=== PATIENT | female | born 1975 | race Caucasian/White ===

== ENCOUNTER → 2017-06-26 09:08 | Outpatient (CLI) | payer BC, SELFPAY ==
[2017-06-26 11:10] LABS: Follicle Stimulating Hormone 5.6 mIU/mL; Free T3 2.7 pg/mL (2.18-3.98); T4 Free Direct 0.79 ng/dL (0.76-1.46); Thyroid Stim Hormone (TSH) 3.29 uIU/mL (0.358-3.74)
== END ==
PROVIDERS: Visit Provider Obstetrics & Gynecology
DX: R53.83 Other fatigue (principal)
CPT/HCPCS: 36415; 83001; 84439; 84443; 84481

== ENCOUNTER → 2017-09-16 08:00 | Outpatient (CLI) | payer BC, SELFPAY ==
--- NOTE | 2017-09-16 08:03 | BI_ITS ---
MAMMOGRAPHY - BILATERAL SCREENING REASON FOR EXAM: Female, 42 years old. Routine annual screening examination. PERTINENT HISTORY: Non-contributory. TECHNIQUE: Digital bilateral breast fareed (3D mammographic acquisition) in the CC and MLO projections. 2-D mediolateral oblique (MLO) and craniocaudad (CC) views of both breasts were obtained. CAD: Full Field Digital Mammography with Computer Added Detection was performed. COMPARISON: Comparison is made with prior study dated September 14, 2016 and September 14, 2015. FINDINGS: Breast Composition: The breasts are heterogeneously dense, which may obscure small masses. There are no dominant masses or suspicious calcifications. There are stable small benign-appearing bilateral axillary lymph nodes. No other significant abnormalities are identified. There has been no significant change since the prior study. BI/SCREENING MAMM (CAD), BILAT IMPRESSION: Stable bilateral screening mammogram. Yearly follow-up mammogram recommended. (A) ASSESSMENT CATEGORY: BIRADS Category 2: Benign. A letter regarding these results will be sent to the patient by the facility within 30 days. Approximately 10% of breast cancers are not detected by mammography. A normal mammogram should not delay biopsy of a clinically suspicious abnormality. [id number] Electronically Signed: Stephen Watters MD at 10:07 EDT Tel [phone], Service support ,
== END ==
PROVIDERS: Family Provider Physician Assistant; PCP Physician Assistant; Visit Provider Obstetrics & Gynecology
DX: Z12.31 Encounter for screening mammogram for malignant neoplasm of breast (principal)
CPT/HCPCS: 77063; 77067

== ENCOUNTER → 2018-09-17 | Outpatient (CLI) | payer BC, SELFPAY ==
--- NOTE | 2018-09-17 08:07 | BI_ITS ---
MAMMOGRAPHY - BILATERAL SCREENING 3-D TOMOSYNTHESIS REASON FOR EXAM: Female, 43 years old. Bilateral Screening 3-D tomosynthesis PERTINENT HISTORY: No significant family history. TECHNIQUE: 2-D mammograms and 3-D Tomosynthesis of the breast (s) were performed. CAD was performed. COMPARISON: September 16, 2017, September 14, 2016, September 14, 2015 FINDINGS: The breast composition is composed of scattered fibroglandular density. Scattered benign calcifications are seen. No dense spiculated masses or suspicious microcalcifications are identified. No architectural distortion is identified. There is no skin thickening or retraction. There has been no significant change since the prior study. BI/SCREEN MAMM (CAD) W/GARRETT BILAT IMPRESSION: No mammographic signs of malignancy. Routine yearly mammograms recommended. ASSESSMENT CATEGORY: BIRADS Category 1: Negative. A letter regarding these results will be sent to the patient by the facility within 30 days. FOLLOW UP RECOMMENDATION: Yearly follow up mammogram recommended. (A) Approximately 10% of breast cancers are not detected by mammography. A normal mammogram should not delay biopsy of a clinically suspicious abnormality. Electronically Signed: Nadir Wyman MD at 11:02 EDT , Service support ,
== END | disposition home or self-care (01) ==
LOC: OPBI 08:05
PROVIDERS: Family Provider Family Medicine; PCP Family Medicine; Referring Provider Family Medicine; Visit Provider Family Medicine
DX: Z12.31 Encounter for screening mammogram for malignant neoplasm of breast (principal)
CPT/HCPCS: 77063; 77067

== ENCOUNTER → 2018-11-18 | Outpatient (CLI) | payer BC, SELFPAY ==
[2018-11-18 11:21] LABS: ALB/GLOB Ratio 0.9 RATIO (0.9-2.4); AST(SGOT) 18 U/L (15-37); Alanine Aminotransfer ALT/SGPT 33 U/L (13-56); Albumin, Serum 3.3 g/dL (3.2-5.0); Alkaline Phosphatase 91 U/L (45-117); Anion Gap 7 (5-15); BUN 11 mg/dL (7-18); BUN/Creat Ratio 18.6 RATIO (10-20); Calcium,Total 8.8 mg/dL (8.5-10.1); Chloride 109 mmol/L (98-107); Cholesterol 161 mg/dL (200); Creatinine, Serum 0.59 mg/dL (0.55-1.02); EST Glomerular Filtration Rate 118 mL/min (>60); Est Glom Filt Rate - Afr Amer 143 mL/min (>60); Globulin 3.8 g/dL (2.2-4.2); Glucose 101 mg/dL (74-106); High Density Lipoprotein 48 mg/dL; Potassium 3.5 mmol/L (3.5-5.1); Protein, Total 7.1 g/dL (6.4-8.2); Sodium Level 143 mmol/L (136-145); Triglycerides 169 mg/dL; Very Low Density Lipoprotein 34 mg/dL (5-40)
== END | disposition home or self-care (01) ==
LOC: MTLAB 09:10
PROVIDERS: Family Provider Family Medicine; PCP Family Medicine; Referring Provider Family Medicine; Visit Provider Family Medicine
DX: Z00.00 Encounter for general adult medical examination without abnormal findings (principal); E78.5 Hyperlipidemia, unspecified
CPT/HCPCS: 36415; 80053; 80061

== ENCOUNTER → 2019-09-22 | Outpatient (CLI) | payer BC, SELFPAY ==
--- NOTE | 2019-09-22 07:17 | BI_ITS ---
MAMMOGRAPHY - BILATERAL SCREENING REASON FOR EXAM: Female, 44 years old. Routine annual screening examination. PERTINENT HISTORY: Non-contributory. TECHNIQUE: Digital bilateral breast garrett (3D mammographic acquisition) in the CC and MLO projections. 2-D mediolateral oblique (MLO) and craniocaudad (CC) views of both breasts were obtained. CAD: Full Field Digital Mammography with Computer Added Detection was performed. COMPARISON: Comparison is made with prior study dated September 17, 2018 and September 16, 2017. FINDINGS: Breast Composition: The breasts are heterogeneously dense, which may obscure small masses. There are no dominant masses or suspicious calcifications. Stable small benign-appearing bilateral axillary lymph nodes. No other significant abnormalities are identified. There has been no significant change since the prior study. BI/SCREEN MAMM (CAD) W/GARRETT BILAT IMPRESSION: Stable bilateral screening mammogram. Yearly follow-up mammogram recommended. (A) ASSESSMENT CATEGORY: BIRADS Category 2: Benign. A letter regarding these results will be sent to the patient by the facility within 30 days. Approximately 10% of breast cancers are not detected by mammography. A normal mammogram should not delay biopsy of a clinically suspicious abnormality. [id number] Electronically Signed: Stephen Watters, at 9:17 EDT , Service support ,
== END | disposition home or self-care (01) ==
LOC: OPBI 07:15
PROVIDERS: PCP Family Medicine; Referring Provider Family Medicine; Visit Provider Family Medicine
DX: Z12.31 Encounter for screening mammogram for malignant neoplasm of breast (principal)
CPT/HCPCS: 77063; 77067

== ENCOUNTER → 2019-10-29 16:11 | Outpatient (CLI) | payer BC, SELFPAY ==
[2019-10-29 18:41] LABS: CRP 8.18 mg/L (0.0-3.0)
[2019-10-29 19:44] LABS: Erythrocyte Sedimentation Rate 38 mm/hr (0-20)
== END ==
PROVIDERS: PCP Family Medicine
DX: T81.49XA Infection following a procedure, other surgical site, initial encounter (principal)
CPT/HCPCS: 36415; 85652; 86140

== ENCOUNTER 2019-11-02 15:01 | Emergency (ER) | payer BC, SELFPAY ==
[2019-11-02 15:01] VITALS: BP 137/80; PULSE 85; RESP 16; TEMP 36.8; O2SAT 96; BMI 32.8
--- NOTE | 2019-11-02 15:37 | ED.RN ---
PT'S SPOUSE STATED THEY JUST WERE GOING TO GO HOME, STATES PT IS GETTING AGITATED, HE FEELS SHE IS STABLE SINCE SHES ALREADY BEING TREATED FOR SYMPTOMS. VOICES UNDERSTANDING TO RETURN OR CALL 911 FOR SYMPTOMS.
== END 2019-11-02 15:37 | disposition left against medical advice (07) ==
LOC: ED 15:47
PROVIDERS: Emergency Provider Emergency Medicine; PCP Family Medicine
DX: Z53.21 Procedure and treatment not carried out due to patient leaving prior to being seen by health care provider (principal)

== ENCOUNTER 2020-01-12 09:00 | Outpatient (RCR) | payer BC, SELFPAY ==
--- NOTE | 2019-10-13 12:24 | HP.PTEVAL ---
Patient's Visit Information TRACY MALCOLM is a 44 year old F referred to Physical Therapy by OJ SIDHU with a diagnosis of L THR s/p 09-28-2019. Date of Evaluation: 10/13/19 Physical Therapist: BRAD Delgado - Visit Plan Frequency: 3x /Week Duration: 2 Months Plan: 3X/ week for 8 weeks ( requesting 3X/ week due to amount of weakness present and complexity of surgery due to hip displegia and shortened and weak musculature on the L) for L hip, knee and ankle ROM, stretching, MT, strengthening, gait training, functional training, with HEP and modalities as needed. +++Need to get clarification on current WB status... pt is not aware of WB status just that she is to use the walker. - Subjective Pt had surgery September 28, 2019. Pt was born with L hup dysplasia but did not notice it until she started walking. Until recently they told her to wait to have surgery. SHe was having problems with her R hip and she needs a replacement on the R but they started with theL THR. SHe has a new ball and new socket and cut 1.5 inches off her femur bone and placed a parish. They did a anterior and posterior approach. She could not get her surgery in [place] and so she went to [facility] in [place] and Dr Oj Sidhu MD .... fax . She describes the pain in her legs... tightness and achiness. They have her up and walking right after surgery. She has been walking at home. If she sits she gets a lot of swelling. She is doing HEP: foot pumps, squeeze butt cheeks, and one other one for blood clots. Stairs: split level (6 up and then another 6 up with 1 hand rail)... She does them with a step 2 pattenr and uses one railing. She has a walker at the top of the steps and one at the bottom of the steps. She fell the other day when she put full weight through her L leg and it buckled. She is able to get in and out of the shower... today was the first day to take a shower on her own. She is not driving. SHe has always been a toe walker.... - Pain L hip pain Pain Intensity (Out of 10): 3 Pain Intensity Range: 10 Comment: on pain meds - Objective Gait: walks with decreased heel to toe especially on the L LE.... with a front wheeled walker with small steps and heavy use of the walker. Pt walks with decrease pressure throught the L LE. L DF -10 degrees from neutral. L knee flexion 120 degrees (Extremely tight L gastroc). L knee extension -20 degrees from full extension after MT to the L HS and some manual therapist OP. (was -30 degrees extension prior to MT). Pt needs min A to get L leg up on the mat table... Pt is not able to complete LAQ on the L due to decreased ability to extend her L knee. MMT was not tested due to surgical procedure but pt is NOT able to do a SLR and therapist needed to help with MOD A to elevate L SLR on the L. Pt is unable to activate L hip abductors in supine and resisted AA due to increase pain. - Goals Goal 1:: I HEP Goal Time Frame: 8-12 Weeks Goal 2:: Pt to achieve full knee extension AROM and Ankle DF to neutral or greater ROM to achieve normal gait pattern. Pt has a lot of soft tissue restriction from never walking with a normal gait pattern entire life due to hip dysplasia Goal Time Frame: 8-12 Weeks Goal 3:: Increase L hip strength to be able to do 3 X 10 SLR, s/l Hip abd without pain or difficulty Goal Time Frame: 8-12 Weeks Goal 4:: Pt to be able to walk without an AD with non antalgic gait with smooth heel to toe pattern on the L Goal Time Frame: 8-12 Weeks - Rehabilitation Potential Rehabilitation Potential: Good - Anticipated Interventions Patient/Client Instruction: Educate patient on: Condition, Plan of Care For the Purpose of:: To decrease pain, To decrease swelling/inflammation, To increase ROM, To improve nutrient delivery to tissue, To improve muscle performance and motor function, To improve ability to perform ADL's, To increase tolerance to activity/condition/position, To improve performance and independence with ADL's, To decrease level of supervision to perform tasks, To improve ability of physical actions for home/community/work/leisure, To improve gait and locomotor functions, To improve health of tissue, To decrease soft tissue restriction, To increase flexibility/ROM, To improve endurance, To improve balance, To improve safety with gait Therapeutic Exercise to Include: Strength training, Endurance training, Postural training, Flexibilty training, Gait and locomotor training, Passive ROM, Active ROM For the Purpose of:: To decrease pain, To decrease swelling/inflammation, To increase ROM, To improve nutrient delivery to tissue, To improve muscle performance and motor function, To improve ability to perform ADL's, To increase tolerance to activity/condition/position, To improve performance and independence with ADL's, To decrease level of supervision to perform tasks, To improve ability of physical actions for home/community/work/leisure, To improve gait and locomotor functions, To improve health of tissue, To decrease soft tissue restriction, To increase flexibility/ROM, To improve endurance, To improve balance, To improve safety with gait Functional Training to Include: Gait training For the Purpose of:: To improve gait and locomotor functions Manual Therapy Techniques to Include: Soft tissue mobilization For the Purpose of:: To decrease swelling/inflammation, To increase ROM, To improve nutrient delivery to tissue, To improve health of tissue, To decrease soft tissue restriction, To increase flexibility/ROM Cryotherapy (ice pack, ice massage): Yes For the Purpose of:: To decrease pain, To decrease swelling/inflammation, To increase ROM, To improve nutrient delivery to tissue Thank you for the opportunity to evaluate your patient. For Medicare and Medicare HMO plans, please review the plan of care and approve it. It will need to be FAXED BACK to us at [phone] for Medicare purposes. For Medicare only, by signing this I certify the plan of care. Please let me know if there are questions or concerns regarding this plan of care. Physician Signature: Date:
--- NOTE | 2019-11-24 09:03 | HP.PTREVAL_ITS ---
OJ SIDHU, It has been my pleasure to treat TRACY MALCOLM over the last 8 visits for L THR s/p 09-28-2019. Please see the progress note below for an update on the physical therapy plan of care! Subjective: Pt had surgery a week ago to cut out the infection. They did not have to change the prosthesis. She is still walking at home and doing her steps and exercises. Pt RTD to get stitches out on Saturday. She was out of it after the surgery. She complains of stiffness this morning. She gets some nerve pain around the incision but none now. Objective/Function: Pt was more fatigued muscular zapata today probably due to second surgery... L SLR.... still difficulty to do.... can only do X 10 at a time as she does fatigue out with trunk substitution. Stairs: up and down recip with 2 hand rails with decrease stance time on the L and decreased DF so pt likes to go into knee valgus and L foot eversion to compensate. Pt really felt her L Quad with correction of knee valgus. Gait: Pt walks with substitution of L knee valgus and eversion of L ankle for true DF ROM.. corrects with verbal cues. Decrease stance time on the L LE, obvious decreased girth L leg. Extremely tight L gastroc. L ankle DF: -10 degrees from neutral Plan Plan: Contact [facility] for additional visits due to second surgery a week ago and increased stiffness, decreased gait mechanics, decreased functional strength, decreased ankle ROM, and compensation patterns. Request 9 additional visits. Pt will continue to work on L hip strength, ROM, gait mechanics, functional activities with HEP. Goals Goal 1:: I HEP Goal Time Frame: 8-12 Weeks Goal Progress: Progressing Goal 2:: Pt to achieve full knee extension AROM and Ankle DF to neutral or greater ROM to achieve normal gait pattern. Pt has a lot of soft tissue restriction from never walking with a normal gait pattern entire life due to hip dysplasia Goal Time Frame: 8-12 Weeks Goal Progress: Progressing Goal 3:: Increase L hip strength to be able to do 3 X 10 SLR, s/l Hip abd without pain or difficulty Goal Time Frame: 8-12 Weeks Goal Progress: Progressing Goal 4:: Pt to be able to walk without an AD with non antalgic gait with smooth heel to toe pattern on the L Goal Time Frame: 8-12 Weeks Goal Progress: Progressing Anticipated Interventions Patient/Client Instruction: Educate patient on: Condition, Plan of Care For the Purpose of:: To decrease pain, To decrease swelling/inflammation, To increase ROM, To improve nutrient delivery to tissue, To improve muscle performance and motor function, To improve ability to perform ADL's, To increase tolerance to activity/condition/position, To improve performance and independence with ADL's, To decrease level of supervision to perform tasks, To improve ability of physical actions for home/community/work/leisure, To improve gait and locomotor functions, To improve health of tissue, To decrease soft tiss ue restriction, To increase flexibility/ROM, To improve endurance, To improve balance, To improve safety with gait Therapeutic Exercise to Include: Strength training, Endurance training, Postural training, Flexibilty training, Gait and locomotor training, Passive ROM, Active ROM For the Purpose of:: To decrease pain, To decrease swelling/inflammation, To increase ROM, To improve nutrient delivery to tissue, To improve muscle performance and motor function, To improve ability to perform ADL's, To increase tolerance to activity/condition/position, To improve performance and independence with ADL's, To decrease level of supervision to perform tasks, To improve ability of physical actions for home/community/work/leisure, To improve gait and locomotor functions, To improve health of tissue, To decrease soft tissue restriction, To increase flexibility/ROM, To improve endurance, To improve balance, To improve safety with gait Functional Training to Include: Gait training For the Purpose of:: To improve gait and locomotor functions Manual Therapy Techniques to Include: Soft tissue mobilization For the Purpose of:: To decrease swelling/inflammation, To increase ROM, To improve nutrient delivery to tissue, To improve health of tissue, To decrease soft tissue restriction, To increase flexibility/ROM Cryotherapy (ice pack, ice massage): Yes For the Purpose of:: To decrease pain, To decrease swelling/inflammation, To increase ROM, To improve nutrient delivery to tissue Please do not hesitate to contact me at [phone] by phone or if you have questions or concerns regarding this new plan of care! Sincerely, Kamila Young, BRAD
--- NOTE | 2019-12-08 09:56 | HP.PTREVAL ---
OJ SIDHU, It has been my pleasure to treat TRACY MALCOLM over the last 10 visits for L THR s/p 09-28-2019. Please see the progress note below for an update on the physical therapy plan of care! Subjective: Pt reports that she is sore since she walked the fair. She got the stitches out and took steri-strips off yesterday and it looks good. 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 Objective/Function: Pt really felt the 8 inch step up with using her UE less and less. L hip AAROM to 90 degrees. L knee ext AROM -1 degree from full extension. L ankle DF AROM: -2 degrees from neutral Plan Plan: Pt will continue to work on L hip strength, ROM, gait mechanics, functional activities with HEP. Goals Goal 1:: I HEP Goal Time Frame: 8-12 Weeks Goal Progress: Progressing Goal 2:: Pt to achieve full knee extension AROM and Ankle DF to neutral or greater ROM to achieve normal gait pattern. Pt has a lot of soft tissue restriction from never walking with a normal gait pattern entire life due to hip dysplasia Goal Time Frame: 8-12 Weeks Goal Progress: Progressing Goal 3:: Increase L hip strength to be able to do 3 X 10 SLR, s/l Hip abd without pain or difficulty Goal Time Frame: 8-12 Weeks Goal Progress: Progressing Goal 4:: Pt to be able to walk without an AD with non antalgic gait with smooth heel to toe pattern on the L Goal Time Frame: 8-12 Weeks Goal Progress: Progressing Anticipated Interventions Patient/Client Instruction: Educate patient on: Condition, Plan of Care For the Purpose of:: To decrease pain, To decrease swelling/inflammation, To increase ROM, To improve nutrient delivery to tissue, To improve muscle performance and motor function, To improve ability to perform ADL's, To increase tolerance to activity/condition/position, To improve performance and independence with ADL's, To decrease level of supervision to perform tasks, To improve ability of physical actions for home/community/work/leisure, To improve gait and locomotor functions, To improve health of tissue, To decrease soft tissue restriction, To increase flexibility/ROM, To improve endurance, To improve balance, To improve safety with gait Therapeutic Exercise to Include: Strength training, Endurance training, Postural training, Flexibilty training, Gait and locomotor training, Passive ROM, Active ROM For the Purpose of:: To decrease pain, To decrease swelling/inflammation, To increase ROM, To improve nutrient delivery to tissue, To improve muscle performance and motor function, To improve ability to perform ADL's, To increase tolerance to activity/condition/position, To improve performance and independence with ADL's, To decrease level of supervision to perform tasks, To improve ability of physical actions for home/community/work/leisure, To improve gait and locomotor functions, To improve health of tissue, To decrease soft tissue restriction, To increase flexibility/ROM, To improve endurance, To improve balance, To improve safety with gait Functional Training to Include: Gait training For the Purpose of:: To improve gait and locomotor functions Manual Therapy Techniques to Include: Soft tissue mobilization For the Purpose of:: To decrease swelling/inflammation, To increase ROM, To improve nutrient delivery to tissue, To improve health of tissue, To decrease soft tissue restriction, To increase flexibility/ROM Cryotherapy (ice pack, ice massage): Yes For the Purpose of:: To decrease pain, To decrease swelling/inflammation, To increase ROM, To improve nutrient delivery to tissue Please do not hesitate to contact me at [phone] by phone or if you have questions or concerns regarding this new plan of care! Sincerely, BRAD Delgado
--- NOTE | 2020-01-12 10:03 | HP.PTDCSUM ---
It has been my pleasure to treat TRACY MALCOLM referred by OJ SIDHU, with the diagnosis of L THR s/p 09-28-2019 for a total of 14 visit(s). Discharge Date: 01/12/20 Please see the following information for a summary of their discharge status. Subjective: Pt reports that she has been walking better and working out at home everyday. She is up to 2 miles a day on the treadmill and she has to stop twice because the muscle get burning really bad... she was not watching her speed and she was not power walking L hip pain Pain Intensity (Out of 10): 0 LLE MUSCLES Pain Intensity (Out of 10): 0 Incision Pain Intensity (Out of 10): 0 % Improvement: 85 Objective/Function: Stairs: up and down recip with no hand rails with wider NICCI and increase valgus on the L knee.... encouraging continued hip abd strength. Gait: walks with more equal stance time with increase valgus on the L knee (due to weak hip abd or hindfoot eversion???). LE MMT: L hip abd 4-/5, R hip abd 4/5, R hip ext 4-/5, L hip ext 4/5, R hip flex 4/5 and L hip flex 4/5. L ankle DF to neutral AROM... L ankle AROM: Goal 1:: I HEP Goal Progress: Goal Met Goal 2:: Pt to achieve full knee extension AROM and Ankle DF to neutral or greater ROM to achieve normal gait pattern. Pt has a lot of soft tissue restriction from never walking with a normal gait pattern entire life due to hip dysplasia Goal Progress: Progressing Goal 3:: Increase L hip strength to be able to do 3 X 10 SLR, s/l Hip abd without pain or difficulty Goal Progress: Goal Met Goal 4:: Pt to be able to walk without an AD with non antalgic gait with smooth heel to toe pattern on the L Goal Progress: Goal Met Plan: DC PT to HEP Discharge Comments: DC PT to HEP If there are questions or concerns regarding this patient's physical therapy, please feel free to call me at [phone]. Thank you for the referral of this patient. Sincerely, Kamila Young, MPT
== END 2020-01-12 19:00 | disposition home or self-care (01) ==
LOC: PT 09:00
PROVIDERS: PCP Family Medicine
DX: M16.32 Unilateral osteoarthritis resulting from hip dysplasia, left hip (principal)
CPT/HCPCS: 97110; 97116; 97162; 97530

== ENCOUNTER 2020-05-11 21:39 | Emergency (ER) | payer BC, SELFPAY ==
[2020-05-11 21:42] VITALS: BP 139/76; PULSE 89; RESP 14; TEMP 36.9; O2SAT 98; BMI 28.3
--- NOTE | 2020-05-11 22:05 | ED.DCSUM_ITS ---
- ER Visit Summary Date of Service: 05/11/20 Chief Complaint: Depression History of Present Illness: The patient is a 44 F who reports that she sees Dr. Khan. She does not see a psychiatrist. She began counseling 2 days ago. She reports that she is been having problems with her since before [place] and that tonight she got to her wits end. She states that she feels alone and hopeless. Her will talk with her. She asked her 20-year-old daughter today how her was doing and she got nasty with her. She states that she slammed the door and told her daughter to get the fuck out and not come back. She is very upset because she is never talked with her daughter like this previously. However, the patient denies any suicidal or homicidal ideation. No auditory visual hallucinations. Physical Examination: Vitals: Stable. Afebrile. General: Well-nourished and well-developed. Head: Normocephalic atraumatic. Neck: Supple, no lymphadenopathy. No JVD. Nontender. Cardiovascular: Regular rate and rhythm. No murmurs. Respiratory: No respiratory distress. Clear to auscultation bilaterally. Abdominal: Soft, nontender, nondistended, normal bowel sounds. No guarding, rebound, or peritoneal signs. Back: Nontender. Extremities: Nontender, no edema. Skin: Normal color, no rash. Neurologic: Alert and oriented ?3. Cranial nerves II through XII are intact. Normal strength and sensation. Mental status exam: Patient appears their stated age. Good posture and grooming. Good eye contact. Normal rate, volume, and latency of speech. No suicidal or homicidal ideation. No auditory or visual hallucinations. Flow of thought is logical. Insight and judgment is fair. Emergency Department Course and Treatment: I had a prolonged discussion with patient about what we could do to help her. She states that she is just upset and would like to go home. I spoke with her about the possibility of talking with a counselor from the counseling center. She states that she does not like the counseling center and goes [facility]. She believes that she can get a hold of her counselor tomorrow. We talked about the possibility of changing her medications. However, it sounds as though she has had bad luck with medication changes in the past. Treatment Plan: Patient be discharged instructions to follow-up with her counselor and her primary care physician who prescribes her antidepressants as soon as possible. Return to emerge department for any thoughts of harming herself. Disposition: To home in improved and stable condition. Impression: 1 1. Depression. This note was generated with [employer] software. It may contain incorrect words, spelling, and punctuation that were not noted in review of the chart prior to signing ED Disposition - Plan for ED Patient: Disposition: Home or Assisted Living Instructions: ED Depression Referrals: Aida Khan, [Primary Care Provider] - As soon as possible Additional Instructions: Follow up with your Counselor as soon as possible.
== END 2020-05-11 22:06 | disposition home or self-care (01) ==
LOC: ED 22:20
PROVIDERS: Emergency Provider Emergency Medicine; PCP Family Medicine
DX: F32.9 Major depressive disorder, single episode, unspecified (principal); Z72.0 Tobacco use
CPT/HCPCS: 99282

== ENCOUNTER 2020-07-28 14:51 | Emergency (ER) | payer BC, SELFPAY ==
[2020-07-28] VITALS (9 sets, daily range): BP systolic 116–127; BP diastolic 62–77; PULSE 79–102; RESP 14–17; TEMP 36.4; O2SAT 96–97; BMI 26.2
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
--- NOTE | 2020-07-28 17:30 | EDS_ITS ---
HPI HPI - Psych History of Present Illness Chief Complaint: Mental Health Narrative Narrative: Patient reports that she is going through a divorce and is not doing well. She is having anger that is so bad that she is scaring herself. She also felt reports that she feels depressed and hopeless. She is having suicidal thoughts. She denies any homicidal ideation. Patient reports that she has a history of bipolar disorder and has taken her Zoloft and Seroquel religiously. She saw her primary care physician was placed on a new medication approximate month ago. She does not remember the name of this. It is not helping. [facility] Medical History (Updated 07/28/20 @ 17:43 by Lucia Espitia) Anxiety Depression High cholesterol Home Medications sertraline 100 mg PO BID 09/08/14 [History Last Taken Unknown] Omeprazole [Prilosec] 40 mg PO DAILY 11/23/15 [History Last Taken 11/29/15 07:30] multivitamin [Daily Multiple] 1 ea PO DAILY 11/23/15 [History Last Taken Unknown] quetiapine [Seroquel] 400 mg PO QHS 11/23/15 [History Last Taken Unknown] rosuvastatin [Crestor] 20 mg PO QHS 11/23/15 [History Last Taken Unknown] ibuprofen 800 mg PO Q6H #30 tablet 11/29/15 [Rx Last Taken Unknown] hydrocodone-acetaminophen 1 - 2 tab PO Q4H PRN PRN #30 tablet 05/16/16 [Rx Last Taken Unknown] Ca-D3-mag wc-iivp-mqz-[place]-bor 1 ea PO DAILY 05/28/16 [History Last Taken Unknown] amoxicillin 500 mg PO TID 06/04/16 [History Last Taken 06/04/16 06:00] hydrocodone-acetaminophen 2 tab PO Q6H PRN PRN #40 tablet 06/04/16 [Rx Last Taken Unknown] ibuprofen 800 mg PO Q8H PRN PRN #30 tablet 06/04/16 [Rx Last Taken Unknown] docusate sodium [Colace] 100 mg PO BID #30 capsule 06/08/16 [Rx Last Taken Unknown] promethazine 25 mg PO Q6H PRN PRN #30 tablet 06/08/16 [Rx Last Taken Unknown] Allergy/AdvReac Type Severity Reaction Status Date / Time oxycodone [From Percocet] AdvReac ITCHING, Verified 07/28/20 14:55 HALLUCINATIONS Social History Smoking Status: Current every day smoker ROS ROS ED Constitutional Constitutional ED: Denies chills, fever(s) or sweats Eyes Eyes: Denies change in vision ENT ENT ED: Denies sore throat Cardiovascular Cardiovascular: Denies chest pain Respiratory/Chest Respiratory/Chest: Denies cough, dyspnea or dyspnea on exertion Gastrointestinal Gastrointestinal: Denies abdominal pain, diarrhea, melena, nausea or vomiting Genitourinary Genitourinary ED: Denies dysuria or urinary frequency Musculoskeletal Musculoskeletal: Denies myalgias Integumentary Denies rash Neurologic Neurologic: Denies headache(s), paresthesias or weakness Psychiatric Psychiatric: Reports anxiety, depression, suicidal ideation and other EXAM Physical Exam Const Vital Signs: 07/28/20 14:53 07/28/20 16:15 07/28/20 17:42 Temperature 97.6 F L Temperature Source Temporal Pulse Rate 102 H Respiratory Rate 17 16 16 Blood Pressure 116/62 Blood Pressure Mean 80 Pulse Ox 96 Oxygen Delivery Method Room Air 07/28/20 18:32 07/28/20 19:39 Temperature Temperature Source Pulse Rate 79 Respiratory Rate 16 16 Blood Pressure 127/77 H Blood Pressure Mean 93 Pulse Ox 97 Oxygen Delivery Method Room Air Positive well nourished and well developed General Appearance ED: well developed HEENT normocephalic and atraumatic Eyes PERRL Neck no lymphadenopathy, supple and no JVD General: Negative for tenderness Chest Wall Chest: Negative for tenderness Resp clear to auscultation bilaterally Effort and Inspection: Negative for respiratory distress Cardio regular rate, regular rhythm and no murmurs GI normal to inspection, nondistended, normoactive bowel sounds, soft to palpation and non-tender GI Narrative: No guarding, rebound, or peritoneal signs. Back/Spine no thoracic nor lumbar tenderness Extremity General Extremety ED: Negative for edema or tenderness General Extremity: Negative for edema Neuro oriented x3, CN's II-XII intact bilaterally and no sensory deficits noted Sensorium / Orientation: awake and alert Motor Exam: strength 5/5 throughout Psych denies hallucinations and denies homicidal ideation; Negative for denies suicidal ideation Psych Narrative: Mental status exam: Patient appears their stated age. Good posture and grooming. Good eye contact. Normal rate, volume, and latency of speech. No homicidal ideation. No auditory or visual hallucinations. Flow of thought is logical. Insight and judgment is fair. Skin no rashes or lesions noted MDM MDM MDM Narrative Medical decision making narrative: Patient was discussed with case management. They have seen her in the emergency department and anticipate transferring her to a psychiatric facility. She is resting comfortably. Treatment plan: The patient is medically cleared. She will be transferred to a psychiatric hospital once she has been accepted. She is resting comfortably. Lab Data Labs: Laboratory Results - last 24 hr 07/28/20 07/28/20 07/28/20 17:38 17:38 17:38 WBC 12.5 H RBC 4.22 Hgb 13.0 Hct 39.1 MCV 92.7 MCH 30.8 MCHC 33.2 RDW Std Deviation 51.1 H RDW Coeff of Patrick 15.0 H Plt Count 446 MPV 9.7 Immature Gran % (Auto) 0.300 Neut % (Auto) 68.0 Lymph % (Auto) 23.5 [place] % (Auto) 5.8 Eos % (Auto) 1.6 Baso % (Auto) 0.8 Absolute Neuts (auto) 8.5 H Absolute Lymphs (auto) 2.94 Nucleated RBC % 0 Sodium 140 Potassium 3.5 Chloride 106 Carbon Dioxide 28.0 Anion Gap 6 BUN 5 L Creatinine 0.54 L Estim Creat Clear Calc 108.83 Est GFR (MDRD) Af Amer 157 Est GFR (MDRD) Non-Af 130 BUN/Creatinine Ratio 9.3 L Glucose 99 Calcium 9.2 Total Bilirubin 0.40 AST 13 L ALT 21 Alkaline Phosphatase 114 Total Protein 7.7 Albumin 3.6 Globulin 4.1 Albumin/Globulin Ratio 0.9 Serum , Qual Urine Opiates Screen Urine Methadone Screen Ur Barbiturates Screen Ur Phencyclidine Scrn Ur Amphetamines Screen U Methamphetamin-MDMA U Benzodiazepines Scrn Urine Cocaine Screen U Cannabinoids Screen Ur Drug Screen Comment Ethyl Alcohol 4.0 07/28/20 07/28/20 17:38 17:44 WBC RBC Hgb Hct MCV MCH MCHC RDW Std Deviation RDW Coeff of Patrick Plt Count MPV Immature Gran % (Auto) Neut % (Auto) Lymph % (Auto) [place] % (Auto) Eos % (Auto) Baso % (Auto) Absolute Neuts (auto) Absolute Lymphs (auto) Nucleated RBC % Sodium Potassium Chloride Carbon Dioxide Anion Gap BUN Creatinine Estim Creat Clear Calc Est GFR (MDRD) Af Amer Est GFR (MDRD) Non-Af BUN/Creatinine Ratio Glucose Calcium Total Bilirubin AST ALT Alkaline Phosphatase Total Protein Albumin Globulin Albumin/Globulin Ratio Serum , Qual NEGATIVE Urine Opiates Screen NEGATIVE Urine Methadone Screen NEGATIVE Ur Barbiturates Screen NEGATIVE Ur Phencyclidine Scrn NEGATIVE Ur Amphetamines Screen NEGATIVE U Methamphetamin-MDMA NEGATIVE U Benzodiazepines Scrn NEGATIVE Urine Cocaine Screen NEGATIVE U Cannabinoids Screen POSITIVE H Ur Drug Screen Comment Ethyl Alcohol Microbiology Final Results - last 24 hrs 07/28/20 19:10 SARS-CoV-2 Antigen (Rapid) - Final Nasal Secretion Discharge Plan Triage Chief Complaint: Mental Health ED Provider: Juan Blevins Dx/Rx/DC Orders Prescriptions: No Action sertraline 100 MG tablet 100 mg PO BID RF: 0 multivitamin [Daily Multiple] 1 EACH tablet 1 ea PO DAILY RF: 0 rosuvastatin [Crestor] 20 MG tablet 20 mg PO QHS RF: 0 quetiapine [Seroquel] 400 MG tablet 400 mg PO QHS RF: 0 Omeprazole [Prilosec] 40 MG capsule 40 mg PO DAILY RF: 0 ibuprofen 400 MG tablet 800 mg PO Q6H Qty: 30 RF: 1 Ca-D3-mag ax-smng-lts-[place] 1 EACH Tab.Chew 1 ea PO DAILY RF: 0 amoxicillin 500 MG capsule 500 mg PO TID RF: 0 hydrocodone-acetaminophen 1 TABLET tablet 2 tab PO Q6H PRN PRN (Reason: Severe Pain (6-01/01)) Qty: 40 RF: 0 ibuprofen 400 MG tablet 800 mg PO Q8H PRN PRN (Reason: pain or cramping) Qty: 30 RF: 1 docusate sodium [DOK] 100 MG capsule 100 mg PO BID Qty: 30 RF: 1 promethazine 25 MG tablet 25 mg PO Q6H PRN PRN (Reason: Nausea) Qty: 30 RF: 0 hydrocodone-acetaminophen 1 TABLET tablet 1 - 2 tab PO Q4H PRN PRN (Reason: Pain) Qty: 30 RF: 0 Primary Care Provider: Aida Khan
[2020-07-28 18:06] LABS: Absolute Lymphocyte Count 2.94 X10^3/uL (0.83-4.51); Absolute Neutrophil Count 8.5 X10^3/uL (2.0-7.7); Basophil% 0.8 % (0-1); Eosinophils% 1.6 % (0-5); Hematocrit 39.1 % (37-47); Lymphocyte # 2.94 X10^3/ul (0.83-4.51); Lymphocyte % 23.5 % (19-41); Mean Corp Hgb Conc 33.2 g/dL (32-36); Mean Corpuscular Hgb 30.8 pg (27.0-32.0); Mean Corpuscular Volume 92.7 fL (81-99); Mean Platelet Vol. 9.7 fl (6.2-12.0); Monocyte# 0.73 X10^3/uL; Monocyte% 5.8 % (0-10); NRBC Flagged by Analyzer 0 % (0-5); Platelet Count 446 K/mm3 (150-450); RBC Distribution Width SD 51.1 fl (35.1-43.9); Red Blood Count 4.22 M/mm3 (4.2-5.4); White Blood Count 12.5 K/mm3 (4.4-11.0)
[2020-07-28 18:15] LABS: ALB/GLOB Ratio 0.9 RATIO (0.9-2.4); AST(SGOT) 13 U/L (15-37); Alanine Aminotransfer ALT/SGPT 21 U/L (13-56); Albumin, Serum 3.6 g/dL (3.2-5.0); Alkaline Phosphatase 114 U/L (45-117); Anion Gap 6 (5-15); BUN 5 mg/dL (7-18); BUN/Creat Ratio 9.3 RATIO (10-20); Calcium,Total 9.2 mg/dL (8.5-10.1); Chloride 106 mmol/L (98-107); Creatinine, Serum 0.54 mg/dL (0.55-1.02); EST Glomerular Filtration Rate 130 mL/min (>60); Est Glom Filt Rate - Afr Amer 157 mL/min (>60); Estimated Creatinine Clearance 108.83 ml/min; Globulin 4.1 g/dL (2.2-4.2); Glucose 99 mg/dL (74-106); Potassium 3.5 mmol/L (3.5-5.1); Protein, Total 7.7 g/dL (6.4-8.2); Sodium Level 140 mmol/L (136-145)
[2020-07-28 18:36] LABS: Amphetamine Urine VISTA NEGATIVE (<1000 ng/mL); Barbiturate Urine VISTA NEGATIVE (< 200 ng/mL); Benzodiazepine Urine VISTA NEGATIVE (< 200 ng/mL); Cocaine Urine VISTA NEGATIVE (< 300 ng/mL); Ecstacy Urine VISTA NEGATIVE (< 500 ng/mL); Methadone Urine VISTA NEGATIVE (< 300 ng/mL); PCP Urine VISTA NEGATIVE (< 25 ng/mL); THC Urine VISTA POSITIVE (< 50 ng/mL); Vista UDS pH Range 6
[2020-07-28] MEDS: Ibuprofen 600 MG Tablet PO (19:02)
[2020-07-28 19:25] LABS: Internal QC Validated? YES +Cl - CLEAR BKGD; Pregnancy, Serum, hCG Quali. NEGATIVE Negative
--- NOTE | 2020-07-28 19:40 | CM.ED ---
SOCIAL WORK Referral has been faxed and called to [facility], pending review at this time. Do Shell, PARTY COORDINATOR, MACHINE GROUP LEADER
--- NOTE | 2020-07-28 20:30 | CM.ED ---
SOCIAL WORK Handoff given to ED escrow secretary, Micheline and Dr. Blevins. Patient pending at [facility] at end of SW shift. [facility] to call ER with accepting information. 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
--- NOTE | 2020-07-28 20:32 | CM.ED ---
SOCIAL WORK Patient declined at [facility]. Call to [facility]. No beds available. Call to [facility]. Referral faxed at this time, pending review. [employer], TRANSMITTER TESTER, SPEECH AND LANGUAGE TUTOR
[2020-07-28] MEDS: QUEtiapine 100 MG Tablet 400 MG PO (23:10)
[2020-07-28] MEDS: Sertraline 100 MG Tablet PO (23:11)
[2020-07-28] MEDS: Ziprasidone IM 20 MG/ML VIAL IM (23:12)
[2020-07-29 01:59] VITALS: RESP 16
[2020-07-29 03:07] VITALS: BP 109/68; PULSE 73; RESP 16; TEMP 36.4; O2SAT 93
== END 2020-07-29 03:23 ==
LOC: ED 17:12
PROVIDERS: Emergency Provider Emergency Medicine; PCP Family Medicine
DX: R45.851 Suicidal ideations (principal); F31.9 Bipolar disorder, unspecified; E78.00 Pure hypercholesterolemia, unspecified; F17.200 Nicotine dependence, unspecified, uncomplicated; Z79.899 Other long term (current) drug therapy
CPT/HCPCS: 80053; 80307; 82077; 84703; 85025; 87426; 96372; 99285; J3486

== ENCOUNTER → 2020-09-29 08:17 | Outpatient (CLI) | payer BC, SELFPAY ==
[2020-07-28 14:53] VITALS: BMI 26.2
--- NOTE | 2020-09-29 08:20 | BI_ITS ---
MAMMOGRAPHY - BILATERAL SCREENING REASON FOR EXAM: Female, 45 years old. Routine annual screening examination. PERTINENT HISTORY: Non-contributory. TECHNIQUE: Digital bilateral breast garrett (3D mammographic acquisition) in the CC and MLO projections. 2-D mediolateral oblique (MLO) and craniocaudad (CC) views of both breasts were obtained. CAD: Full Field Digital Mammography with Computer Added Detection was performed. COMPARISON: Comparison is made with prior examination dated 09/22/2019 and 09/17/2018. FINDINGS: Breast Composition: The breasts are heterogeneously dense, which may obscure small masses. There are no dominant masses or suspicious calcifications. Stable small benign appearing bilateral axillary lymph nodes. No other significant abnormalities are identified. There has been no significant change since the prior study. BI/SCRN MAMM (CAD)W/GARRETT BILAT IMPRESSION: Stable bilateral screening mammogram. Yearly follow-up mammogram recommended. (A) ASSESSMENT CATEGORY: BIRADS Category 2: Benign. A letter regarding these results will be sent to the patient by the facility within 30 days. Approximately 10% of breast cancers are not detected by mammography. A normal mammogram should not delay biopsy of a clinically suspicious abnormality. [id number] Electronically Signed: Stephen Watters MD at 9:02 EDT , Service support ,
== END ==
PROVIDERS: PCP Family Medicine; Referring Provider Family Medicine; Visit Provider Family Medicine
DX: Z12.31 Encounter for screening mammogram for malignant neoplasm of breast (principal)
CPT/HCPCS: 77063; 77067

== ENCOUNTER → 2021-03-20 | Outpatient (CLI) | payer BC, SELFPAY | END | disposition home or self-care (01) | LOC: LABSPEC 13:50 | PROVIDERS: PCP Family Medicine; Referring Provider Physician Assistant; Visit Provider Physician Assistant | DX: Z20.822 Contact with and (suspected) exposure to COVID-19 (principal) | CPT/HCPCS: 87635; U0005; U0003 ==

== ENCOUNTER 2021-04-24 09:59 | Outpatient (CLI) | payer BC, SELFPAY ==
[2021-04-24 13:17] LABS: ALB/GLOB Ratio 0.8 RATIO (0.9-2.4); AST(SGOT) 16 U/L (15-37); Alanine Aminotransfer ALT/SGPT 23 U/L (13-56); Albumin, Serum 3.5 g/dL (3.2-5.0); Alkaline Phosphatase 112 U/L (45-117); Anion Gap 7 (5-15); BUN 7 mg/dL (7-18); BUN/Creat Ratio 11.2 RATIO (10-20); Calcium,Total 8.9 mg/dL (8.5-10.1); Chloride 107 mmol/L (98-107); Cholesterol 181 mg/dL (200); Creatinine, Serum 0.62 mg/dL (0.55-1.02); EST Glomerular Filtration Rate 110 mL/min (>60); Est Glom Filt Rate - Afr Amer 133 mL/min (>60); Globulin 4.4 g/dL (2.2-4.2); Glucose 106 mg/dL (74-106); High Density Lipoprotein 54 mg/dL; Potassium 3.4 mmol/L (3.5-5.1); Protein, Total 7.9 g/dL (6.4-8.2); Sodium Level 141 mmol/L (136-145); Thyroid Stim Hormone (TSH) 2.16 uIU/mL (0.358-3.74); Triglycerides 182 mg/dL; Very Low Density Lipoprotein 36 mg/dL (5-40)
== END 2021-04-24 23:59 | disposition short-term general hospital (02) ==
PROVIDERS: PCP Family Medicine; Referring Provider Family Medicine; Visit Provider Family Medicine
DX: E78.5 Hyperlipidemia, unspecified (principal); F31.9 Bipolar disorder, unspecified
CPT/HCPCS: 36415; 80053; 80061; 84443

== ENCOUNTER → 2021-10-06 | Outpatient (CLI) | payer OTHER, SELFPAY ==
--- NOTE | 2021-10-06 08:07 | BI_ITS ---
MAMMOGRAPHY - BILATERAL SCREENING REASON FOR EXAM: Female, 46 years old. Routine annual screening examination. PERTINENT HISTORY: Non-contributory. TECHNIQUE: Digital bilateral breast fareed (3D mammographic acquisition) in the CC and MLO projections. 2-D mediolateral oblique (MLO) and craniocaudad (CC) views of both breasts were obtained. CAD: Full Field Digital Mammography with Computer Added Detection was performed. COMPARISON: Comparison is made with prior study dated 09/29/2020 and 09/22/2019. FINDINGS: Breast Composition: The breasts are heterogeneously dense, which may obscure small masses. There are no dominant masses or suspicious calcifications. Stable small benign-appearing bilateral axillary lymph nodes. No other significant abnormalities are identified. There has been no significant change since the prior study. BI/SCREENING MAMM (CAD), BILAT IMPRESSION: Stable bilateral screening mammogram. Yearly follow-up mammogram recommended. (A) ASSESSMENT CATEGORY: BIRADS Category 2: Benign. A letter regarding these results will be sent to the patient by the facility within 30 days. Approximately 10% of breast cancers are not detected by mammography. A normal mammogram should not delay biopsy of a clinically suspicious abnormality. [id number] Electronically Signed: Stephen Watters MD at 9:10 EDT ,
== END | disposition home or self-care (01) ==
PROVIDERS: PCP Family Medicine; Referring Provider Family Medicine; Visit Provider Family Medicine
DX: Z12.31 Encounter for screening mammogram for malignant neoplasm of breast (principal)
CPT/HCPCS: 77067

== ENCOUNTER → 2021-11-03 | Outpatient (CLI) | payer OTHER, SELFPAY ==
[2021-11-06 08:35] LABS: Hepatitis C Antibody Non-Reactive (Nonreactive)
== END | disposition home or self-care (01) ==
LOC: MTLAB 12:51
PROVIDERS: PCP Family Medicine; Referring Provider Family Medicine; Visit Provider Family Medicine
DX: Z00.00 Encounter for general adult medical examination without abnormal findings (principal); Z11.59 Encounter for screening for other viral diseases
CPT/HCPCS: 36415; 86803

== ENCOUNTER → 2022-10-19 | Outpatient (CLI) | payer MEDICAID, SELFPAY ==
--- NOTE | 2022-10-19 14:34 | BI_ITS ---
MAMMOGRAPHY - BILATERAL SCREENING REASON FOR EXAM: Female, 47 years old. Routine annual screening examination. PERTINENT HISTORY: Non-contributory. TECHNIQUE: Digital bilateral breast garrett (3D mammographic acquisition) in the CC and MLO projections. 2-D mediolateral oblique (MLO) and craniocaudad (CC) views of both breasts were obtained. CAD: Full Field Digital Mammography with Computer Added Detection was performed. COMPARISON: Comparison is made with prior study dated October 06, 2021 and September 29, 2020. FINDINGS: Breast Composition: The breasts are heterogeneously dense, which may obscure small masses. There are no dominant masses or suspicious calcifications. Stable small benign-appearing bilateral axillary lymph nodes. No other significant abnormalities are identified. There has been no significant change since the prior study. BI/SCRN MAMM (CAD)W/GARRETT BILAT IMPRESSION: Stable bilateral screening mammogram. Yearly follow-up mammogram recommended. (A) ASSESSMENT CATEGORY: BIRADS Category 2: Benign. A letter regarding these results will be sent to the patient by the facility within 30 days. Approximately 10% of breast cancers are not detected by mammography. A normal mammogram should not delay biopsy of a clinically suspicious abnormality. [id number] Electronically Signed: Stephen Watters MD at 15:38 EDT ,
== END | disposition home or self-care (01) ==
PROVIDERS: PCP Family Medicine; Referring Provider Family Medicine; Visit Provider Family Medicine
DX: Z12.31 Encounter for screening mammogram for malignant neoplasm of breast (principal)
CPT/HCPCS: 77063; 77067

== ENCOUNTER 2022-12-22 05:59 | Emergency (ER) | payer MEDICAID, SELFPAY ==
[2022-12-22 06:01] VITALS: BP 144/82; PULSE 72; RESP 20; TEMP 36.8; O2SAT 98; BMI 30.2
--- NOTE | 2022-12-22 06:14 | RAD_ITS ---
EXAM: XR CHEST, 1 VIEW CLINICAL INDICATION: cough TECHNIQUE: Frontal view of the chest. COMPARISON: No relevant prior studies available. FINDINGS: LUNGS AND PLEURAL SPACES: Unremarkable. No consolidation or edema. No pneumothorax. No effusion. HEART: Unremarkable. Cardiac silhouette not enlarged. MEDIASTINUM: Central airways and mediastinal contour are unremarkable. BONES/JOINTS: Unremarkable. SOFT TISSUES: Unremarkable. RAD/Chest 1 View (Portable) IMPRESSION: No radiographic evidence of acute cardiopulmonary disease. Electronically Signed: Caleb Pradhan MD at 6:55 EDT ,
--- NOTE | 2022-12-22 06:15 | EX.ED.DYSGE1 ---
HPI History of Present Illness Chief Complaint: Weakness Informant: patient and family Narrative Narrative: Presenting here with daughter increasing weakness confusion since yesterday. Positive COVID testing 8 days ago, symptomatic 10 days ago. She was at urgent care 6 days ago she was started on Paxlovid and steroids. She has history of COPD. She reported wheezing. States since then continued fatigue and diarrhea. She went back to urgent care yesterday. She states she has been vaccinated had COVID 1 other time. She did not require hospitalization. Denies vomiting. [facility] Medical History Anxiety Arthritis COVID-19 Depression Diabetes High cholesterol Home Medications sertraline 100 mg tablet 100 mg PO BID 09/08/14 [History Last Taken Unknown] Omeprazole [Prilosec] 40 mg PO DAILY 11/23/15 [History Last Taken 11/29/15 07:30] multivitamin (Daily Multiple tablet) 1 ea PO DAILY 11/23/15 [History Last Taken Unknown] quetiapine 400 mg tablet (Seroquel) 400 mg PO QHS 11/23/15 [History Last Taken Unknown] rosuvastatin 20 mg tablet (Crestor) 20 mg PO QHS 11/23/15 [History Last Taken Unknown] ibuprofen 400 mg tablet 800 mg (2 x 400 mg) PO Q6H pain or cramping #30 TABLETS 11/29/15 [Rx Last Taken Unknown] hydrocodone-acetaminophen 5-325mg 5mg-325mg 1 - 2 tab (1 - 2 x 5-325 mg) PO Q4H PRN PRN Pain #30 TABLETS 05/16/16 [Rx Last Taken Unknown] Ca 600 mg-D3 400 unit-mag ox 40 pd-Wg-kljpvv-Mn-boron chewable tablet 1 ea PO DAILY 05/28/16 [History Last Taken Unknown] amoxicillin 500 mg capsule 500 mg PO TID 06/04/16 [History Last Taken 06/04/16 06:00] hydrocodone-acetaminophen 5-325mg 5mg-325mg 2 tab (2 x 5-325 mg) PO Q6H PRN PRN Severe Pain (6-10/10) #40 TABLETS 06/04/16 [Rx Last Taken Unknown] ibuprofen 400 mg tablet 800 mg (2 x 400 mg) PO Q8H PRN PRN pain or cramping #30 TABLETS 06/04/16 [Rx Last Taken Unknown] docusate sodium 100 mg capsule (DOK) 100 mg PO BID CONSTIPATION #30 caps 06/08/16 [Rx Last Taken Unknown] promethazine 25 mg tablet 25 mg PO Q6H PRN PRN Nausea #30 TABLETS 06/08/16 [Rx Last Taken Unknown] prednisone 10 mg tablet 10 mg PO .COMPLEX 15 days #35 tabs 12/16/22 [Rx Last Taken Unknown] potassium chloride 20 mEq tablet,extended release 20 meq PO DAILY #7 tabs 12/22/22 [Rx Last Taken Unknown] Allergy/AdvReac Type Severity Reaction Status Date / Time oxycodone [From Percocet] AdvReac ITCHING, Verified 12/22/22 05:59 HALLUCINATIONS Surgical History Hx of carpal tunnel repair Hx of cholecystectomy Hx of hysterectomy Social History Smoking Status: Current every day smoker tobacco type: cigarettes ROS ROS ED Constitutional Constitutional ED: Denies chills, fever(s) or sweats Eyes Eyes: Denies change in vision ENT ENT ED: Denies dysphagia or sore throat Cardiovascular Cardiovascular: Denies chest pain, leg edema, palpitations or racing heartbeat Respiratory/Chest Respiratory/Chest: Denies cough, dyspnea or dyspnea on exertion Gastrointestinal Gastrointestinal: Denies abdominal pain, diarrhea, nausea or vomiting Genitourinary Genitourinary ED: Denies dysuria, hematuria or urinary frequency Musculoskeletal Musculoskeletal: Denies back pain, extremity pain or neck pain Integumentary Denies rash or wounds Neurologic Neurologic: Reports weakness; Denies headache(s) or paresthesias EXAM Physical Exam Const Vital Signs: 12/22/22 06:01 12/22/22 06:05 12/22/22 08:01 Temperature 98.3 F Temperature Source Oral Pulse Rate 72 71 Respiratory Rate 20 H 18 Respiratory Effort Normal Respiratory Pattern Normal Blood Pressure 144/82 H 132/74 H Blood Pressure Mean 102 93 Pulse Ox 98 98 Oxygen Delivery Method Room Air Room Air Positive well nourished and well developed Constitutional Narrative: Nontoxic, answering questions. No respiratory stress. General Appearance ED: well developed HEENT Reports dry mucous membranes normocephalic and atraumatic Mouth ED: Yes dry mucous membranes Mouth: dry mucous membranes Eyes PERRL, EOMs intact bilaterally and conjunctivae normal General Eye ED: Yes normal appearance of both eyes Neck no lymphadenopathy and supple General: Negative for tenderness Chest Wall Chest: Negative for tenderness Resp normal respiratory effort and normal air movement Effort and Inspection: symmetric chest movement; Negative for respiratory distress Cardio regular rate, regular rhythm and no murmurs Peripheral Pulses: pulses 2+ throughout GI normal to inspection, nondistended, normoactive bowel sounds and non-tender Palpation: Negative for guarding or rebound tenderness present Back/Spine no CVA tenderness and no thoracic nor lumbar tenderness Extremity normal to inspection General Extremety ED: Negative for edema or tenderness General Extremity: Negative for edema Neuro oriented x3 and no sensory deficits noted Sensorium / Orientation: awake and alert Skin no rashes or lesions noted and no wounds MDM MDM MDM Narrative Medical decision making narrative: Interventions / MDM: Differential diagnosis: COVID infection, weakness, electrolyte abnormalities Diagnosis considered but do not suspect: N/A My EKG interpretation: Sinus rate of 67, no ST changes isolated T wave version lead III. QTc 414. Imaging independently reviewed and interpreted by myself: 1 view chest x-ray: No acute process. External documents reviewed: N/A Test considered but not ordered:N/A ED course: Patient vital signs stable pulse ox 98% on room air. Reporting increasing weakness and fatigue. She is dry mucosal membranes. Will check EKG labs chest x-ray for further evaluation. IV fluids ordered. Reported confusion however alert and oriented x3. Laboratory studies normal sodium potassium 2.8 with recent diarrhea. None over last 24 hours. Oral replacement ordered. Magnesium added which is chest ray also negative. Patient ambulate by nurse in the room, asked is able to ambulate, pulse ox remained at 95%. Discussed with patient and daughter continue oral fluids for hydration. 7-day prescription for potassium replacement. Outpatient follow with her doctor with return precautions. Re-evaluation: stable Disposition discussed with patient/family/significant other: Patient and daughter Case discussed with consulting clinician: N/A This note was generated with [employer] dictation software. It may contain incorrect words, spelling, and punctuation that were not noted in checking the note before signing. Lab Data Attestation: I reviewed the patient's lab results. Labs: Laboratory Results - last 24 hr 12/22/22 06:35 WBC 11.9 H RBC 4.31 Hgb 13.6 Hct 41.3 MCV 95.8 MCH 31.6 MCHC 32.9 RDW Std Deviation 50.3 H RDW Coeff of Patrick 14.3 Plt Count 392 MPV 9.5 Immature Gran % (Auto) 0.300 Neut % (Auto) 41.0 L Lymph % (Auto) 51.8 H [place] % (Auto) 5.2 Eos % (Auto) 1.3 Baso % (Auto) 0.4 Absolute Neuts (auto) 4.9 Absolute Lymphs (auto) 6.16 H Nucleated RBC % 0 Differential Comment SCANNED Sodium 142 Potassium 2.8 L Chloride 110 H Carbon Dioxide 28.0 Anion Gap 4 L BUN 17 Creatinine 0.85 Estim Creat Clear Calc 67.68 Est GFR (MDRD) Af Amer 92 Est GFR (MDRD) Non-Af 76 BUN/Creatinine Ratio 20.0 Glucose 165 H Calcium 8.8 Magnesium 2.1 Radiography Diagnostic Testing: Clinical Impression(s) from Imaging Studies Chest X-Ray 12/22/22 06:14 IMPRESSION: No radiographic evidence of acute cardiopulmonary disease. Electronically Signed: Caleb Pradhan MD at 6:55 EDT , Discharge Plan Triage Chief Complaint: Weakness ED Provider: Ja Beck Dx/Rx/DC Orders Clinical Impression: COVID-19, Weakness, Acute hypokalemia Instructions: Coronavirus Disease 2019 (COVID-19): Caring for Yourself or Others, ED Hypokalemia Prescriptions: New potassium chloride 20 mEq tablet extended release 20 meq PO DAILY Qty: 7 0RF No Action prednisone 10 mg tablet 10 mg PO .COMPLEX 15 Days Qty: 35 0RF Rx Instructions: 10 mg orally; 40mg x5 days, 20mg x5 days, 10mg x5 days sertraline 100 MG tablet 100 mg PO BID multivitamin [Daily Multiple] 1 EACH tablet 1 ea PO DAILY rosuvastatin [Crestor] 20 MG tablet 20 mg PO QHS Patient Comments: CHOLESTEROL quetiapine [Seroquel] 400 MG tablet 400 mg PO QHS Omeprazole [Prilosec] 40 MG capsule 40 mg PO DAILY Patient Comments: REFLUX ibuprofen 400 MG tablet 800 mg PO Q6H Qty: 30 1RF Ca-D3-mag ea-tdak-qpl-[place] 1 EACH tablet,chewable 1 ea PO DAILY Patient Comments: SUPPLEMENT amoxicillin 500 MG capsule 500 mg PO TID Patient Comments: TAKE 1 CAPSULE BY MOUTH THREE TIMES DAILY hydrocodone-acetaminophen 1 TABLET tablet 2 tab PO Q6H PRN PRN (Reason: Severe Pain (-01/01)) Qty: 40 0RF ibuprofen 400 MG tablet 800 mg PO Q8H PRN PRN (Reason: pain or cramping) Qty: 30 1RF docusate sodium [DOK] 100 MG capsule 100 mg PO BID Qty: 30 1RF Rx Instructions: promethazine 25 MG tablet 25 mg PO Q6H PRN PRN (Reason: Nausea) Qty: 30 0RF hydrocodone-acetaminophen 1 TABLET tablet 1 - 2 tab PO Q4H PRN PRN (Reason: Pain) Qty: 30 0RF Stand Alone Forms: ED Work / School Excuse Primary Care Provider: Aida Khan Referrals: Aida Khan DO [Primary Care Provider] - Activity Restrictions/Additional Instructions: Chest x-ray negative. Sodium 142 potassium 2.8. Magnesium 2.1. Continue potassium replacement as prescribed. Continue oral fluids for hydration. Follow-up with your doctor. Return if any worsening symptoms. Disposition Disposition: Home, Self Care
[2022-12-22] MEDS: 0.9% Normal Saline (1000mL) 1,000 ML 1000 ML IV (06:36)
[2022-12-22 06:41] LABS: Absolute Lymphocyte Count 6.16 X10^3/uL (0.83-4.51); Absolute Neutrophil Count 4.9 X10^3/uL (2.0-7.7); Basophil# 0.05 X10^3/uL; Basophil% 0.4 % (0-1); Eosinophil# 0.15 X10^3/uL; Eosinophils% 1.3 % (0-5); Hematocrit 41.3 % (37-47); Hemoglobin 13.6 g/dL (12.0-15.0); Lymphocyte # 6.16 X10^3/ul (0.83-4.51); Lymphocyte % 51.8 % (19-41); Mean Corp Hgb Conc 32.9 g/dL (32-36); Mean Corpuscular Hgb 31.6 pg (27.0-32.0); Mean Corpuscular Volume 95.8 fL (81-99); Mean Platelet Vol. 9.5 fl (6.2-12.0); Monocyte# 0.62 X10^3/uL; Monocyte% 5.2 % (0-10); NRBC Flagged by Analyzer 0 % (0-5); Neutrophil # 4.88 X10^3/uL (2.7-7.7); POSITIVE DIFFERENTIAL YES; Platelet Count 392 K/mm3 (150-450); RBC Distribution Width CV 14.3 % (11.6-14.6); RBC Distribution Width SD 50.3 fl (35.1-43.9); Red Blood Count 4.31 M/mm3 (4.2-5.4); White Blood Count 11.9 K/mm3 (4.4-11.0)
[2022-12-22 06:44] LABS: Differential Indicated SCAN CRITERIA MET
[2022-12-22 06:53] LABS: Anion Gap 4 (5-15); BUN 17 mg/dL (7-18); Calcium,Total 8.8 mg/dL (8.5-10.1); Chloride 110 mmol/L (98-107); Creatinine, Serum 0.85 mg/dL (0.55-1.02); EST Glomerular Filtration Rate 76 mL/min (>60); Est Glom Filt Rate - Afr Amer 92 mL/min (>60); Estimated Creatinine Clearance 67.68 ml/min; Glucose 165 mg/dL (74-106); Potassium 2.8 mmol/L (3.5-5.1); Sodium Level 142 mmol/L (136-145)
[2022-12-22 06:58] LABS: Differential Comment SCANNED
[2022-12-22] MEDS: Potassium Chloride Oral Tablet 20 MEQ 40 MEQ PO (07:28)
[2022-12-22 07:34] LABS: Magnesium 2.1 mg/dL (1.6-2.6)
[2022-12-22 08:00] VITALS: O2SAT 98
[2022-12-22 08:01] VITALS: BP 132/74; PULSE 71; RESP 18; O2SAT 98
--- NOTE | 2022-12-22 08:04 | ED.RN ---
ambulated in [place]. tolerated well, nausea when sitting up. after ambulating pt reports nausea improved after ambulating. felt good to walk. denies dizziness or sob.
[2022-12-22 08:24] VITALS: BP 132/73; PULSE 81; RESP 16; O2SAT 98
== END 2022-12-22 08:26 | disposition home or self-care (01) ==
PROVIDERS: Emergency Provider Emergency Medicine; PCP Family Medicine; Visit Provider Emergency Medicine
DX: U07.1 COVID-19 (principal); J44.9 Chronic obstructive pulmonary disease, unspecified; E11.9 Type 2 diabetes mellitus without complications; R19.7 Diarrhea, unspecified; E87.6 Hypokalemia; R41.0 Disorientation, unspecified; F17.210 Nicotine dependence, cigarettes, uncomplicated; E78.00 Pure hypercholesterolemia, unspecified; Z86.16 Personal history of COVID-19; R53.1 Weakness
CPT/HCPCS: 71045; 80048; 83735; 85025; 93005; 96360; 99285; J7030; A4216

== ENCOUNTER 2022-12-22 15:07 | Emergency (ER) | payer MEDICAID, SELFPAY ==
[2022-12-22] VITALS (13 sets, daily range): BP systolic 115–159; BP diastolic 74–105; PULSE 68–95; RESP 16–27; TEMP 36.4; O2SAT 90–98; BMI 29.5
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
--- NOTE | 2022-12-22 15:48 | ED.RN ---
PT ARGUING WITH AND RUDE TO OFFICER TANNER
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
--- NOTE | 2022-12-22 16:20 | CT_ITS ---
STUDY: CT BRAIN WITHOUT CONTRAST REASON FOR EXAM: Female, 47 years old. confusion, weakness, recent COVID, diabetes. RADIATION DOSAGE (If Supplied By Facility): CTDIvol = ( 44.99 ) mGy, DLP = ( 779.24 ) mGycm TECHNIQUE: Transaxial CT imaging of the brain was performed without administration of intravenous contrast material. Individualized dose optimization techniques were used for this CT. COMPARISON: No relevant priors. FINDINGS: Normal soft tissue structures. Normal calvarium. Normal size ventricles and extra-axial spaces for the patient''s age. Normal white matter tracts of the cerebral hemispheres. Normal basal ganglia and thalami. Normal brainstem. Normal cerebellum. There is no intracranial hemorrhage. There are no findings of an acute ischemic infarction. Mucosal thickening involving the bilateral maxillary sinuses, right more than left and bilateral ethmoids, likely sequela of sinusitis. CT/Brain/Head without Contrast IMPRESSION: Normal unenhanced CT scan of the brain. Sinus disease as described. No skull fracture. Electronically Signed: Avelina Bess MD at 18:21 EDT ,
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
[2022-12-22] MEDS: LORazepam 2 MG/ML Syringe 1 MG IV (16:57)
[2022-12-22] MEDS: 0.9% Normal Saline (1000mL) 1,000 ML 150 ML IV (17:00)
[2022-12-22 17:12] LABS: Absolute Lymphocyte Count 2.49 X10^3/uL (0.83-4.51); Absolute Neutrophil Count 7.7 X10^3/uL (2.0-7.7); Basophil# 0.05 X10^3/uL; Basophil% 0.5 % (0-1); Eosinophil# 0.01 X10^3/uL; Eosinophils% 0.1 % (0-5); Hematocrit 39.4 % (37-47); Hemoglobin 13.5 g/dL (12.0-15.0); Lymphocyte # 2.49 X10^3/ul (0.83-4.51); Lymphocyte % 23.4 % (19-41); Mean Corp Hgb Conc 34.3 g/dL (32-36); Mean Corpuscular Hgb 32.4 pg (27.0-32.0); Mean Corpuscular Volume 94.5 fL (81-99); Mean Platelet Vol. 9.4 fl (6.2-12.0); Monocyte# 0.34 X10^3/uL; Monocyte% 3.2 % (0-10); NRBC Flagged by Analyzer 0 % (0-5); Neutrophil # 7.71 X10^3/uL (2.7-7.7); Neutrophil % 72.2 % (47-70); Platelet Count 399 K/mm3 (150-450); RBC Distribution Width CV 14.3 % (11.6-14.6); RBC Distribution Width SD 49.6 fl (35.1-43.9); Red Blood Count 4.17 M/mm3 (4.2-5.4); White Blood Count 10.7 K/mm3 (4.4-11.0)
[2022-12-22 17:30] LABS: AST(SGOT) 13 U/L (15-37); Alanine Aminotransfer ALT/SGPT 28 U/L (13-56); Albumin, Serum 3.1 g/dL (3.2-5.0); Alkaline Phosphatase 79 U/L (45-117); Anion Gap 4 (5-15); BUN 13 mg/dL (7-18); BUN/Creat Ratio 17.6 RATIO (10-20); Bilirubin, Direct 0.07 mg/dL (0.00-0.30); Calcium,Total 8.6 mg/dL (8.5-10.1); Chloride 109 mmol/L (98-107); Creatinine, Serum 0.74 mg/dL (0.55-1.02); EST Glomerular Filtration Rate 90 mL/min (>60); Est Glom Filt Rate - Afr Amer 108 mL/min (>60); Estimated Creatinine Clearance 77.74 ml/min; Globulin 3.7 g/dL (2.2-4.2); Glucose 160 mg/dL (74-106); Potassium 3.9 mmol/L (3.5-5.1); Protein, Total 6.8 g/dL (6.4-8.2); Sodium Level 139 mmol/L (136-145)
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
[2022-12-22] MEDS: Ketorolac 30 MG/ML Syringe IV (18:54)
[2022-12-22] MEDS: LORazepam 1 MG Tablet PO (18:57)
== END 2022-12-22 19:22 | disposition home or self-care (01) ==
PROVIDERS: Emergency Provider Emergency Medicine; PCP Family Medicine; Visit Provider Emergency Medicine
DX: R41.0 Disorientation, unspecified (principal); E11.9 Type 2 diabetes mellitus without complications; R45.1 Restlessness and agitation; T38.0X5A Adverse effect of glucocorticoids and synthetic analogues, initial encounter; E78.00 Pure hypercholesterolemia, unspecified; F17.210 Nicotine dependence, cigarettes, uncomplicated
CPT/HCPCS: 70450; 80048; 80076; 85025; 96361; 96374; 96375; 99285; A4216

== ENCOUNTER → 2023-03-28 | Outpatient (CLI) | payer MEDICAID, SELFPAY ==
--- OUTSIDE RECORDS SUMMARY | 2023-03-28 17:29 | XMS RPT_ITS | CCD ---
Author Name Unknown Address [address] [place] [address] Organization [facility] Care Team Providers Care Ballistics Professor Name Role Phone REFERRINGNATHEN DAMARIS ANDERSEN Unavailable Unavailable WAYT, WAI Unavailable Unavailable WAYT, WAI Unavailable Unavailable RENA ESCOTO (PA) Referring Unavailable RUSSELL HOFFMAN (PA) Referring Unavailable Dusty Wells Primary Care Provider Dusty Wells Primary Care Provider [phone] OJ FERRO Admitting Unavailable OJ FERRO Attending Unavailable [facility] Consulting U navailable OJ FERRO Attending Unavailable OJ FERRO Referring Unavailable DUSTY WELLS Primary Care Unavailable OJ FERRO Admitting Unavailable OJ FERRO Referring Unavailable DUSTY WELLS Primary Care Unavailable DANA KESSLER Attending Unavailabl e OJ FERRO Admitting Unavailable OJ FERRO Referring Unavailable DUSTY WELLS Primary Care Unavailable OJ FERRO Attending Unavailable DUSTY WELLS Primary Care Unavailable TAMRA MURCIA Admitting TAMRA Orellana Attending DUSTY Martin Primary Care Unavailable TAMRA MURCIA Referring Unarenui DUSTY Slade Primary Care Unavailable RAUDEL RIHC Admitting Unavailable PARK BEVERLY Attending Unavailable OJ FERRO Consulting Unavailable None, No PCP Unavailable Unavailable Unavailable Unavailable Dusty Wells DO Primary Care Provider TALITA SWANN Admitting Unavailab TALITA Singh Attending Unavailab le DIALLO, DUSTY Primary Care Unavailable MANE APARICIO Attending Unavailable DIALLO, DUSTY Primary Care Unavailable ROMLAYO, DUSTY Primary Care Unavailable FAITH MUNSON Attending Unavailable NO, PHYSICIAN Primary Care Unavailable TALITA SWANN Attending Unavailab isa WELLS, DUSTY Primary Care Unavailable FAITH MUNSON Attending Unavailable ANAYA STAPLES Attending Unavailable DIALLO, DUSTY Primary Care Unavailable FAITH MUNSON Referring Unavailable FAITH MUNSON Admitting Unavailable NICOLETTE WIGGINS DO Primary Care Physician DEBORAH FRANCISCO Attending Unavailab isa WELLS, DUSTY Primary Care Unavailable KHADAR GARDNER, JONI Ramirez Attending Unavail able NICOLETTE WIGGINS DO Primary Care Unavailable NICOLETTE WIGGINS DO Attending Unavailable NICOLETTE WIGGINS DO Primary Care Unavailable Allergies Allergy Classification Reported Allergen(s) Allergy Type Date of Onset Reaction(s) Facility (9 sources) Acetaminophen / oxyCODONE; Translations: [OXYCODONE-ACETAM INOPHEN] Drug Allergy 8 Hives [facility] Repository (2 sources) Acetaminophen / oxyCODONE; Translations: [Percocet TABS] Drug Allergy [facility], [facility] [place] Medications Current Medications Medication Drug Class(es) Dates Sig (Normalized) Sig (Original) busPIRone hydrochloride 10 mg oral tablet (7 sources) Start: 04-23-2022 take 1 tablet by mouth twice daily, then take 2 tablets by mouth once daily at bedtime busPIRone 10 mg oral tablet See Instructions, 1 tab(s) Oral BID and 2 tablets oral qHS, # 120 EA, 11 Refill(s), Pharmacy: [id number], Sleeping difficulties Bipolar affective disorder, 163, cm, 05/11/22 8:17:00 EST, Height, kg, 05/11/22 8:17:00 EST, Dosing Weight Start Date: 05/11/22 Status: Ordered Completed/Discontinued Medications Medication Drug Class(es) Dates Sig (Normalized) Sig (Original) acetaminophen 325 mg oral tablet (10 sources) Start: 09-28-2019 End: 09-30-2019 acetaminophen (TYLENOL) tablet 650 mg Problems Active Problems Problem Classification Problem Date Documented Date Episodic/Chronic Anxiety disorders (2 sources) Anxiety; Translations: [Anxiety state, unspecified] 06-08-2020 Chronic Diseases of white blood cells (9 sources) Leukemoid reaction; Translations: [Leukemoid reaction] Onset: 09-29-2019 09-29-2019 Chronic Disorders of lipid metabolism (1 source) Hyperlipidemia 11-04-2018 Chronic Esophageal disorders (2 sources) Gastroesophageal reflux disease; Translations: [Esophageal reflux] 11-04-2018 Chronic Mood disorders (10 sources) Major depression in remission; Translations: [Major depressive disorder, single episode, in full remission] 09-29-2019 Chronic Osteoarthritis (9 sources) Osteoarthritis of hip; Translations: [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] Onset: 09-29-2019 09-29-2019 Chronic Osteoarthritis (1 source) Osteoarthritis of left hip joint; Translations: [Primary osteoarthritis of left hip] Other connective tissue disease (1 source) Bursitis of olecranon of left elbow; Translations: [Olecranon bursitis] Episodic Other lower respiratory disease (1 source) Apnea 01-06-2020 Episodic Other nervous system disorders (3 sources) Carpal tunnel syndrome of left wrist; Translations: [Carpal tunnel syndrome, left upper limb] Chronic Other nervous system disorders (1 source) Ulnar neuropathy; Translations: [Lesion of ulnar nerve, left upper limb] 06-19-2022 Chronic Other nervous system disorders (6 sources) Carpal tunnel syndrome, left upper limb; Translations: [Carpal tunnel syndrome, left upper limb] Onset: 04-12-2022 Chronic Other nervous system disorders (2 sources) Lesion of ulnar nerve, left upper limb; Translations: [Lesion of ulnar nerve, left upper limb] Onset: 06-19-2022 Chronic Other nutritional; endocrine; and metabolic disorders (1 source) Overweight in adulthood with body mass index of 25 or more but less than 30 05-11-2022 Episodic Other screening for suspected conditions (not mental disorders or infectious disease) (1 source) Viral screening status 11-08-2022 Episodic Other upper respiratory disease (1 source) Seasonal allergy 05-03-2021 Chronic Residual codes; unclassified (1 source) Obstructive sleep apnea syndrome 03-17-2021 Chronic Residual codes; unclassified (1 source) Difficulty sleeping 09-13-2020 Episodic Residual codes; unclassified (1 source) Requires vaccination 05-06-2019 Episodic Residual codes; unclassified (1 source) Screening due 11-08-2022 Episodic Substance-related disorders (1 source) Smoker 11-08-2020 Chronic Unclassified (1 source) Unknown / UNK(Unknown) Onset: 09-28-2016 Unclassified (1 source) Cancer cervix screening status 11-08-2022 Unclassified (1 source) Influenza vaccination declined 05-11-2022 Unclassified (5 sources) Patient encounter status 11-06-2018 Past or Other Problems Problem Classification Problem Date Documented Date Episodic/Chronic Complications of surgical procedures or medical care (16 sources) Postoperative wound infection; Translations: [Postoperative infection] Onset: 11-17-2019 11-17-2019 Episodic Other connective tissue disease (2 sources) Other enthesopathies, not elsewhere classified; Translations: [Other enthesopathies, not elsewhere classified] Onset: 04-12-2022 Episodic Residual codes; unclassified (2 sources) Pain Onset: 04-27-2022 Episodic Spondylosis; intervertebral disc disorders; other back problems (1 source) Low back pain; Translations: [Low back pain] Onset: 01-13-2018 Episodic Unclassified (1 source) Z00.00 Onset: 09-28-2016 Results Test Name Value Interpretation Reference Range Facil it Vital Signs Date Time Vital Sign Value Performing Clinician Facility 06-26-2022 11:00-0400 Body height 160 cm Faith [employer] Work Phone: [facility] 06-26-2022 11:00-0400 Body mass index (BMI) [Ratio] 29.41 kg/m2 Faith Munson CNP Work Phone: [facility] 06-26-2022 11:00-0400 Body weight 75.3 kg Faith [employer] Work Phone: [facility] 04-27-2022 09:08-0500 Body height 160 cm Faith [employer] Work Phone: [facility] 04-27-2022 09:08-0500 Body mass index (BMI) [Ratio] 29.41 kg/m2 Faith Munson [employer] Work Phone: [facility] 04-27-2022 09:08-0500 Body weight 75.3 kg Faith Munson [employer] Work Phone: [facility] 11-02-2021 11:50-0400 Body height 162.56 cm No PCP None -[facility] Work Phone: 11-02-2021 11:50-0400 Body mass index (BMI) [Ratio] 28.86 kg/m2 No PCP None [facility] Work Phone: 11-02-2021 11:50-0400 Body surface area Derived from formula 1.82 m2 No PCP None -[facility] Work Phone: 11-02-2021 11:50-0400 Body temperature 97.5 [degF] No PCP None -[facility] Work Phone: 11-02-2021 11:50-0400 Body weight 76.26 kg No PCP None -[facility] Work Phone: 11-18-2019 15:15-0400 Pulse (Heart Rate) 75 /min [facility] 11-18-2019 15:15-0400 Pulse Oximetry 96 % [facility] 11-18-2019 15:15-0400 Respiratory Rate 20 /min [facility] 11-18-2019 15:00-0400 BP Diastolic 79 mm[Hg] [facility] 11-18-2019 15:00-0400 BP Systolic 124 mm[Hg] [facility] 11-18-2019 13:58-0400 Body Temperature 97.11 [degF] [facility] 11-17-2019 18:19-0400 BMI (Body Mass Index) 31.29 kg/m2 [facility] 11-17-2019 18:19-0400 Body weight 81.65 kg [facility] 11-17-2019 18:19-0400 Height 161.5 cm [facility] 09-30-2019 12:59-0400 Respiratory Rate 16 /min [facility] 09-30-2019 12:01-0400 BP Diastolic 65 mm[Hg] [facility] 09-30-2019 12:01-0400 BP Systolic 120 mm[Hg] [facility] 09-30-2019 12:01-0400 Pulse (Heart Rate) 99 /min [facility] 09-30-2019 12:01-0400 Pulse Oximetry 93 % [facility] 09-30-2019 07:53-0400 Body Temperature 98.8 [degF] [facility] 09-29-2019 23:00-0400 BMI (Body Mass Index) 31.36 kg/m2 [facility] 09-29-2019 23:00-0400 Body weight 80.[address] [facility] 09-29-2019 23:00-[address] [facility] Encounters Encounter Date Encounter Type Care Provider Facility Start: 12-27-2022 End: 12-27-2022 Emergency department patient visit JONI RUBALCAVA MD Facility:[facility] Start: 11-08-2022 End: 11-09-2022 ambulatory NICOLETTE WIGGINS DO Facility:[facility] Start: 11-08-2022 End: 11-08-2022 Patient encounter procedure NICOLETTE WIGGINS DO [facility] Start: 10-12-2022 End: 10-12-2022 ambulatory PHYSICIAN SMILEY [facility] Start: 09-28-2022 End: 09-28-2022 ambulatory [facility] Start: 07-30-2022 Documentation procedure Mane Aparicio LPN [facility] Start: 07-27-2022 Documentation procedure Mane Aparicio LPN [facility] Start: 06-26-2022 End: 06-26-2022 ambulatory DUSTY WELLS [facility] Start: 06-26-2022 End: 06-26-2022 Office outpatient visit 15 minutes Faith Munson CNP Work Phone: [facility] Procedures Date Procedure Procedure Detail Performing Clinician Start: 09-22-2022 Carpal tunnel syndro me (disorder) NICOLETTE ROSALIE DO Start: 06-26-2022 Injection therapeuti c carpal tunnel Faith Radha Munson [employer] Work Phone: Start: 10-06-2021 Mammography Faith kim [employer] Work Phone: Start: 11-18-2019 Tissue culture Tamra Murcia Work Phone: Start: 11-18-2019 Microbial culture, b paul fluid Oj Raymundo Ferro Work Phone: Start: 11-18-2019 Cell count misc body fluids w/differential count Melody Haas Work Phone: Start: 11-18-2019 Arthrocentesis aspir &/inj major jt/bursa w/o us Melody Haas Work Phone: Start: 11-17-2019 Ct pelvis w/contrast material Alecia Weinberg Work Phone: Start: 11-17-2019 INR in Platelet poor plasma by Coagulation assay Alecia Weinberg Work Phone: Start: 11-17-2019 Basic metabolic 2000 panel - Serum or Plasma Alecia Weinberg Work Phone: Start: 11-17-2019 C reactive protein [Mass/volume] in Serum or Plasma Alecia Weinberg Work Phone: Start: 11-17-2019 Complete blood count with white cell differential, automated Alecia Weniberg Work Phone: Start: 11-17-2019 Complete blood count with white cell differential, manual Alecia Weinberg Work Phone: Start: 11-17-2019 Erythrocyte sediment ation rate by Westergren method Alecia Weinberg Work Phone: Start: 11-17-2019 COVID-19, MOLECULAR Cri thaisnydia Wilsonlyndakarolyn BorjaLenard Work Phone: Start: 09-30-2019 Complete blood count with white cell differential, automated Robby Jerod Conley Work Phone: Start: 09-30-2019 Complete blood count with white cell differential, manual Robby Conley Work Phone: Start: 09-30-2019 Complete blood count (hemogram) panel - Blood by Automated count Oj Ferro Work Phone: Start: 09-29-2019 Basic metabolic 2000 panel - Serum or Plasma Ojkendell Ferro Work Phone: Start: 09-29-2019 Complete blood count (hemogram) panel - Blood by Automated count Oj Fonseca Jeramytiffanie Work Phone: Start: 09-28-2019 Radiologic examinati on pelvis 1/2 views Oj Ferro Work Phone: Start: 09-28-2019 Blood group typing Aden stella Fonseca Jeramytiffanie Work Phone: Start: 09-28-2019 End: 09-28-2019 ARTHROPLASTY HIP Ojstella Ferro Work Phone: Start: 09-28-2019 Prosthetic arthropla sty of the hip NICOLETTE WIGGINS DO Plan of Treatment Date Care Activity Detail Author Start: 10-17-2027 Tetanus vaccination Tetanus: Every 1 0yrs [facility] Start: 11-23-2022 Influenza vaccination Sequenti al Influenza Vaccine (Season Ended) [facility] Start: 10-06-2022 Screening for malign ant neoplasm of breast Mammogram [facility] Start: 01-24-2022 COVID-19 Vaccine (2 - Booster for Karon series) COVID-19 Vaccine (2 - Booster for Karon series) [facility] Start: 11-29-2021 FUV, Provider: Park Perez, Status: Pen, Time: 3:45 PM FUV, Provider: Park Perez, Status: Pen, Time: 3:45 PM [facility] Work Phone: Start: 11-23-2021 Influenza vaccination Sequenti al Influenza Vaccine (#1) [facility] Start: 11-24-2019 Influenza vaccinatio n given [facility] Start: 11-18-2019 End: 11-18-2019 Hospital Encounter [facility] Periop Immunizations Immunization Date Immunization Notes Care Provider Fa cility 11-29-2021 SARS-CoV-2 (COVID-19 ) Ad26 vaccine, recombinant NICOLETTE WIGGINS DO [facility] Payers Date Payer Category Payer Medicaid MEDICAID [facility] [id number] 2022-Present [phone] [address] [place] [address] [id number] 2022 Unknown [id number] 2018 Unknown YEISON LATHAM SHAYNA/PREF/HMO/PPO xxxxxxxxxxxx 2018-Present [id number] 2018 Unknown YEISON CORRAL/PREF/HMO/PPO [id number] 2018-Present [id number] 2018 Unknown [id number] 2014 Unknown [id number] 1975 Unknown [id number] [id number] 1975 Unknown [id number] [id number] 1975 Unknown [id number] 2.16.840.1.315891.3.579.2.900 1975 Unknown [id number] 2.16.840.1.953154.3.579.2.900 1975 Unknown [id number] 2.16.840.1.706505.3.579.2.900 1975 Unknown [id number] 2.16.840.1.524078.3.579.2.900 1975 Unknown [id number] 2.16.840.1.391429.3.579.2.900 1975 Unknown [id number] 2.16.840.1.946529.3.579.2.903 1975 Unknown [id number] 2.16.840.1.943140.3.579.2.903 1975 Unknown [id number] 2.16.840.1.461366.3.579.2.903 1975 Unknown [id number] 2.16.840.1.665146.3.579.2.903 1975 Unknown [id number] 2.16.840.1.911877.3.579.2.903 1975 Unknown [id number] 2.16.840.1.530644.3.579.2.903 1975 Unknown [id number] 2.16.840.1.682255.3.579.2.903 1975 Unknown [id number] 2.16.840.1.727708.3.579.2.902 1975 Unknown [id number] [id number] 1975 Unknown [id number] [id number] Unknown [facility] Social History Date Type Detail Facility Start: 09-29-2019 End: 04-27-2022 Tobacco smoking status NHIS Current every day smoker [facility] Start: 09-29-2019 End: 06-26-2022 Cigarettes smoked current (pack per day) - Reported [facility] Start: 09-29-2019 End: 06-26-2022 Alcohol intake Ex-drinker (finding) [facility] Start: 1975 Sex Assigned At Not on file [facility] Start: 04-17-2022 End: 06-26-2022 Exposure to SARS-CoV-2 (event) Not sure [facility] Start: 11-17-2019 End: 04-27-2022 Tobacco use and exposure Never used [facility] History of tobacco use Cigarette Smoker [facility] Start: 06-19-2022 End: 06-26-2022 Tobacco use panel [facility] Start: 09-14-2019 Gender identity Identifies as female gender (finding) [facility] Start: 09-14-2019 Sexual orientation Heterosexual (fin ding) [facility] Start: 05-06-2019 Tobacco smoking status Heavy t obacco smoker (finding) [facility] Sex Assigned At Female [facility] Medical Equipment Procedure Code Equipment Code Equipment Origin al Text Equipment Identifier Dates Shell 48mm Szd 3 hl Cluster Trident Ii - [id number], [id number] FDA Start: 09-28-2019 Screw 6.5 X 30mm Low Profile Hex Trident Ii - [id number] ()[id number], [id number] FDA Start: 09-28-2019 Screw 6.5 X 30mm Low Profile Hex Trident Ii - [id number] ()[id number], [id number] FDA Start: 09-28-2019 Insert 32mm Szd 0deg Trident X3 - [id number], [id number] FDA Start: 09-28-2019 Screw 6.5 X 15mm Low Profile Hex Trident Ii - [id number], [id number] FDA Start: 09-28-2019 S-Rom Proximal Sleeve Porous Coated Fits: 18x13, Stem Cone: B, Hooper: Sml [id number] Start: 09-28-[address] S-Rom Femoral St em Standard 30 Std Neck +4 [id number] Start: 09-28-2019 Biolox Delta Cer amic Femoral Head [id number] Start: 09-28-2019 Clinical Notes 07-23-2021 to 07-30-2022 Mane Aparicio LPN - 07/30/2022 1:43 PM EDTMane Aparicio LPN - 07/27/2022 9:12 AM EDTCjoey Munson CNP - 06/26/2022 4:09 PM EDTGro Staples MD - 06/19/2022 7:32 AM EDT Note Date & Type Note Facility 07-30-2022 History of Present illness Narrative Touched base with patient to advise she can not have surgery until September. The combination window installer will get with her in a few weeks to get things going. Patient understands. documented in this encounter [facility] 07-27-2022 History of Present illness Narrative Patient phoned in she would like to start the process for surgery for carpal tunnel. She will need to wait 3 months from injection. Provider will get a paper to the combination window installer. Patient notified via voicemail documented in this encounter [facility] 06-26-2022 History of Present illness Narrative Associated Order(s): Carpal Tunnel Injection: Carpal Tunnel Post-Procedure Diagnose(s): Carpal tunnel syndrome of left wrist [facility] [address] [facility] [id number] Chief Complaint Patient presents with Results EMG results Nara Malcolm returns to the office today for follow up after her left upper extremity EMG. She has continued to have the numbness and tingling into the left hand. She has since quit her last job, not knowing if she would need surgery or not. She is not currently employed at this time. She does continue with intermittent bracing. The patient's past medical history, surgical history, social history, family history, medications and allergies were reviewed with the patient today and are available in the chart for further review. Allergies Allergen Reactions Oxycodone-Acetaminophen Hives Current Outpatient Medications: acetaminophen (TYLENOL) 325 MG tablet, Take 2 (two) tablets (650 mg total) by mouth every 6 (six) hours as needed ., Disp: 240 tablet, Rfl: 0 busPIRone (BUSPAR) 10 MG tablet, TAKE 1 TABLET BY MOUTH TWICE DAILY AND 2 TABLETS AT BEDTIME, Disp: , Rfl: cholecalciferol, vitamin D3, (VITAMIN D3 ORAL), Take 600 Units by mouth daily ., Disp: , Rfl: fluticasone propionate (FLONASE) 50 mcg/actuation nasal spray, Instill 2 (two) sprays into each nostril daily as needed for rhinitis ., Disp: , Rfl: ibuprofen (ADVIL,MOTRIN) 800 MG tablet, Take 1 (one) tablet (800 mg total) by mouth 2 to 3 times daily as needed with food or milk., Disp: 40 tablet, Rfl: 0 melatonin 5 mg Tab, Take 3 (three) tablets (15 mg total) by mouth at bedtime ., Disp: , Rfl: multivit-min/folic acid/lfh630 (ALIVE WOMEN'S GUMMY VITAMIN ORAL), Take 2 tablets by mouth daily ., Disp: , Rfl: omeprazole (PRILOSEC) 40 MG capsule, Take 1 (one) capsule (40 mg total) by mouth every morning ., Disp: , Rfl: QUEtiapine (SEROQUEL) 100 MG tablet, Take 1 (one) tablet (100 mg total) by mouth nightly ., Disp: , Rfl: QUEtiapine (SEROQUEL) 400 MG tablet, Take 1 (one) tablet (400 mg total) by mouth nightly ., Disp: , Rfl: rosuvastatin (CRESTOR) 20 MG tablet, Take 1 (one) tablet (20 mg total) by mouth nightly ., Disp: , Rfl: sertraline (ZOLOFT) 100 MG tablet, Take 1 (one) tablet (100 mg total) by mouth 2 (two) times a day ., Disp: , Rfl: methylPREDNISolone (MEDROL DOSEPACK) 4 mg tablet, follow package directions ., Disp: 21 tablet, Rfl: 0 Past Medical History: Diagnosis Date Arthritis GERD (gastroesophageal reflux disease) Hyperlipidemia IBS (irritable bowel syndrome) Major depression in remission ([facility]) Past Surgical History: Procedure Laterality Date ABDOMINAL SURGERY gallbladder removed ARTHROPLASTY HIP TOTAL Left 09/28/2019 Procedure: LEFT ROBOTIC TOTAL HIP REPLACEMENT; Surgeon: Oj Ferro MD; Location: [facility] Main OR; Service: Orthopedic CHOLECYSTECTOMY HYSTERECTOMY INCISION AND DRAINAGE LOWER EXTREMITY Left 11/18/2019 Procedure: INCISION AND DRAINAGE LEFT TOTAL HIP SUPERFICIAL; Surgeon: Tamra Murcia MD; Location: [facility] Main OR; Service: Orthopedic SKIN BIOPSY moles removed Social History Socioeconomic History Marital status: Tobacco Use Smoking status: Every Day Packs/day: 2.00 Types: Cigarettes Smokeless tobacco: Never Vaping Use Vaping status: Never Used Substance and Sexual Activity Alcohol use: Not Currently Drug use: Yes Types: Marijuana Comment: states has medical card Left Upper Extremity EMG: This is an abnormal EMG. There is electrodiagnostic evidence of a left median nerve entrapment at the wrist without axonal damage at this time. Incidentally, there is also electrodiagnostic evidence of a left ulnar nerve entrapment across the elbow without axonal damage. There is NO electrodiagnostic evidence of left cervical radiculopathy or brachial plexopathy. Assessment/Plan: After reviewing the EMG results we discussed continued treatment options. I did offer her cortisone injection for the carpal tunnel of the left wrist which she gladly excepted at today's visit. I did this without complications and she tolerated this well. I did explain that if she does not have any alleviation of her symptoms at that point in time the next step would be a carpal tunnel release surgery. If she does have alleviation of symptoms, she is able to receive these every 3 months as needed. She verbalizes understanding and is in agreement with the treatment plan. Carpal Tunnel Injection: Carpal Tunnel Performed by: Faith Munson CNP Authorized by: Faith Munson CNP Consent given by: Patient Time out: Immediately prior to the procedure a time out was called Physician or proceduralist has discussed critical or nonroutine steps, procedure duration and anticipated blood loss: Yes Indications: Diagnostic evaluation and pain Location: Wrist Laterality: Left Site: Carpal Tunnel Prep: patient was prepped and draped in usual sterile fashion Needle size: 25 G Medications: 20 mg triamcinolone acetonide 40 mg/mL Anesthetic used: Lidocaine 1% Anesthetic amount (mL): 1 Patient tolerance: Patient tolerated the procedure well with no immediate complications documented in this encounter [facility] 06-19-2022 History of Present illness Narrative Images from the original note were not included. [facility] - Neurology [address] [place] [address] Nerve Conduction & EMG Report Patient: Nara Malcolm Sex: Female Date of : 1975 Visit Date: 06/19/2022 7:50 AM Age: 47 Years Examining MD: Anaya Staples MD Referred by: Faith Munson CNP Temperature: 32.3 Current Height: 5 feet 3 inch Referred for: LUE numbness, paresthesias, and pain for 2 months. Occ neck pain. No DM. Plan: The study is design to evaluate for radiculopathy, plexopathy, entrapment neuropathy, median or ulnar neuropathy. Indication, risk, side effects, and alternatives were explained. Patient agreed to proceed. Patient was instructed to clean the puncture site with soap and water and put some ice pack for bruising. Impression: This is an abnormal EMG. There is electrodiagnostic evidence of a left median nerve entrapment at the wrist without axonal damage at this time. Incidentally, there is also electrodiagnostic evidence of a left ulnar nerve entrapment across the elbow without axonal damage. There is NO electrodiagnostic evidence of left cervical radiculopathy or brachial plexopathy. EMG Summary: The left median motor nerve conduction study showed prolonged distal latency, normal amplitude and conduction velocity. The left median sensory nerve conduction study showed prolonged distal latency and normal amplitude. The left ulnar motor nerve conduction study showed normal latency and amplitude with reduced conduction velocity across the elbow to 42.1 m/s. The left ulnar sensory nerve conduction study was normal. The left radial, medial and lateral antebrachial cutaneous sensory nerve conduction study were normal. Needle EMG of the muscles tested showed no abnormal spontaneous activity. Normal motor unit action potentials and recruitment patterns were seen. Anaya Staples MD Diplomate, ABPN, NBPAS Clinical Neurophysiology, Neurology, Vascular Neurology and Sleep Medicine [facility], [place], [place] [phone] Motor NCS Nerve / Sites Muscle Latency Amplitude Distance Velocity ms mV cm m/s L Median - APB Wrist APB 5.42 9.7 7 Elbow APB 9.38 9.7 22 55.6 L Ulnar - ADM Wrist ADM 2.94 16.2 6.5 B.Elbow ADM 6.48 13.6 21 59.3 A.Elbow ADM 8.85 12.5 10 42.1 Sensory NCS Nerve / Sites Peak Amp Amp.2-3 Distance Velocity ms V V cm m/s L Median - Digit II Wrist 5.40 22.3 30.6 13 29 L Ulnar - Digit V Wrist 3.04 23.4 41.2 11 53 L Radial - Snuff Forearm 2.00 28.2 30.6 10 76 L Lateral antebrachial cutaneous - Forearm Elbow 1.92 12.9 2.2 12 94 L Medial antebrachial cutaneous - Forearm Elbow 1.65 13.7 4.4 12 101 EMG Summary Table Spontaneous Activity Amplitude Duration Recruitment Polyphasia Comment Muscle Ins Act Fib PSW Fasc - - - - - L. Cervical paraspinals Normal 0 0 0 Normal Normal Normal Normal Normal L. Deltoid Normal 0 0 0 Normal Normal Normal Normal Normal L. Triceps brachii Normal 0 0 0 Normal Normal Normal Normal Normal L. Biceps brachii Normal 0 0 0 Normal Normal Normal Normal Normal L. Pronator teres Normal 0 0 0 Normal Normal Normal Normal Normal L. Extensor digitorum communis Normal 0 0 0 Normal Normal Normal Normal Normal L. Flexor carpi ulnaris Normal 0 0 0 Normal Normal Normal Normal Normal L. Flexor digitorum profundus, dig 4 & 5 Normal 0 0 0 Normal Normal Normal Normal Normal L. Abductor digiti minimi (manus) Normal 0 0 0 Normal Normal Normal Normal Normal L. First dorsal interosseous Normal 0 0 0 Normal Normal Normal Normal Normal L. Abductor pollicis brevis Normal 0 0 0 Normal Normal Normal Normal Normal documented in this encounter [facility] 04-27-2022 History of Present illness Narrative [facility] [address] [facility] [address] [facility] [id number] Chief Complaint Patient presents with Left Wrist - Pain Right Wrist - Pain Nara Malcolm, 46-year-old female, presents to the office today for left wrist pain. She unfortunately recently got a divorce and is now having to live on her as well as now obtain an appointment. 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 She has also started to complain of numbness and tingling into the thumb index and middle fingers. She states that this recently has started waking her up in the middle of the night. 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 She did try OTC pain medications as well as some ice and heat to that left hand and wrist but unfortunately it continued to worsen to the point where she had to go to the emergency room for further evaluation. She had x-rays performed and was told that there was nothing fractured. She then went on to see someone in occupational health through [facility] to determine whether or not this would be a [employer] claim. She did sign a release stating that this would not be filed through [employer]. She was then referred on to orthopedics for further evaluation. She was provided with a wrist splint and states that she has been wearing that since she received it. She does think that it provides her with some alleviation of her symptoms. Unfortunately due to the pain in the hand and the wrist she felt as though she had to quit that specific job. The patient's past medical history, surgical history, social history, family history, medications and allergies were reviewed with the patient today and are available in the chart for further review. Allergies Allergen Reactions Oxycodone-Acetaminophen Hives Current Outpatient Medications: acetaminophen (TYLENOL) 325 MG tablet, Take 2 (two) tablets (650 mg total) by mouth every 6 (six) hours as needed ., Disp: 240 tablet, Rfl: 0 busPIRone (BUSPAR) 10 MG tablet, TAKE 1 TABLET BY MOUTH TWICE DAILY AND 2 TABLETS AT BEDTIME, Disp: , Rfl: cholecalciferol, vitamin D3, (VITAMIN D3 ORAL), Take 600 Units by mouth daily ., Disp: , Rfl: fluticasone propionate (FLONASE) 50 mcg/actuation nasal spray, Instill 2 (two) sprays into each nostril daily as needed for rhinitis ., Disp: , Rfl: ibuprofen (ADVIL,MOTRIN) 800 MG tablet, Take 1 (one) tablet (800 mg total) by mouth 2 to 3 times daily as needed with food or milk., Disp: 40 tablet, Rfl: 0 melatonin 5 mg Tab, Take 3 (three) tablets (15 mg total) by mouth at bedtime ., Disp: , Rfl: methylPREDNISolone (MEDROL DOSEPACK) 4 mg tablet, follow package directions ., Disp: 21 tablet, Rfl: 0 multivit-min/folic acid/[id number] (ALIVE WOMEN'S GUMMY VITAMIN ORAL), Take 2 tablets by mouth daily ., Disp: , Rfl: omeprazole (PRILOSEC) 40 MG capsule, Take 1 (one) capsule (40 mg total) by mouth every morning ., Disp: , Rfl: QUEtiapine (SEROQUEL) 100 MG tablet, Take 1 (one) tablet (100 mg total) by mouth nightly ., Disp: , Rfl: QUEtiapine (SEROQUEL) 400 MG tablet, Take 1 (one) tablet (400 mg total) by mouth nightly ., Disp: , Rfl: rosuvastatin (CRESTOR) 20 MG tablet, Take 1 (one) tablet (20 mg total) by mouth nightly ., Disp: , Rfl: sertraline (ZOLOFT) 100 MG tablet, Take 1 (one) tablet (100 mg total) by mouth 2 (two) times a day ., Disp: , Rfl: Past Medical History: Diagnosis Date Arthritis GERD (gastroesophageal reflux disease) Hyperlipidemia IBS (irritable bowel syndrome) Major depression in remission ([facility]) Past Surgical History: Procedure Laterality Date ABDOMINAL SURGERY gallbladder removed ARTHROPLASTY HIP TOTAL Left 09/28/2019 Procedure: LEFT ROBOTIC TOTAL HIP REPLACEMENT; Surgeon: Oj Ferro MD; Location: [facility] Main OR; Service: Orthopedic CHOLECYSTECTOMY HYSTERECTOMY INCISION AND DRAINAGE LOWER EXTREMITY Left 11/18/2019 Procedure: INCISION AND DRAINAGE LEFT TOTAL HIP SUPERFICIAL; Surgeon: Tamra Murcia MD; Location: [facility] Main OR; Service: Orthopedic SKIN BIOPSY moles removed Social History Socioeconomic History Marital status: Tobacco Use Smoking status: Every Day Packs/day: 2.00 Types: Cigarettes Smokeless tobacco: Never Vaping Use Vaping Use: Never used Substance and Sexual Activity Alcohol use: Not Currently Drug use: Yes Types: Marijuana Comment: states has medical card ROS: Review of Systems Constitutional: Negative for activity change and fatigue. HENT: Negative for congestion, hearing loss and trouble swallowing. Eyes: Negative for visual disturbance. Respiratory: Negative for chest tightness and shortness of breath. Cardiovascular: Negative for chest pain and palpitations. Gastrointestinal: Negative for abdominal pain, diarrhea, nausea and vomiting. Endocrine: Negative for polydipsia, polyphagia and polyuria. Genitourinary: Negative for decreased urine volume, difficulty urinating and hematuria. Musculoskeletal: Positive for arthralgias and myalgias. Negative for joint swelling. Skin: Negative for color change, rash and wound. Allergic/Immunologic: Negative for immunocompromised state. Neurological: Positive for weakness and numbness. Negative for dizziness. Hematological: Does not bruise/bleed easily. Psychiatric/Behavioral: Negative for confusion and sleep disturbance. The patient is not nervous/anxious. PE: Physical Exam Constitutional: Appearance: She is well-developed. HENT: Head: Normocephalic. Eyes: Pupils: Pupils are equal, round, and reactive to light. Cardiovascular: Rate and Rhythm: Normal rate and regular rhythm. Pulmonary: Effort: Pulmonary effort is normal. Breath sounds: Normal breath sounds. Abdominal: General: Bowel sounds are normal. Palpations: Abdomen is soft. Musculoskeletal: General: Tenderness present. No swelling. Left wrist: Tenderness present. No swelling, bony tenderness or crepitus. Decreased range of motion. Normal pulse. Left hand: Decreased strength of finger abduction, thumb/finger opposition and wrist extension. Decreased sensation of the radial distribution. Cervical back: Normal range of motion and neck supple. Skin: General: Skin is warm and dry. Neurological: Mental Status: She is alert and oriented to person, place, and time. ORTHO: Left Hand Exam Tests Phalen s sign: positive Tinel's sign (median nerve): positive Other Erythema: absent Scars: absent Sensation: normal Pulse: present Imaging: L Wrist: No evidence of acute osseous abnormality of the left hand or left wrist. Scattered mild degenerative change Assessment/Plan: After examination and reviewed of the patient x-ray images we discussed treatment options for the left wrist. We did discuss cortisone injections for possible carpal tunnel. I did offer her 1 today which she politely declined. Therefore, I am ordering a left upper extremity EMG for further diagnostic evaluation of the numbness and tingling in that left wrist and hand. I will see her back in the office to review those results and discuss further treatment options. She does verbalize understanding and is in agreement with the treatment plan. documented in this encounter [facility] 07-23-2021 History of Present illness Narrative Patient is here today for left olecranon bursitis. She states around July 2021 she was moving doing a lot of lifting with boxes. Shortly after that just rearranging things, she mentions hitting her elbow multiple times and then noticed the swelling on the back of the elbow. She denies any fever or redness. She does state that it may have decreased some over time. She is started wearing her compression wrap for the last 2 weeks she has been utilizing ibuprofen as needed. She has had this in the past where an aspiration did get rid of the issue fotr multiple years. She is here today for possible aspiration. [facility] [address] Work Phone: Evaluation + Plan note Future Appointments Appointment Date:02/07/2023 08:30:00 AM Scheduled Provider:NICOLETTE WIGGINS DO Location:[facility] Diagnosis Ulnar neuropathy at elbow, left- Primary Carpal tunnel syndrome of left wrist [facility] Diagnosis Carpal tunnel syndrome of left wrist- Primary [facility] Narrative No data available for this section [facility] Discharge instructions No data available for this section [facility] Progress note No data available for this section [facility] Summary Purpose Family History No Family History Records FoundUnknown Family Member Name Dates Details No pertinent family history: Mother(V49.89, [id number]) Status:Active Advance Directives No Advanced Directives Records FoundDocuments on File Type Date Recorded 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 Advance Directives and Livin g Will 09/28/2019 8:50 AM Latest Code Status on File Code Status Date Activated Date Inactivated Comments Full Code 09/28/2019 9:33 AM 09/30/2019 4:01 PM Documents on File Type Date Recorded 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 Advance Directives and Livin g Will 11/17/2019 8:50 AM Latest Code Status on File Code Status Date Activated Date Inactivated Comments Full Code 11/17/2019 3:51 PM Full Code 09/28/2019 9:33 AM 09/30/2019 4:01 PM Documents on File Type Date Recorded 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 anation Advance Directives and Livin g Will 11/17/2019 8:50 AM Latest Code Status on File Code Status Date Activated Date Inactivated Comments Full Code 11/17/2019 3:51 PM 11/18/2019 7:22 PM Full Code 09/28/2019 9:33 AM 09/30/2019 4:01 PM Documents on File Type Date Recorded 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 anation Advance Directives and Livin g Will 09/15/2019 10:04 AM Latest Code Status on File Code Status Date Activated Date Inactivated Comments Full Code 11/17/2019 3:51 PM 11/18/2019 7:22 PM Code Status History Code Status Date Activated Date Inactivated Comments Full Code 09/28/2019 9:33 AM 09/30/2019 4:01 PM Latest Code Status on File Code Status Date Activated Date Inactivated Comments Full Code 11/17/2019 3:51 PM 11/18/2019 7:22 PM Code Status History Code Status Date Activated Date Inactivated Comments Full Code 09/28/2019 9:33 AM 09/30/2019 4:01 PM Discharge Instructions * Instructions* Karlie Zamora PA-C - 09/28/2019 HIP REPLACEMENT INSTRUCTIONS Refer to your Hip Replacement Guide for more information. Activity -Use walker/cane at all times -Wear elastic stockings for 30 days. May remove for bathing. -Your bed, chairs and toilet must be 21 inches or higher. Use toilet seat haul truck driver and seat cushionas instructed. -Walk 3-4 times a day, gradually increasing distance -No driving until approved by your doctor -For swelling of the legs, elevate on pillows, toes above the heart level -Sit in a chair no more than 1 hour at a time. Then get up and walk around. Incision Care -Keep incision clean and dry. -Do not use powder, lotions, creams, or ointments on your incision. -No tub baths, hot tubs, or swimming until approved by your doctor. -You may shower -A small amount of drainage is expected -Apply ice as needed for swelling and /or comfort especially after exercises. -For comfort, you can put a dressing over the incision. Additional Instructions: -Dietary Evaluation upon arrival to SNF/ECF if applicable. Resume hospital diet order until dietaryevaluation is complete -Continue Incentive Spirometry and/or cough and deep breathe 4 times a day for one week after discharge -To prevent constipation take Senna-S 8.6 mg 1 tabs BID, adjust dose to maintain 1-2 BMs a day while on narcotics. If no BM after 3 days notify physician. -No bisphosphate: for example, Fosamax, Actonel, Zometa, Boniva, for 1 month; may use calcitionin. -Home assessment and evaluation by Physical Therapy PRIOR to d/c from SNF/ECF if applicable. Call your doctor if you notice: -Signs of infection: redness, swelling, odor, or drainage from incision, fever above 101 F, chills -Edges of incision -Sudden, severe pain not relieved by medication -Loss or appetite, nausea or vomiting -Inability to urinate for more than 8 hours -You have any other questions or concerns Call the doctor right away if you: -Hear a pop or severe sudden pain at your hip -Inability to bear weight -Have excessive calf pain especially when walking -Have chest pain or shortness of breath, call 911 Pose Avoidance After Surgery -Restrictive posterior hip precautions have become less strict as a result of recent technological advances and improvements in hip implant (prosthetic) design. -Below are the new pose avoidance guidelines to adhere to during your healing phase. Please adhere to these guidelines for the first 4 weeks post operatively or follow the instructions from your individual surgeon. Safe Poses After Surgery OK sit in chair of comfortable height OK to cross your ankle over your knee to put on sock/shoe. OK to lean forward to cotton picker operator object keeping knees shoulder width apart and body between your legs. Avoid These Poses After Surgery 1 DO NOT rise from chair or commode with knees touching. DO NOT reach back behind your leg to the outside of your ankle to shave leg or fix a sock/shoe. Note to physical therapist: Avoid combined internal rotation, hip flexion > 90 degrees and adduction. PT Orders -A&PROM -SLR -WBAT gait training WOUND CARE -Remove the dressing in 5-7 days after surgery. -You may shower with the dressing in place. After the dressing is removed, no need to cover incision to shower. Pat dry. Otherwise keep clean and dry. -After the dressing is removed, keep a dry gauze dressing in place to cover incision if drainage ispresent. CONSTIPATION -Repetitive use of narcotic pain medicine after surgery is a very common cause of constipation. Thefollowing instructions are recommended: -Drink plenty of fluids. Eight glasses of water or juice per day are encouraged. -Start with Senokot-S 8.6-50 mg (svxv-ofl-jaufioq). This is a laxative/stool softener combination. Take 1-2 tablets twice a day until bowel movements are achieved. -If no success, add Milk of Magnesia (kqlo-dvt-qhrttdf). This is a laxative. Take 30-60 mL 1-2 times per day. Take no more than 60 mL in a 24-hr period. -If still no success, add Magnesium Citrate (qcgw-rvc-hjcanua). This is a strong laxative. Take 1/2-1 bottle 1-2 times per day. Take no more than one bottle in a 24-hr period. -If still no success, add Fleets enema (avjo-dxk-mcpionb). Follow instructions on package. -If still no success, call your primary care physician. PAIN MEDICINES (GENERAL) -You are being discharged home on opioid pain medicine. This may include Oxycodone, Hydrocodone, orDilaudid. -There is a new FDA Black Box warning for all opioid pain medication: Opioids are powerful narcoticpain medicines that can help manage pain when other treatments and medicines are not able to provide enough pain relief. However, even when used properly, opioids also carry serious risks, and they can be misused and abused, causing addiction, overdose, and . -These opioid medications should be used at the lowest dose possible, and for the shortest amount of time possible -If you have been diagnosed with sleep apnea or have been told you may have sleep apnea: Each of these medications can suppress your breathing and make your upper airway more collapsible. This may worsen sleep-disordered breathing, such as sleep apnea. As these medications also suppress your level of consciousness, you may not be able to protect your airway adequately. This may lead to disrupted breathing, suffocation or asphyxiation, and even . Use caution when taking pain medication, andtake the lowest dose possible. Talk to your primary care doctor soon after discharge, and be sure to wear your CPAP if you have been prescribed one. -Tell your doctor and pharmacist about ALL drugs you are taking. Do not take any previous medicinesunless your doctor is aware. This includes medicines or drugs that are prescribed, hhzm-wem-tfboraw, or herbal supplements. -Do not mix these pain medicines with alcohol or sedating drugs, such as pills to help anxiety or sleeping, or illegal drugs. This greatly increases the risk for dangerous overdose. -Do not drive or do other tasks that require you to be alert until you see how this drug effects you. -Call your doctor if you are concerned and are having any of the following common side effects which can include: upset stomach, constipation, dizziness and sleepiness -You and your family should be aware of the signs of overdose. Call 911 right away if you notice slurred or drawling speech, poor balance, nodding off during conversation or activity or slowed, difficulty breathing. -If you misuse or abuse pain medicines you can become addicted to them. It is important to openly discuss your concerns with your doctor. -If you have been regularly taking a pain medicine for 7 days or more, you may experience a withdrawal reaction if you suddenly stop taking the medicine. Withdrawal symptoms such as flu like symptoms do not mean you are addicted- just that you stopped the medicine too quickly. Contact your doctorfor direction on how to slowly stop this medicine. -Keep your medicine securely stored at home. Store medicines where children can t see or reach them, for example, in a locked box or cabinet. -If you have left over medicine, a take-back program for disposal is a good way to remove the unwanted or unused medicines from the home and reduce the chance that others may accidentally take the medicine. Contact your [facility] [employer]'s household trash and recycling service to see if there is a medicine take-back program in your community and learn about any special rules regarding which medicines can be taken back. You can also talk to your pharmacist to see if he or she knows of other medicine disposal programs in your area. documented in this encounter* Discharge Instr - Care Coordination* Thi Walters CNP - 11/18/2019 4:29 PM EDT Dear Nara, We want to assure that you are comfortable with your discharge plan and that we have communicated clearly and effectively to help in your recovery. Below are a few highlights of your hospitalization: You were hospitalized for concern for a post operative wound infection but noted to likely be incomplete wound healing. You received antibiotics, CT scan and aspiration. We recommend to go to the OR for a superficial irrigation and debridement. Additional recommendations: Bactrim orally for 7 more days and follow up with Dr. Ferro in 10-14 days. Your health and well being are very important to us. Our goal is to always provide excellent care, delivered with compassion and respect. Thank you for entrusting your care to our team. Sincerely, [facility] Primary [facility] Hospitalist Team Your [facility] Hospitalist Physician was Dr. Beverly Your [facility] Hospitalist Nurse Practitioner was Thi Walters documented in this encounter* Discharge Instr - Care Coordination* Thi Walters CNP - 11/18/2019 4:29 PM EDT Dear Nara, We want to assure that you are comfortable with your discharge plan and that we have communicated clearly and effectively to help in your recovery. Below are a few highlights of your hospitalization: You were hospitalized for concern for a post operative wound infection but noted to likely be incomplete wound healing. You received antibiotics, CT scan and aspiration. We recommend to go to the OR for a superficial irrigation and debridement. Additional recommendations: Bactrim orally for 7 more days and follow up with Dr. Ferro in 10-14 days. Your health and well being are very important to us. Our goal is to always provide excellent care, delivered with compassion and respect. Thank you for entrusting your care to our team. Sincerely, [facility] Primary Care Hospitalist Team Your [facility] Hospitalist Physician was Dr. Beverly Your [facility] Hospitalist Nurse Practitioner was Thi Walters documented in this encounter History of Present Illness * Khushboo Louis, REPORTING LEAD - 09/30/2019 12:06 PM EDT Physical Therapy PHYSICAL THERAPY TREATMENT NOTE Skilled Therapy Needs After Discharge Are Skilled Therapy Services Needed After Discharge: Yes Intensity of Skilled Therapy: 2-3 days per week Anticipated Duration of Skilled Therapy: Duration 10 - 30 days DME Recommendation: None(Spouse reports owning FWW) DME Rationale: Patient's condition creates an increased risk of safety hazard without recommended equipment Rehab Potential: Good, For goals Outcomes Measures Prior Function - Basic Mobility Raw Score: 24 Points Prior Function - Basic Mobility % Impaired: 0% functionally impaired AM-PAC - Basic Mobility Raw Score: 18 Points AM-PAC - Basic Mobility % Impaired: 40.47% functionally impaired Therapy Precautions Orthotic Devices: No Weight Bearing Status: X LLE: Wt bearing as tolerated General Rehab Precautions: Fall risk, Total hip(Pose avoidance) Bed Mobility Supine to Sit: (NA, patient sitting in chair upon arrival) Transfers Sit to Stand: Stand by assistance Stand Pivot Transfers: Stand by assistence Aircraft Inspector: Wheeled walker, 1 person, Gait belt Skilled Intervention: Continued to reinforce pose avoidance precautions. Verbal cues provided for reinforcement of hand placement and surgical limb positioning to ensure safe transfers. Increased effort noted for completion d/t reported Left leg stiffness. Verbal review of car transfer technique while maintaining precautions. Patient verbalizes understanding. Gait/Locomotion Gait Assistance: Contact guard, Stand by assistance Assistive Device: Wheeled walker Distance: 140 Feet Pattern: Forward flexed, Step to, Step through, L impaired heel strike, L Flexed knee(decreased gait speed) Stair Management Technique: (pt. declines need for review) Skilled Intervention: Provided verbal cues for decreased reliance of UEs on wheeled walker and pacing to improve gait quality. Gait pattern improves with progressed gait distances. Unable to perform L heel strike d/t baseline gait impairments. Exercise Total Hip: x10 reps B LE(AP, GS, QS) Seated Exercises: B LE LAQ x10 reps Skilled Intervention: Reviewed total hip protocol exercises to increase strength for improved functional moblity. Handout and schedule of completion reviewed. Patient verbalizes understanding. Home Living Type of Home: House Home Layout: Multi-level, Laundry in basement, Bed/bath upstairs, Performs ADLs on one level(6 CIRA to bedroom, 0 CIRA to enter) Bathroom Shower/Tub: Tub/shower unit Bathroom Toilet: Standard Bathroom Equipment: Shower chair(Does not fit in shower) Bathroom Accessibility: Not accessible Home Equipment: Walker, Wheeled Walker(Rollator ) Additional Comments: Medication Managment (+) Prior Level of Function Level of [place]: Independent with ADLs and functional transfers, Independent with homemaking with ambulation Lives With: Spouse, Daughter(19 yold ) Receives Help From: Family ADL Assistance: Independent Homemaking Assistance: Independent 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 This note stands as the current Discharge Summary upon patient discharge from the hospital or completion of Physical Therapy Plan of Care. * Carmencita Potter OT - 09/30/2019 11:04 AM EDT Occupational Therapy OCCUPATIONAL THERAPY TREATMENT NOTE Skilled Therapy Needs After Discharge Anticipate Resolution of Current Assessment Limitations Including: Pain, Mechanical Barriers Are Skilled Therapy Services Needed After Discharge: Yes Intensity of Skilled Therapy: 2-3 days per week Anticipated Duration of Skilled Therapy: Duration 7 - 10 days DME Recommendation: Elevated toilet seat DME Rationale: Patient's condition prevents him/her from accomplishing ADL without recommended equipment, Patient's condition creates an increased risk of safety hazard without recommended equipment Rehab Potential: Good, For goals OT Caregiver Readiness Working toward discharge home: Yes Outcomes Measures Prior Function Daily Activity: Raw Score: 24 Prior Function Daily Activity % Impaired: 0% functionally impaired AM-PAC Daily Activity: Raw Score: 20 AM-PAC Daily Activity % Impaired: 38.32% functionally impaired Therapy Precautions Orthotic Devices: No Weight Bearing Status: X LLE: Wt bearing as tolerated General Rehab Precautions: Fall risk, Total hip(Pose avoidance) Cognition Overall Cognitive Status: Within Functional Limits Arousal/Alertness: Appropriate responses to stimuli Orientation Level: Oriented X4 Executive functioning: Insight, Min impairment Safety Judgment: Decreased awareness of need for safety, Decreased awareness of need for assistance Problem Solving: Assistance required to generate solutions, Assistance required to implement solutions Attention: Easily distracted Hearing Status: WFL Social Interaction: Cooperative, Apprehensive, Anxious Comments: Following simple commands. Anxious, apprehensive Skilled Intervention: Facilitated active discussion of patient goals and implemented appropriately.Reviewed pose avoidance via verbal instruction and visual demonstration for increased safety; requires min cueing for problem solving and adherence during session; anxious; impulsive; requires redirection to task at times. Multiple verbalizations of just wanting to go home with education on safety and progression of activities. ADL/IADL Grooming : Stand by assistance UE Dressing: Modified independence LE Dressing: Min Toileting : Stand by assistance Skilled Intervention: Facilitated safe engagement in aforementioned ADL tasks with cues for precaution adherence, safety and task completoin. Close SBA for safety with dynamic standing activities with karie-care and grooming tasks. Requires min A for physical assist with donning shoes due to decreased functional ROM and stiffness . Addt time spent educating pt on importance of progressing activities while maximizing safety Bed Mobility Supine to Sit: (seated EOB at beginning) Sit to Supine: (seated in chair at end of session) Skilled Intervention: Unable to assess -- seated EOB, chair at end of session. Functional Transfers Sit to Stand: Contact guard, Stand by assistance Bed to Chair Transfers: Contact Guard Toilet Transfers: Contact Guard, Additional time, Grab bars Skilled Intervention: Min cueing for safe hand placement with FWW prior to engagement in functionaltransfers from various surfaces. Min cueing for LE management during transitions for adherence to precautions. Tolerates mobility ~ household distances with several standing rest breaks due to fatigue. CGA for steadying assist with balance during funcitonal mobility with cues for improved form as pt noted to walk on toes of surgical LE. Home Living Type of Home: House Home Layout: Multi-level, Laundry in basement, Bed/bath upstairs, Performs ADLs on one level(6 CIAR to bedroom, 0 CIRA to enter) Bathroom Shower/Tub: Tub/shower unit Bathroom Toilet: Standard Bathroom Equipment: Shower chair(Does not fit in shower) Bathroom Accessibility: Not accessible Home Equipment: Walker, Wheeled Walker(Rollator ) Additional Comments: Medication Managment (+) Prior Level of Function Level of [place]: Independent with ADLs and functional transfers, Independent with homemaking with ambulation Lives With: Spouse, Daughter(19 yold ) Receives Help From: Family ADL Assistance: Independent Homemaking Assistance: Independent 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 This note stands as the current Discharge Summary upon patient discharge from the hospital or completion of Occupational Therapy Plan of Care. * Khushboo Louis PTA - 09/30/2019 9:19 AM EDT Physical Therapy PHYSICAL THERAPY TREATMENT NOTE Skilled Therapy Needs After Discharge Are Skilled Therapy Services Needed After Discharge: Yes Intensity of Skilled Therapy: 2-3 days per week Anticipated Duration of Skilled Therapy: Duration 10 - 30 days DME Recommendation: Wheeled walker(wheels delivered do not fit currently owned walker) DME Rationale: Patient's condition creates an increased risk of safety hazard without recommended equipment Rehab Potential: Good, For goals Outcomes Measures Prior Function - Basic Mobility Raw Score: 24 Points Prior Function - Basic Mobility % Impaired: 0% functionally impaired AM-PAC - Basic Mobility Raw Score: 18 Points AM-PAC - Basic Mobility % Impaired: 40.47% functionally impaired Therapy Precautions Orthotic Devices: No Weight Bearing Status: X LLE: Wt bearing as tolerated General Rehab Precautions: Fall risk(pose avoidance) Bed Mobility Supine to Sit: (NA, patient sitting in chair upon arrival) Sit to Supine: Contact guard Skilled Intervention: Conitnued to reinforce pose avoidance precautions, with handout as review. Verbal cues provided for sequencing to maintain precautions and safety. Demo/ cues provided for use ofgait belt used as a strap assist for L LE management into bed. Increased time allowed for bed mobility and repositioning in supine. Transfers Sit to Stand: Stand by assistance Aircraft Inspector: Wheeled walker, 1 person, Gait belt Skilled Intervention: Verbal cues provided for hand placement, Surgical limb placement, and increased eccentric control of lowering to ensure safe transfers. x4 trials performed from various surfacesfor improved carryover. Gait/Locomotion Gait Assistance: Contact guard Assistive Device: Wheeled walker Distance: 85 Feet(x2 with brief standing rest break) Pattern: Forward flexed, L impaired heel strike, L knee hyperextension, Step to, Step through Skilled Intervention: Provided verbal cues for attempting towards L LE heel strike as tolerated, sequencing with wheeled walker and step through pattern to improve gait quality. Patient demo slow, guarded pace in apprehension to pain. Patient reports ambulating/WB through left ball of foot at baseline. Exercise Total Hip: x10 reps B LE(AP, GS, QS) Seated Exercises: B LE LAQ x10 reps Skilled Intervention: Reviewed total hip protocol exercises to increase strength for improved functional moblity. Handout and schedule of completion reviewed. Patient verbalizes understanding. Home Living Type of Home: House Home Layout: Multi-level, Laundry in basement, Bed/bath upstairs, Performs ADLs on one level(6 CIRA to bedroom, 0 CIRA to enter) Bathroom Shower/Tub: Tub/shower unit Bathroom Toilet: Standard Bathroom Equipment: Shower chair(Does not fit in shower) Bathroom Accessibility: Not accessible Home Equipment: Walker, Wheeled Walker(Rollator ) Additional Comments: Medication Managment (+) Prior Level of Function Level of [place]: Independent with ADLs and functional transfers, Independent with homemaking with ambulation Lives With: Spouse, Daughter(19 yold ) Receives Help From: Family ADL Assistance: Independent Homemaking Assistance: Independent 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 This note stands as the current Discharge Summary upon patient discharge from the hospital or completion of Physical Therapy Plan of Care. * Raul Acosta, - 09/30/2019 9:17 AM EDT Nara Malcolm who is POD#2 status post left total hip arthroplasty with subtrochanteric osteotomy S: Nara Malcolm reports feeling well this morning. States pain is much better controlled thanthe day prior. She is eager to get home. ROS: Denies fevers, chills, nausea, vomiting, SOB and CP PE: General: alert, oriented x3, pleasant Lower Extremity: -Laterality: Left -Splint/Cast/Dressing: Mepilex soft dressings, with abduction pillow -Tenderness appropriate over incision site -No evidence of footdrop on exam -Pt wiggles toes. PF/DF/EHL motor intact. -Symmetrical +2/4 DP/PT pulses. Cap refill brisk in all toes. SILT L3-S1 -Compartments soft/compressible -Skin does not demonstrate any erythematous, lesions, maceration, or signs of early break down. Labs Lab Results Component Value Date/Time HGB 10.5 (L) 09/30/2019 06:52 AM HGB 10.7 (L) 09/30/2019 03:01 AM HGB 10.8 (L) 09/29/2019 03:01 AM Lab Results Component Value Date/Time WBC 15.37 (H) 09/30/2019 06:52 AM WBC 14.29 (H) 09/30/2019 03:01 AM WBC 20.14 (H) 09/29/2019 03:01 AM Radiographs: No new imaging Assessment & Plan: Diagnosis: Adult developmental dysplasia left hip POD#2 s/p left total hip arthroplasty with subtrochanteric osteotomy - Labs reviewed, hemoglobin 10.5 - WBC up to 15.37 likely stress reactive in light of recent procedure - Weight bearing WBAT, LLE - Antibiotics: Postoperative protocol - PT/OT: Appreciate recommendations - Dressing in place and c/d/i - VTE prophylaxis - D/C plan: home when stable Will discuss with attending Raul Acosta DO Orthopedic Surgery Resident * Robby Conley DO - 09/30/2019 9:12 AM EDT Robby Conley DO [facility] DAILY PROGRESS NOTE Patient Name: Nara Malcolm PCP: Dusty Wells DO Perpetual Assessment: Nara Malcolm is a 44 y.o. 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 Leukemoid reaction - WBC>20K w/ baseline unclear but no associate fever identified & low suspicion for acute post-operative infection - Post-op stress response suspected and no clinical source of infection identified - Continue to monitor Temp and monitor clinically Major depression in remission (HCC) - Chronic presentation w/o acute symptoms - Continue SSRI and titrate as needed - Outpt follow up per PCP Code Status: full DVT Prophylaxis Deferred to Primary Service Disposition and Comments CC / Reason for follow up: Medical tx SUBJECTIVE: Pt evaluated this AM and pt reported significant improvement in pain control. VS and temp stable w/follow up labwork ordered. Pt remains medically stable for dishcarge home once cleared by Ortho ROS: < >> The following system(s) were reviewed. Pertinent positive and negative findings are noted in the HPI. [x] Const [] Eyes [] ENT [x] Resp [x] CV [x] GI [x] [x] Neuro [x] Musc [] Skin [x] Psych [x] Endo [] Allergy [] Heme/Lymph PHYSICAL EXAMINATION: << >>>>> Temp: [98.8 F (37.1 C)-100.1 F (37.8 C)] 98.8 F (37.1 C) Heart Rate: [91-111] 96 Resp: [16-18] 16 BP: (95-142)/(47-75) 95/47 GENERAL: NAD EYES: EOMI, PERRL CV: RRR w/o CHRISTO RESP: CTA w/o distress GI: Soft NT ND BS+ obese MUSC: Dressing inplace NEURO: AOx3. Grossly normal motor and sensory exam. No focal deficits. PSYCH: Mood and affect are appropriate. Cooperative. I/O s last 3 shifts: I/O last 3 completed shifts: In: 1668.2 [P.O.:810; I.V.:750.6; IV Piggyback:107.6] Out: 350 [Urine:350] Reviewed 09/30/19 9:12 AM: [x] Laboratory [x] Transcriptions [x] Radiology [] Microbiology [] Cardiology [] Outside Records [x] Medications [] Family Time Spent/CCM Time: * Ava Puente RN - 09/29/2019 4:05 PM EDT Patient is complaining of something Pulling on her surgical leg. Will discuss with ortho. * Andie Awan RN - 09/29/2019 3:33 PM EDT SIMPLE DISCHARGE Date: 09/29/2019 Time: 3:33 PM Patient Name: Nara Malcolm Date of : 1975 Sex: Female Discharge Planning Living Arrangements: Spouse/significant other, Children Support Systems: Spouse/significant other, Children Assistance Needed: no Type of Residence: Private residence Prior to Admission Home Care Services: No Patient expects to be discharged to:: home Does the patient need discharge transport arranged?: No Current Home Equipment: Walker, Tub/Shower chair, Other (Comment)(rollator) Anticipated HME: Other (Comment)(wheel kit for walker) Anticipated Home Care Needs: None Patient will need wheels for her walker & an elevated toilet seat.. CM placed equipment order through [place] HME liaison. * Magdalena Dodson PT - 09/29/2019 3:10 PM EDT Physical Therapy PHYSICAL THERAPY TREATMENT NOTE Skilled Therapy Needs After Discharge Are Skilled Therapy Services Needed After Discharge: Yes Intensity of Skilled Therapy: 2-3 days per week Anticipated Duration of Skilled Therapy: Duration 10 - 30 days DME Recommendation: Wheeled walker DME Rationale: Patient's condition creates an increased risk of safety hazard without recommended equipment Rehab Potential: Good, For goals Outcomes Measures Prior Function - Basic Mobility Raw Score: 24 Points Prior Function - Basic Mobility % Impaired: 0% functionally impaired AM-PAC - Basic Mobility Raw Score: 18 Points AM-PAC - Basic Mobility % Impaired: 40.47% functionally impaired Activity Tolerance Activity Tolerance: Tolerates 30 min acitivty with multiple rests Therapy Precautions Orthotic Devices: No Weight Bearing Status: X LLE: Wt bearing as tolerated General Rehab Precautions: Fall risk(pose avoidance) Balance Sitting Balance - Static: (Independent) Standing Balance - Static: (SBA with BUE support) Standing Balance - Dynamic: (CGA/SBA with BUE support) Bed Mobility Supine to Sit: (Not observed; pt seated EOB upon PT arrival) Sit to Supine: Min(assist for LE management) Skilled Intervention: Cues provided for transfer sequencing/technique Transfers Sit to Stand: Contact guard Aircraft Inspector: Wheeled walker Skilled Intervention: Reviewed pose avoidance precautions and functional application of precautions. Cues provided for positioning in prep for transfers, including LLE positioning and safe/effective hand placement. Gait/Locomotion Gait Assistance: Contact guard, Stand by assistance Assistive Device: Wheeled walker Distance: 75 Feet Pattern: Step to, Forward flexed, L impaired heel strike, L Decreased stance time Stair Management Technique: Step to pattern, One rail R, With cane Stair Management Assistance: Min Number of Stairs: 3 Skilled Intervention: Cues provided for proper gait mechanics and optimal positioning with AD for increased safety. Pt requires cues for decreased pace with directional changes to prevent LOB. Performed stair negotiation with cues for safe technique with proper non-reciprocal sequencing and safe cane placement. Exercise Quad Sets: LLE x 5 reps Seated Exercises: LLE LAQ x 10 reps Skilled Intervention: Education provided on BILLIE HEP, including QS, GS, LAQ, and supine hip abduction. Cues provided for proper exercise technique and focus on breathing through exercise completion. Pt unable to tolerate GS or hip abduction this session, citing increased pain. Home Living Type of Home: House Home Layout: Multi-level, Laundry in basement, Bed/bath upstairs, Performs ADLs on one level(6 CIRA to bedroom, 0 CIRA to enter) Bathroom Shower/Tub: Tub/shower unit Bathroom Toilet: Standard Bathroom Equipment: Shower chair(Does not fit in shower) Bathroom Accessibility: Not accessible Home Equipment: Walker, Wheeled Walker(Rollator ) Additional Comments: Medication Managment (+) Prior Level of Function Level of [place]: Independent with ADLs and functional transfers, Independent with homemaking with ambulation Lives With: Spouse, Daughter(19 yold ) Receives Help From: Family ADL Assistance: Independent Homemaking Assistance: Independent 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 This note stands as the current Discharge Summary upon patient discharge from the hospital or completion of Physical Therapy Plan of Care. * Liana Villalta RN - 09/29/2019 2:54 PM EDT Anesthesia Progress Note 1 Day Post-Op Procedure(s): LEFT ROBOTIC TOTAL HIP REPLACEMENT Assessment / Plan Subjective Denies: nausea/vomiting Patient participation: patient participated Mental status: awake Nausea / vomiting: no Comment: In no acute distress. Awake and alert, LOC x 3. JOVANNY x 4, up with assist as tolerated. Denies post-op nausea, vomiting or sore throat. Questions addressed. Temp: [36.4 C-37.2 C] 37.1 C Heart Rate: [88-111] 93 Resp: [12-22] 16 BP: (113-175)/(68-88) 139/73 * Ava Puente RN - 09/29/2019 2:27 PM EDT Pt reported being hot . O2 satting between 92-93 % currently on room air. Pt has been requesting IV pain meds . Discussed with ortho and [facility]. Reinforcing education on opiods and tolerance. Discussed with patient that it would benefit her if she would try to do PO meds. Patient verbalized understanding. * Robby Conley DO - 09/29/2019 12:17 PM EDT Robby Conley DO [facility] DAILY PROGRESS NOTE Patient Name: Nara Malcolm PCP: Dusty Wells DO Perpetual Assessment: Nara Malcolm is a 44 y.o. 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 Leukemoid reaction - WBC>20K w/ baseline unclear and no associate fever identified - Low suspicion for acute post-operative infection w/ post-op stress response suspected - Monitor Temp w/ follow up Diff ordered Major depression in remission (HCC) - Chronic presentation w/o acute symptoms - Continue SSRI and titrate as needed - Outpt follow up per PCP Code Status: full DVT Prophylaxis Deferred to Primary Service Disposition and Comments CC / Reason for follow up: Medical tx SUBJECTIVE: Pt evaluated this AM and pt remained hemodynamically stable but was in Significant pain. PT denied any cp or sob and no fever present. Incision dressing in place but no wound drainage reported ROS: < >> The following system(s) were reviewed. Pertinent positive and negative findings are noted in the HPI. [x] Const [] Eyes [] ENT [x] Resp [x] CV [x] GI [x] [x] Neuro [x] Musc [] Skin [x] Psych [x] Endo [] Allergy [] Heme/Lymph PHYSICAL EXAMINATION: << >>>>> Temp: [97.5 F (36.4 C)-99 F (37.2 C)] 98.4 F (36.9 C) Heart Rate: [88-111] 97 Resp: [12-22] 16 BP: (113-175)/(68-88) 136/75 GENERAL: Chronically ill EYES: Conjunctiva and sclera clear, EOMI, PERRL NECK: No adenopathy or JVD. CV: RRR w/o CHRISTO RESP: CTA w/o distress GI: Soft NT ND BS+ obese MUSC: LE dressing inplace No edema SKIN: Warm and dry. No rashes. NEURO: AOx3. Grossly normal motor and sensory exam. No focal deficits. PSYCH: Mood and affect are appropriate. Cooperative. I/O s last 3 shifts: I/O last 3 completed shifts: In: 2350.5 [P.O.:50; I.V.:2100.6; IV Piggyback:199.9] Out: 1275 [Urine:825; Blood:450] Reviewed 09/29/19 12:17 PM: [] Laboratory [x] Transcriptions [] Radiology [] Microbiology [] Cardiology [] Outside Records [x] Medications [] Family Time Spent/CCM Time: * Raul Acosta DO - 09/29/2019 5:50 AM EDT Nara Malcolm who is POD#1 status post left total hip arthroplasty with subtrochanteric osteotomy S: Nara Malcolm reports feeling well this morning. She states that she was able to sleep overnight, despite a moderate amount of pain. Patient denies any fevers chills chest pain shortness of breath nausea vomiting constipation diarrhea or changes in urinary habits. No tingling numbness to left lower extremity. ROS: Denies fevers, chills, nausea, vomiting, SOB and CP PE: General: alert, oriented x3, pleasant Lower Extremity: -Laterality: Left -Splint/Cast/Dressing: Mepilex soft dressings, with abduction pillow -Tenderness appropriate over incision site -No evidence of footdrop on exam -Pt wiggles toes. PF/DF/EHL motor intact. -Symmetrical +2/4 DP/PT pulses. Cap refill brisk in all toes. SILT L3-S1 -Compartments soft/compressible -Skin does not demonstrate any erythematous, lesions, maceration, or signs of early break down. Labs Lab Results Component Value Date/Time HGB 10.8 (L) 09/29/2019 03:01 AM HGB 13.4 09/16/2019 11:28 AM Lab Results Component Value Date/Time WBC 20.14 (H) 09/29/2019 03:01 AM WBC 11.25 (H) 09/16/2019 11:28 AM Radiographs: XR Low Pelvis 1-2 Views (PACU) Final Result 1. Status post left hip arthroplasty with a nondisplaced transverse fracture involving the proximaldiaphysis of the left femur. Suggest correlation with a cross-table lateral view of the left hip toinclude this region. DPR/tde Workstation ID: [id number] Assessment & Plan: Diagnosis: Adult developmental dysplasia left hip POD#1 s/p left total hip arthroplasty with subtrochanteric osteotomy - Labs reviewed, hemoglobin 10.8 - Weight bearing WBAT, LLE - Antibiotics: Postoperative protocol - PT/OT: Appreciate recommendations - Dressing in place and c/d/i - VTE prophylaxis - D/C plan: home when stable Will discuss with attending Raul Acosta DO Orthopedic Surgery Resident Associated attestation - Oj Ferro MD - 09/29/2019 12:35 PM EDT Patient seen and examined independently. Agree with above assessment, physical exam and plan. PT/OT, wbat lle, +5/5 DF/PF/EHL, SILT DP/Sp/S * Julia Loomis CNP - 09/28/2019 6:45 PM EDT Julia Loomis CNP [facility] History and Physical Patient Name:Nara Malcolm :1975 Admit Date: Physicians: Dusty Wells DO (Family); No ref. provider found (Referring) Perpetual Assessment: Nara Malcolm is a 44 y.o. female with PMHx of HLD, GERD, depression, tobacco abuse and left hip dysplasia who presented from home on 09/28/2019 for a scheduled left hip arthroplasty with Dr. Ferro. ASSESSMENT AND PLAN Left hip dysplasia -s/p Left total hip arthroplasty with subtrochanteric osteotomy on 09/[address] Ferro -Seen POD#0, pain currently 10/10 but states improvement earlier today with Dilaudid. Yet to ambulate. Tolerating clears -DVT ppx, activity, incision, disposition per primary GERD -Per history, well controlled -Continue Protonix Hyperlipidemia -Per history, continue Post operative nausea and vomiting -Per history with prior surgery, scopolamine patch in place Depression -Per history, continue Seroquel and Zoloft Tobacco abuse -Smokes 2 ppd -Currently on room air with saturation 98%, patient was requiring 4L o2 -Wean O2 as able, continuous pulse oximetry Code Status: Full DVT Prophylaxis Deferred to Primary Service Medication Reconciliation Reviewed Comments/Disposition: HISTORY CC: Left BILLIE HPI: Nara Malcolm is a 44 y.o. female with PMHx of HLD, GERD, depression, tobacco abuse and left hip dysplasia who presented from home on 09/28/2019 for a scheduled left hip arthroplasty with . Seen and examined at bedside POD#0, rating pain 10/10. She states she had improvement in pain earlier this afternoon with Dilaudid. She is tolerating clear liquids. She has yet to ambulate due to pain. She has no other complaints. She denies headache, dizziness, lightheadedness, shortness of breath, chest pain, abdominal pain, nausea, vomiting and no fever/chills. ROS: > > > > > > > > > > The following system(s) were reviewed. Pertinent positive and negative findings are noted in the HPI. [x] Const [x] Eyes [x] ENT [x] Resp [x] CV [x] GI [x] [x] Neuro [x] Musc [x] Skin [x] Psych [x] Endo [x] Allergy [x] Heme/Lymph PMH/PSH/SH/FH: Past Medical History: Diagnosis Date Arthritis Back pain Bronchitis 2004 Cough Depression GERD (gastroesophageal reflux disease) Hyperlipidemia IBS (irritable bowel syndrome) Joint swelling Muscle cramping right and left hip Pneumonia 2009 PONV (postoperative nausea and vomiting) Past Surgical History: Procedure Laterality Date CHOLECYSTECTOMY HYSTERECTOMY Family History Problem Relation Age of Onset No Known Problems Sister Social History Socioeconomic History Marital status: Spouse name: Not on file Number of children: Not on file Years of education: Not on file Highest education level: Not on file Occupational History Not on file Social Needs Financial resource strain: Not on file Food insecurity Worry: Not on file Inability: Not on file Transportation needs Medical: Not on file Non-medical: Not on file Tobacco Use Smoking status: Current Every Day Smoker Packs/day: 2.00 Smokeless tobacco: Never Used Substance and Sexual Activity Alcohol use: Not Currently Drug use: Never Sexual activity: Not on file Lifestyle Physical activity Days per week: Not on file Minutes per session: Not on file Stress: Not on file Relationships Social connections Talks on phone: Not on file Gets together: Not on file Attends baptist service: Not on file Active member of club or organization: Not on file Attends meetings of clubs or organizations: Not on file Relationship status: Not on file Other Topics Concern Not on file Social History Narrative Not on file Living Arrangements: Spouse/significant other Support Systems: Spouse/significant other Allergy Information: I have reviewed the patient's allergies. Patient has no known allergies. Home Medications: Outpatient Medications Marked as Taking for the 09/28/19 encounter (Hospital Encounter) Medication Sig acetaminophen (TYLENOL) 325 MG tablet Take 2 (two) tablets (650 mg total) by mouth every 6 (six) hours as needed . cholecalciferol, vitamin D3, (VITAMIN D3 ORAL) Take 600 Units by mouth daily . fluticasone propionate (FLONASE) 50 mcg/actuation nasal spray Instill 2 sprays into each nostril daily as needed for rhinitis . ibuprofen (ADVIL,MOTRIN) 200 MG tablet Take 800 mg by mouth every 6 (six) hours as needed for pain . melatonin 5 mg Tab Take 15 mg by mouth at bedtime . multivit-min/folic acid/mdr584 (ALIVE WOMEN'S GUMMY VITAMIN ORAL) Take 2 tablets by mouth daily . omeprazole (PRILOSEC) 40 MG capsule Take 40 mg by mouth every morning . QUEtiapine (SEROQUEL) 400 MG tablet Take 400 mg by mouth nightly . rosuvastatin (CRESTOR) 20 MG tablet Take 20 mg by mouth nightly . sertraline (ZOLOFT) 100 MG tablet Take 100 mg by mouth 2 (two) times a day . PHYSICAL EXAMINATION > > > > > > > > Vital Signs: Temp: [97.8 F (36.6 C)-98.3 F (36.8 C)] 98.3 F (36.8 C) Heart Rate: [70-97] 93 Resp: [12-22] 16 BP: (113-147)/(68-88) 147/88 GENERAL: NAD, non-toxic appearing, tearful, appears in moderate amount of discomfort due to left hip pain EYES: Conjunctiva and sclera clear, EOMI, PERRL ENT: Hearing intact. Pharynx clear. NECK: No adenopathy or thyromegaly. CV: RRR, no murmur. No JVD. No edema. RESP: Clear, no rales, rhonchi, wheezes or increase in respiratory effort, no use of accessory muscles. GI: Non-distended, +BS, soft, non-tender. No guarding, masses or rebound MUSC: Normal ROM without deformity. Original surgical dressing to left hip, clean dry and intact. Abductor pillow in place SKIN: Warm and dry. No rashes. NEURO: Alert, Ox3. Grossly normal motor and sensory exam. No focal deficits. PSYCH: Mood and affect are appropriate. Cooperative. Marte catheter draining clear yellow urine Laboratory and Additional Data Acquired or Reviewed: [x] Laboratory [x] Transcriptions [x] Radiology [] Microbiology [x] Cardiology [x] Outside Records [x] Medications [x] Family Time Spent: documented in this encounter* Tamra Murcia MD - 11/17/2019 3:13 PM EDT Status post L BILLIE and femoral shortening osteotomy with Dr. Ferro on 09/28/2019, with continued drainage from the hip wound. Admitting to hospital today in anticipation of superficial vs deep I&D tomorrow in OR. - Hold antibiotics - Hospitalist clearance - Pre-op labs - WBC, ESR, CRP - CT left hip with contrast to evaluate extent of fluid collection - Hip aspiration if indicated based on labs and imaging - NPO at midnight Tamra Murcia MD Orthopaedic Surgery documented in this encounter* Jimi Augustine MD - 11/18/2019 10:57 AM EDT Left hip aspiration performed in fluoro using sterile technique after obtaining written informed consent. No complications. See dictation for complete report. * Thi Walters CNP - 11/18/2019 7:45 AM EDT Thi Walters CNP [facility] Progress note Patient Name:Nara Malcolm :1975 Admit Date: Physicians: Dusty Wells DO (Family) Perpetual Assessment: Nara Malcolm is a 44 y.o. female with history of left BILLIE in September who presented from home after being seen in orthopedic surgeon office on 11/17/2019 with concern for postop infection ASSESSMENT AND PLAN Left hip dysplasia -S/P left total hip arthoplasty with subtrochanteric osteotomy 09/28/[address] Ferro -noted to have postoperative drainage from surgical site without improvement despite outpatient clindamycin and bactrim -afebrile; non-toxic appearing and no obvious drainage from incision. -CT of left hip does not show a distinct -consult to orthopedic surgery with recommendations to hold ATB and obtain CT left hip to eval for fluid collection. -Pain control with PRN norco and home gabapentin -NPO for possible surgical intervention defer to ortho and patient has been cleared for surgery. MDD/STEVEN -Anxious overall. -Continue home Zoloft and Seroquel -Will add PRN atarax GERD -Having heartburn this am -continue PPI and give maalox. Hyperlipidemia -continue statin Tobacco use -smokes 1.5ppd -declined nicotine patch Code Status: Full code DVT Prophylaxis Not Indicated, Patient Ambulating Expected date of discharge: 11/17-11/19 Comments/Disposition: Await ortho recommendations and suspect plan for aspiration +/- wash out. HISTORY CC: Concern for postop infection HPI:Patient is resting comfortably this morning. Her biggest complaint is heartburn this am. She also appears slightly anxious but is responding well to reassurance. Plan is likely for aspiration andOR today. Denies chest pain, sob, fever, chills, nausea or vomiting. ROS: > > > > > > > > > > The following system(s) were reviewed. Pertinent positive and negative findings are noted in the HPI. [x] Const [x] Eyes [x] ENT [x] Resp [x] CV [x] GI [x] [x] Neuro [x] Musc [x] Skin [x] Psych [x] Endo [x] Allergy [x] Heme/Lymph PHYSICAL EXAMINATION > > > > > > > > Vital Signs: Temp: [97.5 F (36.4 C)-98.6 F (37 C)] 97.5 F (36.4 C) Heart Rate: [68-81] 68 Resp: [16-18] 18 BP: (122-145)/(73-77) 122/73 GENERAL: NAD EYES: Conjunctiva and sclera clear, ENT: Hearing intact. Pharynx clear. NECK: No adenopathy or thyromegaly. CV: RRR, no murmur. No JVD. No edema. RESP: Clear, no rales, rhonchi, wheezes or increase in respiratory effort, no use of accessory muscles. GI: Non-distended, +BS, soft, non-tender. No guarding, masses or rebound MUSC: Normal ROM without deformity. SKIN: Warm and dry. No rashes. Surgical incision to left hip with mild erythema, well-approximated and no obvious drainage. NEURO: Alert, Ox3. Grossly normal motor and sensory exam. No focal deficits. PSYCH: Tearful Laboratory and Additional Data Acquired or Reviewed: [x] Laboratory [x] Transcriptions [x] Radiology [] Microbiology [x] Cardiology [] Outside Records [x] Medications [] Family Time Spent: A&P discussed with Dr. Styles Associated attestation - Park Beverly DO - 11/18/2019 3:20 PM EDT I have reviewed Thi Walters CNP's findings and agree; I have personally performed a face to face diagnostic evaluation on this patient. My findings are as follows: Patient ambulatory in the room, denies significant hip pain. Afebrile. Denies chest pain, shortnessof breath, or abdominal pain. Denies current active drainage from left hip surgical site Vitals, labs, and imaging reviewed. On exam, Gen: AAO x3, NAD; Heart: RRR; Lungs: CTA bilat; Abd: soft, nontender, nondistended; Ext: no edema; Neuro: nonfocal Assessment and Plan: Left hip dysplasia -S/P left total hip arthoplasty with subtrochanteric osteotomy 09/28/[address] Ferro -CT without discrete collection identified -with some postoperative drainage from surgical site without improvement despite outpatient clindamycin and bactrim -orthopedic surgery consulted with plan for irrigation and debridement per ortho MDD/STEVEN -Continue home Zoloft and Seroquel GERD-continue PPI and give maalox. Hyperlipidemia-continue statin Tobacco use-smokes 1.5ppd; declined nicotine patch documented in this encounter* Jimi Augustine MD - 11/18/2019 10:57 AM EDT Left hip aspiration performed in fluoro using sterile technique after obtaining written informed consent. No complications. See dictation for complete report. * Thi Walters CNP - 11/18/2019 7:45 AM EDT Thi Walters CNP [facility] Progress note Patient Name:Nara Malcolm :1975 Admit Date: Physicians: Dusty Wells DO (Family) Perpetual Assessment: Nara Malcolm is a 44 y.o. female with history of left BILLIE in September who presented from home after being seen in orthopedic surgeon office on 11/17/2019 with concern for postop infection ASSESSMENT AND PLAN Left hip dysplasia -S/P left total hip arthoplasty with subtrochanteric osteotomy 09/28/[address] Ferro -noted to have postoperative drainage from surgical site without improvement despite outpatient clindamycin and bactrim -afebrile; non-toxic appearing and no obvious drainage from incision. -CT of left hip does not show a distinct -consult to orthopedic surgery with recommendations to hold ATB and obtain CT left hip to eval for fluid collection. -Pain control with PRN norco and home gabapentin -NPO for possible surgical intervention defer to ortho and patient has been cleared for surgery. MDD/STEVEN -Anxious overall. -Continue home Zoloft and Seroquel -Will add PRN atarax GERD -Having heartburn this am -continue PPI and give maalox. Hyperlipidemia -continue statin Tobacco use -smokes 1.5ppd -declined nicotine patch Code Status: Full code DVT Prophylaxis Not Indicated, Patient Ambulating Expected date of discharge: 11/17-11/19 Comments/Disposition: Await ortho recommendations and suspect plan for aspiration +/- wash out. HISTORY CC: Concern for postop infection HPI:Patient is resting comfortably this morning. Her biggest complaint is heartburn this am. She also appears slightly anxious but is responding well to reassurance. Plan is likely for aspiration andOR today. Denies chest pain, sob, fever, chills, nausea or vomiting. ROS: > > > > > > > > > > The following system(s) were reviewed. Pertinent positive and negative findings are noted in the HPI. [x] Const [x] Eyes [x] ENT [x] Resp [x] CV [x] GI [x] [x] Neuro [x] Musc [x] Skin [x] Psych [x] Endo [x] Allergy [x] Heme/Lymph PHYSICAL EXAMINATION > > > > > > > > Vital Signs: Temp: [97.5 F (36.4 C)-98.6 F (37 C)] 97.5 F (36.4 C) Heart Rate: [68-81] 68 Resp: [16-18] 18 BP: (122-145)/(73-77) 122/73 GENERAL: NAD EYES: Conjunctiva and sclera clear, ENT: Hearing intact. Pharynx clear. NECK: No adenopathy or thyromegaly. CV: RRR, no murmur. No JVD. No edema. RESP: Clear, no rales, rhonchi, wheezes or increase in respiratory effort, no use of accessory muscles. GI: Non-distended, +BS, soft, non-tender. No guarding, masses or rebound MUSC: Normal ROM without deformity. SKIN: Warm and dry. No rashes. Surgical incision to left hip with mild erythema, well-approximated and no obvious drainage. NEURO: Alert, Ox3. Grossly normal motor and sensory exam. No focal deficits. PSYCH: Tearful Laboratory and Additional Data Acquired or Reviewed: [x] Laboratory [x] Transcriptions [x] Radiology [] Microbiology [x] Cardiology [] Outside Records [x] Medications [] Family Time Spent: A&P discussed with Dr. Styles Associated attestation - Park Beverly DO - 11/18/2019 3:20 PM EDT I have reviewed Thi Walters CNP's findings and agree; I have personally performed a face to face diagnostic evaluation on this patient. My findings are as follows: Patient ambulatory in the room, denies significant hip pain. Afebrile. Denies chest pain, shortnessof breath, or abdominal pain. Denies current active drainage from left hip surgical site Vitals, labs, and imaging reviewed. On exam, Gen: AAO x3, NAD; Heart: RRR; Lungs: CTA bilat; Abd: soft, nontender, nondistended; Ext: no edema; Neuro: nonfocal Assessment and Plan: Left hip dysplasia -S/P left total hip arthoplasty with subtrochanteric osteotomy 09/28/[address] Ferro -CT without discrete collection identified -with some postoperative drainage from surgical site without improvement despite outpatient clindamycin and bactrim -orthopedic surgery consulted with plan for irrigation and debridement per ortho MDD/STEVEN -Continue home Zoloft and Seroquel GERD-continue PPI and give maalox. Hyperlipidemia-continue statin Tobacco use-smokes 1.5ppd; declined nicotine patch documented in this encounter Assessments Diagnosis Osteoarthritis resulting from left hip dysplasia Major depression in remission (HCC) Major depressive disorder, single episode in full remission Leukemoid reaction Diagnosis Surgical wound infection Other postoperative infection Post-operative infection Diagnosis Primary osteoarthritis of left hip Reason for Referral Status Reason Specialty Diagnoses / Procedures Re ferred By Contact Referred To Contact Closed Radiology Diagnoses Primary osteoarthritis of left hip Procedures CT Hip Left Without Contrast Oj Ferro MD [address] [place] [address] Specialty Diagnoses / Procedures Referred By Kaylee murphy Referred To Contact Neurology Diagnoses Carpal tunnel syndrome of left wrist Procedures Nerve conduction test Faith Munson CNP [address] [place] [address] Anaya Staples MD [address] [place] [address] Referral ID Status Reason Start Date Expiration Date V isits Requested Visits Authorized [id number] Authorized 04/27/2022 04/27/2023 1 1 Specialty Diagnoses / Procedures Referred By Contac t Referred To Contact Neurology Diagnoses Carpal tunnel syndrome of left wrist Procedures EMG: Faith Munson, [employer] [address] [place] [address] Anaya Staples MD [address] [address] Referral ID Status Reason Start Date Expiration Date V isits Requested Visits Authorized [id number] Authorized 04/27/2022 04/27/2023 1 1 Chief Complaint PT HERE FOR LEFT ELBOW BURSITIS. STATES MOVED IN 07/2021 AND FEELS SHE MAY HAVE BUMPED HER ELBOW. HAS BEEN WEARING COMPRESSION SLEEVE ALONG WITH IBUPROFEN. PAIN ONLY IF ELBOW IS BUMPED. XRAYS DONE. REFERRED BY SELF. Additional Source Comments INFORMATION SOURCE (unrecogn ized section and content) DATE CREATED AUTHOR AUTHOR'S ORGANIZ ATION 05/14/2018 [facility] DATE CREATED AUTHOR AUTHOR'S ORGANIZ ATION 11/25/2019 [facility] DATE CREATED AUTHOR AUTHOR'S ORGANIZ ATION 11/03/2021 [employer] DATE CREATED AUTHOR AUTHOR'S ORGANIZ ATION 11/05/2021 [facility] DATE CREATED AUTHOR AUTHOR'S ORGANIZ ATION 09/28/2022 [facility] DATE CREATED AUTHOR AUTHOR'S ORGANIZ ATION 10/25/2022 [facility] DATE CREATED AUTHOR AUTHOR'S ORGANIZ ATION 11/21/2022 [facility] DATE CREATED AUTHOR AUTHOR'S ORGANIZ ATION 01/07/2023 [facility] ([place]) Reason for Visit (unrecogniz ed section and content) Status Reason Specialty Diagnoses / Procedures Referre d By Contact Referred To Contact Diagnoses post op wound infection Status Reason Specialty Diagnoses / Procedures Re ferred By Contact Referred To Contact Closed Radiology Diagnoses Primary osteoarthritis of left hip Procedures CT Hip Left Without Contrast Oj Ferro MD [address] [place] [address] Reason Comments Pain Specialty Diagnoses / Procedures Referred By Contac t Referred To Contact Neurology Diagnoses Carpal tunnel syndrome of left wrist Procedures EMG: Faith Munson, [employer] [address] [place] [address] Anaya Satples MD [address] [facility] [address] [address] Referral ID Status Reason Start Date Expiration Date Visits Re quested Visits Authorized [id number] Closed 04/27/2022 04/27/2023 1 1 Reason Comments Results EMG results Oj Ferro MD - 09/28/2019 9:32 AM Dana Gale MD - 09/16/2019 11:29 AM EDTCTamra carson MD - 11/18/2019 12:42 PM EDT H&P Notes (unrecognized sect ion and content) INTERVAL HISTORY AND PHYSICAL Patient Name: Nara Malcolm Admit Date: MR #: [id number] : 1975 The H&P has been reviewed and the patient has been examined. I concur with the findings of the H&P. There are no significant changes. It is appropriate to proceed with the planned procedure. Oj Ferro MD 09/28/2019 9:32 AM Assessment and Plan 1. Pre-op exam Medically acceptable risk for elective major procedure pending review of the following ordered tests: ECG 12 Lead, Type and Screen, CBC, PT/INR, APTT, Chem 7, Hemoglobin A1c, Urinalysis, Urine Container 2. Osteoarthritis resulting from left hip dysplasia Primary management per surgical team. Patient provided instructions on preoperative management of medications including withholding Aspirin, NSAIDS, and specific Herbal Supplements. 3. Preop cardiovascular exam Patient denies any active cardiac conditions and has a revised cardiac risk index of 0. Patient denied any current cardiac symptoms and has greater than 4 METS of functional capacity and is at acceptable cardiac risk for elective surgery based on 2014 ACC/AHA guidelines. EKG read independently today reveals NSR with no ischemia or prior infarction. DVT prophylaxis deferred to surgical service. Recommend utilization of 2016 ACCP guidelines. Apfel score is 3. (Score/Risk of PONV = 0/10%, 1/21%, 2/39%, 3/61%, 4/79%). This score has been externally validated. 4. Gastroesophageal reflux disease, esophagitis presence not specified Well controlled with PPI/[id number] which should be dosed perioperatively on usual home schedule. 5. Hyperlipidemia, unspecified hyperlipidemia type Hyperlipidemia currently treated with statin therapy. Recommend continuation of statin therapy perioperatively to reduce the risk of major adverse cardiovascular event. 6. PONV (postoperative nausea and vomiting) Recommend consideration for perioperative antiemetic prophylaxis per anesthesia. 7. Tobacco Abuse 2 ppd Patient currently not manifesting any signs or symptoms of decompensated pulmonary disease and has been counseled on smoking cessation. Patient was advised of potential perioperative adverse effects associated with smoking such as increased risk for post-operative pulmonary complications, poor wound healing, and increased risk for infections. Recommend aggressive pulmonary toilet and lung expansion modalities including deep breathing and IS after surgery and perioperative nebulizers as needed. 8. Allergic state, subsequent encounter patient advised she may continue Flonase throughout the perioperative period. 9. Depression, unspecified depression type patient advised she may continue Seroquel and Zoloft throughout the perioperative period. 10. At risk for obstructive sleep apnea Perioperative management per anesthesia BON protocol. We reviewed the increased risk of postoperative pulmonary and cardiac complications in patients with obstructive sleep apnea. Body mass index is 30.62 kg/m . Patient will require close monitoring of respiratory status while on IV opiates and I would recommend continuous pulse oximetry in the perioperative period. Please see BON risk assessment. Would recommend hospital BON protocol with utilization of ETCO2 monitoring for patients with or at risk for BON while on IV opiates. Chief Complaint Patient presents with Pre-operative Medical Risk Stratification History of Present Illness Nara Malcolm is a 44 y.o. female who presents for preoperative medical risk stratification consult at the request of DR OJ FERRO prior to ROBOTIC LEFT TOTAL HIP REPLACEMENT 09/28/2019. Patient has been diagnosed with O A FROM L HIP DYSPLASIA and the above procedure has been recommended and scheduled for 09/28/2019. She has GERD. She has high cholesterol. She has depression. She has allergies. She has a history of irritable bowel syndrome. She denies any history of heart problems. She denies any breathing difficulties. She is concerned that she could possibly have sleep apnea as she does snore. We discussed that untreated sleep apnea is a risk factor for surgery but she is not willing to delay her elective procedure to pursue this risk reduction. I did encourage her to follow-up with Dr. Sol after her procedure to request a possible sleep study. She denies a history of stroke or blood clot. She denies any known liver or kidney disease. She is not diabetic. With previous procedures she has had postoperative nausea and vomiting. She is active able to climb 2 flights of stairs without difficulty. She does not use alcohol. She currently smokes 2 packs of cigarettes daily. Please see below regarding status of active medical conditions and assessment and plan regarding details of preoperative medical risk stratification. Past Medical History: Diagnosis Date Arthritis Back pain Bronchitis 2004 Cough Depression GERD (gastroesophageal reflux disease) Hyperlipidemia IBS (irritable bowel syndrome) Joint swelling Muscle cramping right and left hip Pneumonia 2009 PONV (postoperative nausea and vomiting) No past medical history pertinent negatives. Past Surgical History: Procedure Laterality Date CHOLECYSTECTOMY HYSTERECTOMY Social History Tobacco Use Smoking status: Current Every Day Smoker Packs/day: 2.00 Smokeless tobacco: Never Used Substance Use Topics Alcohol use: Not Currently Family History Problem Relation Age of Onset No Known Problems Sister Prior to Admission medications Medication Sig Taking? Dose Freq cholecalciferol, vitamin D3, (VITAMIN D3 ORAL) Take 600 Units by mouth daily . Yes 600 Units, Oral, Daily fluticasone propionate (FLONASE) 50 mcg/actuation nasal spray Instill 2 sprays into each nostril daily as needed for rhinitis . Yes 2 sprays, Nasal, Daily PRN ibuprofen (ADVIL,MOTRIN) 200 MG tablet Take 800 mg by mouth every 6 (six) hours as needed for pain . Yes 800 mg, Oral, Every 6 hours PRN melatonin 5 mg Tab Take 15 mg by mouth at bedtime . Yes 15 mg, Oral, At bedtime multivit-min/folic acid/nap250 (ALIVE WOMEN'S GUMMY VITAMIN ORAL) Take 2 tablets by mouth daily . Yes 2 tablets, Oral, Daily omeprazole (PRILOSEC) 40 MG capsule Take 40 mg by mouth every morning . Yes 40 mg, Oral, Every morning QUEtiapine (SEROQUEL) 400 MG tablet Take 400 mg by mouth nightly . Yes 400 mg, Oral, Nightly rosuvastatin (CRESTOR) 20 MG tablet Take 20 mg by mouth nightly . Yes 20 mg, Oral, Nightly sertraline (ZOLOFT) 100 MG tablet Take 100 mg by mouth 2 (two) times a day . Yes 100 mg, Oral, 2 times daily No Known Allergies Review of Systems Constitution: (negative) HENT: (negative) Eyes: (negative) Respiratory: - As above Cardiovascular: (negative) - Exercise capacity: Greater than 4 METS Gastrointestinal: - As above Genitourinary: (negative) Musculoskeletal: - As above Skin: (negative) Neurological: (negative) Hematological: (negative) Physical Exam BP (!) 142/80 Pulse 81 Temp 98.8 F (37.1 C) Resp 16 Ht 5' 3.5 Wt 79.6 kg (175 lb 9.5 oz) SpO2 97% BMI 30.62 kg/m Constitutional: Conversant, in no acute distress Eyes: No Scleral Icterus, no ptosis. Pupils equal and round. Ears/nose/mouth/throat: Nose and ears appear normal. Oropharynx clear. Neck: Trachea midline, no goiter Respiratory: Clear to auscultation, normal respiratory effort. Cardiovascular: Regular rate and rhythm. No peripheral edema. Pulses palpable at the ankle. Gastrointestinal: Abdomen soft, nontender, no masses noted. Genitourinary: No suprapubic tenderness. Musculoskeletal: No calf tenderness with palpation, no digital cyanosis or clubbing. Skin: No rashes, Normal turgor and temperature. Neurologic: No focal deficits noted. Psychiatric: Appropriate affect, Alert and Oriented x 3. Data Preprocedure Sleep Apnea Assessment - No Risk (0/3) Sleep Apnea in the patient's Active Problem List or Medical History: no 1. History of apparent airway obstruction during sleep: (1 point for this category) Do you snore frequently, or snore loud enough to be heard through a closed door?: no Do you awaken from sleep with a choking sensation or have periods during sleep when someone has observed you pausing between breaths?: no 2. Somnolence of the patient: (1 point for this category) Do you find yourself frequently sleepy despite adequate hours of sleep the night before?: no Do you fall asleep easily while: watching TV, reading, riding in or driving a car?: no 3. Predisposing physician characteristics: (1 point for this category, 2 points if the BMI ? 40) BMI (Calculated): 30.6 Neck Circumference (inches): 15.5 inches documented in this encounter INTERVAL HISTORY AND PHYSICAL Patient Name: Nara Malcolm Admit Date: MR #: [id number] : 1975 The H&P has been reviewed and the patient has been examined. I concur with the findings of the H&P. There are no significant changes. It is appropriate to proceed with the planned procedure. Tamra Murcia MD 11/18/2019 12:42 PM Alecia Weinberg, CHANDNI [facility] HISTORY AND PHYSICAL Patient Name:Nara Malcolm :1975 Admit Date: Physicians: Dusty Wells DO (Family) Perpetual Assessment: Nara Malcolm is a 44 y.o. female with history of left BILLIE in September who presented from home after being seen in orthopedic surgeon office on 11/17/2019 with concern for postop infection ASSESSMENT AND PLAN Left hip dysplasia -S/P left total hip arthoplasty with subtrochanteric osteotomy 09/28/[address] Ferro -noted to have postoperative drainage from surgical site without improvement despite outpatient clindamycin and bactrim -afebrile; non-toxic appearing -consult to orthopedic surgery with recommendations to hold ATB and obtain CT left hip to eval for fluid collection. Pain control with PRN norco and home gabapentin -NPO after MN for possible surgical intervention The patient is being evaluated for a moderate risk surgery. The patient has no symptoms. The patient's functional capacity is >4 METS. The patient has the following pertinent Revised Cardiac Risk Index Indicators none Based on the above, the patient is at low risk to proceed to surgery. The patient may proceed to surgery, with comments/risks as noted above. MDD/STEVEN -resume home Zoloft and Seroquel -patient very tearful on exam. Will add PRN atarax GERD -denies red flag symptoms -continue PPI Hyperlipidemia -continue statin Tobacco use -smokes 1.5ppd -declined nicotine patch Code Status: Full code DVT Prophylaxis Not Indicated, Patient Ambulating Medication Reconciliation Reviewed Expected date of discharge: 11/17-11/19 Comments/Disposition: HISTORY CC: Concern for postop infection HPI: Nara Malcolm is a 44 y.o. female with history of MDD and GERD who presents to [facility] as a direct admission from orthopedic surgeon office with concern of postoperative infection. Patient underwent left BILLIE in September for left hip dysplasia with left leg being shorter than right. She was discharged in stable condition and reports she started to notice drainage from her incision. She was started on clindamycin without improvement and is currently on day three of bactrim. She was seen by Dr. Ferro for follow up today and directed to hospital for possible surgical washout. She reports she has had continued pain to left hip and was started on Neurontin but with little improvement. She has been using PRN tylenol and motrin for pain control. Denies fever, chills, chest pain, SOB, falls or trauma. She was tearful on exam as she feels that she was not prepared to come to hospital. ROS: > > > > > > > > > > The following system(s) were reviewed. Pertinent positive and negative findings are noted in the HPI. [x] Const [x] Eyes [x] ENT [x] Resp [x] CV [x] GI [x] [x] Neuro [x] Musc [x] Skin [x] Psych [x] Endo [x] Allergy [x] Heme/Lymph PMH/PSH/SH/FH: Past Medical History: Diagnosis Date GERD (gastroesophageal reflux disease) Hyperlipidemia IBS (irritable bowel syndrome) Major depression in remission ([facility]) Past Surgical History: Procedure Laterality Date ARTHROPLASTY HIP TOTAL Left 09/28/2019 Procedure: LEFT ROBOTIC TOTAL HIP REPLACEMENT; Surgeon: Oj Ferro MD; Location: [facility] Main OR; Service: Orthopedic CHOLECYSTECTOMY HYSTERECTOMY Family History Problem Relation Age of Onset No Known Problems Sister Social History Socioeconomic History Marital status: Spouse name: Not on file Number of children: Not on file Years of education: Not on file Highest education level: Not on file Occupational History Not on file Social Needs Financial resource strain: Not on file Food insecurity Worry: Not on file Inability: Not on file Transportation needs Medical: Not on file Non-medical: Not on file Tobacco Use Smoking status: Current Every Day Smoker Packs/day: 2.00 Smokeless tobacco: Never Used Substance and Sexual Activity Alcohol use: Not Currently Drug use: Never Sexual activity: Not on file Lifestyle Physical activity Days per week: Not on file Minutes per session: Not on file Stress: Not on file Relationships Social connections Talks on phone: Not on file Gets together: Not on file Attends baptist service: Not on file Active member of club or organization: Not on file Attends meetings of clubs or organizations: Not on file Relationship status: Not on file Other Topics Concern Not on file Social History Narrative Not on file Allergy Information: I have reviewed the patient's allergies. Patient has no known allergies. Home Medications: Outpatient Medications Marked as Taking for the 11/17/19 encounter (Hospital Encounter) Medication Sig gabapentin (NEURONTIN) 300 MG capsule Take 300 mg by mouth nightly (Days supply per fill: 30) . sulfamethoxazole-trimethoprim (BACTRIM DS,SEPTRA DS) 800-160 mg per tablet Take 1 tablet by mouth 2 (two) times a day . PHYSICAL EXAMINATION > > > > > > > > Vital Signs: GENERAL: NAD EYES: Conjunctiva and sclera clear, EOMI, PERRL ENT: Hearing intact. Pharynx clear. NECK: No adenopathy or thyromegaly. CV: RRR, no murmur. No JVD. No edema. RESP: Clear, no rales, rhonchi, wheezes or increase in respiratory effort, no use of accessory muscles. GI: Non-distended, +BS, soft, non-tender. No guarding, masses or rebound MUSC: Normal ROM without deformity. SKIN: Warm and dry. No rashes. Surgical incision to left hip with mild erythema, well-approximated NEURO: Alert, Ox3. Grossly normal motor and sensory exam. No focal deficits. PSYCH: Tearful Laboratory and Additional Data Acquired or Reviewed: [x] Laboratory [x] Transcriptions [x] Radiology [] Microbiology [x] Cardiology [] Outside Records [x] Medications [] Family Time Spent: A&P discussed with Dr. Styles Associated attestation - Karlie Styles DO - 11/17/2019 10:17 PM EDT Patient seen and evaluated independently of the [employer] [facility]. I agree with their assessment and plan with additions as noted below. Please see the H&P for other details. Labs, medications, imaging and other studies were reviewed. The plan was discussed with the patient. Brief HPI: pt tearful about her recent events; pain controlled; no fevers; laying and resting upon evaluation ROS: per HPI Examination: VITALS: Temp: [98.6 F (37 C)] 98.6 F (37 C) Heart Rate: [81] 81 Resp: [16-18] 18 BP: (145)/(77) 145/77 GEN: NAD CARDIO: RRR PULMONARY: CTA GI: soft, NT NEURO: intact Assessment and Plan: Nara Malcolm is a 44 y.o. female who presented with concern for left hip prosthetic infection after recent left total hip arthroplasty in September. Despite outpatient antibiotics patient continues to have postop drainage without improvement therefore orthopedic surgery recommended admission for possible surgical intervention tomorrow. Planning for CT left hip to evaluate for fluid collection and hold antibiotics in the meantime. Other chronic medical conditions remained stable although the patient is quite tearful in setting of known history of anxiety so will add PRN Atarax.documented in this encounter INTERVAL HISTORY AND PHYSICAL Patient Name: Nara Malcolm Admit Date: MR #: [id number] : 1975 The H&P has been reviewed and the patient has been examined. I concur with the findings of the H&P. There are no significant changes. It is appropriate to proceed with the planned procedure. Tamra Murcia MD 11/18/2019 12:42 PM Alecia Weinberg CNP [facility] HISTORY AND PHYSICAL Patient Name:Nara Malcolm :1975 Admit Date: Physicians: Dusty Wells DO (Family) Perpetual Assessment: Nara Malcolm is a 44 y.o. female with history of left BILLIE in September who presented from home after being seen in orthopedic surgeon office on 11/17/2019 with concern for postop infection ASSESSMENT AND PLAN Left hip dysplasia -S/P left total hip arthoplasty with subtrochanteric osteotomy 09/28/[address] Ferro -noted to have postoperative drainage from surgical site without improvement despite outpatient clindamycin and bactrim -afebrile; non-toxic appearing -consult to orthopedic surgery with recommendations to hold ATB and obtain CT left hip to eval for fluid collection. Pain control with PRN norco and home gabapentin -NPO after MN for possible surgical intervention The patient is being evaluated for a moderate risk surgery. The patient has no symptoms. The patient's functional capacity is >4 METS. The patient has the following pertinent Revised Cardiac Risk Index Indicators none Based on the above, the patient is at low risk to proceed to surgery. The patient may proceed to surgery, with comments/risks as noted above. MDD/STEVEN -resume home Zoloft and Seroquel -patient very tearful on exam. Will add PRN atarax GERD -denies red flag symptoms -continue PPI Hyperlipidemia -continue statin Tobacco use -smokes 1.5ppd -declined nicotine patch Code Status: Full code DVT Prophylaxis Not Indicated, Patient Ambulating Medication Reconciliation Reviewed Expected date of discharge: 11/17-11/19 Comments/Disposition: HISTORY CC: Concern for postop infection HPI: Nara Malcolm is a 44 y.o. female with history of MDD and GERD who presents to [facility] as a direct admission from orthopedic surgeon office with concern of postoperative infection. Patient underwent left BILLIE in September for left hip dysplasia with left leg being shorter than right. She was discharged in stable condition and reports she started to notice drainage from her incision. She was started on clindamycin without improvement and is currently on day three of bactrim. She was seen by Dr. Ferro for follow up today and directed to hospital for possible surgical washout. She reports she has had continued pain to left hip and was started on Neurontin but with little improvement. She has been using PRN tylenol and motrin for pain control. Denies fever, chills, chest pain, SOB, falls or trauma. She was tearful on exam as she feels that she was not prepared to come to hospital. ROS: > > > > > > > > > > The following system(s) were reviewed. Pertinent positive and negative findings are noted in the HPI. [x] Const [x] Eyes [x] ENT [x] Resp [x] CV [x] GI [x] [x] Neuro [x] Musc [x] Skin [x] Psych [x] Endo [x] Allergy [x] Heme/Lymph PMH/PSH/SH/FH: Past Medical History: Diagnosis Date GERD (gastroesophageal reflux disease) Hyperlipidemia IBS (irritable bowel syndrome) Major depression in remission ([facility]) Past Surgical History: Procedure Laterality Date ARTHROPLASTY HIP TOTAL Left 09/28/2019 Procedure: LEFT ROBOTIC TOTAL HIP REPLACEMENT; Surgeon: Oj Ferro MD; Location: [facility] Main OR; Service: Orthopedic CHOLECYSTECTOMY HYSTERECTOMY Family History Problem Relation Age of Onset No Known Problems Sister Social History Socioeconomic History Marital status: Spouse name: Not on file Number of children: Not on file Years of education: Not on file Highest education level: Not on file Occupational History Not on file Social Needs Financial resource strain: Not on file Food insecurity Worry: Not on file Inability: Not on file Transportation needs Medical: Not on file Non-medical: Not on file Tobacco Use Smoking status: Current Every Day Smoker Packs/day: 2.00 Smokeless tobacco: Never Used Substance and Sexual Activity Alcohol use: Not Currently Drug use: Never Sexual activity: Not on file Lifestyle Physical activity Days per week: Not on file Minutes per session: Not on file Stress: Not on file Relationships Social connections Talks on phone: Not on file Gets together: Not on file Attends baptist service: Not on file Active member of club or organization: Not on file Attends meetings of clubs or organizations: Not on file Relationship status: Not on file Other Topics Concern Not on file Social History Narrative Not on file Allergy Information: I have reviewed the patient's allergies. Patient has no known allergies. Home Medications: Outpatient Medications Marked as Taking for the 11/17/19 encounter (Hospital Encounter) Medication Sig gabapentin (NEURONTIN) 300 MG capsule Take 300 mg by mouth nightly (Days supply per fill: 30) . sulfamethoxazole-trimethoprim (BACTRIM DS,SEPTRA DS) 800-160 mg per tablet Take 1 tablet by mouth 2 (two) times a day . PHYSICAL EXAMINATION > > > > > > > > Vital Signs: GENERAL: NAD EYES: Conjunctiva and sclera clear, EOMI, PERRL ENT: Hearing intact. Pharynx clear. NECK: No adenopathy or thyromegaly. CV: RRR, no murmur. No JVD. No edema. RESP: Clear, no rales, rhonchi, wheezes or increase in respiratory effort, no use of accessory muscles. GI: Non-distended, +BS, soft, non-tender. No guarding, masses or rebound MUSC: Normal ROM without deformity. SKIN: Warm and dry. No rashes. Surgical incision to left hip with mild erythema, well-approximated NEURO: Alert, Ox3. Grossly normal motor and sensory exam. No focal deficits. PSYCH: Tearful Laboratory and Additional Data Acquired or Reviewed: [x] Laboratory [x] Transcriptions [x] Radiology [] Microbiology [x] Cardiology [] Outside Records [x] Medications [] Family Time Spent: A&P discussed with Dr. Styles Associated attestation - Karlie Styles DO - 11/17/2019 10:17 PM EDT Patient seen and evaluated independently of the [employer] [facility]. I agree with their assessment and plan with additions as noted below. Please see the H&P for other details. Labs, medications, imaging and other studies were reviewed. The plan was discussed with the patient. Brief HPI: pt tearful about her recent events; pain controlled; no fevers; laying and resting upon evaluation ROS: per HPI Examination: VITALS: Temp: [98.6 F (37 C)] 98.6 F (37 C) Heart Rate: [81] 81 Resp: [16-18] 18 BP: (145)/(77) 145/77 GEN: NAD CARDIO: RRR PULMONARY: CTA GI: soft, NT NEURO: intact Assessment and Plan: Nara Malcolm is a 44 y.o. female who presented with concern for left hip prosthetic infection after recent left total hip arthroplasty in September. Despite outpatient antibiotics patient continues to have postop drainage without improvement therefore orthopedic surgery recommended admission for possible surgical intervention tomorrow. Planning for CT left hip to evaluate for fluid collection and hold antibiotics in the meantime. Other chronic medical conditions remained stable although the patient is quite tearful in setting of known history of anxiety so will add PRN Atarax.documented in this encounter Magdalena Dodson, PT - 09/29/2019 11:21 AM EDTCSerene velarde, OT - 09/29/2019 9:23 AM Nayely Blas LISW-S - 09/28/2019 6:07 PM EDTTamra Herzog [employer] [facility] - 11/17/2019 5:32 PM EDT Consult Notes (unrecognized section and content) Physical Therapy PHYSICAL THERAPY EVALUATION NOTE Skilled Therapy Needs After Discharge Are Skilled Therapy Services Needed After Discharge: Yes Intensity of Skilled Therapy: 2-3 days per week Anticipated Duration of Skilled Therapy: Duration 7 - 10 days DME Recommendation: Wheeled walker DME Rationale: Patient's condition creates an increased risk of safety hazard without recommended equipment Outcomes Measures Prior Function - Basic Mobility Raw Score: 24 Points Prior Function - Basic Mobility % Impaired: 0% functionally impaired AM-PAC - Basic Mobility Raw Score: 16 Points AM-PAC - Basic Mobility % Impaired: 47.12% functionally impaired Physical Therapy Assessment History: The following factors influence the patient's participation in the PT plan of care: Personal Factors: Apprehensive Toward Mobility Environmental Factors: Multi-level home, Bedroom/bathroom on 2nd floor The following co-morbidities (from this admission or prior) influence the patient's participation in this plan of care: Left hip dysplasia (s/p left BILLIE 09/27) Number of History elements affecting this patient's PT plan of care: 3 or more Examination of Body Systems: The patient presents with: Musculoskeletal impairments: Strength, Pain, Functional Endurance Neurologic Impairments: Balance. These impairments result in limitations of Gait, Functional Transfers, Stair-Climbing, Safety, Activity Tolerance. These impairments result in restrictions of Household mobility, Community mobility, Work-related activities, Leisure activities. Number of Body Systems elements affecting this patient's PT plan of care: 4 or more. Clinical Presentation: The patient's clinical presentation for this PT evaluation is evolving as evidenced by current PT documentation. Activity Tolerance Activity Tolerance: Tolerates 30 min acitivty with multiple rests Therapy Precautions Orthotic Devices: No Weight Bearing Status: X LLE: Wt bearing as tolerated General Rehab Precautions: Fall risk(pose avoidance) Balance Sitting Balance - Static: (Independent) Standing Balance - Static: (SBA with BUE support) Standing Balance - Dynamic: (CGA/Shobha initially, progressing to CGA/SBA with BUE support) Bed Mobility Supine to Sit: Stand by assistance(with HOB elevated) Sit to Supine: (Not observed; pt seated in chair at conclusion of PT session) Transfers Sit to Stand: Contact guard Aircraft Inspector: Wheeled walker Gait/Locomotion Gait Assistance: Contact guard, Stand by assistance(CGA/Shobha initially, progressing to CGA/SBA) Assistive Device: Wheeled walker Distance: 60 Feet Pattern: Step to, Forward flexed, L Decreased stance time, L impaired heel strike Home Living Type of Home: House Home Layout: Multi-level, Laundry in basement, Bed/bath upstairs, Performs ADLs on one level(6 CIRA to bedroom, 0 CIRA to enter) Bathroom Shower/Tub: Tub/shower unit Bathroom Toilet: Standard Bathroom Equipment: Shower chair(Does not fit in shower) Bathroom Accessibility: Not accessible Home Equipment: Walker, Wheeled Walker(Rollator ) Additional Comments: Medication Managment (+) Prior Level of Function Level of [place]: Independent with ADLs and functional transfers, Independent with homemaking with ambulation Lives With: Spouse, Daughter(19 yold ) Receives Help From: Family ADL Assistance: Independent Homemaking Assistance: Independent 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 Past Medical History: Diagnosis Date GERD (gastroesophageal reflux disease) History of pneumonia 2009 Hyperlipidemia IBS (irritable bowel syndrome) Major depression in remission ([facility]) Past Surgical History: Procedure Laterality Date ARTHROPLASTY HIP TOTAL Left 09/28/2019 Procedure: LEFT ROBOTIC TOTAL HIP REPLACEMENT; Surgeon: Oj Ferro MD; Location: [facility] Main OR; Service: Orthopedic CHOLECYSTECTOMY HYSTERECTOMY PHYSICAL THERAPY TREATMENT NOTE Total Treatment Time (Total Session Time): 35 Minutes Timed Code Treatment Minutes: 10 Minutes Gait Training Skilled Intervention: Cues provided for lift gaze for upright posture, gait sequencing with AD management, and optimal positioning with AD for increased safety. Education provided on proper gait mechanics with progression toward equal step length bilaterally. Pt cued for decreased pace with directional changes to prevent LOB Therapeutic Activities Transfers Skilled Intervention: Pt educated on pose avoidance precautions and functional application of precautions prior to initiating mobility. Cues provided for positioning in prep for transfers, including LLE positioning for decreased pain and safe/effective hand placement For complete objective data, detailed plan of care and patient education refer to: PT EVALUATION flow sheet, PT TREATMENT flow sheet, patient Plan of Care, Plan of Care progress note, and Patient Education. This note stands as the current Discharge Summary upon patient discharge from the hospital or completion of Physical Therapy Plan Occupational Therapy OCCUPATIONAL THERAPY EVALUATION NOTE Skilled Therapy Needs After Discharge Anticipate Resolution of Current Assessment Limitations Including: Mechanical Barriers, Pain Are Skilled Therapy Services Needed After Discharge: Yes Intensity of Skilled Therapy: 2-3 days per week Anticipated Duration of Skilled Therapy: Duration 10 - 30 days DME Recommendation: Elevated toilet seat DME Rationale: Patient's condition prevents him/her from accomplishing ADL without recommended equipment, Patient's condition creates an increased risk of safety hazard without recommended equipment Rehab Potential: Good, For goals OT Caregiver Readiness Working toward discharge home: Yes Outcomes Measures Prior Function Daily Activity: Raw Score: 24 Prior Function Daily Activity % Impaired: 0% functionally impaired AM-PAC Daily Activity: Raw Score: 16 AM-PAC Daily Activity % Impaired: 53.32% functionally impaired Occupational Therapy Assessment The patient's current functional participation deficits are LE dressing, bathing, toileting, functional mobility. This reduced independence will limit their life roles of premorbid level individual, spouse, parent. The patient's co morbidities do affect patient performance in the above activities and roles. The performance deficits are a result of musculoskeletal impairment(s) in left, lower extremity including range of motion, strength, balance, coordination, pain, insight, safety, and pain intolerance. The patient's home setup is a barrier, family / caregiver support is a educational interpreter for return to prior level of function. The patient's compliance is a educational interpreter, awareness of own capacity and performance is a educational interpreter to return to prior level of function. During the assessment, minimal to moderate modification of task was required and several treatment options were identified in the plan of care. This consultation required expanded review of the medical and therapy history. Activity Tolerance Activity Tolerance: Tolerates 10 - 20 min activity with multiple rests(Significantly limited by pain) Therapy Precautions Orthotic Devices: No Weight Bearing Status: X LLE: Wt bearing as tolerated General Rehab Precautions: Total hip, Fall risk(Pose Avoidance ) Cognition Overall Cognitive Status: Within Functional Limits Arousal/Alertness: Delayed responses to stimuli Orientation Level: Oriented to place, Oriented to situation, Oriented to person, With cues, Oriented to time Executive functioning: Min impairment, Insight, Planning / Organizing Safety Judgment: Decreased awareness of need for assistance, Decreased awareness of need for safety Problem Solving: Assistance required to identify errors made, Assistance required to generate solutions, Assistance required to implement solutions Attention: Attends to quiet environment Hearing Status: WFL Social Interaction: Cooperative, Appropriate, Anxious Comments: Patient observed to follow 100% of simple 1-2 step instructions Skilled Intervention: Patient alert and oriented x3, cues required for extact date. Re:education provided on pose avoidance precautions, with demonstration provided throughout assessment period. ADL/IADL Feeding: Independent Grooming : Modified independence(Set-up ) LE Dressing: Max Toileting : Mod Skilled Intervention: Re:education on AE to assist with toileting task including grab bars, and BSC. Instruction on implicaiton of pose avoidance precautions during the performance of ADL's and transitional movements Bed Mobility Rolling: Min Supine to Sit: Mod Sit to Supine: Min Skilled Intervention: Moderate assistance required to flex trunk from side lying Functional Transfers Sit to Stand: Min, Contact guard Toilet Transfers: Contact Guard Skilled Intervention: Instruction provided on proper body mechanics to be used during sit to stand transfer from EOB. Functional mobility task completed within room using walker, with no overt loss of balance Home Living Type of Home: House Home Layout: Multi-level, Laundry in basement, Bed/bath upstairs, Performs ADLs on one level(6 CIRA to bedroom, 0 CIRA to enter) Bathroom Shower/Tub: Tub/shower unit Bathroom Toilet: Standard Bathroom Equipment: Shower chair(Does not fit in shower) Bathroom Accessibility: Not accessible Home Equipment: Walker, Wheeled Walker(Rollator ) Additional Comments: Medication Managment (+) Prior Level of Function Level of [place]: Independent with ADLs and functional transfers, Independent with homemaking with ambulation Lives With: Spouse, Daughter(19 yold ) Receives Help From: Family ADL Assistance: Independent Homemaking Assistance: Independent 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 Past Medical History: Diagnosis Date Arthritis Back pain Bronchitis 2004 Cough Depression GERD (gastroesophageal reflux disease) Hyperlipidemia IBS (irritable bowel syndrome) Joint swelling Muscle cramping right and left hip Pneumonia 2009 PONV (postoperative nausea and vomiting) Past Surgical History: Procedure Laterality Date ARTHROPLASTY HIP TOTAL Left 09/28/2019 Procedure: LEFT ROBOTIC TOTAL HIP REPLACEMENT; Surgeon: Oj Ferro MD; Location: [facility] Main OR; Service: Orthopedic CHOLECYSTECTOMY HYSTERECTOMY For complete objective data, detailed plan of care and patient education refer to: OT EVALUATION flow sheet, OT TREATMENT flow sheet, patient Plan of Care, Plan of Care progress note, and Patient Education. This note stands as the current Discharge Summary upon patient discharge from the hospital or completion of Occupational Therapy Plan of Care. Associated Order(s): IP CONSULT TO CARE MANAGEMENT COMPLEX DISCHARGE Date: 09/28/2019 Time: 6:07 PM Patient Name: Nara Malcolm Date of : 1975 Sex: Female Met with pt and spouse, Elijah, at bedside. OP therapy already set up for d/c. No needs identified. 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 Tamra Murcia (orthopedic surgery) Assessment and Plan: Other Post-operative infection Assessment & Plan 44 yo female s/p L BILLIE 09/28/19 admitted for persistent incisional drainage - D/W Dr. Murcia - CT left hip (p) - VSS. Afebrile. Nonseptic appearing. WBC 12.61 / CRP 4.6 / ESR 32 - plan for left hip superficial vs deep I&D 11/[address] scan results (informed written consent obtained) - will consider L hip aspiration if indicated based on CT scan - pt medically cleared per hospitalist H&P dated 11/16 - NPO after midnight - hold antibiotics - dry dressing changes prn Chief Complaint/Reason for Visit: left hip incisional drainage History of Present Illness: Nara Malcolm is a 44 y.o. female depression, GERD, HLD, IBS presenting from home with c/o left hip incisional drainage. Pt is s/p left BILLIE w/ Dr. Ferro on 09/28/19. She has done well postoperatively, but endorses persistent drainage to the left hip incision. She was seen in the office earlier today and sent to [facility] as a direct admission for further evaluation and surgical intervention. Patient is ambulating independently at baseline. She denies numbness or tingling. She denies fevers or chills. History: Past Medical History: Diagnosis Date GERD (gastroesophageal reflux disease) Hyperlipidemia IBS (irritable bowel syndrome) Major depression in remission (HCC) Past Surgical History: Procedure Laterality Date ARTHROPLASTY HIP TOTAL Left 09/28/2019 Procedure: LEFT ROBOTIC TOTAL HIP REPLACEMENT; Surgeon: Oj Ferro MD; Location: [facility] Main OR; Service: Orthopedic CHOLECYSTECTOMY HYSTERECTOMY Family History Problem Relation Age of Onset No Known Problems Sister Social History Socioeconomic History Marital status: Spouse name: Not on file Number of children: Not on file Years of education: Not on file Highest education level: Not on file Occupational History Not on file Social Needs Financial resource strain: Not on file Food insecurity Worry: Not on file Inability: Not on file Transportation needs Medical: Not on file Non-medical: Not on file Tobacco Use Smoking status: Current Every Day Smoker Packs/day: 2.00 Smokeless tobacco: Never Used Substance and Sexual Activity Alcohol use: Not Currently Drug use: Never Sexual activity: Not on file Lifestyle Physical activity Days per week: Not on file Minutes per session: Not on file Stress: Not on file Relationships Social connections Talks on phone: Not on file Gets together: Not on file Attends baptist service: Not on file Active member of club or organization: Not on file Attends meetings of clubs or organizations: Not on file Relationship status: Not on file Other Topics Concern Not on file Social History Narrative Not on file Allergy Information: I have reviewed the patient's allergies. Patient has no known allergies. Home Medications: Outpatient Medications as of 11/17/2019 Medication Sig gabapentin (NEURONTIN) 300 MG capsule Take 300 mg by mouth nightly (Days supply per fill: 30) . acetaminophen (TYLENOL) 325 MG tablet Take 2 (two) tablets (650 mg total) by mouth every 6 (six) hours as needed . cholecalciferol, vitamin D3, (VITAMIN D3 ORAL) Take 600 Units by mouth daily . fluticasone propionate (FLONASE) 50 mcg/actuation nasal spray Instill 2 sprays into each nostril daily as needed for rhinitis . ibuprofen (ADVIL,MOTRIN) 800 MG tablet Take 1 (one) tablet (800 mg total) by mouth 2 to 3 times daily as needed with food or milk. melatonin 5 mg Tab Take 15 mg by mouth at bedtime . multivit-min/folic acid/lun859 (ALIVE WOMEN'S GUMMY VITAMIN ORAL) Take 2 tablets by mouth daily . omeprazole (PRILOSEC) 40 MG capsule Take 40 mg by mouth every morning . QUEtiapine (SEROQUEL) 400 MG tablet Take 400 mg by mouth nightly . rosuvastatin (CRESTOR) 20 MG tablet Take 20 mg by mouth nightly . sertraline (ZOLOFT) 100 MG tablet Take 100 mg by mouth 2 (two) times a day . Review of Systems: The following system(s) were reviewed and pertinent findings noted: Constitutional: negative fevers, negative chills MSK: positive left hip pain Neuro: negative numbness, negative tingling Physical Examination: Vital Signs: BP (!) 145/77 (BP Location: Right arm, Patient Position: Lying) Pulse 81 Temp 98.6 F (37 C) (Oral) Resp 16 Ht 5' 3.6 Wt 81.6 kg (180 lb) SpO2 100% BMI 31.29 kg/m Constitutional: no acute distress and alert/oriented x3 Cardiovascular: 2+ DP pulse with BCR to all toes to left lower extremity Neurological: SILT. SP/DP/S/S/T intact. EHL/FHL intact in left lower extremity Musculoskeletal: Able to wiggle all toes and dorsiplantarflex ankle. No pain to left hip with logrolling or axial loading. Ambulating independently without difficulty. Integumentary: left lateral hip incision w/ small open area to distal most aspect; otherwise well approximated. No active drainage. Minimal localized erythema. Skin otherwise intact with no abrasions or open wounds Associated attestation - Tamra Murcia MD - 11/18/2019 6:48 AM EDT I have reviewed the documentation performed by my team (nurse, PA, and/or resident), and any changes are reflected in my note. HPI explored in detail with the patient. Pt was examined by me and romero findings were confirmed, I agree with the findings as documented. I personally reviewed any relevant radiographs with the patient, and participated the patient's assessment and treatment recommendations. 44F s/p L BILLIE and femoral shortening osteotomy by Dr. Ferro on 09/28/19. Presented to office yesterday with persistent wound drainage despite PO antibiotics and local wound care. After discussion with Dr. Ferro, recommended admission for operative debridement. Afebrile WBC 12.6 ESR 32 CRP 4.6 Incision approximated except for distal aspect where there is scant drainage and surrounding erythema. Ankle DF/PF intact and palpable pedal pulses. NPO for hip aspiration this AM, then OR today for superficial I&D vs deep I&D pending results/intraoperative findings. The clinical and radiographic findings were reviewed in detail, radiographs were personally reviewed with the patient. We discussed the natural history of the problem, and surgical versus nonsurgical treatments in detail, including the treatment algorithm and decision making process. ? We discussed the surgical plan, and that intraoperative modification may be necessary based on the findings. Risks include (among others) bleeding, infection, VTE, neurovascular injury, dislocation, limb length inequality, fracture, continued pain, stiffness, need for further surgery, as well as medical and anesthesia risks. Informed consent was obtained ? We specifically discussed treatment of periprosthetic joint infection, including the difficult nature of the problem. Plan is to proceed with superficial I&D versus deep I&D with head/liner exchange given the acute nature of her symptoms. An explicit discussion was conducted with regards to postoperative activity restrictions and the odds of successful infection eradication with this treatment course. We did discuss that additional surgery may be required if she does not clear the infection. ? All questions were answered.documented in this encounter Associated Order(s): IP CONSULT TO ORTHOPEDIC SURGERY CONSULT NOTE Patient Name: Nara Malcolm Admit Date: MR #: [id number] : 1975 Physicians: Dusty Wells DO (Family); Tamra Murcia* (Referring) Dr. Tamra Murcia (orthopedic surgery) Assessment and Plan: Other Post-operative infection Assessment & Plan 44 yo female s/p L BILLIE 09/28/19 admitted for persistent incisional drainage - D/W Dr. Murcia - CT left hip (p) - VSS. Afebrile. Nonseptic appearing. WBC 12.61 / CRP 4.6 / ESR 32 - plan for left hip superficial vs deep I&D 11/[address] scan results (informed written consent obtained) - will consider L hip aspiration if indicated based on CT scan - pt medically cleared per hospitalist H&P dated 11/16 - NPO after midnight - hold antibiotics - dry dressing changes prn Chief Complaint/Reason for Visit: left hip incisional drainage History of Present Illness: Nara Malcolm is a 44 y.o. female depression, GERD, HLD, IBS presenting from home with c/o left hip incisional drainage. Pt is s/p left BILLIE w/ Dr. Ferro on 09/28/19. She has done well postoperatively, but endorses persistent drainage to the left hip incision. She was seen in the office earlier today and sent to [facility] as a direct admission for further evaluation and surgical intervention. Patient is ambulating independently at baseline. She denies numbness or tingling. She denies fevers or chills. History: Past Medical History: Diagnosis Date GERD (gastroesophageal reflux disease) Hyperlipidemia IBS (irritable bowel syndrome) Major depression in remission ([facility]) Past Surgical History: Procedure Laterality Date ARTHROPLASTY HIP TOTAL Left 09/28/2019 Procedure: LEFT ROBOTIC TOTAL HIP REPLACEMENT; Surgeon: Oj eFrro MD; Location: [facility] Main OR; Service: Orthopedic CHOLECYSTECTOMY HYSTERECTOMY Family History Problem Relation Age of Onset No Known Problems Sister Social History Socioeconomic History Marital status: Spouse name: Not on file Number of children: Not on file Years of education: Not on file Highest education level: Not on file Occupational History Not on file Social Needs Financial resource strain: Not on file Food insecurity Worry: Not on file Inability: Not on file Transportation needs Medical: Not on file Non-medical: Not on file Tobacco Use Smoking status: Current Every Day Smoker Packs/day: 2.00 Smokeless tobacco: Never Used Substance and Sexual Activity Alcohol use: Not Currently Drug use: Never Sexual activity: Not on file Lifestyle Physical activity Days per week: Not on file Minutes per session: Not on file Stress: Not on file Relationships Social connections Talks on phone: Not on file Gets together: Not on file Attends baptist service: Not on file Active member of club or organization: Not on file Attends meetings of clubs or organizations: Not on file Relationship status: Not on file Other Topics Concern Not on file Social History Narrative Not on file Allergy Information: I have reviewed the patient's allergies. Patient has no known allergies. Home Medications: Outpatient Medications as of 11/17/2019 Medication Sig gabapentin (NEURONTIN) 300 MG capsule Take 300 mg by mouth nightly (Days supply per fill: 30) . acetaminophen (TYLENOL) 325 MG tablet Take 2 (two) tablets (650 mg total) by mouth every 6 (six) hours as needed . cholecalciferol, vitamin D3, (VITAMIN D3 ORAL) Take 600 Units by mouth daily . fluticasone propionate (FLONASE) 50 mcg/actuation nasal spray Instill 2 sprays into each nostril daily as needed for rhinitis . ibuprofen (ADVIL,MOTRIN) 800 MG tablet Take 1 (one) tablet (800 mg total) by mouth 2 to 3 times daily as needed with food or milk. melatonin 5 mg Tab Take 15 mg by mouth at bedtime . multivit-min/folic acid/dmz784 (ALIVE WOMEN'S GUMMY VITAMIN ORAL) Take 2 tablets by mouth daily . omeprazole (PRILOSEC) 40 MG capsule Take 40 mg by mouth every morning . QUEtiapine (SEROQUEL) 400 MG tablet Take 400 mg by mouth nightly . rosuvastatin (CRESTOR) 20 MG tablet Take 20 mg by mouth nightly . sertraline (ZOLOFT) 100 MG tablet Take 100 mg by mouth 2 (two) times a day . Review of Systems: The following system(s) were reviewed and pertinent findings noted: Constitutional: negative fevers, negative chills MSK: positive left hip pain Neuro: negative numbness, negative tingling Physical Examination: Vital Signs: BP (!) 145/77 (BP Location: Right arm, Patient Position: Lying) Pulse 81 Temp 98.6 F (37 C) (Oral) Resp 16 Ht 5' 3.6 Wt 81.6 kg (180 lb) SpO2 100% BMI 31.29 kg/m Constitutional: no acute distress and alert/oriented x3 Cardiovascular: 2+ DP pulse with BCR to all toes to left lower extremity Neurological: SILT. SP/DP/S/S/T intact. EHL/FHL intact in left lower extremity Musculoskeletal: Able to wiggle all toes and dorsiplantarflex ankle. No pain to left hip with logrolling or axial loading. Ambulating independently without difficulty. Integumentary: left lateral hip incision w/ small open area to distal most aspect; otherwise well approximated. No active drainage. Minimal localized erythema. Skin otherwise intact with no abrasions or open wounds Associated attestation - Tamra Murcia MD - 11/18/2019 6:48 AM EDT I have reviewed the documentation performed by my team (nurse, PA, and/or resident), and any changes are reflected in my note. HPI explored in detail with the patient. Pt was examined by me and romero findings were confirmed, I agree with the findings as documented. I personally reviewed any relevant radiographs with the patient, and participated the patient's assessment and treatment recommendations. 44F s/p L BILLIE and femoral shortening osteotomy by Dr. Ferro on 09/28/19. Presented to office yesterday with persistent wound drainage despite PO antibiotics and local wound care. After discussion with Dr. Ferro, recommended admission for operative debridement. Afebrile WBC 12.6 ESR 32 CRP 4.6 Incision approximated except for distal aspect where there is scant drainage and surrounding erythema. Ankle DF/PF intact and palpable pedal pulses. NPO for hip aspiration this AM, then OR today for superficial I&D vs deep I&D pending results/intraoperative findings. The clinical and radiographic findings were reviewed in detail, radiographs were personally reviewed with the patient. We discussed the natural history of the problem, and surgical versus nonsurgical treatments in detail, including the treatment algorithm and decision making process. ? We discussed the surgical plan, and that intraoperative modification may be necessary based on the findings. Risks include (among others) bleeding, infection, VTE, neurovascular injury, dislocation, limb length inequality, fracture, continued pain, stiffness, need for further surgery, as well as medical and anesthesia risks. Informed consent was obtained ? We specifically discussed treatment of periprosthetic joint infection, including the difficult nature of the problem. Plan is to proceed with superficial I&D versus deep I&D with head/liner exchange given the acute nature of her symptoms. An explicit discussion was conducted with regards to postoperative activity restrictions and the odds of successful infection eradication with this treatment course. We did discuss that additional surgery may be required if she does not clear the infection. ? All questions were answered.documented in this encounter Anum Craig RN - 09/28/2019 10:20 AM EDT Nursing Notes (unrecognized section and content) PT WOULD LIKE TO DO MEDS TO BED documented in this encounter Quick Note - Janeen Loya RN - 09/30/2019 1:50 PM EDTAssessment & Plan Note - Robby Conley DO - 09/29/2019 12:11 PM EDTOp Note - Oj Ferro MD - 09/29/2019 9:31 AM EDT Miscellaneous Notes (unrecog nized section and content) AVS reviewed with patient and spouse, all questions answered. All discharge teaching completed. Medications sent home 09/28 with spouse from [facility] pharmacy. 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 NARA MALCOLM [id number] 1975 DATE 09/28/2019 OPERATIVE REPORT SURGEON OJ FERRO MD DRYWALL HANGER HELPER NONE PREOPERATIVE DIAGNOSES Left hip dysplasia with secondary osteoarthritis, grade 4. POSTOPERATIVE DIAGNOSES Same PROCEDURES PERFORMED 1. Left total hip arthroplasty with increased complexity due to severe deformity. 2. Subtrochanteric femoral osteotomy. ESTIMATED BLOOD LOSS 400 cc. COMPLICATIONS None. ANESTHESIA Spinal with general. IMPLANTS 1. A size 48 [place] Trident II cup with a 32 mm inner diameter poly liner. 2. A size small DePuy S-ROM sleeve with 13.5 mm stem high offset with a +0 32 mm femoral head, all ceramic. INDICATIONS The patient is a 44-year-old female with a significant leg length discrepancy with the left leg being shorter than the right for multiple years and having increased pain coupled with walking atrophy of the left compared to the right. The patient was diagnosed with severe grade 4 hip dysplasia and in need for conversion to a total hip arthroplasty with subtrochanteric osteotomy. The patient had risks, benefits, alternatives, and complications discussed in regard to treating this with that and she agreed and wished to proceed. OPERATIVE DETAILS The patient was brought back to the operating room at which point the head, neck, and airway were taken over by the Anesthesia staff. The patient was inducted with general anesthesia and placed into the right lateral decubitus position. She had all bony prominences well padded and was placed in that position with 4 well-padded pegs. The patient's left lower extremity was then sterilely prepped and draped with general orthopedic protocol. Also, the brachial plexus was also protected with axillary roll. At that point, we performed a time-out per protocol. We then planned an incision over the iliac crest for the pelvic array pins and then made an incision about 4 cm in length through skin and subcutaneous tissue, dissected down until the pelvic brim was reached and palpated. We then placed pins parallel to the inner table in the medial half of the iliac crest just proximal to the ASIS that was used as a guide and placement points. These three pins were then drilled into the iliac wing with success and good fixation and we then placed array from that in the appropriate position for the [employer] robot. At that point, we then made an incision over the posterolateral aspect of the femur extending about midway down the thigh and posterior curving toward the gluteus cristel. We then incised the skin, and subcutaneous tissue with a 10 blade and then cauterized all bleeders. At that point, we then incised the fascia renuka in line with the posterior aspect of the femur and then placed a Charnley retractor in safe position. At that point, we then placed troch checkpoint after we Bovied down the trochanter and placed into appropriate position. Then using a xochilt to protect the external rotator well the abductors, we then took the capsule down making an L shape arthrotomy proximally. At that point, we evacuated clear joint fluid whichwas evacuated and then to the point to confirm the leg length of the leg in the Guy robotic system. At that point, I dislocated the hip and performed neck osteotomy with a neck cutting guide using a saw and retractors to protect the soft tissue. Once this was completed, we removed the femoral head and saved it for future bone graft if needed. At that point, we then transplanted the femur anteriorly with the Ranawat retractor, placed a Zelpi retractor posteriorly and removed any scar tissue as well as tissue from the pulvinar that was present down until we got into the fovea that was still present and visualized the RAE. At that point, we removed all scar tissue from the true acetabulum and then proceeded to place the checkpoint of the acetabulum down to bone that was completed. We then registered for the Guy robot per protocol. Once registration was completed, we then brought in the appropriate reamer to position and then reamed to the appropriate size that was planned. Once this was completed, we then impacted the cup into appropriate position according to the robot, feedback and then once this was completed, we attached the robotic handle and then placed 3 screws to the posterior superior quadrant with drilling and measuring. Once this was completed, we placed the final 32 mm inner diameter polyethylene liner and seated it appropriately. Once this was completed, we then turned our attention to the femur. We reamed distally at the femur until good chatter achieved and then proximally reamed for the cone. Once the cone was approximately reamed 4, we then used the [employer] taper reamer for the spout. Once this was completed, we picked the appropriate size being a small d and was in appropriate position. We then placed a trial stem and head and tentative reduction. We were about 2.5 cm short of being able to reduce the hip. At that point, osteotomy with A saw was deemed necessary. We then extended dissection distally and laterally on the femur. We were able to release the glut max tendon from its insertion on the femur completely, visualized that area and then placed homans anteriorly and posteriorly on the femur to visualize about a centimeter distal from the lesser and elijah that as the initial osteotomy. Jr retractor and blunt nikhil and then made proximal limb of the osteotomy through the bone with irrigation to prevent severe necrosis of the bone. Once this was completed, we then reduced the hip with the trial being put through the proximal piece and once it was reduced, we saw the overlapping bone with a distal piece, the proximal and determined the thickness of resection of the femur that would be necessary for reduction to be adequate. This came out about 2.5 cm and marked that at the distal aspect of the femur and then placed retractors there and completed the osteotomy distally to shorten the femur adequately for successful reduction. Once this was completed, we then used bone clamps to remove the intermedullary piece successfully and hold the femur reduced while we impacted the final stem and the final stem got great purchase in the distal aspect with getting rotational stability once the splines were engaged in the distal intramedullary canal. At that point, we then trial reduced and measured leg length measurement knee and [id number] and determined that we were about 2.5 cm longer than our preoperative length and this was adequate, so we then dislocated the hip after we trialed the stability was present to 90 degrees of flexion and 70 degrees of internal rotation before dislocation occurred. At that point, we then dislocated the hip and placed the final head on a clean, dry trunnion. We then successfully reduced the hip and irrigated it with Betadine at that point. We used some bone graft and packed it around the osteotomy site, which was confirmed to be near anatomic position and rotation as well as a bony cortical contact between the proximal and distal pieces. It was rotationally stable as well. Once this was completed, we then irrigated with Betadine as well as dilute Betadine and saline. Once this was completed, we then turned our attention to closure and closed through drill holes in the greater trochanter and to the capsule with a #2 Ethibond. Once this was completed, we used a #1 Vicryl in the proximal capsular closure. Once this completed, We closed the tensor fascia renuka, gluteal max fascia with a #2 Stratafix in a running fashion and placed 2 g TXA within the wound as well. We did inject the periarticular tissues with Solu-Medrol, Marcaine, morphine injection . Then closed the subcuticular and subcutaneous tissue with 0 Stratafix and Exofin was applied. We then closed the pin site after irrigating that with 2-0 Vicryl and 2-0 nylon with a sterile dressings being applied. The patient was awoken from anesthesia and returned to the PACU in stable condition. OJ FERRO MD D 09/28/2019 18:06 [id number] T 09/29/2019 08:06 RKB/MODL Plan of care reviewed. PHYSICAL THERAPY VISIT VARIANCE NOTE Attempted to see patient at this time, but unable secondary to: PT Visit Variance: Refused(Pt in too much pain. Given pain medications. Pt still groggy after surgery. Nursing requesting to wait for PT eval until tomorrow. ). Will follow up as appropriate. Orthopedic Surgery Plan of Care POD #0 s/p L BILLIE with subtrochanteric osteotomy Post Op Plan: floor Wound/ Splint/ Cast Care: soft dressings, ABD pillow Activity: WBAT LLE Antibiotics: post op per protocol DVT Prophylaxis: PT/OT: appreciate recs Discharge Plan: pending therapies Raul Acosta DO Orthopedic Surgery Resident documented in this encounter Patient may discharge tonight Do not need to wait for post-op Ancef Advance diet WBAT No DVT prophylaxis as patient remains ambulatory Bactrim x1 week Follow up 10-[address] 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 female, who previously underwent left total hip replacement surgery with a femoral shortening osteotomy by my partner, Dr. Ferro (on 09/28/19). She initially did well but she developed a small area at the distal aspect of her incision that continued to drain, consistent with a suture abscess, and was refractory to local wound care and oral antibiotics. Dr. Ferro asked me to evaluate Ms. Malcolm for possible I&D. She was admitted to [place] for pre-operative workup where she had a WBC of 12.6, ESR 32, CRP 4.6. CT scan demonstrated no deep fluid collection and aspiration was reassuring that there was no deep infection. After the risks, benefits, and alternatives were discussed, the patient opted for superficial versus deep I&D of her left hip wound with possible head/liner exchange if the infection tracked deep. An explicit discussion was conducted with regards to postoperative activity restrictions and the odds of successful infection eradication with this treatment course. OPERATIVE FINDINGS: No purulence encountered. Some residual barbed suture was excised from the subcutaneous tissues and dermis. No evidence of tracking deep. OPERATIVE PROCEDURE: The operative procedure was confirmed with the patient and the operative site was marked. The patient was brought to the operating room and transferred to the operating table. Anesthesia was administered by the anesthesiology team. The patient was placed into the lateral decubitus position with the operative hip facing up, and secured utilizing peg board. Pelvis positioning was meticulously confirmed. Care was taken to ensure that all bony prominences and nerves were well-padded and free of compression. The leg was prepped and drape free in sterile fashion. Prophylactic preoperative antibiotics were given. A universal time-out was undertaken by the entire team and the procedure was confirmed. The old incision was marked. The distal aspect of the incision was excised with knife including the skin and subcutaneous tissue. There was no evidence that the infection tracked deep despite probing. Due to our low index of suspicion for deep connection based on preoperative workup, we did not incise through fascia. Some residual barbed suture was removed from the dermal layer of the wound. A sample of subcutaneous tissue was sent for culture. The wound was irrigated copiously with pulsatile saline (3L). Following this the wound appeared clean. Hemostasis was achieved with cautery. The dermis was approximated with a few 2-0 Vicryl. Skin was closed with 2-0 Nylon mattresses. A sterile dressing and Tegaderm were applied. The patient was taken to PACU in stable condition and all counts were correct at the end of the case. Estimated blood loss: 10 cc. Drains: None. Specimens: One tissue specimen sent to microbiology Complications: None. Postoperative plan: Weight bear as tolerated Ambulate Bactrim x1 week Discharge today Follow up with Dr. Ferro in 10-14 days for wound check and suture removal SIGNATURE: Tamra Murcia DATE: November 18, 2019 TIME: 1:01 PM Associated Problem(s): Post-operative infection 44 yo female s/p L BILLIE 09/28/19 admitted for persistent incisional drainage - D/W Dr. Murcia - CT left hip (p) - VSS. Afebrile. Nonseptic appearing. WBC 12.61 / CRP 4.6 / ESR 32 - plan for left hip superficial vs deep I&D 11/[address] scan results (informed written consent obtained) - will consider L hip aspiration if indicated based on CT scan - pt medically cleared per hospitalist H&P dated 11/16 - NPO after midnight - hold antibiotics - dry dressing changes prn documented in this encounter Patient may discharge tonight Do not need to wait for post-op Ancef Advance diet WBAT No DVT prophylaxis as patient remains ambulatory Bactrim x1 week Follow up 10-[address] 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 female, who previously underwent left total hip replacement surgery with a femoral shortening osteotomy by my partner, Dr. Ferro (on 09/28/19). She initially did well but she developed a small area at the distal aspect of her incision that continued to drain, consistent with a suture abscess, and was refractory to local wound care and oral antibiotics. Dr. Ferro asked me to evaluate Ms. Malcolm for possible I&D. She was admitted to [place] for pre-operative workup where she had a WBC of 12.6, ESR 32, CRP 4.6. CT scan demonstrated no deep fluid collection and aspiration was reassuring that there was no deep infection. After the risks, benefits, and alternatives were discussed, the patient opted for superficial versus deep I&D of her left hip wound with possible head/liner exchange if the infection tracked deep. An explicit discussion was conducted with regards to postoperative activity restrictions and the odds of successful infection eradication with this treatment course. OPERATIVE FINDINGS: No purulence encountered. Some residual barbed suture was excised from the subcutaneous tissues and dermis. No evidence of tracking deep. OPERATIVE PROCEDURE: The operative procedure was confirmed with the patient and the operative site was marked. The patient was brought to the operating room and transferred to the operating table. Anesthesia was administered by the anesthesiology team. The patient was placed into the lateral decubitus position with the operative hip facing up, and secured utilizing peg board. Pelvis positioning was meticulously confirmed. Care was taken to ensure that all bony prominences and nerves were well-padded and free of compression. The leg was prepped and drape free in sterile fashion. Prophylactic preoperative antibiotics were given. A universal time-out was undertaken by the entire team and the procedure was confirmed. The old incision was marked. The distal aspect of the incision was excised with knife including the skin and subcutaneous tissue. There was no evidence that the infection tracked deep despite probing. Due to our low index of suspicion for deep connection based on preoperative workup, we did not incise through fascia. Some residual barbed suture was removed from the dermal layer of the wound. A sample of subcutaneous tissue was sent for culture. The wound was irrigated copiously with pulsatile saline (3L). Following this the wound appeared clean. Hemostasis was achieved with cautery. The dermis was approximated with a few 2-0 Vicryl. Skin was closed with 2-0 Nylon mattresses. A sterile dressing and Tegaderm were applied. The patient was taken to PACU in stable condition and all counts were correct at the end of the case. Estimated blood loss: 10 cc. Drains: None. Specimens: One tissue specimen sent to microbiology Complications: None. Postoperative plan: Weight bear as tolerated Ambulate Bactrim x1 week Discharge today Follow up with Dr. Ferro in 10-14 days for wound check and suture removal SIGNATURE: Tamra Murcia DATE: November 18, 2019 TIME: 1:01 PM Associated Problem(s): Post-operative infection 44 yo female s/p L BILLIE 09/28/19 admitted for persistent incisional drainage - D/W Dr. Murcia - CT left hip (p) - VSS. Afebrile. Nonseptic appearing. WBC 12.61 / CRP 4.6 / ESR 32 - plan for left hip superficial vs deep I&D 11/[address] scan results (informed written consent obtained) - will consider L hip aspiration if indicated based on CT scan - pt medically cleared per hospitalist H&P dated 11/16 - NPO after midnight - hold antibiotics - dry dressing changes prn documented in this encounter Care Teams (unrecognized sec tion and content) Ballistics Professor Relationship Specialty Start Date End Date Dusty Wells DO [address] [place] [id number] PCP - General Family Medicine 09/14/19 Ballistics Professor Relationship Specialty Start Date End Date Dusty Wells DO [address] [place] [id number] PCP - General Family Medicine 09/14/19 Ballistics Professor Relationship Specialty Start Date End Date Dusty Wells DO [address] [place] [id number] PCP - General Family Medicine 09/14/19 FOR RECORDS PERTAINING TO PATIENTS WHO ARE OR HAVE BEEN ENROLLED IN A CHEMICAL DEPENDENCY/SUBSTANCEABUSE PROGRAM, SOME INFORMATION MAY BE OMITTED. This clinical summary was aggregated from multiple sources. Caution should be exercised in using it in the provision of clinical care. This summary normalizes information from multiple sources, and as a consequence, information in this document may materially change the coding, format and clinical context of patient data. In addition, data may be omitted in some cases. CLINICAL DECISIONS SHOULD BE BASED ON THE PRIMARY CLINICAL RECORDS. [employer] [facility]. provides no warranty or guarantee of the accuracy or completeness of information in this document.
== END | disposition home or self-care (01) ==
LOC: LABSPEC 15:04
PROVIDERS: PCP Family Medicine; Referring Provider Physician Assistant Surgical; Visit Provider Physician Assistant Surgical
DX: R30.0 Dysuria (principal)
CPT/HCPCS: 87086; 87088

== ENCOUNTER → 2023-07-09 | Outpatient (CLI) | payer MEDICAID, SELFPAY ==
--- NOTE | 2023-07-09 14:10 | RAD_ITS ---
STUDY: X-RAY - LEFT WRIST REASON FOR EXAM: Female, 48 years old. Pain following a fall. TECHNIQUE: 3 view(s) of the wrist were obtained. COMPARISON: None. FINDINGS: Normal visualized distal radius and ulna. Normal radiocarpal articulation. Normal distal radioulnar articulation. There is evidence of an avulsion of the triquetrum. Normal carpal articulations. Normal carpometacarpal articulation of the thumb. Normal second through fifth carpometacarpal articulations. Normal visualized metacarpal bones. Soft tissue swelling. RAD/Wrist min 3 Views IMPRESSION: Avulsion of the triquetrum with overlying soft tissue swelling. Electronically Signed: Stephen Watters MD at 14:49 EDT ,
--- NOTE | 2023-07-09 14:10 | RAD_ITS ---
STUDY: X-RAY - LEFT HAND REASON FOR EXAM: Female, 48 years old. Pain following a fall. TECHNIQUE: 3 view(s) of the hand. COMPARISON: None. FINDINGS: Normal radiocarpal articulation. Normal distal radioulnar joint. Normal visualized carpal bones. Normal carpal articulations Normal carpometacarpal articulation of the thumb. Normal second through fifth carpometacarpal joints. Normal metacarpi. Normal metacarpophalangeal joint of the thumb. Normal interphalangeal joint of the thumb. Normal proximal and distal phalanges of the thumb. Normal metacarpophalangeal joints of the second through fifth fingers. Normal proximal and distal interphalangeal joints of the second through fifth fingers. Normal phalanges of the second through fifth fingers. The soft tissue structures are unremarkable. RAD/Hand Min 3 Views IMPRESSION: Normal x-ray examination of the hand. Electronically Signed: Stephen Watters MD at 14:44 EDT ,
== END | disposition home or self-care (01) ==
LOC: MTRAD 14:10
PROVIDERS: PCP Family Medicine; Referring Provider Physician Assistant; Visit Provider Physician Assistant
DX: T14.90XA Injury, unspecified, initial encounter (principal); X58.XXXA Exposure to other specified factors, initial encounter
CPT/HCPCS: 73110; 73130

== ENCOUNTER 2023-10-17 08:32 | Outpatient (CLI) | payer MEDICAID, SELFPAY ==
[2023-10-17 10:13] LABS: Vitamin D,25 Hydroxy 37.9 ng/mL
[2023-10-17 10:20] LABS: ALB/GLOB Ratio 0.8 RATIO (0.9-2.4); AST(SGOT) 33 U/L (15-37); Alanine Aminotransfer ALT/SGPT 42 U/L (13-56); Albumin, Serum 3.4 g/dL (3.2-5.0); Alkaline Phosphatase 115 U/L (45-117); Anion Gap 5 (5-15); BUN 10 mg/dL (7-18); BUN/Creat Ratio 13.9 RATIO (10-20); Calcium,Total 9.3 mg/dL (8.5-10.1); Chloride 105 mmol/L (98-107); Cholesterol 189 mg/dL (200); Creatinine, Serum 0.72 mg/dL (0.55-1.02); EST Glomerular Filtration Rate 92 mL/min (>60); Est Glom Filt Rate - Afr Amer 112 mL/min (>60); Globulin 4.5 g/dL (2.2-4.2); Glucose 133 mg/dL (74-106); High Density Lipoprotein 61 mg/dL; Potassium 4.1 mmol/L (3.5-5.1); Protein, Total 7.9 g/dL (6.4-8.2); Sodium Level 138 mmol/L (136-145); Thyroid Stim Hormone (TSH) 3.17 uIU/mL (0.358-3.74); Triglycerides 171 mg/dL; Very Low Density Lipoprotein 34 mg/dL (5-40)
== END 2023-10-17 23:59 | disposition home or self-care (01) ==
LOC: MTLAB 02-11 11:55
PROVIDERS: PCP Family Medicine; Referring Provider Family Medicine; Visit Provider Family Medicine
DX: Z00.00 Encounter for general adult medical examination without abnormal findings (principal); E78.5 Hyperlipidemia, unspecified; E55.9 Vitamin D deficiency, unspecified; Z13.1 Encounter for screening for diabetes mellitus
CPT/HCPCS: 36415; 80053; 80061; 82306; 84443

== ENCOUNTER → 2023-10-23 | Outpatient (CLI) | payer MEDICAID, SELFPAY ==
--- NOTE | 2023-10-23 08:22 | BI_ITS ---
MAMMOGRAPHY - BILATERAL SCREENING REASON FOR EXAM: Female, 48 years old. Routine annual screening examination. PERTINENT HISTORY: Non-contributory. TECHNIQUE: Digital bilateral breast garrett (3D mammographic acquisition) in the CC and MLO projections. 2-D mediolateral oblique (MLO) and craniocaudad (CC) views of both breasts were obtained. CAD: Full Field Digital Mammography with Computer Added Detection was performed. COMPARISON: Comparison is made with prior study dated October 19, 2022 and October 06, 2021. FINDINGS: Breast Composition: The breasts are heterogeneously dense, which may obscure small masses. There are no dominant masses or suspicious calcifications. Stable small bilateral fat containing axillary lymph nodes. No other significant abnormalities are identified. There has been no significant change since the prior study. BI/SCRN MAMM (CAD)W/GARRETT BILAT IMPRESSION: Stable bilateral screening mammogram. Yearly follow-up mammogram recommended. (A) ASSESSMENT CATEGORY: BIRADS Category 2: Benign. A letter regarding these results will be sent to the patient by the facility within 30 days. Approximately 10% of breast cancers are not detected by mammography. A normal mammogram should not delay biopsy of a clinically suspicious abnormality. [id number] Electronically Signed: Stephen Watters MD at 9:09 EDT ,
== END | disposition home or self-care (01) ==
LOC: OPBI 08:20
PROVIDERS: PCP Family Medicine; Referring Provider Family Medicine; Visit Provider Family Medicine
DX: Z12.31 Encounter for screening mammogram for malignant neoplasm of breast (principal)
CPT/HCPCS: 77063; 77067

== ENCOUNTER → 2024-08-05 | Outpatient (CLI) | payer MEDICAID, SELFPAY ==
[2024-08-05 11:21] LABS: ALB/GLOB Ratio 1.4 RATIO (0.9-2.4); AST(SGOT) 30 U/L (<=31); Alanine Aminotransfer ALT/SGPT 46 U/L (<=34); Albumin, Serum 4.2 g/dL (3.5-5.0); Alkaline Phosphatase 109 U/L (35-104); Anion Gap 13 (5-15); BUN 12 mg/dL (4-19); BUN/Creat Ratio 18.2 RATIO (10-20); Calcium,Total 9.3 mg/dL (7.6-11.0); Chloride 104 mmol/L (98-108); Cholesterol 170 mg/dL (<=200); Creatinine, Serum 0.64 mg/dL (0.70-1.20); EST Glomerular Filtration Rate 108 (>60); Globulin 3.1 g/dL (2.2-4.2); Glucose 172 mg/dL (70-99); High Density Lipoprotein 54 mg/dL; Low Density Lipoprotein Calc. 88 mg/dL; Potassium 3.8 mmol/L (3.3-5.1); Protein, Total 7.4 g/dL (5.9-8.4); Sodium Level 140 mmol/L (133-145); Total Bilirubin 0.24 mg/dL (0.00-1.30); Triglycerides 142 mg/dL; Very Low Density Lipoprotein 28 mg/dL (5-40); Vitamin D,25 Hydroxy 34.8 ng/mL (30-100); cholesterol:hdl ratio screen 3.18
== END | disposition home or self-care (01) ==
LOC: MTLAB 07:10
PROVIDERS: PCP Family Medicine; Referring Provider Family Medicine; Visit Provider Family Medicine
DX: Z00.00 Encounter for general adult medical examination without abnormal findings (principal); Z13.1 Encounter for screening for diabetes mellitus; E78.5 Hyperlipidemia, unspecified; E55.9 Vitamin D deficiency, unspecified
CPT/HCPCS: 36415; 80053; 80061; 82306; 84443

== ENCOUNTER → 2024-10-23 | Outpatient (CLI) | payer MEDICAID, SELFPAY | END | disposition home or self-care (01) | LOC: OPBI 10:10 | PROVIDERS: PCP Family Medicine; Referring Provider Family Medicine; Visit Provider Family Medicine | DX: Z12.31 Encounter for screening mammogram for malignant neoplasm of breast (principal) | CPT/HCPCS: 77063; 77067 ==

== ENCOUNTER → 2024-10-30 | Outpatient (CLI) | payer MEDICAID, SELFPAY ==
--- NOTE | 2024-10-30 13:00 | BI_ITS ---
EXAM: DIAG MAMM W/CAD, UNILAT; RT BRST UNILAT GARRETT ADD-ON; BREAST LIMITED UNILATERAL 10/30/2024 CLINICAL HISTORY: F, Age 49 y/o , ABN BI; RT AV'S TECHNIQUE: DIAG MAMM W/CAD, UNILAT; RT BRST UNILAT GARRETT ADD-ON; BREAST LIMITED UNILATERAL. COMPARISON: 10/23/2024, 10/23/2023, 10/19/2022, 10/06/2021 FINDINGS: MAMMOGRAM: TISSUE DENSITY: There are scattered areas of fibroglandular density. Right breast : Follow-up examination performed for the asymmetry in the right breast seen on examination of 10/23/2024. On the present examination, the asymmetry in the superior right breast at middle depth effaces. This likely represents benign overlapping fibroglandular tissues. ULTRASOUND: Ultrasound performed of the central right breast demonstrates no sonographic correlate. BI/Rt Brst Unilat Garrett Add-On IMPRESSION: There are no suspicious mammographic or sonographic findings in the right breas t. OVERALL FINAL ASSESSMENT BI-RADS 1: NEGATIVE RECOMMENDATION: Routine annual follow-up in 1 Year A letter with findings and recommendations will be mailed to the patient. Reading Location: [id number]
--- NOTE | 2024-10-30 13:00 | BI_ITS ---
EXAM: DIAG MAMM W/CAD, UNILAT; RT BRST UNILAT GARRETT ADD-ON; BREAST LIMITED UNILATERAL 10/30/2024 CLINICAL HISTORY: F, Age 49 y/o , ABN BI; RT AV'S TECHNIQUE: DIAG MAMM W/CAD, UNILAT; RT BRST UNILAT GARRETT ADD-ON; BREAST LIMITED UNILATERAL. COMPARISON: 10/23/2024, 10/23/2023, 10/19/2022, 10/06/2021 FINDINGS: MAMMOGRAM: TISSUE DENSITY: There are scattered areas of fibroglandular density. Right breast : Follow-up examination performed for the asymmetry in the right breast seen on examination of 10/23/2024. On the present examination, the asymmetry in the superior right breast at middle depth effaces. This likely represents benign overlapping fibroglandular tissues. ULTRASOUND: Ultrasound performed of the central right breast demonstrates no sonographic correlate. BI/Rt Brst Unilat Garrett Add-On IMPRESSION: There are no suspicious mammographic or sonographic findings in the right breas t. OVERALL FINAL ASSESSMENT BI-RADS 1: NEGATIVE RECOMMENDATION: Routine annual follow-up in 1 Year A letter with findings and recommendations will be mailed to the patient. Reading Location: [id number]
--- NOTE | 2024-10-30 13:03 | US_ITS ---
EXAM: DIAG MAMM W/CAD, UNILAT; RT BRST UNILAT GARRETT ADD-ON; BREAST LIMITED UNILATERAL 10/30/2024 CLINICAL HISTORY: F, Age 49 y/o , ABN BI; RT AV'S TECHNIQUE: DIAG MAMM W/CAD, UNILAT; RT BRST UNILAT GARRETT ADD-ON; BREAST LIMITED UNILATERAL. COMPARISON: 10/23/2024, 10/23/2023, 10/19/2022, 10/06/2021 FINDINGS: MAMMOGRAM: TISSUE DENSITY: There are scattered areas of fibroglandular density. Right breast : Follow-up examination performed for the asymmetry in the right breast seen on examination of 10/23/2024. On the present examination, the asymmetry in the superior right breast at middle depth effaces. This likely represents benign overlapping fibroglandular tissues. ULTRASOUND: Ultrasound performed of the central right breast demonstrates no sonographic correlate. US/Breast Limited Unilateral IMPRESSION: There are no suspicious mammographic or sonographic findings in the right breas t. OVERALL FINAL ASSESSMENT BI-RADS 1: NEGATIVE RECOMMENDATION: Routine annual follow-up in 1 Year A letter with findings and recommendations will be mailed to the patient. Reading Location: [id number]
--- NOTE | 2024-10-30 13:03 | US_ITS ---
EXAM: DIAG MAMM W/CAD, UNILAT; RT BRST UNILAT GARRETT ADD-ON; BREAST LIMITED UNILATERAL 10/30/2024 CLINICAL HISTORY: F, Age 49 y/o , ABN BI; RT AV'S TECHNIQUE: DIAG MAMM W/CAD, UNILAT; RT BRST UNILAT GARRETT ADD-ON; BREAST LIMITED UNILATERAL. COMPARISON: 10/23/2024, 10/23/2023, 10/19/2022, 10/06/2021 FINDINGS: MAMMOGRAM: TISSUE DENSITY: There are scattered areas of fibroglandular density. Right breast : Follow-up examination performed for the asymmetry in the right breast seen on examination of 10/23/2024. On the present examination, the asymmetry in the superior right breast at middle depth effaces. This likely represents benign overlapping fibroglandular tissues. ULTRASOUND: Ultrasound performed of the central right breast demonstrates no sonographic correlate. US/Breast Limited Unilateral IMPRESSION: There are no suspicious mammographic or sonographic findings in the right breas t. OVERALL FINAL ASSESSMENT BI-RADS 1: NEGATIVE RECOMMENDATION: Routine annual follow-up in 1 Year A letter with findings and recommendations will be mailed to the patient. Reading Location: [id number]
--- OUTSIDE RECORDS SUMMARY | 2024-10-30 13:35 | XMS RPT_ITS | CCD ---
Author Organization [facility] Inform ion [facility] Care Team Providers Care Gis Analyst Developer Name Role Phone REFERRING, NATHEN WO ID Unavailable Unavailable WAYT, WAI Unavailable Unavailable WAYT, WAI Unavailable Unavailable RENA ESCOTO (PA) Referring Unavailable RUSSELL COLUNGA (HU) Referring Unavailable Dusty Landrum Primary Care Provider Dusty Landrum Primary Care Provider OJ FERRO Admitting Unavailable OJ FERRO Attending Unavailable [facility] Consulting U lukeailOJ Tobar Attending Unavailable OJ FERRO Referring Unavailable DUSTY LANDRUM Primary Care Unavailable OJ FERRO Admitting Unavailable OJ FERRO Referring Unavailable DUSTY LANDRUM Primary Care Unavailable DANA KESSLER Attending Unavailabl e OJ FERRO Admitting Unavailable OJ FERRO Referring Unavailable DUSTY LANDRUM Primary Care Unavailable OJ FERRO Attending Unavailable DUSTY LANDRUM Primary Care Unavailable TAMRA MURCIA Admitting TAMRA Orellana Attending DUSTY Martin Primary Care Unavailable TAMRA MURCIA Referring DUSTY Martin Primary Care Unavailable RAUDEL RICH Admitting Unavailable PARK BEVERLY Attending Unavailable OJ FERRO Consulting Unavailable None, No PCP Unavailable Unavailable Unavailable Unavailable Dusty Landrum DO Primary Care Provider NICOLETTE KHAN DO Primary Care Physician DEBORAH FRANCISCO Attending Unavailab DUSTY Robledo Primary Care Unavailable Dr. Nicolette Khan Primary Care Provider Dr. Nicolette Khan Referring Provider [phone] POLICE GUARD, LISET-Jose Concepcion Attending Provider HU Ayers Attending Provider [phone] JONI RUBALCAVA MD Attending Unavail able NICOLETTE KHAN DO Primary Care Unavailable NICOLETTE KHAN DO Attending Unavailable NICOLETTE KHAN DO Primary Care Unavailable Dr. Nicolette Khan Primary Care Provider Dr. Nicolette Khan Referring Provider [phone] Dc POLICE GUARD, LISET-Jose Concepcion Attending Provider HU Ayers Attending Provider TALITA SWANN Admitting Unavailab TALITA Singh Attending Unavailab le DIALLO, DUSTY Primary Care Unavailable No, Physician Primary Care Provider Unavailabl e FAITH MUNSON Admitting Unavailable FAITH MUNSON Referring Unavailable DIALLO, DUSTY Primary Care Unavailable ANAYA STAPLES Attending Unavailable TALITA SWANN Attending Unavailab le NO, PHYSICIAN Primary Care Unavailable FAITH MUNSON Attending Unavailable ROMAR, DUSTY Primary Care Unavailable FAITH MUNSON Attending Unavailable NO, PHYSICIAN Primary Care Unavailable FAITH MUNSON Referring Unavailable NO, PHYSICIAN Primary Care Unavailable FAITH MUNSON Admitting Unavailable FAITH MUNSON Referring Unavailable FAITH MUNSON Admitting Unavailable NO, PHYSICIAN Primary Care Unavailable Dr. Nicolette Khan Primary Care Provider Dr. Nicolette Khan Referring Provider [phone] HU Ayers Attending Provider HU Sterling Attending Provider MD [place] Attending Provider [phone] Nicolette Khan Referring Unavailable Nicolette Khan Primary Care Unavailable Nicolette Khan Attending Unavailable Nicolette Khan Referring Unavailable Nicolette Khan Primary Care Unavailable Nicolette Khan Attending Unavailable Allergies Allergy Classification Reported Allergen(s) Allergy Type Date of Onset Reaction(s) Facility (10 sources) Acetaminophen / oxyCODONE; Translations: [OXYCODONE-ACETAM INOPHEN] Drug Allergy 01-14-20 18 Hives [facility] (5 sources) oxyCODONE Drug Allergy 07-29-19 21 ITCHING, HALLUCINATIONS [facility] (2 sources) Acetaminophen / oxyCODONE; Translations: [Percocet TABS] Drug Allergy Hives, Unknown [facility] (2 sources) Seasonal Allergies: Uncoded; Translations: [Seasonal Allergies: Uncoded] Allergy to substance 07-15-19 24 Other [facility] (1 source) oxyCODONE Drug Allergy 09-09-19 24 [facility] Medications Current Medications Medication Drug Class(es) Dates Sig (Normalized) Sig (Original) busPIRone hydrochloride 10 mg oral tablet (9 sources) Start: 07-15-2023 take 20 mg by mouth twice daily Buspirone Active 20 MG PO TWICE A DAY July 15, 2023 12:00am Start: 04-23-2022 take 1 tablet by rebecca th twice daily, then take 2 tablets by mouth at bedtime busPIRone (BUSPAR) 10 MG tablet TAKE 1 TABLET BY MOUTH TWICE DAILY AND 2 TABLETS AT BEDTIME 0 04/23/2022 Active Start: 05-03-2021 take 1 tablet by rebecca th twice daily, then take 2 tablets by mouth at bedtime busPIRone HCl - 10 MG Oral Tablet TAKE 1 TABLET BY MOUTH TWICE DAILY AND 2 TABLETS AT BEDTIME Quantity: 120 Refills: 0 Ordered: 23-Oct-2021 DO Start : 03-May-2021 Active calcium carbonate 1500 mg / cholecalciferol 800 unt chewable tablet (5 sources) Vitamin D Start: 05-28-2016 Ca-D3-Mag We-Piab-Tut-[place]amie-Bor Active 1 EACH PO DAILY May 28, 2016 1:00am calcium citrate 1040 mg oral tablet (1 source) Start: 11-06-2018 take 1 mg by mouth twice daily calcium (as calcium citrate) 250 mg oral tablet mg = tab(s), Oral, BID, 0 Refill(s) Start Date: 11/06/18 Status: Ordered cholecalciferol, vitamin D3, (VITAMIN D3 ORAL) (9 sources) take 600 [IU] by mouth once daily cholecalciferol, vitamin D3, (VITAMIN D3 ORAL) Take 600 Units by mouth daily . 0 Suspended take 600 [IU] by mouth once bri y cholecalciferol, vitamin D3, (VITAMIN D3 ORAL) Take 600 Units by mouth daily . 0 Active Fish Oils (1 source) Start: 05-17-2022 omega-3 fish o il 1000 mg oral capsule Dose : 1,000 mg = 1 cap(s), Oral, BID, OTC - not sent in, # 180 cap(s), 3 Refill(s), Pharmacy: [id number], Hyperlipidemia, 163, cm, 05/11/22 8:17:00 EST, Height, kg, 05/11/22 8:17:00 EST, Dosing Weight Start Date: 05/17/22 Status: Ordered fluticasone propionate 0.05 mg/actuat metered dose nasal spray (11 sources) Corticosteroid Start: 05-03-2021 take 1 dose nasal route twice daily as needed Flonase 50 mcg/inh nasal spray Dose = 1 spray(s), Nostril, each, BID, PRN as needed, 0 Refill(s) Start Date: 05/03/21 Status: Ordered Start: 09-28-2019 End: 09-30-2019 2 spray, Nasal, Daily PRN, o ther, rhinitis, Starting 09/28/19 at 2014 ibuprofen 800 mg oral tablet (19 sources) Nonsteroidal Anti-inflammatory Drug Start: 09-24-2019 ibuprofen (ADVIL,MOTRIN) 800 MG tablet Indications: Encounter for other orthopedic aftercare Take 1 (one) tablet (800 mg total) by mouth 2 to 3 times daily as needed with food or milk. 40 tablet 0 09/24/2019 Active Start: 06-04-2016 take 800 mg by mouth every eight hours as needed Ibuprofen Active 800 MG PO EVERY 8 HOURS NEEDED June 04, 2016 12:00am Start: 11-29-2015 End: 03-28-2023 take 800 mg by mouth every six hours Ibuprofen Discontinued 800 MG PO EVERY 6 HOURS November 29, 2015 12:00am March 28, 2023 12:10pm End: 09-30-2019 take 4 tablets by mouth every six hours as needed ibuprofen (ADVIL,MOTRIN) 200 MG tablet Take 800 mg by mouth every 6 (six) hours as needed for pain . 0 09/30/2019 Discontinued (Stop Taking at Discharge) levocetirizine dihydrochloride 5 mg oral tablet (2 sources) Histamine-1 Receptor Antagonist Start: 05-13-2023 levocetirizine (XYZA L) 5 MG tablet Start: 11-08-2022 take 1 tablet by rebecca th once daily at bedtime Xyzal 5 mg oral tablet Dose : 5 mg = 1 tab(s), Oral, qHS, Cancel loratadine prescription please also failed Zyrtec, # 90 tab(s), 3 Refill(s), Pharmacy: [facility], Seasonal allergies, 163, cm, 11/08/22 7:56:00 EDT, Height, kg, 11/08/22 7:56:00 EDT, Dosing Weight Start Date: 11/08/22 Status: Ordered LORazepam 0.5 mg oral tablet (4 sources) Benzodiazepine Start: 05-30-2023 take 1 tablet by mouth twice daily LORazepam (ATIVAN) 0.5 MG tablet Take 1 (one) tablet (0.5 mg total) by mouth 2 (two) times a day . 0 05/30/2023 Active Start: 12-22-2022 take 1 tablet by rebecca th three times daily Lorazepam (Ativan) 1 mg tablet Active 1 MG PO THREE TIMES A DAY December 22, 2022 12:00am melatonin 10 mg oral capsule (12 sources) Start: 05-11-2022 melatonin 10 m g oral capsule Dose : 10 mg = 1 cap(s), Oral, qHS, PRN for insomnia, # 90 cap(s), 3 Refill(s), Pharmacy: [id number], Sleeping difficulties, 163, cm, 05/11/22 8:17:00 EST, Height, kg, 05/11/22 8:17:00 EST, Dosing Weight Start Date: 05/11/22 Status: Ordered Start: 05-03-2021 take 1 capsule by mo [facility] once daily at bedtime as needed Melatonin 10 MG Oral Capsule TAKE 1 CAPSULE BY MOUTH EVERY DAY AT BEDTIME NEEDED FOR INSOMNIA Quantity: 90 Refills: 0 Ordered: 08-Aug-2021 DO Start : 03-May-2021 Active Start: 11-17-2019 End: 11-18-2019 take 15 mg by mouth at bedtime 15 mg, Oral, At bedtime , First dose on Sat11/17/19 at 2100 take 3 tablets by mo uth at bedtime melatonin 5 mg Tab Take 3 (three) tablets (15 mg total) by mouth at bedtime . 0 Active methylPREDNISolone (5 sources) Corticosteroid Start: 04-12-2022 methylPREDNISolone (MEDROL DOSEPACK) 4 mg tablet follow package directions . 21 tablet 0 04/12/2022 Active multivit-min/folic acid/[id number] (ALIVE WOMEN'S GUMMY VITAMIN ORAL) (9 sources) take 2 tablets by mouth once daily multivit-min/folic acid/[id number] (ALIVE WOMEN'S GUMMY VITAMIN ORAL) Take 2 tablets by mouth daily . 0 Suspended take 2 tablets by mouth once rafael ly multivit-min/folic acid/[id number] (ALIVE WOMEN'S GUMMY VITAMIN ORAL) Take 2 tablets by mouth daily . 0 Active Multivitamin (Daily Multiple) 1 EACH tablet (5 sources) Start: 11-23-2015 take 1 tablet by mouth once daily Multivitamin (Daily Multiple) 1 EACH tablet Active 1 EACH PO DAILY November 22, 2015 11:00pm Start: 11-23-2015 take 1 tablet by rebecca once daily Multivitamin (Daily Multiple) 1 EACH tablet Active 1 EACH PO DAILY November 23, 2015 12:00am Multivitamin preparation (1 source) Start: 11-06-2018 take 1 tablet by mouth once daily Multivitamin Dose = 1 tab(s), Oral, Daily, 0 Refill(s) Start Date: 11/06/18 Status: Ordered omeprazole 40 mg delayed release oral capsule (16 sources) Proton Pump Inhibitor Start: 11-23-2015 take 1 capsule by mouth once daily Omeprazole (Prilosec) 40 MG capsule Active 40 MG PO DAILY November 23, 2015 12:00am Omeprazole 20 MG Oral Tablet Delayed Release Quantity: 0 Refills: 0 Ordered: 02-Nov-2021 DO Active QUEtiapine 100 mg oral tablet (20 sources) Atypical Antipsychotic Start: 12-26-2020 QUEtiap ine 100 mg oral tablet Dose : 100 mg = 1 tab(s), Oral, qDay, this dose taken in morning, # 90 tab(s), 1 Refill(s), Pharmacy: [facility], Bipolar affective disorder Situational anxiety, 163, cm, 11/08/22 7:56:00 EDT, Height, kg, 11/08/22 7:56:00 EDT, Dosing Weight Start Date: 11/08/22 Status: Ordered Start: 11-17-2019 End: 11-18-2019 take 400 mg by mouth once daily 400 mg, Oral, Nightly, First dose on Sat11/17/19 at 2100 May cause QT interval prolongation. Start: 09-28-2019 End: 09-30-2019 take 400 mg by mouth once daily 400 mg, Oral, Nightly, First dose on Sat09/28/19 at 2100 May cause QT interval prolongation. Start: 11-23-2015 take 1 tablet by rebecca th at bedtime Quetiapine (Seroquel) 400 MG tablet Active 400 MG PO AT BEDTIME November 23, 2015 12:00am rosuvastatin calcium 20 mg oral tablet (16 sources) HMG-CoA Reductase Inhibitor Start: 11-23-2015 take 1 tablet by mouth at bedtime Rosuvastatin (Crestor) 20 MG tablet Active 20 MG PO AT BEDTIME November 23, 2015 12:00am sertraline 100 mg oral tablet (18 sources) Serotonin Reuptake Inhibitor Start: 09-08-2014 End: 11-18-2019 take 100 mg by mouth twice daily Sertraline Active 100 MG PO TWICE A DAY September 08, 2014 12:00am sulfamethoxazole 800 mg / trimethoprim 160 mg oral tablet (2 sources) Dihydrofolate Reductase Inhibitor Antibacterial, Sulfonamide Antimicrobial Start: 11-18-2019 End: 11-25-2019 take 1 tablet by mouth twice daily sulfamethoxazole- trimethoprim (BACTRIM DS,SEPTRA DS) 800-160 mg per tablet Take 1 (one) tablet by mouth 2 (two) times a day for 7 days . 14 tablet 0 11/18/2019 11/25/2019 Active Completed/Discontinued Medications Medication Drug Class(es) Dates Sig (Normalized) Sig (Original) acetaminophen 325 mg oral tablet (11 sources) Start: 09-28-2019 End: 09-30-2019 acetaminophen (TYLENOL) tablet 650 mg Start: 09-28-2019 End: 09-28-2019 acetaminophen (TYLENOL) tabl et 975 mg Start: 09-24-2019 take 2 tablets by mo [facility] every six hours as needed acetaminophen (TYLENOL) 325 MG tablet Indications: Encounter for other orthopedic aftercare Take 2 (two) tablets (650 mg total) by mouth every 6 (six) hours as needed . 240 tablet 0 09/24/2019 Active acetaminophen 325 mg / HYDROcodone bitartrate 5 mg oral tablet (13 sources) Opioid Agonist Start: 11-17-2019 End: 11-18-2019 take 1 tablet by mouth every four hours as needed 1 tablet, Oral, Every 4 hours PRN, moderate to severe pain, Starting Sat11/17/19 at 1550 Start: 09-24-2019 End: 11-17-2019 take 1 tablet by mouth once, then take 2 tablets by mouth every four to six hours HYDROcodone-acetaminophen (NORCO) 7.5-32 5 mg per tablet Indications: Encounter for other orthopedic aftercare Take 1 (one) tablet to 2 (two) tablets by mouth every 4 to 6 hours for 7 days. 80 tablet 0 09/24/2019 11/17/2019 Discontinued Start: 06-04-2016 End: 07-15-2023 take 2 tablets by mouth every six hours as needed Hydrocodone-Acetaminophen Discontinued 2 TABLET PO EVERY 6 HOURS NEEDED June 04, 2016 12:00am July 15, 2023 10:04am Start: 05-16-2016 End: 03-28-2023 take 1 tablet by mouth every four hours as needed Hydrocodone-Acetaminophen Discontinued 1 - 2 TABLET PO EVERY 4 HOURS NEEDED May 16, 2016 1:00am March 28, 2023 12:10pm aluminum hydroxide 40 mg/ml / magnesium hydroxide 40 mg/ml / simethicone 4 mg/ml oral suspension (1 source) Start: 11-18-2019 End: 11-18-2019 aluminum-magnesium hydroxide-simethicone (MAALOX PLUS) 200-200-20 mg/5 mL suspension 30 mL amoxicillin 500 mg oral capsule (5 sources) Penicillin-class Antibacterial Start: 06-04-2016 End: 03-28-2023 take 500 mg by mouth three times daily Amoxicillin Discontinued 500 MG PO THREE TIMES A DAY June 04, 2016 12:00am March 28, 2023 12:10pm aspirin 81 mg delayed release oral tablet (3 sources) Platelet Aggregation Inhibitor, Nonsteroidal Anti-inflammatory Drug Start: 09-24-2019 End: 11-17-2019 take 1 tablet by mouth twice daily aspirin 81 MG EC tablet Indications: Encounter for other orthopedic aftercare Take 1 (one) tablet (81 mg total) by mouth 2 (two) times a day . 60 tablet 0 09/24/2019 11/17/2019 Discontinued atorvastatin 40 mg oral tablet (2 sources) HMG-CoA Reductase Inhibitor Start: 11-17-2019 End: 11-18-2019 take 40 mg by mouth once daily 40 mg, Oral, Nightly, First dose on Sat11/17/19 at 2100 Start: 09-28-2019 End: 09-30-2019 take 40 mg by mouth once daily 40 mg, Oral, Nightly, F irst dose on Sat09/28/19 at 2100 bisacodyl 10 mg rectal suppository (1 source) Stimulant Laxative Start: 09-28-2019 End: 09-30-2019 bisacodyL (DULCOLAX) suppository 10 mg calcium chloride 0.0014 meq/ml / potassium chloride 0.004 meq/ml / sodium chloride 0.103 meq/ml / sodium lactate 0.028 meq/ml injectable solution (3 sources) Start: 11-18-2019 End: 11-18-2019 take 100 mL intravenous route every hour 100 mL/hr, Intravenous, Continuous, Starting Sat11/18/19 at 1430, PACU (only) Start: 09-28-2019 End: 09-29-2019 lactated Ringers infusion ceFAZolin 2000 mg injection (1 source) Cephalosporin Antibacterial Start: 09-28-2019 End: 09-29-2019 take 2000 mg intravenous route every eight hours ceFAZolin (ANCEF) IVPB 2 g (premix) cyclobenzaprine hydrochloride 5 mg oral tablet (1 source) Muscle Relaxant Start: 09-29-2019 End: 09-30-2019 cyclobenzaprine (FLEXERIL) tablet 5 mg 1 ml dexamethasone phosphate 4 mg/ml injection (1 source) Corticosteroid Start: 09-29-2019 End: 09-29-2019 dexamethasone (DECADRON) injection 8 mg docusate sodium 100 mg oral capsule (5 sources) Start: 06-08-2016 End: 07-15-2023 take 1 capsule by mouth twice daily Docusate Sodium (Colace) 100 MG capsule Discontinued 100 MG PO TWICE A DAY 30 March 17th, 2017 12:00am July 15, 2023 10:04am docusate sodium 50 mg / sennosides, custodial 8.6 mg oral tablet (1 source) Start: 09-28-2019 End: 09-30-2019 senna-docusate (SENNA-S) 8.6-50 mg per tablet 1 tablet famotidine 20 mg oral tablet (1 source) Histamine-2 Receptor Antagonist Start: 09-28-2019 End: 09-28-2019 famotidine (PEPCID) tablet 20 mg Start: 09-28-2019 End: 09-28-2019 famotidine (PEPCID) tablet 2 0 mg 20 ml fentaNYL 0.05 mg/ml injection (2 sources) Opioid Agonist Start: 11-18-2019 End: 11-18-2019 25 mcg, Intravenous, Every 5 min PRN, Pain, Starting Sat11/18/19 at 1342, For 4 doses, PACU (only) [] Do not give more than 100 mcg while in PACU. Start: 09-28-2019 End: 09-28-2019 25 mcg, Intravenous, Every 5 min PRN, Pain, Starting Sat09/28/19 at 1355, For 4 doses, PACU (only) [] Do not give more than 100 mcg while in PACU. gabapentin 300 mg oral capsule (2 sources) Anti-epileptic Agent Start: 11-17-2019 End: 11-18-2019 take 300 mg by mouth once daily 300 mg, Oral, Nightly, First dose on Sat11/17/19 at 2100 gabapentin (NEUR ONTIN) 300 MG capsule Take 300 mg by mouth nightly (Days supply per fill: 30) . 0 Active 0.5 ml HYDROmorphone hydrochloride 1 mg/ml prefilled syringe (4 sources) Opioid Agonist Start: 09-29-2019 End: 09-30-2019 take 0.25 mg intravenous route every three hours as needed HYDROmorphone (DILAUDID) injection 0.25 mg Start: 09-28-2019 End: 09-28-2019 HYDROmorphone (DILAUDID) inj ection 1 mg Start: 09-28-2019 End: 09-29-2019 take 0.25-0.5 mg intravenous route every three hours as needed HYDROmorphone (DILAUDID) injection 0.25-0.5 mg Start: 09-28-2019 End: 09-28-2019 HYDROmorphone (DILAUDID) inj ection 0.5 mg hydrOXYzine hydrochloride 25 mg oral tablet (2 sources) Antihistamine Start: 11-17-2019 End: 11-18-2019 hydrOXYzine (ATARAX) tablet 25 mg Start: 09-28-2019 End: 09-28-2019 hydrOXYzine (ATARAX) tablet 25 mg iopamidoL (ISOVUE-300) 61 % injection 50 mL (1 source) Start: 11-18-2019 End: 11-18-2019 iopamidoL (ISOVUE-300) 61 % injection 50 mL 1 ml ketorolac tromethamine 30 mg/ml injection (1 source) Nonsteroidal Anti-inflammatory Drug, Cyclooxygenase Inhibitor Start: 09-29-2019 End: 09-30-2019 take 30 mg intravenous route every six hours as needed ketorolac (TORADOL) injection 30 mg 10 ml lidocaine hydrochloride 10 mg/ml injection (1 source) Antiarrhythmic, Amide Local Anesthetic Start: 09-28-2019 End: 09-28-2019 lidocaine 1% (PF) (XYLOCAINE-MPF) 10 mg/mL (1 %) injection 0.2 mL Start: 09-28-2019 End: 09-28-2019 lidocaine 1% (PF) (XYLOCAINE -MPF) 10 mg/mL (1 %) injection 0.2 mL naloxone (NARCAN) injection 0.1 mg (2 sources) Start: 11-17-2019 End: 11-18-2019 naloxone (NARCAN) injection 0.1 mg Start: 09-28-2019 End: 09-30-2019 naloxone (NARCAN) injection 0.1 mg Nirmatrelvir-Ritonavir (3 sources) Start: 12-16-2022 End: 12-21-2022 Nirmatrelvir-Ritonavir (Paxl ovid) 300 mg (150 mg x 2)-100 mg tablets,dose pack Discontinued 0 PO .COMPLEX 30 December 15, 2022 11:00pm December 21, 2022 6:29am take TWO 150 mg tablets of nirmatrelvir with ONE 100 mg tablet of ritonavir twice daily for 5 days PO Start: 12-16-2022 End: 12-21-2022 Nirmatrelvir-Ritonavir (Paxl ovid) 300 mg (150 mg x 2)-100 mg tablets,dose pack Discontinued 0 PO .COMPLEX 30 December 16, 2022 12:00am December 21, 2022 7:29am take TWO 150 mg tablets of nirmatrelvir with ONE 100 mg tablet of ritonavir twice daily for 5 days PO nitrofurantoin, macrocrystals 25 mg / nitrofurantoin, monohydrate 75 mg oral capsule (2 sources) Nitrofuran Antibacterial Start: 03-28-2023 End: 04-04-2023 take 1 capsule by mouth every twelve hours at mealtime Nitrofurantoin Monohyd/M-Cryst Discontinued 1 CAP PO Q12H 14 7 March 28, 2023 1:00am April 04, 2023 1:04am administer with a meal/food; swallow whole; do not open, crush, dissolve , or chew 2 ml ondansetron 2 mg/ml injection (1 source) Serotonin-3 Receptor Antagonist Start: 11-17-2019 End: 11-18-2019 take 4 mg intravenous route every six hours as needed 4 mg, Intravenous, Every 6 hours PRN, nausea, vomiting, Starting Sat11/17/19 at 1550 ondansetron (ZOFRAN-ODT) disintegrating tablet 4 mg (1 source) Start: 09-28-2019 End: 09-30-2019 take 1 tablet by mouth every six hours as needed ondansetron (ZOFRAN-ODT) disintegrating tablet 4 mg oxyCODONE hydrochloride 5 mg oral tablet (2 sources) Opioid Agonist Start: 09-28-2019 End: 09-30-2019 take 5-15 mg by mouth every four hours as needed oxyCODONE (ROXICODONE) immediate release tablet 5-15 mg Start: 09-28-2019 End: 09-28-2019 oxyCODONE (OXYCONTIN) 12 hr tablet 10 mg pantoprazole 40 mg delayed release oral tablet (2 sources) Proton Pump Inhibitor Start: 11-17-2019 End: 11-18-2019 take 40 mg by mouth once daily 40 mg, Oral, Daily, First dose on Sat11/17/19 at 1645 DO NOT CRUSH OR CHEW. Start: 09-28-2019 End: 09-30-2019 pantoprazole (PROTONIX) EC t ablet 40 mg polysaccharide iron complex 150 mg oral capsule (1 source) Start: 09-29-2019 End: 09-30-2019 polysaccharide iron complex (NIFEREX) capsule 150 mg potassium chloride 20 meq extended release oral tablet (3 sources) Start: 12-22-2022 End: 07-15-2023 take 20 mEq by mouth once daily Potassium Chloride Discontinued 20 MEQ PO DAILY December 22, 2022 12:00am July 15, 2023 10:04am predniSONE 10 mg oral tablet (3 sources) Start: 12-16-2022 End: 12-31-2022 Prednisone Discontinued 10 MG PO .COMPLEX 35 December 16, 2022 12:00am December 31, 2022 12:04am 10 mg orally; 40mg x5 days, 20mg x5 days, 10mg x5 days pregabalin 75 mg oral capsule (1 source) Start: 09-28-2019 End: 09-28-2019 pregabalin (LYRICA) capsule 75 mg Start: 09-28-2019 End: 09-28-2019 pregabalin (LYRICA) capsule 75 mg promethazine hydrochloride 25 mg oral tablet (5 sources) Phenothiazine Start: 06-08-2016 End: 03-28-2023 take 25 mg by mouth every six hours as needed Promethazine Discontinued 25 MG PO EVERY 6 HOURS NEEDED June 08, 2016 12:00am March 28, 2023 12:11pm 72 hr scopolamine 0.0139 mg/hr transdermal system (1 source) Anticholinergic Start: 09-28-2019 End: 09-30-2019 scopolamine (TRANSDERM-SCOP) 1 mg over 3 days patch 1 patch sodium chloride (PF) (NS) 0.9 % contrast line flush 20 mL (1 source) Start: 11-18-2019 End: 11-18-2019 sodium chloride (PF) (NS) 0.9 % contrast line flush 20 mL 1 ml triamcinolone acetonide 40 mg/ml injection (2 sources) Corticosteroid Start: 06-07-2023 End: 06-07-2023 triamcinolone acetonide (KENALOG-40) injection 20 mg Start: 06-26-2022 End: 06-26-2022 triamcinolone acetonide (TITA ALOG-40) injection 20 mg Problems Active Problems Problem Classification Problem Date Documented Date Episodic/Chronic Anxiety disorders (2 sources) Anxiety; Translations: [Anxiety state, unspecified] 06-08-2020 Chronic Diseases of white blood cells (10 sources) Leukemoid reaction; Translations: [Leukemoid reaction] Onset: 09-29-2019 09-29-2019 Chronic Disorders of lipid metabolism (1 source) Hyperlipidemia 11-04-2018 Chronic Esophageal disorders (2 sources) Gastroesophageal reflux disease; Translations: [Esophageal reflux] 11-04-2018 Chronic Fluid and electrolyte disorders (3 sources) Acute hypokalemia; Translations: [Hypokalemia] 12-22-2022 Episodic Fracture of upper limb (3 sources) Closed fracture of triquetral bone of wrist; Translations: [Displaced fracture of triquetrum [cuneiform] bone, left wrist, initial encounter for closed fracture] 07-09-2023 Episodic Malaise and fatigue (3 sources) Asthenia; Translations: [Weakness] 12-22-2022 Episodic Menstrual disorders (10 sources) Intermenstrual bleeding - irregular; Translations: [Excessive and frequent menstruation with irregular cycle] 11-29-2015 Chronic Mood disorders (11 sources) Major depression in remission; Translations: [Major depressive disorder, single episode, in full remission] 09-29-2019 Chronic Osteoarthritis (10 sources) Osteoarthritis of hip; Translations: [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] Onset: 09-29-2019 09-29-2019 Chronic Osteoarthritis (1 source) Osteoarthritis of left hip joint; Translations: [Primary osteoarthritis of left hip] Other connective tissue disease (1 source) Bursitis of olecranon of left elbow; Translations: [Olecranon bursitis] Episodic Other connective tissue disease (1 source) Triggering of digit; Translations: [Trigger finger, left middle finger] 06-07-2023 Episodic Other lower respiratory disease (1 source) Apnea 01-06-2020 Episodic Other nervous system disorders (4 sources) Carpal tunnel syndrome of left wrist; Translations: [Carpal tunnel syndrome, left upper limb] Onset: 08-13-2022 Chronic Other nervous system disorders (1 source) [...] conditions (not mental disorders or infectious disease) (2 sources) Viral screening status; Translations: [Encounter for other screening for malignant neoplasm of breast] Onset: 10-23-2024 11-08-2022 Episodic Other upper respiratory disease (1 source) Seasonal allergy 05-03-2021 Chronic Residual codes; unclassified (1 source) Obstructive sleep apnea syndrome 06-08-2020 Chronic Residual codes; unclassified (1 source) Difficulty sleeping 09-13-2020 Episodic Residual codes; unclassified (1 source) Requires vaccination 05-06-2019 Episodic Residual codes; unclassified (1 source) Screening due 11-08-2022 Episodic Residual codes; unclassified (2 sources) Pain, unspecified; Translations: [Pain, unspecified] Onset: 06-04-2023 Episodic Sprains and strains (2 sources) Strain of neck muscle; Translations: [Strain of muscle, fascia and tendon at neck level, initial encounter] 07-09-2023 Episodic Substance-related disorders (4 sources) Smoker; 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] 11-08-2020 Chronic Suicide and intentional self-inflicted injury (5 sources) Suicidal thoughts; Translations: [Suicidal ideations] 08-12-2020 Episodic Superficial injury; contusion (6 sources) Contusion of left hand; Translations: [Contusion of left hand, initial encounter] 07-09-2023 Episodic Unclassified (1 source) Unknown / UNK(Unknown) Onset: 09-28-2016 Unclassified (1 source) Cancer cervix screening status 11-08-2022 Unclassified (1 source) Influenza vaccination declined 05-11-2022 Unclassified (5 sources) Patient encounter status 11-06-2018 Unclassified (2 sources) Results Onset: 06-26-2022 Urinary tract infections (2 sources) Urinary tract infection, site not specified; Translations: [Urinary tract infection, site not specified] 03-28-2023 Episodic Viral infection (7 sources) Disease caused by 2019-nCoV; Translations: [COVID-19] 12-22-2022 Episodic Past or Other Problems Problem Classification Problem Date Documented Date Episodic/Chronic Complications of surgical procedures or medical care (18 sources) Postoperative wound infection; Translations: [Postoperative infection] Onset: 11-17-2019 11-17-2019 Episodic Other connective tissue disease (2 sources) Other enthesopathies, not elsewhere classified; Translations: [Other enthesopathies, not elsewhere classified] Onset: 04-12-2022 Episodic Spondylosis; intervertebral disc disorders; other back problems (1 source) Low back pain; Translations: [Low back pain] Onset: 01-13-2018 Episodic Unclassified (1 source) Z00.00 Onset: 09-28-2016 Results Test Name Value Interpretation Reference Range Facility SCRN MAMM (CAD)W/GARRETT BILATo n 10-23-2024 SCRN MAMM (CAD)W/GARRETT BILAT [facility] Imaging Services [address] [place] [address] [id number] SCRN MAMM (CAD)W/GARRETT BILAT MR#: [id number] Acct: [id number] Name: NARA MALCOLM Rep #: [id number] : 1975 F 49 From: Kori Silva MD PCP: Dr. Nicolette Khan DO Status: [facility] Study: SCRN MAMM (CAD)W/GARRETT BILAT Date of Exam: 04/18 Exam# [id number] Ordering Dr: Nicolette Khan DO EXAM: SCRN MAMM (CAD)W/GARRETT BILAT DATE: 10/23/2024 CLINICAL HISTORY: F, Age 49 y/o , SCREENING TECHNIQUE: SCRN MAMM (CAD)W/GARRETT BILAT COMPARISON: Prior exam(s) dated 10/23/2023, 10/19/2022, 10/06/2021. FINDINGS: TISSUE DENSITY: There are scattered areas of fibroglandular density. Bilateral Breast Mammographic Findings: There is an asymmetry in the slightly superior right breast at middle depth visualized on the MLO view. No significant masses, calcifications or other abnormalities are identified in the left breast. BI/SCRN MAMM (CAD)W/GARRETT BILAT IMPRESSION: The asymmetry in the slightly superior right breast at middle depth requires further evaluation. Recommend diagnostic mammogram of the right breast and ultrasound on the day of diagnostic if indicated. OVERALL FINAL ASSESSMENT BI-RADS 0: INCOMPLETE - NEED ADDITIONAL IMAGING EVALUATION. RECOMMENDATION: Additional Views obtained/call backs A letter with findings and recommendations will be mailed to the patient. Reading Location: [id number] CC: Dr. Nicolette Khan, Color Control Operator: Signed Normal [facility] Comprehensive Metabolic Prof ilon 08-05-2024 Albumin [Mass/Vol] 4.2 g/dL Normal 3.5-5.0 [facility] Comment on above: Performed By: #### L 500.4100, L506.1001, L501.9520, L500.4050 #### [facility] [address] [place], [address] Albumin/Globulin [Mass ratio] 1.4 {ratio} Normal 0.9-2.4 [facility] Comment on above: Performed By: #### L 500.4100, L506.1001, L501.9520, L500.4050 #### [facility] [address] [place], [address] ALK PHOS 109 U/L High 35-104 [facility] Comment on above: Performed By: #### L 500.4100, L506.1001, L501.9520, L500.4050 #### [facility] [address] [place], [address] ALT [Catalytic activity/Vol] 46 U/L High <=34 [facility] Comment on above: Performed By: #### L 500.4100, L506.1001, L501.9520, L500.4050 #### [facility] [address] [place], [address] AST [Catalytic activity/Vol] 30 U/L Normal <=31 [facility] Comment on above: Performed By: #### L 500.4100, L506.1001, L501.9520, L500.4050 #### [facility] [address] [place], [address] Bilirubin [Mass/Vol] 0.24 mg/dL Normal 0.00-1.30 [facility] Comment on above: Performed By: #### L 500.4100, L506.1001, L501.9520, L500.4050 #### [facility] [address] [place], [address] BUN/CRE 18.2 RATIO Normal 10-20 [facility] Comment on above: Performed By: #### L 500.4100, L506.1001, L501.9520, L500.4050 #### [facility] [address] [place], [address] Calcium [Mass/Vol] 9.3 mg/dL Normal 7.6-11.0 [facility] Comment on above: Performed By: #### L 500.4100, L506.1001, L501.9520, L500.4050 #### [facility] [address] [place], [address] Chloride [Moles/Vol] 104 mmol/L Normal 98-108 [facility] Comment on above: Performed By: #### L 500.4100, L506.1001, L501.9520, L500.4050 #### [facility] [address] [place], [address] CO2 [Moles/Vol] 23.0 mmol/L Normal 21.0-32.0 [facility] Comment on above: Performed By: #### L 500.4100, L506.1001, L501.9520, L500.4050 #### [facility] [address] [place], [address] Creatinine [Mass/Vol] 0.64 mg/dL Low 0.70-1.20 [facility] Comment on above: Performed By: #### L 500.4100, L506.1001, L501.9520, L500.4050 #### [facility] [address] [place], [address] GAP 13 Normal 5-15 [facility] Comment on above: Performed By: #### L 500.4100, L506.1001, L501.9520, L500.4050 #### [facility] [address] [place], [address] GFR/1.73 sq M.predicted among non-blacks MDRD (S/P/Bld) [Vol rate/Area] 108 mL/min/{1.73_m2} Normal >60 [facility] Comment on above: Result Comment: mL/m in/1.73m2 CKD-EPI Creatinine Equation (2020) Performed By: #### L 500.4100, L506.1001, L501.9520, L500.4050 #### [facility] [address] [place], [address] Globulin (S) [Mass/Vol] 3.1 g/dL Normal 2.2-4.2 [facility] Comment on above: Performed By: #### L 500.4100, L506.1001, L501.9520, L500.4050 #### [facility] [address] [place], [address] Glucose [Mass/Vol] 172 mg/dL High 70-99 [facility] Comment on above: Performed By: #### L 500.4100, L506.1001, L501.9520, L500.4050 #### [facility] [address] [place], [address] Potassium [Moles/Vol] 3.8 mmol/L Normal 3.3-5.1 [facility] Comment on above: Performed By: #### L 500.4100, L506.1001, L501.9520, L500.4050 #### [facility] [address] [place], [address] Sodium [Moles/Vol] 140 mmol/L Normal 133-145 [facility] Comment on above: Performed By: #### L 500.4100, L506.1001, L501.9520, L500.4050 #### [facility] [address] [place], [address] T PROT 7.4 g/dL Normal 5.9-8.4 [facility] Comment on above: Performed By: #### L 500.4100, L506.1001, L501.9520, L500.4050 #### [facility] [address] [place], [address] Urea nitrogen [Mass/Vol] 12 mg/dL Normal 4-19 [facility] Comment on above: Performed By: #### L 500.4100, L506.1001, L501.9520, L500.4050 #### [facility] [address] [place], [address] Lipid Profileon 08-05-2024 CHOL:HDL 3.18 Normal [facility] Comment on above: Performed By: #### L 500.4100, L506.1001, L501.9520, L500.4050 #### [facility] [address] [place], [address] Cholesterol [Mass/Vol] 170 mg/dL Normal <=200 [facility] Comment on above: Result Comment: Chol esterol level, Desirable <200 mg/dL Borderline high cholesterol 200-239 mg/dL High cholesterol >=240 mg/dL Recommendations of the NCEP Adult Treatment Panel for the following risk-cutoff thresholds for the [place] population. Performed By: #### L 500.4100, L506.1001, L501.9520, L500.4050 #### [facility] [address] [place], [address] Cholesterol in HDL [Mass/Vol] 54 mg/dL Normal [facility] Comment on above: Result Comment: Annette onal Cholesterol Education Program (NCEP) guidelines: <40 mg/dL: Low HDL-cholesterol (major risk factor for CHD) >= 60 mg/dL: High HDL-cholesterol (negative risk factor for CHD) HDL-cholesterol is affected by a number of factors, e.g. smoking, exercise, hormones, sex and age. Performed By: #### L 500.4100, L506.1001, L501.9520, L500.4050 #### [facility] [address] [place], [address] Cholesterol in LDL [Mass/Vol] 88 mg/dL Normal [facility] Comment on above: Result Comment: Bord zhxncx=188-623 mg/dL Higher Pxfv=447 mg/dL or greater Performed By: #### L 500.4100, L506.1001, L501.9520, L500.4050 #### [facility] [address] [place], [address] Cholesterol in VLDL [Mass/Vol] 28 mg/dL Normal 5-40 [facility] Comment on above: Performed By: #### L 500.4100, L506.1001, L501.9520, L500.4050 #### [facility] [address] [place], [address] Triglyceride [Mass/Vol] 142 mg/dL Normal [facility] Comment on above: Result Comment: The drugs N-Acetylcysteine and Metamizole may falsely depress this assay. Normal range: <150 mg/dL Borderline High: 150-199 mg/dL High: 200-499 mg/dL Very High: >500 mg/dL Performed By: #### L 500.4100, L506.1001, L501.9520, L500.4050 #### [facility] [address] [place], [address] Thyroid Stim Hormone (TSH)on 08-05-2024 TSH 2.680 uIU/mL Normal 0.300-4.200 [facility] Comment on above: Performed By: #### L 500.4100, L506.1001, L501.9520, L500.4050 #### [facility] [address] [place], [address] Vitamin D,25 Hydroxyon 08-05 Vitamin D 25-OH 34.8 ng/mL Normal 30-100 [facility] Comment on above: Result Comment: Lisa min D Status Deficiency: <20 ng/mL (50nmol/L) Insufficiency: 20-30 ng/mL (50-75 nmol/L) Sufficiency: 30-100 ng/mL (75-250 nmol/L) Toxicity: >100 ng/mL (>250 nmol/L) Performed By: #### L 500.4100, L506.1001, L501.9520, L500.4050 #### [facility] [address] [place], [address] Tendon Injection: Flexor Ten don Sheathon 06-07-2023 Faith Munson CNP 06/07/2023 3:47 PM Tendon Injection: Flexor Tendon Sheath Performed by: Faith Munson CNP Authorized by: Faith Munson CNP Consent given by: Patient Time out: Immediately prior to the procedure a time out was called Physician or proceduralist has discussed critical or nonroutine steps, procedure duration and anticipated blood loss: Yes Indications: Diagnostic evaluation and pain Location: Long finger Laterality: Left Prep: patient was prepped and draped in usual sterile fashion Needle size: 25 G Medications: 20 mg triamcinolone acetonide 40 mg/mL Anesthetic used: Lidocaine 1% Anesthetic amount (mL): 1 Patient tolerance: Patient tolerated the procedure well with no immediate complications [facility] XR CERVICAL SPINE AP/LAT/FLE X/EXTon 06-04-2023 XR CERVICAL SPINE AP/LAT/FLEX/EXT EXAMINATION: XR CERVICAL SPINE AP/LAT/FLEX/EXT 06/04/2023 1:41 pm HISTORY: ORDERING SYSTEM PROVIDED HISTORY: Pain, TECHNOLOGIST PROVIDED HISTORY: Illness/Other Reason for exam: neck pain radiating into left hand Cancer History: unk Surgery, RadiationHistory: s/p left BILLIE Encounter Type: Initial Additional signs and symptoms: none ORDERING SYSTEM PROVIDED DIAGNOSIS CODES: R52 Pain COMPARISON: None. FINDINGS: Straightening of the normal cervical lordosis. Normal vertebral alignment otherwise. No evidence of instability with flexion or extension.No vertebral compression fracture.Mild loss of disc space height at C5-6 and C6-7. [id number] degenerative changes of the facet joints. No prevertebral soft tissue swelling. Clear lung apices. IMPRESSION: 1. No acute osseous abnormality. No evidence of dynamic instability. 2. Mild multilevel degenerative disc disease and [id number] facet joint arthrosis. Workstation ID: [id number] Dictated by: ALISIA SO on SatJun 05, 2023 10:57:37 AM EDT Transcribed by: ALISIA SO on SatJun 05, 2023 10:57:37 AM EDT Finalized by: ALISIA SO on SatJun 05, 2023 10:57:37 AM EDT Normal [facility] Comment on above: Order Comment: Injur y/Trauma or Illness?:Illness/Other How long have you had these symptoms (acute/chronic)?:Acute Reason for exam?:neck pain radiating into left hand History of cancer?:unk Surgeries, chemotherapy, or radiation?:s/p left BILLIE Type of Exam?:Initial Additional signs and symptoms?:none XR HAND LEFT 3+ VIEWS (STAND BITA)on 06-04-2023 XR HAND LEFT 3+ VIEWS (STANDARD) EXAMINATION: XR HAND LEFT 3+ VIEWS (STANDARD) 06/04/2023 1:09 pm HISTORY: ORDERING SYSTEM PROVIDED HISTORY: Pain, TECHNOLOGIST PROVIDED HISTORY: Illness/Other Reason for exam: left hand hard lumps in 2nd, 4th, 5th digits and palm of left hand, patient states lumps formed after carpal tunnel surgery and are painful Cancer History: unk Surgery, RadiationHistory: s/p left BILLIE Encounter Type: Initial Additional signs and symptoms: none ORDERING SYSTEM PROVIDED DIAGNOSIS CODES: R52 Pain COMPARISON: Left hand radiograph 04/12/2022 FINDINGS: No acute fracture or dislocation. Stable mild degenerative changes of the interphalangeal joints. Unremarkable soft tissues. IMPRESSION: 1. No acute osseous abnormality. 2. Stable mild degenerative changes of the left hand. Workstation ID: [id number] Dictated by: ALISIA SO on SatJun 05, 2023 10:18:41 AM EDT Transcribed by: ALISIA SO on SatJun 05, 2023 10:18:41 AM EDT Finalized by: ALISIA SO on SatJun 05, 2023 10:18:41 AM EDT Normal [facility] Comment on above: Order Comment: Injur y/Trauma or Illness?:Illness/Other How long have you had these symptoms (acute/chronic)?:Acute Reason for exam?:left hand hard lumps in 2nd, 4th, 5th digits and palm of left hand, patient states lumps formed after carpal tunnel surgery and are painful History of cancer?:unk Surgeries, chemotherapy, or radiation?:s/p left BILLIE Type of Exam?:Initial Additional signs and symptoms?:none Culture, urineOrdered By: Maribeth Canales on 03-28-2023 Bacteria identified Cx Nom (U) Positive [facility] Bacteria identified Cx Nom (U) Positive [facility] Laboratory - Chemistry and C hemistry - challengeon 03-28-2023 Bilirubin Ql (U) Negative [facility] Ketones Ql (U) Negative [facility] pH (U) 6.5 [pH] [facility] Specific gravity (U) [Rel density] 1.010 [facility] Urobilinogen (U) [Mass/Vol] Negative [facility] - Hematology and Cell countson 03-28-2023 Hemoglobin Ql (U) Negative [facility] - Specimen inform ationon 03-28-2023 Clarity (U) Clear [facility] Color (U) YELLOW [facility] Laboratory - Urinalysison Nitrite Ql (U) Negative [facility] Protein Ql (U) Negative [facility] No Panel Informationon 03-28 Urine Leukocytes Negatve [facility] Urine Non-Hemolyzed Blood [facility] Absolute lymphocyte countOrd ered By: Feli Foster on 12-22-2022 Lymphocytes Auto (Unsp spec) [#/Vol] 2.49 10*3/uL 0.83-4.51 [facility] Absolute lymphocyte countOrd ered By: Ja Beck on 12-22-2022 Lymphocytes Auto (Unsp spec) [#/Vol] 6.16 10*3/uL 0.83-4.51 [facility] Basophil percentageOrdered B y: Feli Foster on 12-22-2022 Basophils/100 WBC (Bld) 0.5 % 0-1 [facility] Bilirubin [Mass/Vol] 0.20 mg/dL 0.20-1.00 [facility] Comment on above: For patients on eltr ombopag therapy, use of Dimension [place] TBIL is not recommended. Chloride [Moles/Vol] 109 mmol/L 98-107 [facility] Eosinophils/100 WBC (Bld) 0.1 % 0-5 [facility] Glucose [Mass/Vol] 160 mg/dL 74-106 [facility] Comment on above: Fasting Glucose resu lt greater than or equal to 126 mg/dL suggests DIABETES MELLITUS per A.D.A. criteria. Neutrophils (Bld) [#/Vol] 7.7 10*3/uL 2.0-7.7 [facility] Neutrophils/100 WBC (Bld) 72.2 % 47-70 [facility] Potassium [Moles/Vol] 3.9 mmol/L 3.5-5.1 [facility] Protein [Mass/Vol] 6.8 g/dL 6.4-8.2 [facility] Sodium [Moles/Vol] 139 mmol/L 136-145 [facility] WBC (Bld) [#/Vol] 10.7 10*3/uL 4.4-11.0 [facility] Basophil percentageOrdered B y: Ja Beck on 12-22-2022 Basophils/100 WBC (Bld) 0.4 % 0-1 [facility] Chloride [Moles/Vol] 110 mmol/L 98-107 [facility] Eosinophils/100 WBC (Bld) 1.3 % 0-5 [facility] Glucose [Mass/Vol] 165 mg/dL 74-106 [facility] Comment on above: Fasting Glucose resu lt greater than or equal to 126 mg/dL suggests DIABETES MELLITUS per A.D.A. criteria. Neutrophils (Bld) [#/Vol] 4.9 10*3/uL 2.0-7.7 [facility] Neutrophils/100 WBC (Bld) 41.0 % 47-70 [facility] Potassium [Moles/Vol] 2.8 mmol/L 3.5-5.1 [facility] Sodium [Moles/Vol] 142 mmol/L 136-145 [facility] WBC (Bld) [#/Vol] 11.9 10*3/uL 4.4-11.0 [facility] Blood erythrocytes count (nu mber/volume)Ordered By: Feli Foster on 12-22-2022 RBC (Bld) [#/Vol] 4.17 10*6/uL 4.2-5.4 [facility] Blood erythrocytes count (nu mber/volume)Ordered By: Ja Beck on 12-22-2022 RBC (Bld) [#/Vol] 4.31 10*6/uL 4.2-5.4 [facility] Blood hemoglobin measurement (mass/volume)Ordered By: Feli Foster on 12-22-2022 Hemoglobin (Bld) [Mass/Vol] 13.5 g/dL 12.0-15.0 [facility] Blood hemoglobin measurement (mass/volume)Ordered By: Ja Beck on 12-22-2022 Hemoglobin (Bld) [Mass/Vol] 13.6 g/dL 12.0-15.0 [facility] Blood lymphocytes/100 leukoc ytesOrdered By: Feli Foster on 12-22-2022 Lymphocytes/100 WBC (Bld) 23.4 % [facility] Blood lymphocytes/100 leukoc ytesOrdered By: Ja Beck on 12-22-2022 Lymphocytes/100 WBC (Bld) 51.8 % - [facility] Blood manual differential co mment interpretation (narrative result)Ordered By: Ja Beck on 12-22-2022 Manual differential comment Uvaldo (Bld) [Interp] SCANNED [facility] Comment on above: LYMPHOCYTOSIS NOTED Blood monocytes/100 leukocyt esOrdered By: Feli Foster on 12-22-2022 Monocytes/100 WBC (Bld) 3.2 % 0-10 [facility] Blood monocytes/100 leukocyt esOrdered By: Ja Beck on 12-22-2022 Monocytes/100 WBC (Bld) 5.2 % 0-10 [facility] Blood platelet mean volumeOr dered By: Feli Foster on 12-22-2022 Platelet mean volume (Bld) [Entitic vol] 9.4 fL 6.2-12.0 [facility] Blood platelet mean volumeOr dered By: Ja Beck on 12-22-2022 Platelet mean volume (Bld) [Entitic vol] 9.5 fL 6.2-12.0 [facility] Determination of erythrocyte mean corpuscular volume (MCV)Ordered By: Feli Foster on 12-22-2022 MCV (RBC) [Entitic vol] 94.5 fL 81-99 [facility] Determination of erythrocyte mean corpuscular volume (MCV)Ordered By: Ja Beck on 12-22-2022 MCV (RBC) [Entitic vol] 95.8 fL 81-99 [facility] Direct bilirubinOrdered By: Feli Foster on 12-22-2022 Bilirubin.direct [Mass/Vol] 0.07 mg/dL 0.00-0.30 [facility] Hematocrit Auto (Bld) [Volum e fraction]Ordered By: Feli Foster on 12-22-2022 Hematocrit (Bld) [Volume fraction] 39.4 % 37-47 [facility] Hematocrit Auto (Bld) [Volum e fraction]Ordered By: Ja Beck on 12-22-2022 Hematocrit (Bld) [Volume fraction] 41.3 % 37-47 [facility] - Chemistry and C hemistry - challengeOrdered By: Feli Foster on 12-22-2022 ALP [Catalytic activity/Vol] 79 U/L 45-117 [facility] ALT [Catalytic activity/Vol] 28 U/L 13-56 [facility] CO2 [Moles/Vol] 26.0 mmol/L 21.0-32.0 [facility] Globulin (S) [Mass/Vol] 3.7 g/dL 2.2-4.2 [facility] Urea nitrogen/Creatinine [Mass ratio] 17.6 mg/mg 01-11 [facility] - Chemistry and C hemistry - challengeOrdered By: Ja Beck on 12-22-2022 CO2 [Moles/Vol] 28.0 mmol/L 21.0-32.0 [facility] Magnesium [Mass/Vol] 2.1 mg/dL 1.6-2.6 [facility] Urea nitrogen/Creatinine [Mass ratio] 20.0 mg/mg 01-11 [facility] - Hematology and Cell countsOrdered By: Feli Foster on 12-22-2022 Erythrocyte distribution width (RBC) [Entitic vol] 49.6 fL 35.1-43.9 [facility] Erythrocyte distribution width (RBC) [Ratio] 14.3 % 11.6-14.6 [facility] Immature granulocytes/100 WBC (Bld) 0.600 % 0.0-0.9 [facility] [facility] Comment on above: IG% - Immature Granu locytes (promyelocytes, myelocytes and metamyelocytes) > 1% indicates that a LEFT SHIFT is Present. MCH (RBC) [Entitic mass] 32.4 pg 27.0-32.0 [facility] Nucleated RBC/100 WBC (Bld) [Ratio] 0 % 0-5 [facility] Laboratory - Hematology and Cell countsOrdered By: Ja Beck on 12-22-2022 Erythrocyte distribution width (RBC) [Entitic vol] 50.3 fL 35.1-43.9 [facility] Erythrocyte distribution width (RBC) [Ratio] 14.3 % 11.6-14.6 [facility] Immature granulocytes/100 WBC (Bld) 0.300 % 0.0-0.9 [facility] Comment on above: IG% - Immature Granu locytes (promyelocytes, myelocytes and metamyelocytes) > 1% indicates that a LEFT SHIFT is Present. MCH (RBC) [Entitic mass] 31.6 pg 27.0-32.0 [facility] Nucleated RBC/100 WBC (Bld) [Ratio] 0 % 0- [facility] MCHC Auto (RBC) [Mass/Vol]Or dered By: Feli Foster on 12-22-2022 MCHC (RBC) [Mass/Vol] 34.3 [facility] (RBC) [Mass/Vol]Or dered By: Ja Beck on 12-22-2022 MCHC (RBC) [Mass/Vol] 32.9 g/dL [facility] No Panel InformationOrdered By: Feli Foster on 12-22-2022 Estimated Creatinine Clearance Calc 77.74 ml/min [facility] Estimated GFR (MDRD) Amer 108 mL/min >60 [facility] Comment on above: GFR Calc Estimated GFR (MDRD) Non-Af Amer 90 mL/min >60 [facility] Comment on above: Non- GFR Calc No Panel InformationOrdered By: Ja Beck on 12-22-2022 Estimated Creatinine Clearance Calc 67.68 ml/min [facility] Estimated GFR (MDRD) Amer 92 mL/min >60 [facility] Comment on above: GFR Calc Estimated GFR (MDRD) Non-Af Amer 76 mL/min >60 [facility] Comment on above: Non- GFR Calc Platelets bldOrdered By: Micheline Foster on 12-22-2022 Platelets (Bld) [#/Vol] 399 10*3/uL 150-450 [facility] Platelets bldOrdered By: Valdemar Beck on 12-22-2022 Platelets (Bld) [#/Vol] 392 10*3/uL 150-450 [facility] Serum or plasma albumin magali urement (mass/volume)Ordered By: Feli Foster on 12-22-2022 Albumin [Mass/Vol] 3.1 g/dL 3.2-5.0 [facility] Serum or plasma calcium magali urement (mass/volume)Ordered By: Feli Foster on 12-22-2022 Calcium [Mass/Vol] 8.6 mg/dL 8.5-10.1 [facility] Serum or plasma calcium magali urement (mass/volume)Ordered By: Ja Beck on 12-22-2022 Calcium [Mass/Vol] 8.8 mg/dL 8.5-10.1 [facility] Serum or plasma creatinine m easurement (mass/volume)Ordered By: Feli Foster on 12-22-2022 Creatinine [Mass/Vol] 0.74 mg/dL 0.55-1.02 [facility] Comment on above: The validity of the calculated GFR & GFRAA in patients over 70 years has not been determined. Clinical correlation is essential. Serum or plasma creatinine m easurement (mass/volume)Ordered By: Ja Beck on 12-22-2022 Creatinine [Mass/Vol] 0.85 mg/dL 0.55-1.02 [facility] Comment on above: The validity of the calculated GFR & GFRAA in patients over 70 years has not been determined. Clinical correlation is essential. Serum or plasma urea nitroge n measurement (mass/volume)Ordered By: Feli Foster on 12-22-2022 Urea nitrogen [Mass/Vol] 13 mg/dL 10-09 [facility] Serum or plasma urea nitroge n measurement (mass/volume)Ordered By: Ja Beck on 12-22-2022 Urea nitrogen [Mass/Vol] 17 mg/dL 10-09 [facility] Thin prep Papanicolaou smear with manual screeningOrdered By: Feli Foster on 12-22-2022 Thin prep Papanicolaou smear with manual screening 13 U/L 15-37 [facility] Thin prep Papanicolaou smear with manual screening 4 5- [facility] Thin prep Papanicolaou smear with manual screeningOrdered By: Ja Beck on 12-22-2022 Thin prep Papanicolaou smear with manual screening 4 - [facility] .GFRon 11-08-2022 GFR 114 ml/min/1.73sqm Normal [facility] ([place]) Comment on above: Result Comment: GFR Population mean for , Non- Americans Ages 20-29 = 116 mL/min/1.73 sq.m. Ages 30-39 = 107 mL/min/1.73 sq.m. Ages 40-49 = 99 mL/min/1.73 sq.m. Ages 50-59 = 93 mL/min/1.73 sq.m. Ages 60-69 = 85 mL/min/1.73 sq.m. Ages 70+ = 75 mL/min/1.73 sq.m. Chronic Kidney Disease: Less than 60 mL/min/1.73 square meters End Stage Renal Disease: Less than 15 mL/min/1.73 square meters Performed By: #### T SH, LIPID, GFR, CMP, VIDH #### [address] [address] GFR Non- 94 ml/min/1.73sqm Normal [facility] ([place]) Comment on above: Result Comment: GFR Population mean for , Non- Americans Ages 20-29 = 116 mL/min/1.73 sq.m. Ages 30-39 = 107 mL/min/1.73 sq.m. Ages 40-49 = 99 mL/min/1.73 sq.m. Ages 50-59 = 93 mL/min/1.73 sq.m. Ages 60-69 = 85 mL/min/1.73 sq.m. Ages 70+ = 75 mL/min/1.73 sq.m. Chronic Kidney Disease: Less than 60 mL/min/1.73 square meters End Stage Renal Disease: Less than 15 mL/min/1.73 square meters Performed By: #### T SH, LIPID, GFR, CMP, VIDH #### [address] [address] CMPon 11-08-2022 Albumin Level 3.7 G/dL Normal 3.5-5.0 [facility] ([place]) Comment on above: Performed By: #### T SH, LIPID, GFR, CMP, VIDH #### [address] [address] Albumin/Globulin [Mass ratio] 1.0 {ratio} Low 1.1-2.5 [facility] ([place]) Comment on above: Performed By: #### T SH, LIPID, GFR, CMP, VIDH #### [address] [address] ALP [Catalytic activity/Vol] 108 U/L Normal 40-135 [facility] ([place]) Comment on above: Performed By: #### T SH, LIPID, GFR, CMP, VIDH #### [address] [address] ALT [Catalytic activity/Vol] 26 U/L Normal 14-59 [facility] ([place]) Comment on above: Performed By: #### T SH, LIPID, GFR, CMP, VIDH #### [address] [address] AST [Catalytic activity/Vol] 17 U/L Normal 10-40 [facility] ([place]) Comment on above: Performed By: #### T SH, LIPID, GFR, CMP, VIDH #### [address] [address] Bili Total 0.4 mg/dL Normal 0.2-1.0 [facility] ([place]) Comment on above: Result Comment: Use of this assay is not recommended for patients undergoing treatment with eltrombopag due to the potential for falsely elevated results. Performed By: #### T SH, LIPID, GFR, CMP, VIDH #### [address] [address] BUN/Creatinine Ratio 18 ratio Normal 7-27 [facility] ([place]) Comment on above: Performed By: #### T SH, LIPID, GFR, CMP, VIDH #### [address] [address] Calcium [Mass/Vol] 9.6 mg/dL Normal 8.4-10.2 [facility] ([place]) Comment on above: Performed By: #### T SH, LIPID, GFR, CMP, VIDH #### [address] [address] Chloride [Moles/Vol] 102 mmol/L Normal 98-107 [facility] ([place]) Comment on above: Performed By: #### T SH, LIPID, GFR, CMP, VIDH #### [address] [address] CO2 [Moles/Vol] 30 mmol/L High 22-29 [facility] ([place]) Comment on above: Performed By: #### T SH, LIPID, GFR, CMP, VIDH #### [address] [address] Creatinine [Mass/Vol] 0.67 mg/dL Normal 0.55-1.02 [facility] ([place]) Comment on above: Performed By: #### T SH, LIPID, GFR, CMP, VIDH #### [address] [address] Electrolyte Balance 10.0 mEq/L Normal 4.0-15.0 [facility] ([place]) Comment on above: Performed By: #### T SH, LIPID, GFR, CMP, VIDH #### [address] [address] Globulin 3.8 G/dL Normal [facility] ([place]) Comment on above: Performed By: #### T SH, LIPID, GFR, CMP, VIDH #### [address] [address] Glucose [Mass/Vol] 112 mg/dL High 70-105 [facility] ([place]) Comment on above: Performed By: #### T SH, LIPID, GFR, CMP, VIDH #### [address] [address] Potassium [Moles/Vol] 4.2 mmol/L Normal 3.5-5.1 [facility] ([place] Comment on above: Performed By: #### T SH, LIPID, GFR, CMP, VIDH #### [address] [address] Sodium [Moles/Vol] 142 mmol/L Normal 136-145 [facility] ([place]) Comment on above: Performed By: #### T SH, LIPID, GFR, CMP, VIDH #### [address] [address] Total Protein 7.5 G/dL Normal 6.4-8.2 [facility] ([place]) Comment on above: Performed By: #### T SH, LIPID, GFR, CMP, VIDH #### [address] [address] Urea nitrogen [Mass/Vol] 12 mg/dL Normal 7-18 [facility] ([place]) Comment on above: Performed By: #### T SH, LIPID, GFR, CMP, VIDH #### [place] [id number] [place] [id number] LABORATORYOrdered By: SYSTEM SYSTEM on 11-08-2022 25-hydroxyvitamin D3 [Mass/Vol] 48.0 ng/mL Invalid Interpretation Code AO ADM SS Comment on above: Interpretive Data: I nterpretive Values Based on Total 25(OH) Vitamin D: Deficient <20 ng/mL Insufficient 20 - <30 ng/mL Sufficient 30-100 ng/mL Albumin BCP dye [Mass/Vol] 3.7 G/dL Invalid Interpretation Code 3.5 - 5.0 G/dL AO ADM SS Albumin/Globulin [Mass ratio] 1.0 {ratio} Invalid Interpretation Code 1.1 - 2.5 ratio AO ADM SS ALP [Catalytic activity/Vol] 108 U/L Invalid Interpretation Code 40 - 135 U/L AO ADM SS ALT With P-5'-P [Catalytic activity/Vol] 26 U/L Invalid Interpretation Code 14 - 59 U/L AO ADM SS AST With P-5'-P [Catalytic activity/Vol] 17 U/L Invalid Interpretation Code 10 - 40 U/L AO ADM SS Bilirubin [Mass/Vol] 0.4 mg/dL Invalid Interpretation Code 0.2 - 1.0 mg/dL AO ADM SS Comment on above: Interpretive Data: U se of this assay is not recommended for patients undergoing treatment with eltrombopag due to the potential for falsely elevated results. Calcium [Mass/Vol] 9.6 mg/dL Invalid Interpretation Code 8.4 - 10.2 mg/dL AO ADM SS Chloride [Moles/Vol] 102 mmol/L Invalid Interpretation Code 98 - 107 mmol/L AO ADM SS CO2 [Moles/Vol] 30 mmol/L Invalid Interpretation Code 22 - 29 mmol/L AO ADM SS Creatinine [Mass/Vol] 0.67 mg/dL Invalid Interpretation Code 0.55 - 1.02 mg/dL AO ADM SS Electrolyte Balance 10.0 mEq/L Invalid Interpretation Code 4.0 - 15.0 mEq/L AO ADM SS GFR/1.73 sq M.predicted among blacks MDRD (S/P/Bld) [Vol rate/Area] 114 ml/min/1.73sqm Invalid Interpretation Code AO Chemistry S Comment on above: Interpretive Data: GFR Population mean for , Non- Americans Ages 20-29 = 116 mL/min/1.73 sq.m. Ages 30-39 = 107 mL/min/1.73 sq.m. Ages 40-49 = 99 mL/min/1.73 sq.m. Ages 50-59 = 93 mL/min/1.73 sq.m. Ages 60-69 = 85 mL/min/1.73 sq.m. Ages 70+ = 75 mL/min/1.73 sq.m. Chronic Kidney Disease: Less than 60 mL/min/1.73 square meters End Stage Renal Disease: Less than 15 mL/min/1.73 square meters GFR/1.73 sq M.predicted among non-blacks MDRD (S/P/Bld) [Vol rate/Area] 94 ml/min/1.73sqm Invalid Interpretation Code AO Chemistry S Comment on above: Interpretive Data: GFR Population mean for , Non- Americans Ages 20-29 = 116 mL/min/1.73 sq.m. Ages 30-39 = 107 mL/min/1.73 sq.m. Ages 40-49 = 99 mL/min/1.73 sq.m. Ages 50-59 = 93 mL/min/1.73 sq.m. Ages 60-69 = 85 mL/min/1.73 sq.m. Ages 70+ = 75 mL/min/1.73 sq.m. Chronic Kidney Disease: Less than 60 mL/min/1.73 square meters End Stage Renal Disease: Less than 15 mL/min/1.73 square meters Globulin 3.8 G/dL Invalid Interpretation Code AO ADM SS Glucose [Mass/Vol] 112 mg/dL Invalid Interpretation Code 70 - 105 mg/dL AO ADM SS Potassium [Moles/Vol] 4.2 mmol/L Invalid Interpretation Code 3.5 - 5.1 mmol/L AO ADM SS Protein [Mass/Vol] 7.5 G/dL Invalid Interpretation Code 6.4 - 8.2 G/dL AO ADM SS Sodium [Moles/Vol] 142 mmol/L Invalid Interpretation Code 136 - 145 mmol/L AO ADM SS TSH Qn 2.39 m[IU]/L Invalid Interpretation Code 0.36 - 3.74 mcIU/mL AO ADM SS Urea nitrogen [Mass/Vol] 12 mg/dL Invalid Interpretation Code 7 - 18 mg/dL AO ADM SS Urea nitrogen/Creatinine [Mass ratio] 18 ratio Invalid Interpretation Code 7 - 27 ratio AO ADM SS LABORATORYOrdered By: Bret Chester on 11-08-2022 Cholesterol [Mass/Vol] 205 mg/dL Invalid Interpretation Code 0 - 200 mg/dL AO ADM SS Comment on above: Interpretive Data: C holesterol Reference Interval: Less than 200 Desirable 200-239 Borderline high risk 240 and above High risk Cholesterol in HDL [Mass/Vol] 63 mg/dL Invalid Interpretation Code 40 - 60 mg/dL AO ADM SS Cholesterol in LDL [Mass/Vol] 116 mg/dL Invalid Interpretation Code 0 - 130 mg/dL AO ADM SS Triglyceride [Mass/Vol] 132 mg/dL Invalid Interpretation Code 0 - 150 mg/dL AO ADM SS Comment on above: Interpretive Data: T riglyceride Reference Interval: Less than 150 Normal 150-199 Borderline high risk 200-499 High risk 500 or higher Very high risk LIPIDon 11-08-2022 Cholesterol [Mass/Vol] 205 mg/dL High 0-200 [facility] ([place]) Comment on above: Result Comment: Chol esterol Reference Interval: Less than 200 Desirable 200-239 Borderline high risk 240 and above High risk Performed By: #### T SH, LIPID, GFR, CMP, VIDH #### [address] [address] Cholesterol in HDL [Mass/Vol] 63 mg/dL High 40-60 [facility] ([place]) Comment on above: Performed By: #### T SH, LIPID, GFR, CMP, VIDH #### [address] [address] Cholesterol in LDL [Mass/Vol] 116 mg/dL Normal 0-130 [facility] ([place]) Comment on above: Performed By: #### T SH, LIPID, GFR, CMP, VIDH #### [address] [address] Triglyceride [Mass/Vol] 132 mg/dL Normal 0-150 [facility] ([place]) Comment on above: Result Comment: Trig lyceride Reference Interval: Less than 150 Normal 150-199 Borderline high risk 200-499 High risk 500 or higher Very high risk Performed By: #### T SH, LIPID, GFR, CMP, VIDH #### [place] [id number] [place], [place] [address] TSHon 11-08-2022 TSH Qn 2.39 m[IU]/L Normal 0.36-3.74 [facility] ([place]) Comment on above: Performed By: #### T SH, LIPID, GFR, CMP, VIDH #### [place] [address] [place], [place] [address] VIDHon 11-08-2022 Vit. D 25-Hydroxy 48.0 ng/mL Normal [facility] ([place]) Comment on above: Result Comment: Inte rpretive Values Based on Total 25(OH) Vitamin D: Deficient <20 ng/mL Insufficient 20 - <30 ng/mL Sufficient 30-100 ng/mL Performed By: #### T SH, LIPID, GFR, CMP, VIDH #### [address] [address] Carpal Tunnel Injection: Car marlee Tunnelon 06-26-2022 Faith Munson CNP 06/26/2022 4:14 PM Carpal Tunnel Injection: Carpal Tunnel Performed by: [...] the procedure well with no immediate complications [facility] XR HAND LEFT 3+ VIEWS (STAND BITA)on 04-12-2022 XR HAND LEFT 3+ VIEWS (STANDARD) EXAMINATION: XR WRIST LEFT 3+ VIEWS (STANDARD); XR HAND LEFT 3+ VIEWS (STANDARD) HISTORY: ORDERING SYSTEM PROVIDED HISTORY: pain, TECHNOLOGIST PROVIDED HISTORY: Illness/Other Reason for exam: pain Cancer History: unk Surgery, RadiationHistory: s/p left BILLIE Encounter Type: Initial Additional signs and symptoms: repetitive movement- mid palm ORDERING SYSTEM PROVIDED DIAGNOSIS CODES: COMPARISON: No relevant prior study available at time of interpretation. IMPRESSION: FINDINGS/ No evidence of acute osseous abnormality of the left hand or left wrist. Scattered mild degenerative change. Workstation ID: [id number] Dictated by: BRIAN IRWIN on [place] Apr 12, 2022 4:18:00 PM EST Transcribed by: BRIAN IRWIN on [facility] Apr 12, 2022 4:18:00 PM EST Finalized by: BRIAN IRWIN on [facility] Apr 12, 2022 4:18:00 PM EST [facility] Comment on above: Order Comment: Injur y/Trauma or Illness?:Illness/Other How long have you had these symptoms (acute/chronic)?:Acute Reason for exam?:pain History of cancer?:unk Surgeries, chemotherapy, or radiation?:s/p left BILLIE Type of Exam?:Initial Additional signs and symptoms?:mid palm pain- repetitive movement XR WRIST LEFT 3+ VIEWS (BHUMIKA SHRESTHA)on 04-12-2022 XR WRIST LEFT 3+ VIEWS (STANDARD) EXAMINATION: XR WRIST LEFT 3+ VIEWS (STANDARD); XR HAND LEFT 3+ VIEWS (STANDARD) HISTORY: ORDERING SYSTEM PROVIDED HISTORY: pain, TECHNOLOGIST PROVIDED HISTORY: Illness/Other Reason for exam: pain Cancer History: unk Surgery, RadiationHistory: s/p left BILLIE Encounter Type: Initial Additional signs and symptoms: repetitive movement- mid palm ORDERING SYSTEM PROVIDED DIAGNOSIS CODES: COMPARISON: No relevant prior study available at time of interpretation. IMPRESSION: FINDINGS/ No evidence of acute osseous abnormality of the left hand or left wrist. Scattered mild degenerative change. Workstation ID: [id number] Dictated by: BRIAN IRWIN on SatApr 12, 2022 4:18:00 PM EST Transcribed by: BRIAN IRWIN on [facility] Apr 12, 2022 4:18:00 PM EST Finalized by: BRIAN IRWIN on [facility] Apr 12, 2022 4:18:00 PM EST [facility] Comment on above: Order Comment: Injur y/Trauma or Illness?:Illness/Other How long have you had these symptoms (acute/chronic)?:Acute Reason for exam?:pain History of cancer?:unk Surgeries, chemotherapy, or radiation?:s/p left BILLIE Type of Exam?:Initial Additional signs and symptoms?:repetitive movement- mid palm ELBOW COMPLETE MIN. 3 VIEWSo n 11-02-2021 ELBOW COMPLETE MIN. 3 VIEWS Patient Name: NARA MALCOLM STUDY: Left ELBOW COMPLETE MIN 3 VIEWS; 11/02/2021 11:37 am INDICATION: left elbow pain M25.522: Left elbow pain. COMPARISON: None. ACCESSION NUMBER(S): [id number] ORDERING CLINICIAN: PARK HATFIELD FINDINGS: The anterior and posterior fat pads are not displaced. No acute fracture or dislocation is seen. No erosions or periosteal reaction is seen. No radiopaque foreign body is seen. Mild degenerative changes are seen. Mild soft tissue swelling is seen posterior to the olecranon. IMPRESSION: No acute fracture or dislocation. Mild soft tissue swelling posterior to the olecranon. Mild degenerative changes. Electronically signed by: JOHN SMALLS MD [facility] Initial Visit (Orthopaedic S urgery)on 11-02-2021 Initial Visit (Orthopaedic Surgery) Diagnoses/Problems Assessed Olecranon bursitis of left elbow (726.33) (M70.22) Orders Left elbow pain Orthopedic Point of Care Ultrasound; Status:Canceled - Retrospective Authorization; Radiologist to Determine Optimal Study : Y What are the patient's signs and symptoms? : Left elbow pain Provider Impressions Assessment: Left olecranon bursitis Plan: Today, we did discuss treatment options and she would like to proceed with aspiration. We did discuss the chance of a permanent draining channel. See procedure section for details. We did dress this with a Band-Aid and stack of 4 x 4's along with an Jose wrap. I instructed her to try to keep the elbow as straight as possible and she may resume with her other sleeve after tomorrow. We discussed continue conservative with the compression wrap and she would like to again proceed with the aspiration. We discussed that this may become a recurrent issue and if it is then we may need to think more permanent solution such as a surgical bursectomy Chief Complaint PT HERE FOR LEFT ELBOW BURSITIS. STATES MOVED IN 07/2021 AND FEELS SHE MAY HAVE BUMPED HER ELBOW. HAS BEEN WEARING COMPRESSION SLEEVE ALONG WITH IBUPROFEN. PAIN ONLY IF ELBOW IS BUMPED. XRAYS DONE. REFERRED BY SELF. History of Present Illness Patient is here today for left olecranon [...] She is here today for possible aspiration. Review of Systems Constitutional: no fever, no chills, not feeling tired, no recent weight gain and no recent weight loss. ENT: no nosebleeds. Cardiovascular: no chest pain. Respiratory: no shortness of breath and no cough. Gastrointestinal: no abdominal pain, no nausea, no vomiting and no diarrhea. Musculoskeletal: no arthralgias. Integumentary: no rashes and no skin wound. Neurological: no headache. Psychiatric: no depression and no sleep disturbances. Endocrine: no muscle weakness and no muscle cramps. Hematologic/Lymphatic : no swollen glands and no tendency for easy bruising. All other systems have been reviewed and are negative for complaint. Surgical History Problems History of section History of Gallbladder surgery History of Hip surgery History of Hysterectomy Family History Mother No pertinent family history Social History Problems Current smoker (305.1) (F17.200) Allergies Percocet TABS Allergy; Hives;; Recorded By: Feli Gomez; 11/02/2021 11:56:13 AM Current Meds Medication NameInstruction busPIRone HCl - 10 MG Oral TabletTAKE 1 TABLET BY MOUTH TWICE DAILY AND 2 TABLETS AT BEDTIME Melatonin 10 MG Oral CapsuleTAKE 1 CAPSULE BY MOUTH EVERY DAY AT BEDTIME NEEDED FOR INSOMNIA Omeprazole 20 MG Oral Tablet Delayed Release QUEtiapine Fumarate 100 MG Oral TabletTAKE 1 TABLET BY MOUTH ONCE DAILY IN THE MORNING QUEtiapine Fumarate 400 MG Oral TabletTAKE 1 TABLET BY MOUTH ONCE DAILY AT BEDTIME Rosuvastatin Calcium 20 MG Oral TabletTAKE 1 TABLET BY MOUTH ONCE DAILY Vitals Vital Signs Recorded: 02Nov2021 11:50AM Nvibyxzhqun78.5 F Height5 ft 4 in [id number] lb 2 oz BMI Lcmsbmjytu25.86 kg/m2 BSA Calculated1.82 Tobacco Usea) Yes Falls Screening (Age 18+)b) One or more falls in the last year Physical Exam Left upper extremity is neurovascular intact full range of motion, tenderness with palpation of the bursitis, negative erythema or drainage, Results/Data X-rays performed today and reviewed by me see radiologist report for official readings upon my review there is some mild enthesopathy located on the medial lateral epicondyle and the olecranon process. Some possible very mild osteoarthritic process Procedure Procedure: Aspiration of the left olecranon bursa. Indication: effusion and inflammation. Potential complications include bleeding and infection. Risk, benefits and alternatives were discussed with the patient. Verbal consent was obtained prior to the procedure. Alcohol and betadine was used to prep the area. ethyl chloride spray was used as a topical anesthetic. Using sterile technique, the aspiration/injection needle was then directed from a posterior and direct aspect. A 22-gauge was used to inject Aspiration of 6 cc of serosanguineous fluid. A bandage was applied. the patient tolerated the procedure well. Complications: none. Signatures Electronically signed by : Park Hatfield PA-C; Nov 02 2021 1:21PM EST (Author) Normal [facility] 11-02-2021 XR Elbow 3 Views Please click on the link to view the study images Normal [facility] 300 Work Phone: Tobacco Screening.on 022 Fall risk assessment b) One or more fall s in the last year [facility] 300 Work Phone: Tobacco use status [facility] a) Yes [facility] 300 Work Phone: CT PELVIS WITH CONTRASTon CT PELVIS WITH CONTRAST EXAMINATION: CT PELVIS WITH CONTRAST HISTORY: ORDERING SYSTEM PROVIDED HISTORY: eval for fluid collection; eval for fluid collection, TECHNOLOGIST PROVIDED HISTORY: Illness/Other Reason for exam: eval for fluid collection; eval for fluid collection Encounter Type: Initial Additional signs and symptoms: eval for fluid collection; eval for fluid collection ORDERING SYSTEM PROVIDED DIAGNOSIS CODES: COMPARISON: CT examination of the left hip 09/16/2019. TECHNIQUE: Dose reduction techniques were achieved by using automated exposure control and/or adjustment of mA and/or kV according to patient size and/or use of iterative reconstruction technique. CT examination of the pelvis following the administration of intravenous contrast. Coronal and sagittal reformations were performed. CONTRAST: IOPAMIDOL 76 % INTRAVENOUS SOLUTION - 75 mL, FINDINGS: No pelvic lymphadenopathy. No pelvic free fluid. No discrete intrapelvic collection. Bladder is unremarkable. Included portions of the small and large bowel without evidence for abnormal bowel wall thickening, masses, or obstruction. There is a left total hip replacement producing streak artifact. No evidence for hardware failure or loosening. There is subcutaneous edema/stranding along the lateral aspect of the hip adjacent to the plane of incision without discrete collection. No soft tissue gas. IMPRESSION: 1. No discrete collection identified within the pelvis or periarticular soft tissues of the left hip. [facility]/[employer] Workstation ID: [id number] Dictated by: RADHA RANDLE on SatNov 18, 2019 3:03:13 AM EDT Transcribed by: EDDIE TARANGO on SatNov 18, 2019 3:06:53 AM EDT Finalized by: RADHA RANDLE on SatNov 18, 2019 4:46:59 AM EDT Normal [facility] Comment on above: Order Comment: Injur y/Trauma or Illness?:Illness/Other How long have you had these symptoms (acute/chronic)?:Acute Reason for exam?:eval for fluid collection; eval for fluid collection Type of Exam?:Initial Additional signs and symptoms?:eval for fluid collection; eval for fluid collection Otheron 11-18-2019 Appearance (Syn fld) Hazy Abnormal Clear [facility] Color (Syn fld) Ladan Abnormal [facility] Eosin[facility]/100 WBC (Syn fld) 2 % High 0 - 0 % [facility] Fibrin Clot, [facility] Absent Absent [facility] Interpretation and review of laboratory results Abnormal [facility] Lymphocytes/100 WBC Auto (Syn fld) 59 % High 0 - 0 % [facility] Monocytes/100 WBC (Syn fld) 20 % High 0 - 0 % [facility] Neutrophils/100 WBC (Syn fld) 18 % 0 - 25 % [facility] Nucleated cells Manual cnt (Syn fld) [#/Vol] 944 High [facility] Comment on above: WBC/Nuc cell count i ncludes mesothelial and other non-WBC nucleated cells as reflected in the differential. Protein (Syn fld) [Mass/Vol] 4.8 g/dL High 0 - 3 g/dL [facility] Pyrophosphate crystals LM Ql (Syn fld) Negative Negative [facility] RBC Auto (Syn fld) [#/Vol] 4914 High [facility] Synovial lining cells/100 cells (Syn fld) 1 % High 0 - 0 % [facility] Comment on above: Lining cells and/or macrophages. Urate crystals LM Ql (Syn fld) Negative Negative [facility] Interface, Rad In [employer] Speechq - 11/18/2019 12:26 PM EDT EXAMINATION: XR ASPIRATION/INJECTION LARGE JOINT LEFT 11/18/2019 HISTORY: ORDERING SYSTEM PROVIDED HISTORY: rule out septic arthritis, TECHNOLOGIST PROVIDED HISTORY: Illness/Other Reason for exam: rule out septic arthritis Encounter Type: Initial Additional signs and symptoms: Fluoro dose in mGy: 10.29 ORDERING SYSTEM PROVIDED DIAGNOSIS CODES: COMPARISON: CT scan of the pelvis 11/17/2019. TECHNIQUE: Fluoro Dose Ka,r mGy: Fluoro dose in Ka,r mGy: 10.29 After explaining the risks, benefits and options of the procedure to the patient, written informed consent was obtained. A pause and confirm was then performed. The anterior aspect of the left hip was then prepped and draped in the usual sterile fashion and the skin was anesthetized with 1% lidocaine. Under fluoroscopic guidance, an 18-gauge spinal needle was passed percutaneously to the lateral aspect of the neck of the femoral component of a total hip prosthesis. A total of 2 mL of serosanguineous fluid was aspirated from the hip. A total of 1 mL of Isovue-300 was then administered into the hip joint to confirm needle tip placement within the joint. The needle was then removed. The patient tolerated the procedure well and no immediate complication was observed. The fluid aspirated from the hip was placed in the appropriate red top tube and purple top tube and sent to the laboratory for further analysis per the referring physician's request. FINDINGS: There is extension of contrast into the left hip joint. IMPRESSION: Technically successful fluoroscopic-guided aspiration of the left hip joint. [employer] Workstation ID: [id number] [facility] Technically successful fluoroscopic-guided aspiration of the left hip joint. [employer] Workstation ID: [id number] [facility] EXAMINATION: XR ASPIRATION/INJECTION LARGE JOINT LEFT 11/18/2019 HISTORY: ORDERING SYSTEM PROVIDED HISTORY: rule out septic arthritis, TECHNOLOGIST PROVIDED HISTORY: Illness/Other Reason for exam: rule out septic arthritis Encounter Type: Initial Additional signs and symptoms: Fluoro dose in mGy: 10.29 ORDERING SYSTEM PROVIDED DIAGNOSIS CODES: COMPARISON: CT scan of the pelvis 11/17/2019. TECHNIQUE: Fluoro Dose Ka,r mGy: Fluoro dose in Ka,r mGy: 10.29 After explaining the risks, benefits and options of the procedure to the patient, written informed consent was obtained. A pause and confirm was then performed. The anterior aspect of the left hip was then prepped and draped in the usual sterile fashion and the skin was anesthetized with 1% lidocaine. Under fluoroscopic guidance, an 18-gauge spinal needle was passed percutaneously to the lateral aspect of the neck of the femoral component of a total hip prosthesis. A total of 2 mL of serosanguineous fluid was aspirated from the hip. A total of 1 mL of Isovue-300 was then administered into the hip joint to confirm needle tip placement within the joint. The needle was then removed. The patient tolerated the procedure well and no immediate complication was observed. The fluid aspirated from the hip was placed in the appropriate red top tube and purple top tube and sent to the laboratory for further analysis per the referring physician's request. FINDINGS: There is extension of contrast into the left hip joint. [facility] 1. No discrete collection identified within the pelvis or periarticular soft tissues of the left hip. [facility] Workstation ID: [id number] [facility] EXAMINATION: CT PELVIS WITH CONTRAST HISTORY: ORDERING SYSTEM PROVIDED HISTORY: eval for fluid collection; eval for fluid collection, TECHNOLOGIST PROVIDED HISTORY: Illness/Other Reason for exam: eval for fluid collection; eval for fluid collection Encounter Type: Initial Additional signs and symptoms: eval for fluid collection; eval for fluid collection ORDERING SYSTEM PROVIDED DIAGNOSIS CODES: COMPARISON: CT examination of the left hip 09/16/2019. TECHNIQUE: Dose reduction techniques were achieved by using automated exposure control and/or adjustment of mA and/or kV according to patient size and/or use of iterative reconstruction technique. CT examination of the pelvis following the administration of intravenous contrast. Coronal and sagittal reformations were performed. CONTRAST: IOPAMIDOL 76 % INTRAVENOUS SOLUTION - 75 mL, FINDINGS: No pelvic lymphadenopathy. No pelvic free fluid. No discrete intrapelvic collection. Bladder is unremarkable. Included portions of the small and large bowel without evidence for abnormal bowel wall thickening, masses, or obstruction. There is a left total hip replacement producing streak artifact. No evidence for hardware failure or loosening. There is subcutaneous edema/stranding along the lateral aspect of the hip adjacent to the plane of incision without discrete collection. No soft tissue gas. [facility] Interface, Rad In Susan Speechq - 11/18/2019 4:49 AM EDT EXAMINATION: CT PELVIS WITH CONTRAST HISTORY: ORDERING SYSTEM PROVIDED HISTORY: eval for fluid collection; eval for fluid collection, TECHNOLOGIST PROVIDED HISTORY: Illness/Other Reason for exam: eval for fluid collection; eval for fluid collection Encounter Type: Initial Additional signs and symptoms: eval for fluid collection; eval for fluid collection ORDERING SYSTEM PROVIDED DIAGNOSIS CODES: COMPARISON: CT examination of the left hip 09/16/2019. TECHNIQUE: Dose reduction techniques were achieved by using automated exposure control and/or adjustment of mA and/or kV according to patient size and/or use of iterative reconstruction technique. CT examination of the pelvis following the administration of intravenous contrast. Coronal and sagittal reformations were performed. CONTRAST: IOPAMIDOL 76 % INTRAVENOUS SOLUTION - 75 mL, FINDINGS: No pelvic lymphadenopathy. No pelvic free fluid. No discrete intrapelvic collection. Bladder is unremarkable. Included portions of the small and large bowel without evidence for abnormal bowel wall thickening, masses, or obstruction. There is a left total hip replacement producing streak artifact. No evidence for hardware failure or loosening. There is subcutaneous edema/stranding along the lateral aspect of the hip adjacent to the plane of incision without discrete collection. No soft tissue gas. IMPRESSION: 1. No discrete collection identified within the pelvis or periarticular soft tissues of the left hip. [facility] Workstation ID: [id number] [facility] XR ASPIRATION/INJECTION LARG E JOINT LEFTon 11-18-2019 XR ASPIRATION/INJECTION LARGE JOINT LEFT EXAMINATION: XR ASPIRATION/INJECTION LARGE JOINT LEFT 11/18/2019 HISTORY: ORDERING SYSTEM PROVIDED HISTORY: rule out septic arthritis, TECHNOLOGIST PROVIDED HISTORY: Illness/Other Reason for exam: rule out septic arthritis Encounter Type: Initial Additional signs and symptoms: Fluoro dose in mGy: 10.29 ORDERING SYSTEM PROVIDED DIAGNOSIS CODES: COMPARISON: CT scan of the pelvis 11/17/2019. TECHNIQUE: Fluoro Dose Ka,r mGy: Fluoro dose in Ka,r mGy: 10.29 After explaining the risks, benefits and options of the procedure to the patient, written informed consent was obtained. A pause and confirm was then performed. The anterior aspect of the left hip was then prepped and draped in the usual sterile fashion and the skin was anesthetized with 1% lidocaine. Under fluoroscopic guidance, an 18-gauge spinal needle was passed percutaneously to the lateral aspect of the neck of the femoral component of a total hip prosthesis. A total of 2 mL of serosanguineous fluid was aspirated from the hip. A total of 1 mL of Isovue-300 was then administered into the hip joint to confirm needle tip placement within the joint. The needle was then removed. The patient tolerated the procedure well and no immediate complication was observed. The fluid aspirated from the hip was placed in the appropriate red top tube and purple top tube and sent to the laboratory for further analysis per the referring physician's request. FINDINGS: There is extension of contrast into the left hip joint. IMPRESSION: Technically successful fluoroscopic-guided aspiration of the left hip joint. [employer] Workstation ID: [id number] Dictated by: RADHA AUGUSTINE on SatNov 18, 2019 11:42:57 AM EDT Transcribed by: FREDY DEL ANGEL on SatNov 18, 2019 11:45:58 AM EDT Finalized by: RADHA AUGUSTINE on SatNov 18, 2019 12:23:28 PM EDT Normal [facility] Comment on above: Order Comment: left hip per doc [place] Injury/Trauma or Illness?:Illness/Other How long have you had these symptoms (acute/chronic)?:Unknown Reason for exam?:rule out septic arthritis Type of Exam?:Initial Additional signs and symptoms?: Fluoro time in minutes:.6 Fluoro dose in mGy?:10.29 COVID-19, MOLECULARon 2019 SARS-COV-2 (PAZ ID) Not Detected Normal Not Detected [facility] Comment on above: Result Comment: This test was performed under the FDA's Emergency Use Authorization (EUA). Testing was performed using the [employer] ID NOW COVID-19 assay on the ID NOW platform. This test has not been approved for use in asymptomatic patients and its performance in this patient population has not been evaluated. Negative results do not rule out the presence of SARS-CoV-2/COVID-19. Fact sheets for the EUA can be found at the following links: For Healthcare Providers: https://www.fda.gov/media/128404/download For Patients: https://www.fda.gov/media/766213/download Performed By: #### L [id number] #### [facility] [address] [place] [address] Randall Jernigan M.D. [id number] [facility] 11-17-2019 CRP [Mass/Vol] 4.6 mg/L 0 - 10 mg/L [facility] ESR (Bld) [Velocity] 32 mm/h [facility] INR Coag (PPP) [Relative time] 1.0 {INR} [facility] PT Coag (PPP) [Time] 12.[address] [facility] Basophils (Bld) [#/Vol] 0.14 10*3/uL [facility] Basophils/100 WBC (Bld) 1.1 % [facility] Eosinophils (Bld) [#/Vol] 0.33 10*3/uL [facility] Eosinophils/100 WBC (Bld) 2.6 % [facility] Hematocrit (Bld) [Volume fraction] 39.5 % 36 - 46 % [facility] Hemoglobin (Bld) [Mass/Vol] 12.7 g/dL 12 - 16 g/dL [facility] Lymphocytes (Bld) [#/Vol] 2.91 10*3/uL [facility] Lymphocytes/100 WBC (Bld) 23.1 % [facility] MCH (RBC) [Entitic mass] 31.3 pg 26 - 34 pg [facility] MCV (RBC) [Entitic vol] 97.3 fL 80 - 100 fL [facility] Monocytes (Bld) [#/Vol] 0.82 10*3/uL [facility] Monocytes/100 WBC (Bld) 6.5 % [facility] Neutrophils (Bld) [#/Vol] 8.36 10*3/uL High [facility] Neutrophils/100 WBC (Bld) 66.3 % [facility] Nucleated RBC (Bld) [#/Vol] 0.00 10*3/uL [facility] Platelets (Bld) [#/Vol] 516 10*3/uL [facility] RBC (Bld) [#/Vol] 4.06 10*6/uL [facility] ealth WBC (Bld) [#/Vol] 12.61 10*3/uL [facility] Metabolic Panelon 11-17-2019 Anion gap [Moles/Vol] 17 mmol/L 10 - 2 0 mmol/L [facility] Calcium [Mass/Vol] 9.3 mg/dL 8.4 - 10. 2 mg/dL [facility] Chloride [Moles/Vol] 104 mmol/L 98 - 10 8 mmol/L [facility] Creatinine [Mass/Vol] 0.61 mg/dL 0.40 - 1.10 [facility] GFR/1.73 sq M predicted among non-blacks MDRD (S/P/Bld) [Vol rate/Area] The eGFR should be used for monitoring renal function only and not for medication dosing. [facility] Glucose [Mass/Vol] 123 mg/dL High 65 - 99 mg/dL [facility] Potassium [Moles/Vol] 4.0 mmol/L 3.5 - 5.1 mmol/L [facility] Sodium [Moles/Vol] 138 mmol/L 135 - 145 mmol/L [facility] Urea nitrogen [Mass/Vol] 12 mg/dL 8 - 25 mg/dL [facility] Urea nitrogen/Creatinine [Mass ratio] 19.7 mg/mg [facility] Otheron 11-17-2019 GFR/1.73 sq M.predicted CKD-EPI (S/P/Bld) [Vol rate/Area] 111 >=60 mL/min/1.73 m2 [facility] HCO3 [Moles/Vol] 21 mmol/L 21 - 32 mmol/L [facility] Interpretation and review of laboratory results Normal [facility] Interpretation and review of laboratory results Abnormal [facility] Interpretation and review of laboratory results Normal [facility] Interpretation and review of laboratory results Abnormal [facility] During the induction phase of oral anticoagulation, the INR may not reflect the anticoagulation status of the patient. Therapeutic ranges for INR's are: Most clinical situations: INR 2.0-3.0 Mechanical Prosthetic Valve: INR 2.5-3.5 Critical: INR >5.0 [facility] Erythrocyte distribution width (RBC) [Entitic vol] 14.3 % 11.6 - 14.8 % [facility] Immature granulocytes (Bld) [#/Vol] 0.05 10*3/uL [facility] Immature granulocytes/100 WBC (Bld) 0.40 % [facility] Comment on above: The IG parameter is the percentage of metamyelocytes, myelocytes and promyelocytes. An immature granulocyte count (IG) of 1% or more suggests the possibility of infection, an IG count of 3% is very likely related to an infection. Interpretation and review of laboratory results Abnormal [facility] MCHC (RBC) [Mass/Vol] 32.2 g/dL 31 - 37 g/dL [facility] Nucleated RBC/100 WBC (Bld) [Ratio] 0.0 % [facility] Platelet mean volume (Bld) [Entitic vol] 9.4 fL 9.4 - 12.4 fL [facility] Interpretation and review of laboratory results Normal [facility] SARS-CoV-2 Not Detected Not Detected [facility] Comment on above: This test was perfor med under the FDA's Emergency Use Authorization (EUA). Testing was performed using the [employer] ID NOW COVID-19 assay on the ID NOW platform. This test has not been approved for use in asymptomatic patients and its performance in this patient population has not been evaluated. Negative results do not rule out the presence of SARS-CoV-2/COVID-19. Fact sheets for the EUA can be found at the following links: For Healthcare Providers: https://www.fda.gov/media/153541/download For Patients: https://www.fda.gov/media/966298/download CBCon 09-30-2019 Erythrocyte distribution width (RBC) [Entitic vol] 14.1 % 11.6 - 14.8 % [facility] Hematocrit (Bld) [Volume fraction] 32.9 % Low 36 - 46 % [facility] Hemoglobin (Bld) [Mass/Vol] 10.7 g/dL Low 12 - 16 g/dL [facility] Interpretation and review of laboratory results Abnormal [facility] MCH (RBC) [Entitic mass] 31.2 pg 26 - 34 pg [facility] MCHC (RBC) [Mass/Vol] 32.5 g/dL 31 - 37 g/dL [facility] MCV (RBC) [Entitic vol] 95.9 fL 80 - 100 fL [facility] Nucleated RBC (Bld) [#/Vol] 0.00 10*3/uL [facility] Nucleated RBC/100 WBC (Bld) [Ratio] 0.0 % [facility] Platelet mean volume (Bld) [Entitic vol] 9.8 fL 9.4 - 12.4 fL [facility] Platelets (Bld) [#/Vol] 295 10*3/uL [facility] RBC (Bld) [#/Vol] 3.43 10*6/uL Low [facility] eah WBC (Bld) [#/Vol] 14.29 10*3/uL High [facility] CBC WITH AUTO DIFFERENTIALon 09-30-2019 Basophils (Bld) [#/Vol] 0.03 10*3/uL [facility] Basophils/100 WBC (Bld) 0.2 % [facility] Eosinophils (Bld) [#/Vol] 0.02 10*3/uL [facility] Eosinophils/100 WBC (Bld) 0.1 % [facility] Erythrocyte distribution width (RBC) [Entitic vol] 14.1 % 11.6 - 14.8 % [facility] Hematocrit (Bld) [Volume fraction] 31.4 % Low 36 - 46 % [facility] Hemoglobin (Bld) [Mass/Vol] 10.5 g/dL Low 12 - 16 g/dL [facility] Immature granulocytes (Bld) [#/Vol] 0.10 10*3/uL [facility] Immature granulocytes/100 WBC (Bld) 0.70 % [facility] Comment on above: The IG parameter is the percentage of metamyelocytes, myelocytes and promyelocytes. An immature granulocyte count (IG) of 1% or more suggests the possibility of infection, an IG count of 3% is very likely related to an infection. Interpretation and review of laboratory results Abnormal [facility] Lymphocytes (Bld) [#/Vol] 1.50 10*3/uL [facility] Lymphocytes/100 WBC (Bld) 9.8 % [facility] MCH (RBC) [Entitic mass] 32.2 pg 26 - 34 pg [facility] MCHC (RBC) [Mass/Vol] 33.4 g/dL 31 - 37 g/dL [facility] MCV (RBC) [Entitic vol] 96.3 fL 80 - 100 fL [facility] Monocytes (Bld) [#/Vol] 0.76 10*3/uL [facility] Monocytes/100 WBC (Bld) 4.9 % [facility] Neutrophils (Bld) [#/Vol] 12.96 10*3/uL High [facility] Neutrophils/100 WBC (Bld) 84.3 % [facility] Nucleated RBC (Bld) [#/Vol] 0.00 10*3/uL [facility] Nucleated RBC/100 WBC (Bld) [Ratio] 0.0 % [facility] Platelet mean volume (Bld) [Entitic vol] 9.8 fL 9.4 - 12.4 fL [facility] Platelets (Bld) [#/Vol] 296 10*3/uL [facility] RBC (Bld) [#/Vol] 3.26 10*6/uL Low [facility] ealth WBC (Bld) [#/Vol] 15.37 10*3/uL [facility] Basic Metabolic Panelon Anion gap [Moles/Vol] 18 mmol/L 10 - 2 0 mmol/L [facility] Calcium [Mass/Vol] 7.9 mg/dL Low 8.4 - 10. 2 mg/dL [facility] Chloride [Moles/Vol] 97 mmol/L Low 98 - 10 8 mmol/L [facility] Creatinine [Mass/Vol] 0.35 mg/dL Low 0.40 - 1.10 [facility] GFR/1.73 sq M predicted among non-blacks MDRD (S/P/Bld) [Vol rate/Area] The eGFR should be used for monitoring renal function only and not for medication dosing. [facility] GFR/1.73 sq M.predicted CKD-EPI (S/P/Bld) [Vol rate/Area] 133 >=60 mL/min/1.73 m2 [facility] Glucose [Mass/Vol] 149 mg/dL High 65 - 99 mg/dL [facility] HCO3 [Moles/Vol] 22 mmol/L 21 - 32 mmol/L [facility] Interpretation and review of laboratory results Abnormal [facility] Potassium [Moles/Vol] 3.8 mmol/L 3.5 - 5.1 mmol/L [facility] Sodium [Moles/Vol] 133 mmol/L Low 135 - 145 mmol/L [facility] Urea nitrogen [Mass/Vol] 9 mg/dL 8 - 25 mg/dL [facility] Urea nitrogen/Creatinine [Mass ratio] 25.7 mg/mg High [facility] CBCon 09-29-2019 Erythrocyte distribution width (RBC) [Entitic vol] 13.8 % 11.6 - 14.8 % [facility] Hematocrit (Bld) [Volume fraction] 32.7 % Low 36 - 46 % [facility] Hemoglobin (Bld) [Mass/Vol] 10.8 g/dL Low 12 - 16 g/dL [facility] Interpretation and review of laboratory results Abnormal [facility] MCH (RBC) [Entitic mass] 31.8 pg 26 - 34 pg [facility] MCHC (RBC) [Mass/Vol] 33.0 g/dL 31 - 37 g/dL [facility] MCV (RBC) [Entitic vol] 96.2 fL 80 - 100 fL [facility] [facility] Nucleated RBC (Bld) [#/Vol] 0.00 10*3/uL [facility] Nucleated RBC/100 WBC (Bld) [Ratio] 0.0 % [facility] Platelet mean volume (Bld) [Entitic vol] 9.6 fL 9.4 - 12.4 fL [facility] Platelets (Bld) [#/Vol] 302 10*3/uL [facility] RBC (Bld) [#/Vol] 3.40 10*6/uL Low [facility] ealt WBC (Bld) [#/Vol] 20.14 10*3/uL High [facility] VERIFICATIONon 020 ABO and Rh group Nom (Bld) A Positive [facility] ABO and Rh group Nom (Bld) ABO/Rh Verification [facility] Patient's ABO/Rh is verified. [facility] XR LOW PELVIS 1-2 VIEWS (PAC U)on 09-28-2019 XR LOW PELVIS 1-2 VIEWS (PACU) EXAMINATION: XR LOW PELVIS 1-2 VIEWS (PACU) 09/28/2019 2:38 pm HISTORY: ORDERING SYSTEM PROVIDED HISTORY: s/p BILLIE, TECHNOLOGIST PROVIDED HISTORY: Illness/Other Reason for exam: s/p left BILLIE Cancer History: unk Surgery, RadiationHistory: s/p left BILLIE Encounter Type: Initial Additional signs and symptoms: ORDERING SYSTEM PROVIDED DIAGNOSIS CODES: COMPARISON: 08/26/2019. FINDINGS: Two AP views of the pelvis were obtained demonstrating postoperative changes from a left hip arthroplasty utilizing a long stem femoral component, with a nondisplaced transverse fracture involving the proximal diaphysis of the left femur. Associated subcutaneous emphysema with overlying skin angella. IMPRESSION: 1. Status post left hip arthroplasty with a nondisplaced transverse fracture involving the proximal diaphysis of the left femur. Suggest correlation with a cross-table lateral view of the left hip to include this region. DPR/tde Workstation ID: [id number] Dictated by: EKATERINA STEVE on SatSep 28, 2019 4:48:18 PM EDT Transcribed by: FABRICIO BEDOLLA on SatSep 28, 2019 5:27:17 PM EDT Finalized by: EKATERINA STEVE on SatSep 28, 2019 5:29:06 PM EDT [facility] Comment on above: Order Comment: Injur y/Trauma or Illness?:Illness/Other How long have you had these symptoms (acute/chronic)?:Acute Reason for exam?:s/p left BILLIE History of cancer?:unk Surgeries, chemotherapy, or radiation?:s/p left BILLIE Type of Exam?:Initial Additional signs and symptoms?: XR Low Pelvis 1-2 Views (PAC U)on 09-28-2019 1. Status post left hip arthroplasty with a nondisplaced transverse fracture involving the proximal diaphysis of the left femur. Suggest correlation with a cross-table lateral view of the left hip to include this region. DPR/VIAPe Workstation ID: [id number] [facility] EXAMINATION: XR LOW PELVIS 1-2 VIEWS (PACU) 09/28/2019 2:38 pm HISTORY: ORDERING SYSTEM PROVIDED HISTORY: s/p BILLIE, TECHNOLOGIST PROVIDED HISTORY: Illness/Other Reason for exam: s/p left BILLIE Cancer History: unk Surgery, RadiationHistory: s/p left BILLIE Encounter Type: Initial Additional signs and symptoms: ORDERING SYSTEM PROVIDED DIAGNOSIS CODES: COMPARISON: 08/26/2019. FINDINGS: Two AP views of the pelvis were obtained demonstrating postoperative changes from a left hip arthroplasty utilizing a long stem femoral component, with a nondisplaced transverse fracture involving the proximal diaphysis of the left femur. Associated subcutaneous emphysema with overlying skin angella. [facility] Interface, Rad In [facility] - 09/28/2019 5:31 PM EDT EXAMINATION: XR LOW PELVIS 1-2 VIEWS (PACU) 09/28/2019 2:38 pm HISTORY: ORDERING SYSTEM PROVIDED HISTORY: s/p BILLIE, TECHNOLOGIST PROVIDED HISTORY: Illness/Other Reason for exam: s/p left BILLIE Cancer History: unk Surgery, RadiationHistory: s/p left BILLIE Encounter Type: Initial Additional signs and symptoms: ORDERING SYSTEM PROVIDED DIAGNOSIS CODES: COMPARISON: 08/26/2019. FINDINGS: Two AP views of the pelvis were obtained demonstrating postoperative changes from a left hip arthroplasty utilizing a long stem femoral component, with a nondisplaced transverse fracture involving the proximal diaphysis of the left femur. Associated subcutaneous emphysema with overlying skin angella. IMPRESSION: 1. Status post left hip arthroplasty with a nondisplaced transverse fracture involving the proximal diaphysis of the left femur. Suggest correlation with a cross-table lateral view of the left hip to include this region. DPR/tde Workstation ID: [id number] [facility] SCAN OTHER ORDERSon 09-24-19 Ordered by an unspecified provider. [facility] CT HIP LEFT WITHOUT CONTRAST on 09-16-2019 CT HIP LEFT WITHOUT CONTRAST EXAMINATION: CT HIP LEFT WITHOUT CONTRAST HISTORY: ORDERING SYSTEM PROVIDED HISTORY: Primary osteoarthritis of left hip, TECHNOLOGIST PROVIDED HISTORY: Illness/Other Reason for exam: Primary osteoarthritis of left hip Encounter Type: Subsequent/Follow-up Additional signs and symptoms: Primary osteoarthritis of left hip ORDERING SYSTEM PROVIDED DIAGNOSIS CODES: M16.12 Primary osteoarthritis of left hip COMPARISON: Pelvis x-rays from 08/26/2019. TECHNIQUE: Dose reduction techniques were achieved by using automated exposure control and/or adjustment of mA and/or kV according to patient size and/or use of iterative reconstruction technique. 1 mm thick axial images were obtained through the pelvis and hips bilaterally with 2D reformatted images created in the coronal and sagittal planes. 2.5 mm thick axial images were also obtained through the knees bilaterally. FINDINGS: This study is performed for preoperative evaluation. The imaging of the knees demonstrates no acute bony abnormality. No significant joint effusion is identified in the knees. The left knee is asymmetrically higher than the right well seen on the coronal assembler tubing image. 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 The left femoral head is dislocated superiorly and laterally with a pseudoarticulation with the lateral aspect of the lower left iliac bone. The left acetabulum appears hypoplastic with irregularity, spurring and cystic change in the acetabulum on the left. No definite acute fracture is identified. The sacrum is intact. The proximal right femur is intact. There is relatively mild degenerative change of the right hip with mild joint space narrowing and mild spurring. There is no CT evidence of avascular necrosis involving the right femoral head. There is chronic deformity and flattening of the medial aspect of the left humeral head with moderate spurring along the superolateral and inferomedial aspect of the humeral head on the left. MRI would be more sensitive than CT for evaluation of the soft tissues. No asymmetric muscle atrophy is evident. No acute abnormality is identified involving visualized intrapelvic structures. IMPRESSION: 1. 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 2. 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 3. Relatively mild degenerative change involves the right hip. Split Workstation ID: [id number] Dictated by: MANDY VILLEGAS on SatSep 16, 2019 10:55:37 AM EDT Transcribed by: FREDY DEL ANGEL on SatSep 16, 2019 11:41:16 AM EDT Finalized by: MANDY VILLEGAS on SatSep 16, 2019 12:03:39 PM EDT Normal [facility] Comment on above: Order Comment: W/ JONAS KO PROTOCOL Injury/Trauma or Illness?:Illness/Other How long have you had these symptoms (acute/chronic)?:Chronic Reason for exam?:Primary osteoarthritis of left hip Type of Exam?:Subsequent/Follow-up Additional signs and symptoms?:Primary osteoarthritis of left hip CT Hip Left Without Contrast on 09-16-2019 1. 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 2. 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 3. Relatively mild degenerative change involves the right hip. Split Workstation ID: [id number] [facility] EXAMINATION: CT HIP LEFT WITHOUT CONTRAST HISTORY: ORDERING SYSTEM PROVIDED HISTORY: Primary osteoarthritis of left hip, TECHNOLOGIST PROVIDED HISTORY: Illness/Other Reason for exam: Primary osteoarthritis of left hip Encounter Type: Subsequent/Follow-up Additional signs and symptoms: Primary osteoarthritis of left hip ORDERING SYSTEM PROVIDED DIAGNOSIS CODES: M16.12 Primary osteoarthritis of left hip COMPARISON: Pelvis x-rays from 08/26/2019. TECHNIQUE: Dose reduction techniques were achieved by using automated exposure control and/or adjustment of mA and/or kV according to patient size and/or use of iterative reconstruction technique. 1 mm thick axial images were obtained through the pelvis and hips bilaterally with 2D reformatted images created in the coronal and sagittal planes. 2.5 mm thick axial images were also obtained through the knees bilaterally. FINDINGS: This study is performed for preoperative evaluation. The imaging of the knees demonstrates no acute bony abnormality. No significant joint effusion is identified in the knees. The left knee is asymmetrically higher than the right well seen on the coronal assembler tubing image. 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 The left femoral head is dislocated superiorly and laterally with a pseudoarticulation with the lateral aspect of the lower left iliac bone. The left acetabulum appears hypoplastic with irregularity, spurring and cystic change in the acetabulum on the left. No definite acute fracture is identified. The sacrum is intact. The proximal right femur is intact. There is relatively mild degenerative change of the right hip with mild joint space narrowing and mild spurring. There is no CT evidence of avascular necrosis involving the right femoral head. There is chronic deformity and flattening of the medial aspect of the left humeral head with moderate spurring along the superolateral and inferomedial aspect of the humeral head on the left. MRI would be more sensitive than CT for evaluation of the soft tissues. No asymmetric muscle atrophy is evident. No acute abnormality is identified involving visualized intrapelvic structures. [facility], Rad In [facility] - 09/16/2019 12:06 PM EDT EXAMINATION: CT HIP LEFT WITHOUT CONTRAST HISTORY: ORDERING SYSTEM PROVIDED HISTORY: Primary osteoarthritis of left hip, TECHNOLOGIST PROVIDED HISTORY: Illness/Other Reason for exam: Primary osteoarthritis of left hip Encounter Type: Subsequent/Follow-up Additional signs and symptoms: Primary osteoarthritis of left hip ORDERING SYSTEM PROVIDED DIAGNOSIS CODES: M16.12 Primary osteoarthritis of left hip COMPARISON: Pelvis x-rays from 08/26/2019. TECHNIQUE: Dose reduction techniques were achieved by using automated exposure control and/or adjustment of mA and/or kV according to patient size and/or use of iterative reconstruction technique. 1 mm thick axial images were obtained through the pelvis and hips bilaterally with 2D reformatted images created in the coronal and sagittal planes. 2.5 mm thick axial images were also obtained through the knees bilaterally. FINDINGS: This study is performed for preoperative evaluation. The imaging of the knees demonstrates no acute bony abnormality. No significant joint effusion is identified in the knees. The left knee is asymmetrically higher than the right well seen on the coronal assembler tubing image. 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 The left femoral head is dislocated superiorly and laterally with a pseudoarticulation with the lateral aspect of the lower left iliac bone. The left acetabulum appears hypoplastic with irregularity, spurring and cystic change in the acetabulum on the left. No definite acute fracture is identified. The sacrum is intact. The proximal right femur is intact. There is relatively mild degenerative change of the right hip with mild joint space narrowing and mild spurring. There is no CT evidence of avascular necrosis involving the right femoral head. There is chronic deformity and flattening of the medial aspect of the left humeral head with moderate spurring along the superolateral and inferomedial aspect of the humeral head on the left. MRI would be more sensitive than CT for evaluation of the soft tissues. No asymmetric muscle atrophy is evident. No acute abnormality is identified involving visualized intrapelvic structures. IMPRESSION: 1. 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 2. 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 3. Relatively mild degenerative change involves the right hip. [employer] Workstation ID: [id number] [facility] ) NARA MALCOLM ([id number]) 1975 F Date Time Provider Department 05/01/18 7:00 PM RUSSELL COLUNGA (CHANDNI) [facility] During your visit today, we recorded the following information about you: Temperature Pulse Respiration Blood pressure 97.6 degrees 92/minute 16/minute 136/74 Weight 78.7 kg Russell Colnuga APRN.CNP 05/01/2018 8:02 PM Signed Subjective HPI HPI Nara Malcolm is a 42 year old female who presents today for CC of right foot pain. This started today after jumping over a puddle, heard a snap. Has tried nothing for relief. Symptoms are worsened by walking. .Patient presents with: Foot Trauma: Right PAST MEDICAL HISTORY Diagnosis Date - Depression - Esophageal reflux - Esophagitis, unspecified - GERD (gastroesophageal reflux disease) - Hypercholesteremia PAST SURGICAL HISTORY Procedure Laterality Date - DELIVERY ONLY , low transverse - EGD W/O [facility] SPECIMEN W/BX 05/26/10 - LAPAROSCOPIC CHOLEYCYSTECTOMY 1999 Cholecystectomy, lap ALLERGIES Percocet [Oxycodone-Acetaminop hen] MEDICATIONS omeprazole (PRILOSEC) 10 mg capsule Take 10 mg by mouth once daily. QUEtiapine (SEROQUEL) 400 mg tablet Take 400 mg by mouth twice daily. rosuvastatin (CRESTOR) 40 mg tablet Take 40 mg by mouth once daily. cyclobenzaprine (FLEXERIL) 10 mg tablet Take 1 tablet by mouth three times daily as needed for Muscle Spasm. benzonatate (TESSALON PERLE) 100 mg capsule Take 2 capsules by mouth three times daily as needed. pantoprazole (PROTONIX) 40 mg ORAL tablet Take one(1) tablet daily. risperidone (RISPERDAL) 1 mg ORAL tablet Take one(1) tablet three times daily. sertraline (ZOLOFT) 100 mg ORAL tablet Take one(1) tablet two(2) times daily. simvastatin (ZOCOR) 40 mg ORAL tablet Take one(1) tablet daily. multivitamin ORAL tablet Take one(1) tablet daily. CALCIUM CARBONATE/VITAMIN D3 (CALCIUM + VITAMIN D ORAL) Take one(1) tablet daily. clindamycin (CLEOCIN) 150 mg capsule FAMILY HISTORY Problem Relation Age of Onset - Diabetes Mother - Prostate Cancer Father - COPD Father Social History Substance Use Topics - Smoking status: Current Every Day Smoker Packs/day: 1.50 Years: 20.00 Types: Cigarettes - Smokeless tobacco: Never Used - Alcohol use Yes Comment: Seldom a few sips ROS Objective Blood pressure 136/74, pulse 92, temperature 36.4 ?C (97.6 ?F), temperature source Left Tympanic, resp. rate 16, weight 78.7 kg (173 lb 9.6 oz). Physical Exam Constitutional: She is oriented to person, place, and time and well-developed, well-nourished, and in no distress. Non-toxic appearance. She does not have a sickly appearance. No distress. HENT: Head: Normocephalic and atraumatic. Cardiovascular: Pulses: Dorsalis pedis pulses are 2+ on the right side. Posterior tibial pulses are 2+ on the right side. Pulmonary/Chest: Effort normal. No accessory muscle usage. No respiratory distress. Musculoskeletal: Feet: Neurological: She is alert and oriented to person, place, and time. Skin: She is not diaphoretic. ASSESSMENT/PLAN: 1. Injury of right foot, initial encounter - ICD9: 959.7, ICD10: S99.921A -no bony abnormality noted on xray -given stretches/exercises -Rest, Ice, Compression, Elevation discussed -discussed use of ibuprofen -follow up with primary care if symptoms persist/worsen in 10-14 days -declined crutches, jose wrap applied - XR FOOT GENERAL 3V AP/LAT/OBL RT - Dictated by : WILSON MAURER MD Impression IMPRESSION: Negative for fracture. Prescription instructions reviewed with patient as applicable. Patient advised if symptoms do not improve or if symptoms worsen sooner, to contact the office for further evaluation by their primary care physician. Potential red flag symptoms discussed with the patient. Reviewed appropriate action plan to take if red flag symptoms occur. Patient agreeable to treatment plan. Russell Colunga APRN.CHANDNI Colunga APRN.CNP 05/01/2018 7:41 PM Signed ASSESSMENT/PLAN: 1. Injury of right foot, initial encounter - ICD9: 959.7, ICD10: S99.921A -no bony abnormality noted on xray -given stretches/exercises -Rest, Ice, Compression, Elevation discussed -discussed use of ibuprofen -follow up with primary care if symptoms persist/worsen in 10-14 days - XR FOOT GENERAL 3V AP/LAT/OBL RT Referring Provider: SELF [[id number]] Allergies As of Date: 05/01/2018 Noted Allergy Reaction PERCOCET (OXYCODONE-ACETAMINOP HEN)01/13/2018 9 - Itching Date Reviewed: 05/01/2018 Reviewed by: Russell Robertson) - Fully Assessed Reason for Visit: Foot Trauma [766] Cmt: Right Primary Visit Diagnosis:Injury of right foot, initial encounter [S99.921A] Order(s):XR FOOT GENERAL 3V AP/LAT/OBL RT [[id number]] Order #: [id number]. #:[id number] Prescriptions as of 05/01/2018 Sig: OMEPRAZOLE 10 MG CAPSULE,JANKI* Take 10 mg by mouth once bri* QUETIAPINE 400 MG TABLET Take 400 mg by mouth twice da* ROSUVASTATIN 40 MG TABLET Take 40 mg by mouth once bri* CYCLOBENZAPRINE 10 MG TABLET Take 1 tablet by mouth three * BENZONATATE 100 MG CAPSULE Take 2 capsules by mouth thre* * PANTOPRAZOLE 40 MG TABLET,DEL* Take one(1) tablet daily. * RISPERIDONE 1 MG TABLET Take one(1) tablet three time* * SERTRALINE 100 MG TABLET Take one(1) tablet two(2) aydee* * SIMVASTATIN 40 MG TABLET Take one(1) tablet daily. * MULTIVITAMIN TABLET Take one(1) tablet daily. * CALCIUM + VITAMIN D ORAL Take one(1) tablet daily. CLINDAMYCIN HCL 150 MG CAPSULE Problem List As Of Date 05/01/2018 Noted Resolved Esophageal reflux [K21.9] INVALID FOR* Esophagitis, unspecified [K20.9] INVALID FOR* Other instructions from your clinician: ASSESSMENT/PLAN: 1. Injury of right foot, initial encounter - ICD9: 959.7, ICD10: S99.921A -no bony abnormality noted on xray -given stretches/exercises -Rest, Ice, Compression, Elevation discussed -discussed use of ibuprofen -follow up with primary care if symptoms persist/worsen in 10-14 days - XR FOOT GENERAL 3V AP/LAT/OBL RT Encounter Status:Closed by RUSSELL COLUNGA CNP on 05/01/18 [facility] PROGRESSon 05-01-2018 Protein mass conc HNO ID: [id number] Author: Russell Robertson) Service: (none) Author Type: Nurse Practitioner Type: Progress Notes Filed: 05/01/2018 8:02 PM Note Text: Subjective HPI HPI Nara Malcolm is a 42 year old female who presents today for CC of right foot pain. This started today after jumping over a puddle, heard a snap. Has tried nothing for relief. Symptoms are worsened by walking. .Patient presents with: Foot Trauma: Right PAST MEDICAL HISTORY Diagnosis Date - Depression - Esophageal reflux - Esophagitis, unspecified - GERD (gastroesophageal reflux disease) - Hypercholesteremia PAST SURGICAL HISTORY Procedure Laterality Date - DELIVERY ONLY , low transverse - EGD W/O [facility] SPECIMEN W/BX 05/26/10 - LAPAROSCOPIC CHOLEYCYSTECTOMY 1999 Cholecystectomy, lap ALLERGIES Percocet [Oxycodone-Acetaminop hen] MEDICATIONS omeprazole (PRILOSEC) 10 mg capsule Take 10 mg by mouth once daily. QUEtiapine (SEROQUEL) 400 mg tablet Take 400 mg by mouth twice daily. rosuvastatin (CRESTOR) 40 mg tablet Take 40 mg by mouth once daily. cyclobenzaprine (FLEXERIL) 10 mg tablet Take 1 tablet by mouth three times daily as needed for Muscle Spasm. benzonatate (TESSALON PERLE) 100 mg capsule Take 2 capsules by mouth three times daily as needed. pantoprazole (PROTONIX) 40 mg ORAL tablet Take one(1) tablet daily. risperidone (RISPERDAL) 1 mg ORAL tablet Take one(1) tablet three times daily. sertraline (ZOLOFT) 100 mg ORAL tablet Take one(1) tablet two(2) times daily. simvastatin (ZOCOR) 40 mg ORAL tablet Take one(1) tablet daily. multivitamin ORAL tablet Take one(1) tablet daily. CALCIUM CARBONATE/VITAMIN D3 (CALCIUM + VITAMIN D ORAL) Take one(1) tablet daily. clindamycin (CLEOCIN) 150 mg capsule FAMILY HISTORY Problem Relation Age of Onset - Diabetes Mother - Prostate Cancer Father - COPD Father Social History Substance Use Topics - Smoking status: Current Every Day Smoker Packs/day: 1.50 Years: 20.00 Types: Cigarettes - Smokeless tobacco: Never Used - Alcohol use Yes Comment: Seldom a few sips ROS Objective Blood pressure 136/74, pulse 92, temperature 36.4 ?C (97.6 ?F), temperature source Left Tympanic, resp. rate 16, weight 78.7 kg (173 lb 9.6 oz). Physical Exam Constitutional: She is oriented to person, place, and time and well-developed, well-nourished, and in no distress. Non-toxic appearance. She does not have a sickly appearance. No distress. HENT: Head: Normocephalic and atraumatic. Cardiovascular: Pulses: Dorsalis pedis pulses are 2+ on the right side. Posterior tibial pulses are 2+ on the right side. Pulmonary/Chest: Effort normal. No accessory muscle usage. No respiratory distress. Musculoskeletal: Feet: Neurological: She is alert and oriented to person, place, and time. Skin: She is not diaphoretic. ASSESSMENT/PLAN: 1. Injury of right foot, initial encounter - ICD9: 959.7, ICD10: S99.921A -no bony abnormality noted on xray -given stretches/exercises -Rest, Ice, Compression, Elevation discussed -discussed use of ibuprofen -follow up with primary care if symptoms persist/worsen in 10-14 days -declined crutches, jose wrap applied - XR FOOT GENERAL 3V AP/LAT/OBL RT - Dictated by : WILSON MAURER MD Impression IMPRESSION: Negative for fracture. Prescription instructions reviewed with patient as applicable. Patient advised if symptoms do not improve or if symptoms worsen sooner, to contact the office for further evaluation by their primary care physician. Potential red flag symptoms discussed with the patient. Reviewed appropriate action plan to take if red flag symptoms occur. Patient agreeable to treatment plan. Russell Colunga APRN.STENCIL MAKER [facility] Protein mass conc HNO ID: [id number] Author: Paulina Greco Service: (none) Author Type: (none) Type: Progress Notes Filed: 05/01/2018 7:05 PM Note Text: Radiology Service Progress Note PATIENT NAME: Nara Malcolm DATE OF SERVICE: May 01, 2018 TIME: 6:58 PM PATIENT IDENTITY VERIFICATION COMPLETED USING TWO (2) METHODS: Patient confirmed name verbally and Date of . PATIENT GENDER DATA: Female. status: : No status: NO. PATIENT RELEVANT IMPLANT DATA REVIEWED: Not Applicable RADIOLOGY DEPARTMENT: General X-ray: Exam(s) Completed: Lower Extremity X-Ray(s): Foot, Right: PERIPHERAL IV DATA: Not applicable SIGNED BY: Paulina Greco May 01, 2018 6:58 PM [facility] XR FOOT 3V AP/LAT/OBL RTon 0 05-01-2018 XR FOOT 3V AP/LAT/OBL RT * * *Final Report* * * DATE OF EXAM: May 01 2018 7:05PM WOX [id number] - XR FOOT 3V AP/LAT/OBL RT / PROCEDURE REASON: Injury of right foot, initial encounter * * * * Physician Interpretation * * * * RIGHT FOOT: 05/01/2018 Indication: Injury. Pain 5th metatarsal bone. Views: AP erect right foot and left foot, oblique and nonweightbearing lateral right foot. There is no acute fracture or dislocation. Mild narrowing of several interphalangeal joints. IMPRESSION: Negative for fracture. Color Control Operator: [email or web address] Transcribe Date/Time: May 01 2018 7:35P Dictated by : WILSON MAURER MD This examination was interpreted and the report reviewed and electronically signed by: WILSON MAURER MD on May 01 2018 7:36PM EST [id number] N [facility] CNOVon 01-13-2018 CNOV Office Visit (UCWSTR ) NARA MALCOLM ([id number]) 1975 F Date Time Provider Department 01/13/18 1:15 PM RENA ESCOTO) [facility] During your visit today, we recorded the following information about you: Temperature Pulse Respiration Blood pressure 97.7 degrees 86/minute 16/minute 122/76 Weight 79.7 kg Rena Escoto PA-C 01/13/2018 3:19 PM Signed Subjective HPI Patient presents with multiple complaints. She states she has had a cough for 2 months as well as some fatigue. She is a smoker. Denies history of asthma. Cough has been nonproductive. No fever. No chest pain or shortness of breath. She also has noticed some lymph nodes on the back of her head that have been swollen off and on. She had been seen at another urgent care treated with antibiotics and it did improve but also had swollen back up after. She states sometimes it causes some neck pain. Patient also is having some lower back pain. This is been going on for 5 days. No injury or trauma. She does have chronic arthritis in her hips but this feels a little different. No pain radiating into her legs. She denies weakness numbness or tingling. No urinary retention or numbness in her groin area. She is able to ambulate. Worse when she tries to bend over or twists. Patient had called her primary doctor but they couldn't get her in today so she came in for evaluation. Review of Systems Constitutional: Positive for malaise/fatigue. Negative for chills, diaphoresis, fever and weight loss. HENT: Negative. Eyes: Negative. Respiratory: Positive for cough. Negative for sputum production, shortness of breath and wheezing. Cardiovascular: Negative. Musculoskeletal: Positive for back pain. Skin: Negative. Neurological: Negative for weakness. Endo/Heme/Allergies: Swollen lymph nodes All other systems reviewed and are negative. PAST MEDICAL HISTORY Diagnosis Date - Depression - Esophageal reflux - Esophagitis, unspecified - GERD (gastroesophageal reflux disease) - Hypercholesteremia Current Outpatient Prescriptions: omeprazole (PRILOSEC) 10 mg capsule Take 10 mg by mouth once daily. Disp: Rfl: QUEtiapine (SEROQUEL) 400 mg tablet Take 400 mg by mouth twice daily. Disp: Rfl: rosuvastatin (CRESTOR) 40 mg tablet Take 40 mg by mouth once daily. Disp: Rfl: sertraline (ZOLOFT) 100 mg ORAL tablet Take one(1) tablet two(2) times daily. Disp: Rfl: multivitamin ORAL tablet Take one(1) tablet daily. Disp: Rfl: CALCIUM CARBONATE/VITAMIN D3 (CALCIUM + VITAMIN D ORAL) Take one(1) tablet daily. Disp: Rfl: predniSONE (DELTASONE) 20 mg tablet Take 2 tablets by mouth once daily for 5 days. Disp: 10 tablet Rfl: 0 cyclobenzaprine (FLEXERIL) 10 mg tablet Take 1 tablet by mouth three times daily as needed for Muscle Spasm. Disp: 15 tablet Rfl: 0 benzonatate (TESSALON PERLE) 100 mg capsule Take 2 capsules by mouth three times daily as needed. Disp: 30 capsule Rfl: 0 pantoprazole (PROTONIX) 40 mg ORAL tablet Take one(1) tablet daily. Disp: Rfl: risperidone (RISPERDAL) 1 mg ORAL tablet Take one(1) tablet three times daily. Disp: Rfl: simvastatin (ZOCOR) 40 mg ORAL tablet Take one(1) tablet daily. Disp: Rfl: No current facility-administered medications for this visit. PAST SURGICAL HISTORY Procedure Laterality Date - DELIVERY ONLY , low transverse - EGD W/O BRSH SPECIMEN W/BX 05/26/10 - LAPAROSCOPIC CHOLEYCYSTECTOMY 2000 Cholecystectomy, lap FAMILY HISTORY Problem Relation Age of Onset - Diabetes Mother - Prostate Cancer Father - COPD Father Social History Substance Use Topics - Smoking status: Current Every Day Smoker Packs/day: 1.50 Years: 20.00 Types: Cigarettes - Smokeless tobacco: Never Used - Alcohol use Yes Comment: Seldom a few sips BP 122/76 Pulse 86 Temp 36.5 ?C (97.7 ?F) (Tympanic) Resp 16 Wt 79.7 kg (175 lb 12.8 oz) SpO2 99% Objective Physical Exam Constitutional: She is oriented to person, place, and time and well-developed, well-nourished, and in no distress. HENT: Head: Normocephalic and atraumatic. Right Ear: Tympanic membrane, external ear and ear canal normal. Left Ear: Tympanic membrane, external ear and ear canal normal. Nose: Nose normal. Mouth/Throat: Uvula is midline, oropharynx is clear and moist and mucous membranes are normal. Cardiovascular: Normal rate, regular rhythm and normal heart sounds. Pulmonary/Chest: Effort normal and breath sounds normal. No respiratory distress. She has no wheezes. She has no rales. Musculoskeletal: Exam of the back reveals tenderness to palpation in the midline lower lumbar back. No rash. Patient has pain with bending and twisting and lifting the right leg. She has full strength and sensation in lower extremities. DTRs intact and symmetrical bilaterally. She is able to ambulate around a antalgic gait. Lymphadenopathy: Head (right side): No submental, no submandibular, no tonsillar, no preauricular, no posterior auricular and no occipital adenopathy present. Head (left side): No submental, no submandibular, no tonsillar, no preauricular, no posterior auricular and no occipital adenopathy present. She has no cervical adenopathy. She has no axillary adenopathy. I did not feel any significant lymphadenopathy on exam Neurological: She is alert and oriented to person, place, and time. Skin: Skin is warm and dry. Psychiatric: Affect and judgment normal. Nursing note and vitals reviewed. ASSESSMENT/PLAN: 1. Lumbar back pain - ICD9: 724.2, ICD10: M54.5 (primary x-rays show some degenerative arthritis and degenerative disc disease. Placed on prednisone and given a muscle relaxer. Instructed on a heating pad or ice, R feels better. Limited lifting or twisting over the next week. Follow up with PCP if not improving. - XR LUMBAR GENERAL 3V AP/LAT/L5-S1 - XR CHEST 2V FRONTAL/LAT - UA DIP, URINE (POC) 2. Cough - ICD9: 786.2, ICD10: R05 Chest x-ray here negative. Likely chronic smoker's cough. Given Tessalon. Follow up with PCP if not improving. 3. Lymphadenopathy, generalized - ICD9: 785.6, ICD10: R59.1 Did not appreciate any lymphadenopathy on exam today however patient complains that has been coming and going. Instructed to follow-up with PCP regarding this. Rena Escoto PA-C Referring Provider: SELF [[id number]] Allergies As of Date: 01/13/2018 Noted Allergy Reaction PERCOCET (OXYCODONE-ACETAMINOP HEN)01/13/2018 9 - Itching Date Reviewed: 01/13/2018 Reviewed by: Dalia Bashir LPN - Fully Assessed Reason for Visit: cpough, swollen lymph nodes in neck, fatigue and lower right [Other] Cmt: fall- s fall- d a co- ug- h x 2 mo- nt- hs an- d th- e ot- he- r sy- mp- to- ms x 5 da- ys Primary Visit Diagnosis:Lumbar back pain [M54.5] Other Visit Diagnoses:Cough [R05] Lymphadenopathy, generalized [R59.1] Order(s):XR LUMBAR GENERAL 3V AP/LAT/L5-S1 [[id number]] Order #: [id number] FUTURE XR CHEST 2V FRONTAL/LAT [[id number]] Order #: [id number] FUTURE UA DIP, URINE (POC) [[id number]] Order #: [id number]. #:[id number] predniSONE (DELTASONE) 20 mg tabletTake 2 tablets by mouth once daily for 5 days.Disp: 10 tabletRfl: 0 cyclobenzaprine (FLEXERIL) 10 mg tabletTake 1 tablet by mouth three times daily as needed for Muscle Spasm.Disp: 15 tabletRfl: 0 benzonatate (TESSALON PERLE) 100 mg capsuleTake 2 capsules by mouth three times daily as needed.Disp: 30 capsuleRfl: 0 Prescriptions as of 01/13/2018 Sig: OMEPRAZOLE 10 MG CAPSULE,JANKI* Take 10 mg by mouth once bri* QUETIAPINE 400 MG TABLET Take 400 mg by mouth twice da* ROSUVASTATIN 40 MG TABLET Take 40 mg by mouth once bri* * SERTRALINE 100 MG TABLET Take one(1) tablet two(2) aydee* * MULTIVITAMIN TABLET Take one(1) tablet daily. * CALCIUM + VITAMIN D ORAL Take one(1) tablet daily. PREDNISONE 20 MG TABLET Take 2 tablets by mouth once * CYCLOBENZAPRINE 10 MG TABLET Take 1 tablet by mouth three * BENZONATATE 100 MG CAPSULE Take 2 capsules by mouth thre* * PANTOPRAZOLE 40 MG TABLET,DEL* Take one(1) tablet daily. * RISPERIDONE 1 MG TABLET Take one(1) tablet three time* * SIMVASTATIN 40 MG TABLET Take one(1) tablet daily. Problem List As Of Date 01/13/2018 Noted Resolved Esophageal reflux [K21.9] INVALID FOR* Esophagitis, unspecified [K20.9] INVALID FOR* Prescriptions ordered this encounter Disp Refills Start End PREDNISONE 20 MG TABLET 10 t* 0 01/13/2018 01/18/2018 Route: ORAL Sig: Take 2 tablets by mouth once daily for 5 days. CYCLOBENZAPRINE 10 MG TABLET 15 t* 0 01/13/2018 Route: ORAL Sig: Take 1 tablet by mouth three times daily as needed for Muscle Spasm. BENZONATATE 100 MG CAPSULE 30 c* 0 01/13/2018 Route: ORAL Sig: Take 2 capsules by mouth three times daily as needed. Encounter Status:Closed by RENA ESCOTO PA-C on 01/13/18 [facility] PROGRESSon 01-13-2018 Protein mass conc HNO ID: [id number] Author: Rena Escoto (Pa) Service: (none) Author Type: Physician Tensioning Machine Operator Type: Progress Notes Filed: 01/13/2018 3:19 PM Note Text: Subjective HPI Patient presents with multiple complaints. She states she has had a cough for 2 months as well as some fatigue. She is a smoker. Denies history of asthma. Cough has been nonproductive. No fever. No chest pain or shortness of breath. She also has noticed some lymph nodes on the back of her head that have been swollen off and on. She had been seen at another urgent care treated with antibiotics and it did improve but also had swollen back up after. She states sometimes it causes some neck pain. Patient also is having some lower back pain. This is been going on for 5 days. No injury or trauma. She does have chronic arthritis in her hips but this feels a little different. No pain radiating into her legs. She denies weakness numbness or tingling. No urinary retention or numbness in her groin area. She is able to ambulate. Worse when she tries to bend over or twists. Patient had called her primary doctor but they couldn't get her in today so she came in for evaluation. Review of Systems Constitutional: Positive for malaise/fatigue. Negative for chills, diaphoresis, fever and weight loss. HENT: Negative. Eyes: Negative. Respiratory: Positive for cough. Negative for sputum production, shortness of breath and wheezing. Cardiovascular: Negative. Musculoskeletal: Positive for back pain. Skin: Negative. Neurological: Negative for weakness. Endo/Heme/Allergies: Swollen lymph nodes All other systems reviewed and are negative. PAST MEDICAL HISTORY Diagnosis Date - Depression - Esophageal reflux - Esophagitis, unspecified - GERD (gastroesophageal reflux disease) - Hypercholesteremia Current Outpatient Prescriptions: omeprazole (PRILOSEC) 10 mg capsule Take 10 mg by mouth once daily. Disp: Rfl: QUEtiapine (SEROQUEL) 400 mg tablet Take 400 mg by mouth twice daily. Disp: Rfl: rosuvastatin (CRESTOR) 40 mg tablet Take 40 mg by mouth once daily. Disp: Rfl: sertraline (ZOLOFT) 100 mg ORAL tablet Take one(1) tablet two(2) times daily. Disp: Rfl: multivitamin ORAL tablet Take one(1) tablet daily. Disp: Rfl: CALCIUM CARBONATE/VITAMIN D3 (CALCIUM + VITAMIN D ORAL) Take one(1) tablet daily. Disp: Rfl: predniSONE (DELTASONE) 20 mg tablet Take 2 tablets by mouth once daily for 5 days. Disp: 10 tablet Rfl: 0 cyclobenzaprine (FLEXERIL) 10 mg tablet Take 1 tablet by mouth three times daily as needed for Muscle Spasm. Disp: 15 tablet Rfl: 0 benzonatate (TESSALON PERLE) 100 mg capsule Take 2 capsules by mouth three times daily as needed. Disp: 30 capsule Rfl: 0 pantoprazole (PROTONIX) 40 mg ORAL tablet Take one(1) tablet daily. Disp: Rfl: risperidone (RISPERDAL) 1 mg ORAL tablet Take one(1) tablet three times daily. Disp: Rfl: simvastatin (ZOCOR) 40 mg ORAL tablet Take one(1) tablet daily. Disp: Rfl: No current facility-administered medications for this visit. PAST SURGICAL HISTORY Procedure Laterality Date - DELIVERY ONLY , low transverse - EGD W/O BRSH SPECIMEN W/BX 05/26/10 - LAPAROSCOPIC CHOLEYCYSTECTOMY 1999 Cholecystectomy, lap FAMILY HISTORY Problem Relation Age of Onset - Diabetes Mother - Prostate Cancer Father - COPD Father Social History Substance Use Topics - Smoking status: Current Every Day Smoker Packs/day: 1.50 Years: 20.00 Types: Cigarettes - Smokeless tobacco: Never Used - Alcohol use Yes Comment: Seldom a few sips BP 122/76 Pulse 86 Temp 36.5 ?C (97.7 ?F) (Tympanic) Resp 16 Wt 79.7 kg (175 lb 12.8 oz) SpO2 99% Objective Physical Exam Constitutional: She is oriented to person, place, and time and well-developed, well-nourished, and in no distress. HENT: Head: Normocephalic and atraumatic. Right Ear: Tympanic membrane, external ear and ear canal normal. Left Ear: Tympanic membrane, external ear and ear canal normal. Nose: Nose normal. Mouth/Throat: Uvula is midline, oropharynx is clear and moist and mucous membranes are normal. Cardiovascular: Normal rate, regular rhythm and normal heart sounds. Pulmonary/Chest: Effort normal and breath sounds normal. No respiratory distress. She has no wheezes. She has no rales. Musculoskeletal: Exam of the back reveals tenderness to palpation in the midline lower lumbar back. No rash. Patient has pain with bending and twisting and lifting the right leg. She has full strength and sensation in lower extremities. DTRs intact and symmetrical bilaterally. She is able to ambulate around a antalgic gait. Lymphadenopathy: Head (right side): No submental, no submandibular, no tonsillar, no preauricular, no posterior auricular and no occipital adenopathy present. Head (left side): No submental, no submandibular, no tonsillar, no preauricular, no posterior auricular and no occipital adenopathy present. She has no cervical adenopathy. She has no axillary adenopathy. I did not feel any significant lymphadenopathy on exam Neurological: She is alert and oriented to person, place, and time. Skin: Skin is warm and dry. Psychiatric: Affect and judgment normal. Nursing note and vitals reviewed. ASSESSMENT/PLAN: 1. Lumbar back pain - ICD9: 724.2, ICD10: M54.5 (primary x-rays show some degenerative arthritis and degenerative disc disease. Placed on prednisone and given a muscle relaxer. Instructed on a heating pad or ice, R feels better. Limited lifting or twisting over the next week. Follow up with PCP if not improving. - XR LUMBAR GENERAL 3V AP/LAT/L5-S1 - XR CHEST 2V FRONTAL/LAT - UA DIP, URINE (POC) 2. Cough - ICD9: 786.2, ICD10: R05 Chest x-ray here negative. Likely chronic smoker's cough. Given Tessalon. Follow up with PCP if not improving. 3. Lymphadenopathy, generalized - ICD9: 785.6, ICD10: R59.1 Did not appreciate any lymphadenopathy on exam today however patient complains that has been coming and going. Instructed to follow-up with PCP regarding this. Rena Escoto PA-C [facility] Protein mass conc HNO ID: [id number] Author: Paulina Greco Service: (none) Author Type: (none) Type: Progress Notes Filed: 01/13/2018 1:52 PM Note Text: Radiology Service Progress Note PATIENT NAME: Nara Malcolm DATE OF SERVICE: January 13, 2018 TIME: 1:40 PM PATIENT IDENTITY VERIFICATION COMPLETED USING TWO (2) METHODS: Patient confirmed name verbally and Date of . PATIENT GENDER DATA: Female. status: : No status: NO. PATIENT RELEVANT IMPLANT DATA REVIEWED: Not Applicable RADIOLOGY DEPARTMENT: General X-ray: Exam(s) Completed: Chest X-Ray Spine X-Ray(s): Lumbar AP / LAT / L5-S1 PERIPHERAL IV DATA: Not applicable SIGNED BY: Paulina Greco January 13, 2018 1:40 PM [facility] XR CHEST 2V FRONTAL/LATon XR CHEST 2V FRONTAL/LAT * * *Final Report* * * DATE OF EXAM: Jan 13 2018 1:52PM WOX [id number] - XR CHEST 2V FRONTAL/LAT / PROCEDURE REASON: Lumbar back pain * * * * Physician Interpretation * * * * EXAMINATION: CHEST RADIOGRAPH (2 VIEW FRONTAL and LATERAL) CLINICAL HISTORY: Chronic cough MQ: XC2_5 Comparison: RESULT: Lines, tubes, and devices: None. Lungs and pleura: No consolidation. No lung mass. No pleural effusion. Cardiomediastinal silhouette: Normal cardiomediastinal silhouette. Other: . IMPRESSION: No acute radiographic abnormality. Color Control Operator: [email or web address] Transcribe Date/Time: Jan 13 2018 1:54P Dictated by : DEL FRIEND MD This examination was interpreted and the report reviewed and electronically signed by: DEL FRIEND MD on Jan 13 2018 1:55PM EST [id number] [facility] XR LUMBAR 3V AP/LAT/L5-S1on 01-13-2018 XR LUMBAR 3V AP/LAT/L5-S1 * * *Final Report* * * DATE OF EXAM: Jan 13 2018 1:52PM WOX [id number] - XR LUMBAR 3V AP/LAT/L5-S1 / PROCEDURE REASON: Lumbar back pain * * * * Physician Interpretation * * * * EXAM TITLE: XR LUMBAR 3V AP/LAT/L5-S1 EXAM DATE/TIME: 01/13/2018 1:52 PM COMPARISON: None. CLINICAL INDICATION/HISTORY: Back pain. TECHNIQUE: AP, lateral and cone down lateral views of the lumbar spine are presented. FINDINGS: There are five hei-ymj-nzhpirq lumbar vertebra. No fracture or subluxations are noted. The disc spaces are preserved in the lumbar spine; however, T11-12 disc space narrowing is noted. There is mild to moderate osteophyte formation. IMPRESSION: Degenerative changes of the spine as described above. Color Control Operator: devsisters Transcribe Date/Time: Jan 13 2018 1:55P Dictated by : ELLY LEMUS MD This examination was interpreted and the report reviewed and electronically signed by: ELLY LEMUS MD on Jan 13 2018 1:56PM EST [id number] N [facility] CBC (AO)on 09-28-2016 Basophils Auto #/vol (Bld) 0.10 10 3/mcL Normal 0.00-0.19 [facility] Comment on above: Performed By: #### C BCO ####[address] [address] Basophils/100 WBC Auto (Bld) 0.8 % Normal 0.0-2.5 [facility] Comment on above: Performed By: #### C BCO ####[address] [address] Eosinophils 0.10 10 3/mcL Normal 0.00-0.40 [facility] Comment on above: Performed By: #### C BCO ####[address] [address] Eosinophils/100 leukocytes 1.4 % Normal 0.0-7.0 [facility] Comment on above: Performed By: #### C BCO ####[address] [address] Erythrocyte distribution width Auto Ratio (RBC) 14.8 % High 11.5-14.5 [facility] Comment on above: Performed By: #### C BCO ####[address] [address] Erythrocytes (RBC) 4.35 10 6/mcL Normal 4.20-5.40 [facility] Comment on above: Performed By: #### C BCO ####[address] [address] Hematocrit (HCT) 40.4 % Normal 37.0-47.0 [facility] Comment on above: Performed By: #### C BCO ####[address] [address] Hemoglobin mass conc (Bld) 13.4 G/dL Normal 12.0-16.0 [facility] Comment on above: Performed By: #### C BCO ####[address] [address] Lymphocytes 2.80 10 3/mcL Normal 0.77-3.85 [facility] Comment on above: Performed By: #### C BCO ####[address] [address] Lymphocytes/100 leukocytes 29.7 % Normal 10.0-50.0 [facility] Comment on above: Performed By: #### C BCO ####[address] [address] MCH 30.7 pg Normal 27.0-31.2 [facility] Comment on above: Performed By: #### C BCO ####[place] [address] [address] MCHC mass conc (RBC) 33.1 G/dL Normal 33.0-37.0 [facility] Comment on above: Performed By: #### C BCO ####[address] [address] MCV 92.8 fL Normal 80.0-94.0 [facility] Comment on above: Performed By: #### C BCO ####[address] [address] Monocytes 0.60 10 3/mcL Normal 0.15-1.00 [facility] Comment on above: Performed By: #### C BCO ####[address] [address] Monocytes/100 leukocytes 6.5 % Normal 1.7-13.0 [facility] Comment on above: Performed By: #### C BCO ####[address] [address] Neutrophils 5.80 10 3/mcL Normal 2.85-6.16 [facility] Comment on above: Performed By: #### C BCO ####[address] [address] Neutrophils/100 WBC Auto (Bld) 61.6 % Normal 37.0-80.0 [facility] Comment on above: Performed By: #### C BCO ####[address] [address] Platelet mean volume (PMV) 8.0 fL Normal 7.4-10.4 [facility] Comment on above: Performed By: #### C BCO ####[place] [address] [address] Platelets 357 10 3/mcL Normal 130-400 [facility] Comment on above: Performed By: #### C BCO ####[place] [address] [address] WBC (Leukocytes) 9.40 10 3/mcL Normal 4.60-10.80 [facility] Comment on above: Performed By: #### C BCO ####[place] [address] [address] Comp. Metabolic Panelon 07-0 Alanine aminotransferase (ALT) 13 U/L Normal 10-35 [facility] Comment on above: Performed By: #### C MP ####[place] [address] [address] Albumin/Globulin Ratio 1.4 {ratio} Normal 1.1-2.5 [facility] Comment on above: Performed By: #### C MP ####[address] [address] Alk. Phosphatase 90 IU/L Normal 40-135 [facility] Comment on above: Performed By: #### C MP ####[address] [address] Aspartate aminotransferase (AST) 14 U/L Normal 10-40 [facility] Comment on above: Performed By: #### C MP ####[address] [address] Bilirubin (direct) 0.2 mg/dL Normal 0.2-1.0 [facility] Comment on above: Performed By: #### C MP ####[address] [address] Globulin 2.9 G/dL Normal [facility] Comment on above: Performed By: #### C MP ####[address] [address] Glucose mass conc 105 mg/dL Normal 70-105 [facility] Comment on above: Performed By: #### C MP ####[address] [address] T. Protein 7.0 G/dL Normal 6.0-8.3 [facility] Comment on above: Performed By: #### C MP ####[address] [address] BUN/Creatinine Ratio 16 mg/mg Normal 7-27 [facility] Comment on above: Performed By: #### C MP ####[address] [address] Calcium 9.1 mg/dL Normal 8.4-10.2 [facility] Comment on above: Performed By: #### C MP ####[address] [address] Creatinine 0.5 mg/dL Low 0.6-1.2 [facility] Comment on above: Performed By: #### C MP ####[place] [id number] CO2 28 mmol/L Normal 22-29 [facility] Comment on above: Performed By: #### C MP ####[address] [address] Electrolyte Balance 8.0 mEq/L Normal [facility] Comment on above: Performed By: #### C MP ####[address] [address] Albumin 4.1 G/dL Normal 3.5-5.0 [facility] Comment on above: Performed By: #### C MP ####[address] [address] Urea nitrogen 8 mg/dL Normal 7-18 [facility] Comment on above: Performed By: #### C MP ####[place] [address] [address] Chloride 103 mmol/L Normal 98-107 [facility] Comment on above: Performed By: #### C MP ####[place] [address] [address] Potassium molar conc 4.0 mmol/L Normal 3.5-5.1 [facility] Comment on above: Performed By: #### C MP ####[place] [address] [address] Sodium 139 mmol/L Normal 136-146 [facility] Comment on above: Performed By: #### C MP ####[address] [address] Glomerular Filtration Rate E stimateon 09-28-2016 eGFR (non-black) mL/min/{1.73_m2} Normal [facility] Comment on above: Result Comment: Odalys garcía mean GFR = 99 mL/min/1.73 sq.m. for ages 40-49 years. Chronic Kidney Disease: Less than 60 mL/min/1.73 square metersEnd Stage Renal Disease: Less than 15 mL/min/1.73 square meters Performed By: #### G FR ####[address] [address] HDL Cholesterol Profileon Cholesterol 167 mg/dL Normal 131-200 [facility] Comment on above: Result Comment: Chol esterol Reference Interval: Less than 200 Desirable 200-239 Borderline high risk 240 and above High risk ---- Performed By: #### L IPID ####[place] [address] [address] LDL Cholesterol 85 mg/dL Normal 0-130 [facility] Comment on above: Result Comment: LDL is a calculated result and requires a 12- hr fast. LDL Reference Interval: Less than 100 Optimal 100-129 Near or above optimal 130-159 Borderline high risk 160-189 High risk 190 and above Very high risk ----- Performed By: #### L IPID ####Lissa [address] [address] HDL Cholesterol 50 mg/dL Normal 35-90 [facility] Comment on above: Result Comment: HDL Reference Interval: Less than 40 Low - high risk 60 or above Optimal/lowers risk ---- Performed By: #### L IPID ####Lissa [address] [address] Triglyceride 162 mg/dL High 40-150 [facility] Comment on above: Result Comment: Trig lyceride Reference Interval: Less than 150 Normal 150-199 Borderline high risk 200-499 High risk 500 or higher Very high risk ---- Performed By: #### L IPID ####Lissa [address] [address] TSHon 09-28-2016 Thyroid stimulating hormone (TSH) 3.23 mcIU/mL Normal 0.27-4.20 [facility] Comment on above: Performed By: #### T SH ####Lissa [address] [address] Vital Signs Date Time Vital Sign Value Performing Clinician Facility 07-15-2023 10:07-0400 Body height 160.[address] Nicolette Khan Work Phone: [facility] 07-15-2023 10:07-0400 Body mass index (BMI) [Ratio] 30.1 kg/m2 Dr. Nicolette Khan Work Phone: [facility] 07-15-2023 10:07-0400 Body weight 77.[address] Nicolette Khan Work Phone: [facility] 03-28-2023 11:01-0500 Body height 160.[address] Nicolette Khan Work Phone: [facility] 03-28-2023 11:01-0500 Body mass index (BMI) [Ratio] 28.9 kg/m2 Dr. Nicolette Khan Work Phone: [facility] 03-28-2023 11:01-0500 Body temperature 98.1 [degF] Dr. Nicolette Khan Work Phone: [facility] 03-28-2023 11:01-0500 Body weight 74.[address] Nicolette hKan Work Phone: [facility] 03-28-2023 11:01-0500 Diastolic blood pressure 68 mm[Hg] Dr. Nicolette Khan Work Phone: [facility] 03-28-2023 11:01-0500 Heart rate 85 /min Dr. Nicolette Khan Work Phone: [facility] 03-28-2023 11:01-0500 Respiratory rate 15 /min Dr. Nicolette Khan Work Phone: [facility] 03-28-2023 11:01-0500 SaO2% (BldA) [Mass fraction] 98 % Dr. Nicolette Khan Work Phone: [facility] 03-28-2023 11:01-0500 Systolic blood pressure 124 mm[Hg] Dr. Nicolette Khan Work Phone: [facility] 12-22-2022 18:43-0400 Diastolic blood pressure 74 mm[Hg] Dr. Nicolette Khan Work Phone: [facility] 12-22-2022 18:43-0400 Heart rate 68 /min Dr. Nicolette Khan Work Phone: [facility] 12-22-2022 18:43-0400 Respiratory rate 16 /min Dr. Nicolette Khan Work Phone: [facility] 12-22-2022 18:43-0400 SaO2% (BldA) [Mass fraction] 98 % Dr. Nicolette Khan Work Phone: [facility] 12-22-2022 18:43-0400 Systolic blood pressure 120 mm[Hg] Dr. Nicolette Khan Work Phone: [facility] 12-22-2022 15:30-0400 Body height 160.[address] Nicolette Khan Work Phone: [facility] 12-22-2022 15:30-0400 Body mass index (BMI) [Ratio] 29.5 kg/m2 Dr. Nicolette Khan Work Phone: [facility] 12-22-2022 15:30-0400 Body temperature 97.6 [degF] Dr. Nicolette Khan Work Phone: [facility] 12-22-2022 15:30-0400 Body weight 75.[address] Nicolette Khan Work Phone: [facility] 12-22-2022 08:24-0400 Diastolic blood pressure 73 mm[Hg] Dr. Nicolette Khan Work Phone: [facility] 12-22-2022 08:24-0400 Heart rate 81 /min Dr. Nicolette Khan Work Phone: [facility] 12-22-2022 08:24-0400 Respiratory rate 16 /min Dr. Nicolette Khan Work Phone: [facility] 12-22-2022 08:24-0400 SaO2% (BldA) [Mass fraction] 98 % Dr. Nicolette Khan Work Phone: [facility] 12-22-2022 08:24-0400 Systolic blood pressure 132 mm[Hg] Dr. Nicolette Khan Work Phone: [facility] 12-22-2022 06:01-0400 Body mass index (BMI) [Ratio] 30.2 kg/m2 Dr. Nicolette Khan Work Phone: [facility] 12-22-2022 06:01-0400 Body temperature 98.3 [degF] Dr. Nicolette Khan Work Phone: [facility] 12-22-2022 06:01-0400 Body weight 77.[address] Nicolette Khan Work Phone: [facility] 12-21-2022 07:30-0400 Body temperature 98.7 [degF] Dr. Nicolette Khan Work Phone: [facility] 12-21-2022 07:30-0400 Diastolic blood pressure 76 mm[Hg] Dr. Nicolette Khan Work Phone: [facility] 12-21-2022 07:30-0400 Heart rate 86 /min Dr. Nicolette Khan Work Phone: [facility] 12-21-2022 07:30-0400 Respiratory rate 15 /min Dr. Nicolette Khan Work Phone: [facility] 12-21-2022 07:30-0400 SaO2% (BldA) [Mass fraction] 95 % Dr. Nicolette Khan Work Phone: [facility] 12-21-2022 07:30-0400 Systolic blood pressure 134 mm[Hg] Dr. Nicolette Khan Work Phone: [facility] 12-16-2022 10:45-0400 Body mass index (BMI) [Ratio] 29.4 kg/m2 Dr. Nicolette Khan Work Phone: [facility] 12-16-2022 10:45-0400 Body temperature 98.2 [degF] Dr. Nicolette Khan Work Phone: [facility] 12-16-2022 10:45-0400 Body weight 75.[address] Nicolette Khan Work Phone: [facility] 12-16-2022 10:45-0400 Diastolic blood pressure 80 mm[Hg] Dr. Nicolette Khan Work Phone: [facility] 12-16-2022 10:45-0400 Heart rate 91 /min Dr. Nicolette Khan Work Phone: [facility] 12-16-2022 10:45-0400 Respiratory rate 18 /min Dr. Nicolette Khan Work Phone: [facility] 12-16-2022 10:45-0400 SaO2% (BldA) [Mass fraction] 97 % Dr. Nicolette Khan Work Phone: [facility] 12-16-2022 10:45-0400 Systolic blood pressure 118 mm[Hg] Dr. Nicolette Khan Work Phone: [facility] 06-26-2022 11:00-0400 Body height 160 cm Faith Munson [employer] Work Phone: [facility] 06-26-2022 11:00-0400 Body mass index (BMI) [Ratio] 29.41 kg/m2 Faith Munson [employer] Work Phone: [facility] 06-26-2022 11:00-0400 Body weight 75.3 kg Faith Munson [employer] Work Phone: [facility] 04-27-2022 09:08-0500 Body height 160 cm Faith Munson [employer] Work Phone: [facility] 04-27-2022 09:08-0500 Body mass index (BMI) [Ratio] 29.41 kg/m2 Faith Munson CNP Work Phone: [facility] 04-27-2022 09:08-0500 Body weight 75.3 kg Faith Munson CNP Work Phone: [facility] 11-02-2021 11:50-0400 Body height 162.56 cm No PCP None [facility] Work Phone: 11-02-2021 11:50-0400 Body mass index (BMI) [Ratio] 28.86 kg/m2 No PCP None [facility] Work Phone: 11-02-2021 11:50-0400 Body surface area Derived from formula 1.82 m2 No PCP None [facility] Work Phone: 11-02-2021 11:50-0400 Body temperature 97.5 [degF] No PCP None [facility] Work Phone: 11-02-2021 11:50-0400 Body weight 76.26 kg No PCP None [facility] Work Phone: 11-18-2019 15:15-0400 Pulse (Heart Rate) 75 /min [facility] 11-18-2019 15:15-0400 Pulse Oximetry 96 % [facility] 11-18-2019 15:15-0400 Respiratory Rate 20 /min [facility] 11-18-2019 15:00-0400 BP Diastolic 79 mm[Hg] [facility] 11-18-2019 15:00-0400 BP Systolic 124 mm[Hg] [facility] 11-18-2019 13:58-0400 Body Temperature 97.11 [degF] [facility] 11-17-2019 18:19-0400 BMI (Body Mass Index) 31.29 kg/m2 [facility] 11-17-2019 18:19-0400 Body weight 81.65 kg [facility] 11-17-2019 18:19-0400 Height 161.5 cm [facility] 07-08-2020 12:59-0400 Respiratory Rate 16 /min [facility] 09-30-2019 12:01-0400 BP Diastolic 65 mm[Hg] [facility] 09-30-2019 12:01-0400 BP Systolic 120 mm[Hg] [facility] 09-30-2019 12:01-0400 Pulse (Heart Rate) 99 /min [facility] 09-30-2019 12:01-0400 Pulse Oximetry 93 % [facility] 09-30-2019 07:53-0400 Body Temperature 98.8 [degF] [facility] 09-29-2019 23:00-0400 BMI (Body Mass Index) 31.36 kg/m2 [facility] 09-29-2019 23:00-0400 Body weight 80.3 kg [facility] 09-29-2019 23:00-0400 Height 160 cm [facility] Encounters Encounter Date Encounter Type Care Provider Facility Start: 10-23-2024 ambulatory Nicolette Khan Facility :[facility] Start: 08-11-2024 Encounter for genera l adult medical examination without abnormal findings Nicolette Oterolay [facility] Start: 08-05-2024 End: 08-05-2024 ambulatory Nicolette Erin Facility:[facility] Start: 07-15-2023 End: 07-15-[address] Nicolette Khan Work Phone: [facility] Work Phone: Start: 07-09-2023 End: 07-09-[address] Nicolette Khan Work Phone: [facility] Work Phone: Start: 07-09-2023 End: 07-09-[address] Nicolette Khan Work Phone: [facility] Work Phone: Start: 06-04-2023 End: 06-08-2023 ambulatory FAITH MI MUNSON [facility] Start: 06-04-2023 End: 06-04-2023 Office outpatient visit 25 minutes Faith Munson CNP Work Phone: [facility] Comment on above: Trigger middle finge r of left hand (Primary Dx) Start: 03-28-2023 End: 03-28-[address] Nicolette Khan Work Phone: [facility] Work Phone: Start: 03-28-2023 End: 03-28-[address] Nicolette Khan Work Phone: [facility]-Laboratory, Specimen Work Phone: Start: 03-28-2023 End: 03-28-[address] Nicolette Khan Work Phone: [facility] Work Phone: Start: 12-27-2022 End: 12-27-2022 Emergency department patient visit JONI RUBALCAVA MD Facility:B Start: 12-22-2022 End: 12-22-2022 Emergency department patient visit Dr. Nicolette Khan Work Phone: [facility]Emergency Department Work Phone: Start: 12-22-2022 End: 12-22-2022 Emergency department patient visit Dr. Nicolette Khan Work Phone: [facility] Work Phone: Start: 12-21-2022 End: 12-21-[address] Nicolette Khan Work Phone: [facility] Work Phone: Start: 12-16-2022 End: 12-16-[address] Nicolette Khan Work Phone: [facility] Work Phone: Start: 11-08-2022 End: 11-09-2022 ambulatory NICOLETTE M ERIN DO Facility:[facility] Start: 11-08-2022 End: 11-08-2022 Patient encounter procedure NICOLETTE Nowak ERIN DO [facility] Start: 10-19-2022 End: 10-19-2022 ambulatory [facility] Work Phone: Start: 10-19-2022 End: 10-19-2022 Patient encounter procedure [facility]Outpatient Breast Imaging Work Phone: Start: 10-12-2022 End: 10-12-2022 ambulatory [facility] Start: 09-28-2022 End: 09-28-2022 ambulatory [facility] Start: 07-30-2022 Documentation procedure Gladys Aparicio LPN [facility] Start: 07-27-2022 Documentation procedure Gladys Aparicio LPN [facility] Start: 06-26-2022 End: 06-26-2022 [facility] Start: 06-26-2022 End: 06-26-2022 Office outpatient visit 15 minutes Faith Munson CNP Work Phone: [facility] Comment on above: Carpal tunnel syndro me of left wrist (Primary Dx) Start: 06-19-2022 End: 06-19-2022 ambulatory FAITH MUNSON [facility] Start: 06-19-2022 End: 06-19-2022 Patient encounter procedure Faith Munson CNP Work Phone: [facility] Comment on above: Ulnar neuropathy at elbow, left (Primary Dx); Carpal tunnel syndrome of left wrist Start: 04-27-2022 End: 04-27-2022 Office outpatient new 30 minutes Faith Munson CNP Work Phone: [facility] Comment on above: Carpal tunnel syndro me of left wrist (Primary Dx) Start: 04-12-2022 End: 04-12-2022 Emergency department patient visit DEBORAH FRANCISCO [facility] Start: 11-02-2021 Office outpatient ne w 45 minutes No PCP None [facility] 300 Work Phone: Start: 10-06-2021 End: 10-06-2021 Patient encounter procedure [facility] Breast [facility] Start: 11-17-2019 End: 11-18-2019 Evaluation and management of inpatient [facility] Work Phone: [facility] Start: 11-17-2019 End: 11-17-2019 Documentation procedure Tamra Scanlon Murcia Work Phone: [facility] Start: 11-17-2019 End: 11-18-2019 Patient encounter procedure TAMRABrijesh SCANLON DORYS [facility] Start: 10-27-2019 End: 10-27-2019 Patient encounter procedure [facility] Start: 09-28-2019 End: 09-30-2019 Patient encounter procedure [facility] Start: 09-28-2019 End: 09-30-2019 Evaluation and management of inpatient [facility] Raymundo tiffanie Work Phone: [facility] 2 Comment on above: 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) Start: 09-25-2019 End: 09-25-2019 Patient encounter procedure [facility] Start: 09-16-2019 End: 09-20-2019 Patient encounter procedure [facility] Start: 09-16-2019 End: 09-16-2019 Subsequent hospital visit by physician Ojstella Ferro Work Phone: [facility] Comment on above: Primary osteoarthrit is of left hip Start: 05-01-2018 End: 05-02-2018 Patient encounter procedure RUSSELL COLUNGA (PA) [facility] Start: 01-13-2018 End: 01-14-2018 Patient encounter procedure RENA ESCOTO (PA) [facility] Start: 09-28-2016 End: 07-08-2017 Ambulatory PHY WO ID REFERRING Facility:[facility] [place] Procedures Date Procedure Procedure Detail Performing Clinician Start: 07-09-2023 Plain x-ray of hand Dr. Nicolette Khan Work Phone: Start: 07-09-2023 Plain x-ray of wrist Dr Hang Khan Work Phone: Start: 06-07-2023 Injection single ten don origin/insertion Faith Munson CNP Work Phone: Start: 03-28-[address] Rosenbaum in [place] Work Phone: Start: 12-22-2022 CT of head without contrast Dr. Nicolette Khan Work Phone: Start: 12-22-2022 Plain chest X-ray Dr. Roz Khan Work Phone: Start: 10-19-2022 Screening mammography Start: 09-22-2022 Carpal tunnel syndro me (disorder) NICOLETTE KHAN DO Start: 06-26-2022 Injection therapeuti c carpal tunnel Faith Munson CNP Work Phone: Start: 10-06-2021 End: 10-06-2021 Screening mammography of bilateral breasts Start: 11-18-2019 Tissue culture Tamra Murcia Work Phone: Start: 11-18-2019 Microbial culture, b paul fluid Oj Ferro Work Phone: Start: 11-18-2019 Cell count [...] count with white cell differential, automated Alecia Weinberg Work Phone: Start: 11-17-2019 Complete blood count with white cell differential, manual Alecia Weinberg Work Phone: Start: 11-17-2019 Erythrocyte sediment ation rate by Westergren method Alecia Weinberg Work Phone: Start: 11-17-2019 COVID-19, MOLECULAR Cri thaisnydia Weinberg Work Phone: Start: 09-30-2019 Complete blood count with white cell differential, automated Robby Conley Work Phone: Start: 09-30-2019 Complete blood count with white cell differential, manual Robby Conley Work Phone: Start: 09-30-2019 Complete blood count (hemogram) panel - Blood by Automated count Oj Ferro Work Phone: Start: 09-29-2019 Basic metabolic 2000 panel - Serum or Plasma Oj Ferro Work Phone: Start: 09-29-2019 Complete blood count (hemogram) panel - Blood by Automated count Oj Ferro Work Phone: Start: 09-28-2019 Radiologic examinati on pelvis 1/2 views Oj Ferro Work Phone: Start: 09-28-2019 Blood group typing Aden Ferro Work Phone: Start: 09-28-2019 End: 09-28-2019 ARTHROPLASTY HIP Oj Ferro Work Phone: Start: 09-28-2019 Prosthetic arthropla sty of the hip NICOLETTE KHAN DO Comment on above: Left hip, along w/ l eg lengthening Start: 09-24-2019 SCAN OTHER ORDERS Provi ritchie Not In System Start: 09-16-2019 Ct lower extremity w /o contrast material Oj Ferro Work Phone: Start: 06-04-2016 Total abdominal hysterectomy NICOLETTE ERIN DO Start: 11-29-2015 Fallopian tube excision NICOLETTE ERIN DO Start: 11-24-2015 Dilation and curettage NICOLETTE ERIN DO Start: 11-24-2015 Ligation of fallopian tube NICOLETTE ERIN DO Start: 11-24-2015 Partial hysterectomy ALLISON KHAN DO Start: 05-26-2010 Endoscopy NICOLETTE KYLIE MCCULLOUGH DO Start: 03-25-2000 section SURAJKUSHAL OTEROLAY DO Start: 07-13-1999 Cholecystectomy NICOLETTE KHAN DO section No PCP None Hysterectomy No PCP None Operation on gallbladder No PCP None Operative procedure on hip N o PCP None Vaccine refused by patient Vacci nation not carried out because of patient refusal NICOLETTE OTEROLAY Plan of Treatment Date Care Activity Detail Author Start: 10-17-2027 Tetanus vaccination Tetanus: Every 1 0yrs [facility] Start: 07-09-2023 Patient referral [facility] Work Phone: Start: 12-22-2022 [facility] Start: 12-22-2022 End: 12-22-2022 [facility] Start: 11-23-2022 COVID-19 Vaccine ( season) COVID-19 Vaccine ( season) [facility] Start: 11-23-2022 Influenza vaccination [facility] Start: 10-06-2022 Screening for malign ant neoplasm of breast Mammogram [facility] Start: 01-24-2022 COVID-19 Vaccine (2 - Booster for Karon series) COVID-19 Vaccine (2 - Booster for Karon series) [facility] Start: 11-29-2021 FUV, Provider: Park Hatfield, Status: Pen, Time: 3:45 PM FUV, Provider: Park [place], Status: Pen, Time: 3:45 PM [facility] 300 Work Phone: Start: 11-23-2021 Influenza vaccination Sequenti al Influenza Vaccine (#1) [facility] Start: 11-24-2019 Influenza vaccinatio n given [facility] Start: 11-18-2019 End: 11-18-2019 Hospital Encounter [facility] Comment on above: INCISION AND DRAINAG E LEFT HIP Start: 11-07-2019 Pneumococcal Vaccine : Ped or At-Risk (2 - PCV) Pneumococcal Vaccine: Ped or At-Risk (2 - PCV) [facility] Start: 11-07-2019 Pneumococcal Vaccine : Ped or At-Risk (2 of 2 - PCV) Pneumococcal Vaccine: Ped or At-Risk (2 of 2 - PCV) [facility] Start: 09-28-2019 End: 09-28-2019 Hospital Encounter [facility] Comment on above: LEFT ROBOTIC TOTAL H IP REPLACEMENT Start: 09-25-2019 End: 09-25-2019 Office Visit 09/25/2019 Office Visit Lab Oj Ferro MD [address] [place] [address] [phone] [facility] Start: 2005 Screening for malign ant neoplasm of cervix [facility] Start: 1996 Screening for malign ant neoplasm of cervix Pap Smear [facility] Start: 1993 Hepatitis C antibody , confirmatory test Hepatitis C Screening [facility] Start: 1993 Hepatitis C screening Hepatitis C Sc reening [facility] Start: 1990 HIV screening HIV Screening [facility] Start: 1978 History and physical examination, annual for health maintenance Wellness Visit [facility] Start: 1975 Screening for malign ant neoplasm of cervix Pap Smear [facility] Start: 1975 Screening for malign ant neoplasm of colon [facility] Start: 1975 Screening mammography Mammogram [facility] Start: 1975 Tetanus vaccination Tetanus: Every 1 0yrs [facility] Anaerobic microbial culture [facility] Comment on above: Release Upon Orderin g for 1 Occurrences starting 11/18/2019 Body Fluid AFB Culture [facility] Comment on above: Release Upon Orderin g for 1 Occurrences starting 11/18/2019 Body Fluid Anaerobic Culture [facility] Comment on above: Release Upon Orderin g for 1 Occurrences starting 11/18/2019 End: 10-25-2022 Electromyography EMG: Neurology Routine Carpal tunnel syndrome of left wrist 1 Occurrences starting 04/27/2022 until 10/25/2022 [facility] Work Phone: Comment on above: 1 Occurrences starti ng 04/27/2022 until 10/25/2022 Microbial culture, b paul fluid Body Fluid Aerobic Culture Microbiology Routine 11/18/2019 11:53 AM EDT [facility] End: 04-27-2023 Nerve conduction test Nerve conduction test Neurology Routine Carpal tunnel syndrome of left wrist 1 Occurrences starting 04/27/2022 until 04/27/2023 [facility] Comment on above: 1 Occurrences starti ng 04/27/2022 until 04/27/2023 Patient Education [facility] Work Phone: Patient referral [facility] Work Phone: Tissue culture Tissue Aerobic C ulture Microbiology Routine 11/18/2019 1:27 PM EDT [facility] Immunizations Immunization Date Immunization Notes Care Provider Abel em 11-29-2021 SARS-CoV-2 (COVID-19 ) Ad26 vaccine, recombinant NICOLETTE KHAN DO [facility] Comment on above: Result Comment: 2022: TPV40 11-06-2018 pneumococcal polysaccharide vaccine, 23 valent; Translations: [Pneumovax 23] NICOLETTE KHAN DO [facility] 10-16-2017 tetanus and diphther ia toxoids, adsorbed, preservative free, for adult use (5 Lf of tetanus toxoid and 2 Lf of diphtheria toxoid) NICOLETTE KHAN DO [facility] Payers Date Payer Category Payer Self-pay [id number] 2022 Medicaid [id number] 2022 Medicaid [id number] 2018 Unknown [employer]ISON [employer]/PREF/HMO/PPO xxxxxxxxxxxx 2018-Present [id number] 2018 Unknown [employer]ISON [employer]/PREF/HMO/PPO [id number] 2018-Present [id number] 2015 Unknown [id number] 2014 Unknown [id number] 1975 Unknown [id number] 1975 Unknown [id number] 1975 Unknown [id number] 1975 Unknown [id number] 1975 Unknown [id number] 1975 Unknown [id number] [id number] 1975 Unknown [id number] 2.16.840.1.483519.3.579.2.900 1975 Unknown [id number] 2.16.840.1.009408.3.579.2.902 1975 Unknown [id number] 2.16.840.1.309469.3.579.2.627 1975 Unknown [id number] 2.16.840.1.253596.3.579.2.627 1975 Unknown [id number] 2.16.840.1.007400.3.579.2.903 1975 Unknown [id number] 2.16.840.1.895456.3.579.2.903 1975 Unknown [id number] 2.16.840.1.726258.3.579.2.903 1975 Unknown [id number] 2.16.840.1.626034.3.579.2.903 1975 Unknown [id number] 2.16.840.1.496707.3.579.2.903 1975 Unknown [id number] 2.16.840.1.264650.3.579.2.903 1975 Unknown [id number] 2.16840.1.773309.3.579.2.903 Unknown [id number] Unknown [facility] Unknown [id number] [id number] Unknown [id number] Social History Date Type Detail Facility Start: 09-29-2019 End: 04-27-2022 Tobacco smoking status NHIS Current every day smoker [facility] Start: 09-29-2019 End: 10-13-2022 Cigarettes smoked current (pack per day) - Reported [facility] Start: 09-29-2019 End: 06-07-2023 Alcohol intake Ex-drinker (finding) [facility] Start: 1975 Sex Assigned At Not on file [facility] Start: 04-17-2022 End: 06-26-2022 Exposure to SARS-CoV-2 (event) Not sure [facility] Start: 11-17-2019 End: 04-27-2022 Tobacco use and exposure Never used [facility] Start: 07-28-2020 End: 07-15-2023 Tobacco smoking status NHIS Unknown if ever smoked [facility] Start: 07-28-2020 Cigarettes [facility] Start: 1975 Sex Assigned At Female [facility] History of tobacco use Cigarette Smoker [facility] Start: 06-19-2022 End: 10-13-2022 Tobacco use panel [facility] Start: 09-14-2019 Gender identity Identifies as female gender (finding) [facility] Start: 09-14-2019 Sexual orientation Heterosexual (finding) [facility] Start: 05-06-2019 Tobacco smoking status Heavy tobacco smoker (finding) [facility] Medical Equipment Procedure Code Equipment Code Equipment Origin al Text Equipment Identifier Dates Shell 48mm Szd 3 hl Cluster Trident Ii - [id number], [id number] FDA Start: 09-28-2019 Screw 6.5 X 30mm Low Profile Hex Trident Ii - [id number], [id number] FDA Start: 09-28-2019 Screw 6.5 X 30mm Low Profile Hex Trident Ii - [id number], [id number] FDA Start: 09-28-2019 Insert 32mm Szd 0deg Trident X3 - [id number], [id number] FDA Start: 09-28-2019 Screw 6.5 X 15mm Low Profile Hex Trident Ii - [id number] ()[id number] [id number], [id number] FDA Start: 09-28-2019 S-Rom Proximal Sleeve Porous Coated Fits: 18x13, Stem Cone: B, [place]: Sml [id number] Start: 09-28-[address] S-Rom Femoral St em Standard 30 Std Neck +4 [id number] Start: 09-28-2019 Biolox Delta Cer amic Femoral Head [id number] Start: 09-28-2019 Mental Status Date Assessment Result Facility 12-22-2022 Cognitive function Level Of Cons ciousness Follows Commands;Drowsy [facility] Work Phone: Clinical Notes 07-23-2021 to 06-07-2023 Faith Munson, CHANDNI - 06/07/2023 3:26 PM EDTGladys Aparicio LPN - 07/30/2022 1:43 PM EDTGladys Aparicio LPN - 07/27/2022 9:12 AM EDTCjoey Munson CNP - 06/26/2022 4:09 PM EDT Note Date & Type Note Facility 06-07-2023 History of Present illness Narrative Associated Order(s): Tendon Injection: Flexor Tendon Sheath Post-Procedure Diagnose(s): Trigger middle finger of left hand Images from the original note were not included. [facility] [address] [facility] [address] [facility] [id number] Chief Complaint Patient presents with Left Hand - Pain, Follow-up Left Elbow - Pain, Follow-up Nara Malcolm returns to the office today for some pain that is in the left elbow, forearm and into the hand. She also has a hard lump at the base of her middle finger on that left hand. She was not sure if this pain was caused by her previous carpal tunnel surgery. She denies any injury. She reports that she is having left hand pain in addition to numbness and tingling into the whole hand. She will also have some periods of radiating pain when she applies pressure onto that left elbow. She is not using any type of OTC pain medications. She is right-handed. She is able to use the left hand although it is uncomfortable with certain activities. The patient's past medical history, surgical history, [...] or milk., Disp: 40 tablet, Rfl: 0 levocetirizine (XYZAL) 5 MG tablet, , Disp: , Rfl: LORazepam (ATIVAN) 0.5 MG tablet, Take 1 (one) tablet (0.5 mg total) by mouth 2 (two) times a day ., Disp: , Rfl: melatonin 5 mg Tab, Take 3 (three) tablets (15 mg total) by mouth at bedtime ., Disp: , Rfl: multivit-min/folic acid/awy272 (ALIVE WOMEN'S GUMMY VITAMIN ORAL), Take 2 tablets by mouth daily ., Disp: , Rfl: omeprazole (PRILOSEC) 40 MG capsule, Take 1 (one) capsule (40 mg total) by mouth daily ., Disp: , Rfl: QUEtiapine (SEROQUEL) 100 [...] (HCC) Past Surgical History: Procedure Laterality Date ABDOMINAL SURGERY gallbladder removed ARTHROPLASTY HIP TOTAL Left 09/28/2019 Procedure: LEFT ROBOTIC TOTAL HIP REPLACEMENT; Surgeon: Oj Ferro MD; Location: [facility] Main OR; Service: Orthopedic CARPAL TUNNEL RELEASE OPEN Left 09/28/2022 Procedure: Left carpal tunnel release; Surgeon: Talita Swann MD; Location: Main OR; Service: Orthopedic CHOLECYSTECTOMY HYSTERECTOMY INCISION AND DRAINAGE LOWER EXTREMITY Left 11/18/2019 Procedure: INCISION AND DRAINAGE LEFT TOTAL HIP SUPERFICIAL; Surgeon: Tamra Murcia MD; Location: [facility] Main OR; Service: Orthopedic SKIN BIOPSY moles removed Social History Socioeconomic History Marital status: Tobacco Use Smoking status: Every Day Packs/day: 2 Types: Cigarettes Smokeless tobacco: Never Vaping Use Vaping Use: Never used Substance and Sexual Activity Alcohol use: Not Currently Drug use: Yes Types: Marijuana Comment: states has medical card ROS: Review of Systems Musculoskeletal: Positive for arthralgias and myalgias. Neurological: Positive for numbness. PE: Physical Exam Musculoskeletal: General: Swelling and tenderness present. Left hand: Swelling, deformity and tenderness present. No bony tenderness. Normal strength. Normal sensation. Normal capillary refill. Normal pulse. Hands: Comments: Mild catching of the third digit when pressured applied to ajay Imaging: L Hand: No acute fracture or dislocation. Cervical: No acute fracture or dislocation. Straightening of the normal cervical lordosis. No evidence of instability with flexion or extension.No vertebral compression fracture. Mild loss of disc space height at C5-6 and C6-7. Xojl-im-pswopcie degenerative changes of the facet joints. Assessment/Plan: After examination and reviewing the patient x-ray images we discussed treatment options for the left hand. I did offer her cortisone injection into that left third metacarpal A1 ajay site which she gladly excepted. I did this the complications and she tolerated this well. If she does not have improvement in 1 month I will see her back in the office for follow-up. Tendon Injection: Flexor Tendon Sheath Performed by: Faith Munson CNP Authorized by: Faith Munson CNP Consent given by: Patient Time out: Immediately prior to the procedure a time out was called Physician or proceduralist has discussed critical or nonroutine steps, procedure duration and anticipated blood loss: Yes Indications: Diagnostic evaluation and pain Location: Long finger Laterality: Left Prep: patient was prepped and draped in usual sterile fashion Needle size: 25 G Medications: 20 mg triamcinolone acetonide 40 mg/mL Anesthetic used: Lidocaine 1% Anesthetic amount (mL): 1 Patient tolerance: Patient tolerated the procedure well with no immediate complications documented in this encounter [facility] 07-30-2022 History of Present illness Narrative Touched base with patient to advise she can not have surgery until September. The truck driver's offsider will get with her in a few weeks to get things going. Patient understands. documented in this encounter [facility] 07-27-2022 History of Present illness Narrative Patient phoned in she would like to start the process for surgery for carpal tunnel. She will need to wait 3 months from injection. Provider will get a paper to the truck driver's offsider. Patient notified via voicemail documented in this encounter [facility] 06-26-2022 History of Present illness Narrative Associated Order(s): Carpal Tunnel Injection: Carpal Tunnel Post-Procedure Diagnose(s): Carpal tunnel syndrome of left wrist [facility] [address] [facility] [address] [facility] [id number] Chief Complaint Patient presents with Results EMG [...] at bedtime ., Disp: , Rfl: multivit-min/folic acid/hnv716 (ALIVE WOMEN'S GUMMY VITAMIN ORAL), Take 2 [...] (HCC) Past Surgical History: Procedure Laterality Date ABDOMINAL SURGERY gallbladder removed ARTHROPLASTY HIP TOTAL Left 09/28/2019 Procedure: LEFT ROBOTIC TOTAL HIP REPLACEMENT; Surgeon: Oj Ferro MD; Location: [facility] Main OR; Service: Orthopedic CHOLECYSTECTOMY HYSTERECTOMY INCISION AND DRAINAGE LOWER EXTREMITY Left 11/18/2019 Procedure: INCISION AND DRAINAGE LEFT TOTAL HIP SUPERFICIAL; Surgeon: Tamra Murcia MD; Location: [facility] Main OR; Service: Orthopedic SKIN BIOPSY [...] no immediate complications documented in this encounter [facility] 06-19-2022 History of Present illness Narrative Images from the original note were not included. [facility] Physician Group - Neurology [address] [place] [id number] Nerve Conduction & EMG Report Patient: Nara [...] Neurophysiology, Neurology, Vascular Neurology and Sleep Medicine [facility] [place] [phone] Motor NCS Nerve / Sites Muscle Latency [...] Normal Normal Normal documented in this encounter [facility] 04-27-2022 History of Present illness Narrative [facility] [address] [facility] [address] [facility] [phone] Chief Complaint Patient presents with Left Wrist [...] 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 She did try OTC pain medications [...] to see someone in occupational health through [facility] to determine whether or not this would be a [employer] claim. She did sign a release stating that this would not be filed through [employer]. She was then referred on to [...] ., Disp: 21 tablet, Rfl: 0 multivit-min/folic acid/itt770 (ALIVE WOMEN'S GUMMY VITAMIN ORAL), Take 2 [...] (HCC) Past Surgical History: Procedure Laterality Date ABDOMINAL SURGERY gallbladder removed ARTHROPLASTY HIP TOTAL Left 09/28/2019 Procedure: LEFT ROBOTIC TOTAL HIP REPLACEMENT; Surgeon: Oj Ferro MD; Location: [facility] Main OR; Service: Orthopedic CHOLECYSTECTOMY HYSTERECTOMY INCISION AND DRAINAGE LOWER EXTREMITY Left 11/18/2019 Procedure: INCISION AND DRAINAGE LEFT TOTAL HIP SUPERFICIAL; Surgeon: Tamra Murcia MD; Location: [facility] Main OR; Service: Orthopedic SKIN BIOPSY [...] the treatment plan. documented in this encounter [facility] 07-23-2021 History of Present illness Narrative Patient [...] She is here today for possible aspiration. [facility] [address] Work Phone: Evaluation + Plan note Future Appointments Appointment Date:02/07/2023 08:30:00 AM Scheduled Provider:NICOLETTE KHAN DO Location:[facility] Appointment Type:[facility] Evaluation note No assessment inform ation available [facility] Work Phone: Evaluation note Diagnosis Carpal tunnel syndrome of left wrist- [facility] Ulnar neuropathy at elbow, left- Primary Carpal tunnel syndrome of left wrist [facility] Diagnosis Carpal tunnel syndrome of left wrist- Primary [facility] Diagnosis Onset Date Resolution Status COVID-19 acute COVID-19 acute [facility] Work Phone: Evaluation note* Diagnosis Onset Date Resolution Status COVID-19 acute COVID-19 acute Urinary tract infection none active [facility] Work Phone: Evaluation note* Diagnosis Trigger middle finger of left hand- [facility] Diagnosis Onset Date Resolution Status Urinary tract infection none active Cervical myofascial strain a cute Contusion of left hand acute Contusion of left hip acute Contusion of left wrist acut e Fracture of triquetrum of left wrist, closed acute Fracture of triquetrum of left wrist, closed acute [facility] Work Phone: Hospital course Narrative No data available for this section [facility] Hospital Discharge instructions No data available for this section [facility] Discharge instructions Additional Instructions Chest x-ray negative. Sodium 142 potassium 2.8. Magnesium 2.1. Continue potassium replacement as prescribed. Continue oral fluids for hydration. Follow-up with your doctor. 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 Advance Directives and Livin g Will 09/28/2019 8:50 AM Latest Code Status on File Code Status Date Activated Date Inactivated Comments Full Code 09/28/2019 9:33 AM 09/30/2019 4:01 PM Documents on File Type Date Recorded 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 Advance Directives and Livin g Will 11/17/2019 8:50 AM Latest Code Status on File Code Status Date Activated Date Inactivated Comments Full Code 11/17/2019 3:51 PM Full Code 09/28/2019 9:33 AM 09/30/2019 4:01 PM Documents on File Type Date Recorded 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 Advance Directives and Livin g Will 11/17/2019 8:50 AM Latest Code Status on File Code Status Date Activated Date Inactivated Comments Full Code 11/17/2019 3:51 PM 11/18/2019 7:22 PM Full Code 09/28/2019 9:33 AM 09/30/2019 4:01 PM Documents on File Type Date Recorded 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 Advance Directives and Livin g Will 09/15/2019 10:04 AM Advance Directive Response Recorded Date/ Time Advance Directives Yes November 23, 2015 8:19am Living Will No July 28, 2020 5: 42pm Power of Cd Mixer No July 28, 2020 5:42pm Latest Code Status on File Code Status [...] Code 09/28/2019 9:33 AM 09/30/2019 4:01 PM Advance Directive Response Recorded Date/ Time Advance Directives Yes November 10:45am Living Will No December 22, 2022 4:07pm Power of Cd Mixer No November 4:07pm Advance Directive Response Recorded Date/ Time Advance Directives Yes November 9:45am Living Will No December 22, 2022 3:07pm Power of Cd Mixer No November 3:07pm Advance Directive Response Recorded Date/ Time Advance Directives Yes July 09 12:30pm Living Will No July 10, 2023 12:30pm Power of Cd Mixer No July 09 12:30pm Discharge Instructions * Instructions* Karlie Zamora PA-C - 09/28/2019 HIP REPLACEMENT INSTRUCTIONS Refer to your Hip Replacement Guide for more information. Activity -Use walker/cane at all times -Wear elastic stockings for 30 days. May remove for bathing. -Your bed, chairs and toilet must be 21 inches or higher. Use toilet seat automatic steel tie adjuster and seat cushionas instructed. -Walk 3-4 times [...] adhere to during your healing phase. Please adhereto these guidelines for the first 4 weeks post operatively or follow the instructions from your individual surgeon. Safe Poses After Surgery OK sit in chair of comfortable height OK to cross your ankle over your knee to put on sock/shoe. OK to lean forward to pickling operator object keeping knees shoulder width apart [...] are encouraged. -Start with Senokot-S 8.6-50 mg (regn-ezw-ftcikaf). This is a laxative/stool softener combination. Take 1-2 tablets twice a day until bowel movements are achieved. -If no success, add Milk of Magnesia (dfdm-wim-buvuiek). This is a laxative. Take 30-60 mL 1-2 times per day. Take no more than 60 mL in a 24-hr period. -If still no success, add Magnesium Citrate (oamk-cok-cehuxre). This is a strong laxative. Take 1/2-1 bottle 1-2 times per day. Take no more than one bottle in a 24-hr period. -If still no success, add Fleets enema (iwcw-auc-ysgauos). Follow instructions on package. -If still no [...] includes medicines or drugs that are prescribed, robn-ikp-kqvhxej, or herbal supplements. -Do not mix these [...] may accidentally take the medicine. Contact your [facility] or [facility] [employer]'s household trash and recycling service to see [...] your care to our team. Sincerely, [facility] Primary Care Hospitalist Team Your [facility] Hospitalist Physician was Dr. Beverly Your [facility] Hospitalist Nurse Practitioner was Thi Walters documented [...] your care to our team. Sincerely, [facility] Primary Care Hospitalist Team Your [facility] Hospitalist Physician was Dr. Beverly Your [facility] Hospitalist Nurse Practitioner was Thi Walters documented in this encounter History of Present Illness * Khushboo Louis, [employer]SEMBLER [employer] - 09/30/2019 12:06 PM EDT Physical Therapy [...] assistance Stand Pivot Transfers: Stand by assistence Racing Secretary And Handicapper: Wheeled walker, 1 person, Gait belt Skilled 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 For complete objective data, detailed plan [...] Transfers Sit to Stand: Stand by assistance Racing Secretary And Handicapper: Wheeled walker, 1 person, Gait belt Skilled 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 Will discuss with ortho. 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 O2 satting between 92-93 % currently on room air. Pt has been requesting IV pain meds. Discussed with ortho and [facility]. Reinforcing education on opiods and tolerance. Discussed with patient that it would benefit her if she would try to do PO meds. Patient verbalized understanding. * Robby Conley DO - 09/29/2019 12:17 PM EDT Robby Conley DO [facility] Hospitalists DAILY PROGRESS NOTE Patient Name: Nara Malcolm PCP: Dusty Landrum DO Perpetual Assessment: Nara Malcolm is a [...] 09/28/2019 6:45 PM EDT Julia Loomis CNP [facility] Hospitalists History and Physical Patient Name:Nara Malcolm :1975 Admit Date: Physicians: Dusty Landrum DO (Family); No ref. provider found (Referring) [...] file Gets together: Not on file Attends confucianism service: Not on file Active member of [...] mg by mouth at bedtime . multivit-min/folic acid/pos049 (ALIVE WOMEN'S GUMMY VITAMIN ORAL) Take 2 [...] and imaging - NPO at midnight Tamra Murcai MD Orthopaedic Surgery documented in this encounter* Radha Augustine MD - 11/18/2019 10:57 AM EDT Left hip aspiration performed in fluoro using sterile technique after obtaining written informed consent. No complications. See dictation for complete report. * Thi Walters CNP - 11/18/2019 7:45 AM EDT Thi Walters CNP [facility] Hospitalists Progress note Patient Name:Nara Malcolm :1975 Admit Date: Physicians: Dusty Landrum DO (Family) Perpetual Assessment: Nara Malcolm is [...] declined nicotine patch documented in this encounter* Radha Augustine MD - 11/18/2019 10:57 AM EDT Left hip aspiration performed in fluoro using sterile technique after obtaining written informed consent. No complications. See dictation for complete report. * Thi Walters CNP - 11/18/2019 7:45 AM EDT Thi Walters CNP [facility] Hospitalists Progress note Patient Name:Nara Malcolm :1975 Admit Date: Physicians: Dusty Landrum DO (Family) Perpetual Assessment: Nara Malcolm is [...] Hip Left Without Contrast Oj Ferro MD [address] [place] [address] Specialty Diagnoses / Procedures Referred By Kaylee murphy Referred To Contact Neurology Diagnoses Carpal tunnel syndrome of left wrist Procedures Nerve conduction test Faith Munson CNP [address] [place] [address] Anaya Staples MD [address] [place] [id number] Referral ID Status Reason Start Date Expiration Date V isits Requested Visits Authorized [id number] Authorized 04/27/2022 04/27/2023 1 1 Specialty Diagnoses / Procedures Referred By Contac t Referred To Contact Neurology Diagnoses Carpal tunnel syndrome of left wrist Procedures EMG: Faith Munson, STENCIL MAKER [address] [place] [phone] Anaya Staples MD [address] [place] [id number] Referral ID Status Reason Start Date Expiration Date V isits Requested Visits Authorized [id number] Authorized 04/27/2022 04/27/2023 1 1 Chief Complaint and Reason for Visit Chief Complaint SCREENING Chief Complaint SCREENING POSITIVE COVID HOME TEST DIARRHEA, FATIGUE. CONGESTION weakness, covid, pna GENERAL ILLNESS Reason for Visit COVID-19 COVID-19 Chief Complaint POSITIVE COVID HOME TEST DIARRHEA, FATIGUE. 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 STATES MOVED IN 07/2021 AND FEELS SHE MAY HAVE BUMPED HER ELBOW. HAS BEEN WEARING COMPRESSION SLEEVE ALONG WITH IBUPROFEN. PAIN ONLY IF ELBOW IS BUMPED. XRAYS DONE. REFERRED BY SELF. Additional Source Comments INFORMATION SOURCE (unrecogn ized section and content) DATE CREATED AUTHOR 09/18/2017 [facility] [employer] DATE CREATED AUTHOR AUTHOR'S ORGANIZ ATION 05/14/2018 [facility] DATE CREATED AUTHOR AUTHOR'S ORGANIZ ATION 11/25/2019 [facility] DATE CREATED AUTHOR AUTHOR'S ORGANIZ ATION 11/03/2021 [employer] DATE CREATED AUTHOR AUTHOR'S ORGANIZ ATION 11/05/2021 [facility] DATE CREATED AUTHOR AUTHOR'S ORGANIZ ATION 11/21/2022 [facility] DATE CREATED AUTHOR AUTHOR'S ORGANIZ ATION 01/07/2023 [facility] ([place]) DATE CREATED AUTHOR AUTHOR'S ORGANIZ ATION 06/06/2023 [facility] DATE CREATED AUTHOR AUTHOR'S ORGANIZ ATION 06/09/2023 [facility] DATE CREATED AUTHOR AUTHOR'S ORGANIZ ATION 10/23/2024 [facility] Reason for Visit (unrecogniz ed section and content) Status Reason Specialty Diagnoses / Procedures Referre d By Contact Referred To Contact Diagnoses M16.32 Procedures MI TOTAL HIP ARTHROPLASTY LEFT ROBOTIC TOTAL HIP REPLACEMENT Status Reason Specialty Diagnoses / Procedures Referre d By Contact Referred To Contact Diagnoses post op wound infection Status Reason Specialty Diagnoses / Procedures Re ferred By Contact Referred To Contact Closed Radiology Diagnoses Primary osteoarthritis of left hip Procedures CT Hip Left Without Contrast Oj Ferro MD [address] [place] [address] Reason Comments Pain Specialty Diagnoses / Procedures Referred By Contac t Referred To Contact Neurology Diagnoses Carpal tunnel syndrome of left wrist Procedures EMG: Faith Munson, STENCIL MAKER [address] [place] [address] Anaya Staples MD [facility] Ezekiel San [address] [address] Referral ID Status Reason Start Date Expiration Date Visits Re quested Visits Authorized [id number] Closed 04/27/2022 04/27/2023 1 1 Reason Comments Results EMG results Reason Comments Pain Follow-up Oj Ferro MD - 09/28/2019 9:32 AM Dana Gale MD - 09/16/2019 11:29 AM Tamra Huggins MD - 11/18/2019 12:42 PM EDT H&P Notes (unrecognized sect ion and content) INTERVAL HISTORY AND PHYSICAL Patient Name: Nara Malcolm Admit Date: MR #: [id number] : 1975 The H&P has been reviewed [...] esophagitis presence not specified Well controlled with [id number] which should be dosed perioperatively on usual [...] History: Diagnosis Date Arthritis Back pain Bronchitis 2005 Cough Depression GERD (gastroesophageal reflux disease) Hyperlipidemia IBS (irritable bowel syndrome) Joint swelling Muscle cramping right and left hip Pneumonia 2010 PONV (postoperative nausea and vomiting) No past [...] Yes 15 mg, Oral, At bedtime multivit-min/folic acid/gnz603 (ALIVE WOMEN'S GUMMY VITAMIN ORAL) Take 2 [...] Name: Nara Malcolm Admit Date: MR #: [id number] : 1975 The H&P has been reviewed and the patient has been examined. I concur with the findings of the H&P. There are no significant changes. It is appropriate to proceed with the planned procedure. Tamra Murcia MD 11/18/2019 12:42 PM Alecia Weinberg CNP [facility] HISTORY AND PHYSICAL Patient Name:Nara Malcolm :1975 Admit Date: Physicians: Dusty Landrum DO (Family) Perpetual Assessment: Nara Malcolm is [...] of MDD and GERD who presents to [facility] as a direct admission from orthopedic [...] syndrome) Major depression in remission ([facility]) Past Surgical History: Procedure Laterality Date ARTHROPLASTY HIP TOTAL Left 09/28/2019 Procedure: LEFT ROBOTIC TOTAL HIP REPLACEMENT; Surgeon: Oj Ferro MD; Location: [facility] Main OR; Service: Orthopedic CHOLECYSTECTOMY HYSTERECTOMY [...] file Gets together: Not on file Attends confucianism service: Not on file Active member of [...] Patient seen and evaluated independently of the STENCIL MAKER. I agree with their assessment and plan [...] Name: Nara Malcolm Admit Date: MR #: [id number] : 1975 The H&P has been reviewed and the patient has been examined. I concur with the findings of the H&P. There are no significant changes. It is appropriate to proceed with the planned procedure. Tamra Murcia MD 11/18/2019 12:42 PM Alecia Weinberg, CHANDNI [facility] HISTORY AND PHYSICAL Patient Name:Nara Malcolm :1975 Admit Date: Physicians: Dusty Landrum DO (Family) Perpetual Assessment: Nara Malcolm is [...] of MDD and GERD who presents to [facility] as a direct admission from orthopedic [...] HIP REPLACEMENT; Surgeon: Oj Ferro MD; Location: [facility] Main OR; Service: Orthopedic CHOLECYSTECTOMY HYSTERECTOMY [...] file Gets together: Not on file Attends confucianism service: Not on file Active member of [...] Patient seen and evaluated independently of the STENCIL MAKER. I agree with their assessment and plan [...] NT NEURO: intact Assessment and Plan: Nara Malcoml is a 44 y.o. female who presented [...] Magdalena Dodson, PT - 09/29/2019 11:21 AM Serene Liang OT - 09/29/2019 9:23 AM Nayely Blas LISW-Jani - 09/28/2019 6:07 PM DIGNATTamra Herzog CNP - 11/17/2019 5:32 PM EDT Consult Notes [...] session) Transfers Sit to Stand: Contact guard Racing Secretary And Handicapper: Wheeled walker Gait/Locomotion Gait Assistance: Contact guard, 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 The patient's compliance is a supervisor metal hanging, awareness of own capacity and performance is a supervisor metal hanging to return to prior level of function. 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 Past Medical History: Diagnosis Date Arthritis Back pain Bronchitis 2004 Cough Depression GERD (gastroesophageal reflux disease) Hyperlipidemia IBS (irritable bowel syndrome) Joint swelling Muscle cramping right and left hip Pneumonia 2010 PONV (postoperative nausea and vomiting) Past Surgical History: Procedure Laterality Date ARTHROPLASTY HIP TOTAL Left 09/28/2019 Procedure: LEFT ROBOTIC TOTAL HIP REPLACEMENT; Surgeon: Oj Ferro MD; Location: [facility] Main OR; Service: Orthopedic CHOLECYSTECTOMY HYSTERECTOMY [...] Current Home Equipment: Walker, Cane, Toilet seat automatic steel tie adjuster [facility] Disposition D/C Disposition: Home Agency/Destination: Home documented in this encounter Associated Order(s): IP CONSULT TO ORTHOPEDIC SURGERY CONSULT NOTE Patient Name: Nara Malcolm Admit Date: MR #: [id number] : 1975 Physicians: Dusty Landrum DO (Family); Tamra Murcia* (Referring) Dr. Tamra Murcia (orthopedic surgery) Assessment and Plan: Other Post-operative infection Assessment & Plan 44 yo female s/p L BILLIE 09/28/19 admitted for persistent incisional drainage - D/W Dr. Mucria - CT left hip (p) - VSS. [...] the office earlier today and sent to [facility] as a direct admission for further evaluation and surgical intervention. Patient is ambulating independently at baseline. She denies numbness or tingling. She denies fevers or chills. History: Past Medical History: Diagnosis Date GERD (gastroesophageal reflux disease) Hyperlipidemia IBS (irritable bowel syndrome) Major depression in remission ([facility]) Past Surgical History: Procedure Laterality Date ARTHROPLASTY HIP TOTAL Left 09/28/2019 Procedure: LEFT ROBOTIC TOTAL HIP REPLACEMENT; Surgeon: Oj Ferro MD; Location: [facility] Main OR; Service: Orthopedic CHOLECYSTECTOMY HYSTERECTOMY [...] file Gets together: Not on file Attends confucianism service: Not on file Active member of [...] mg by mouth at bedtime . multivit-min/folic acid/gqb456 (ALIVE WOMEN'S GUMMY VITAMIN ORAL) Take 2 [...] Name: Nara Malcolm Admit Date: MR #: [id number] : 1975 Physicians: Dusty Landrum DO (Family); Tamra Murcia* (Referring) Dr. Tamra [...] the office earlier today and sent to [facility] as a direct admission for further [...] HIP REPLACEMENT; Surgeon: Oj Ferro MD; Location: [facility] Main OR; Service: Orthopedic CHOLECYSTECTOMY HYSTERECTOMY [...] file Gets together: Not on file Attends confucianism service: Not on file Active member of [...] mg by mouth at bedtime . multivit-min/folic acid/qif556 (ALIVE WOMEN'S GUMMY VITAMIN ORAL) Take 2 [...] Medications sent home 09/28 with spouse from [facility] pharmacy. Associated Problem(s): Leukemoid reaction - WBC>20K [...] w/ follow up per OS. NARA MALCOLM DARION [id number] 1975 DATE 09/28/2019 OPERATIVE REPORT SURGEON OJ FERRO MD US MARKETING DIRECTOR NONE PREOPERATIVE DIAGNOSES Left hip dysplasia with secondary osteoarthritis, grade 4. POSTOPERATIVE DIAGNOSES Same PROCEDURES PERFORMED 1. Left total hip arthroplasty with increased complexity due to severe deformity. 2. Subtrochanteric femoral osteotomy. ESTIMATED BLOOD LOSS 400 cc. COMPLICATIONS None. ANESTHESIA Spinal with general. IMPLANTS 1. A size 48 Carroll Trident II cup with a 32 mm [...] that in the appropriate position for the [employer] robot. At that point, we then made [...] leg length of the leg in the [employer] robotic system. At that point, I dislocated [...] was completed. We then registered for the [employer] robot per protocol. Once registration was completed, [...] approximately reamed 4, we then used the [place] taper reamer for the spout. Once this [...] and measured leg length measurement knee and [id number] and determined that we were about 2.5 [...] condition. OJ FERRO MD D 09/28/2019 18:06 [id number] T 09/29/2019 08:06 RKB/MODL Plan of care [...] OPERATIVE NOTE Patient name: Nara Malcolm CSN: [id number] Date of surgery: 11/17/2019 - 11/18/2019 Surgeon: [...] for possible I&D. She was admitted to [facility] for pre-operative workup where she had a [...] OPERATIVE NOTE Patient name: Nara Malcolm CSN: [id number] Date of surgery: 11/17/2019 - 11/18/2019 Surgeon: [...] for possible I&D. She was admitted to [facility] for pre-operative workup where she had a [...] dressing changes prn documented in this encounter Goals (unrecognized section and content) Goals may be documented in a n alternate sectionGoals may be documented in an alternate section No data available for this sectionGoals may be documented in an alternate sectionGoals may be documented in an alternate sectionGoals may be documented in an alternate section Care Teams (unrecognized sec tion and content) Gis Analyst Developer Relationship Specialty Start Date End Date Dusty Landrum DO [address] [place] [id number] PCP - General Family Medicine 09/14/19 Gis Analyst Developer Relationship Specialty Start Date End Date Dusty Landrum DO [address] [place] [id number] PCP - General Family Medicine 09/14/19 Gis Analyst Developer Relationship Specialty Start Date End Date Dusty Landrum DO [address] [place] [id number] PCP - General Family Medicine 09/14/19 Gis Analyst Developer Relationship Specialty Start Date End Date Diallo DustyDO [address] [place] [address] PCP - General Family Medicine 09/14/19 Team Status: Active Member Role Status Dates Dr. Nicolette Khan DO Family Provider Active Dr. Nicolette Khan DO Primary Care Provider Active Team Status: Inactive Member Role Status Dates Dr. Nicolette Khan DO Primary Care Pro vider, Attending Provider, Referring Provider Active Team Status: Inactive Member Role Status Dates Dr. Nicolette Khan DO Primary Care Provider, Referri ng Provider Active Mandy Irwin POLICE GUARD, POLICE GUARD-C Attending Provider Active Team Status: Inactive Member Role Status Dates Dr. Nicolette Khan DO Primary Care Provider, Referri ng Provider Active Venu LUI, PA Attending Provider Active Team Status: Inactive Member Role Status Dates Dr. Nicolette Khan DO Primary Care Provider Active Dr. Ja Beck DO Emergency Provider Active Team Status: Inactive Member Role Status Dates Dr. Nicolette Khan DO Primary Care Provider Active Dr. Feli Foster MD Emergency Provider Active Team Status: Inactive Member Role Status Dates Dr. Nicolette Khan DO Primary Care Provider Active Dr. Ja Beck DO Attending Provider, Emergency Provide r Active Team Status: Inactive Member Role Status Dates Dr. Nicolette Khan DO Primary Care Provider Active Dr. Feli Foster MD Attending Provider, Emergency Provider Active Team Status: Inactive Member Role Status Dates Dr. Nicolette Khan DO Primary Care Provider Active Venu LUI, PA Attending Provider, Referring Provi ritchie Active Gis Analyst Developer Relationship Specialty Start Date End Date No, Physician [facility] PCP - General 09/28/22 Nicolette Khan [address] [facility] [address] 09/22/22 Team Status: Inactive Member Role Status Dates Dr. Nicolette Khan DO Primary Care Provider, Referri ng Provider Active Shukri Moreira PA, PA Attending Provider Active Team Status: Inactive Member Role Status Dates Dr. Nicolette Khan , DO Primary Care Provider, Referri ng Provider Active [place] MD Attending Provider Active Team Status: Inactive Member Role Status Dates Dr. Nicolette Khan , DO Primary Care Provider Active Shukri LUI, PA Attending Provider, Referring Pr suri Active FOR RECORDS PERTAINING TO PATIENTS WHO ARE [...] BE BASED ON THE PRIMARY CLINICAL RECORDS. [facility] [employer] provides no warranty or guarantee of the accuracy or completeness of information in this document.
--- OUTSIDE RECORDS SUMMARY | 2024-10-30 13:35 | XMS RPT_ITS | CCD ---
Author Organization [facility] Inform ion [facility] Care Team Providers Care Scuba Instructor Name Role Phone REFERRING, NATHEN WO ID Unavailable Unavailable WAYT, WAI Unavailable Unavailable WAYT, WAI Unavailable Unavailable RENA ESCOTO (PA) Referring Unavailable RUSSELL COLUNGA (HU) Referring Unavailable Dusty Landrum Primary Care Provider [phone] Dusty Landrum Primary Care Provider [phone] OJ FERRO Admitting Unavailable OJ FERRO Attending Unavailable [facility] Consulting U lukeailOJ Tobar Attending [...] Unavailable Dusty Landrum DO Primary Care Provider [phone] NICOLETTE KHAN DO Primary Care Physician DEBORAH FRANCISCO Attending Unavailab DUSTY Robledo Primary Care Unavailable Dr. Nicolette Khan Primary Care Provider Dr. Nicolette Khan Referring Provider [phone] BINDER CHAINSTITCH, LISET-Jose Concepcion Attending Provider HU Ayers Attending Provider JONI RUBALCAVA MD Attending Unavail able NICOLETTE KHAN DO Primary Care Unavailable NICOLETTE KHAN DO Attending Unavailable NICOLETTE KHAN DO Primary Care Unavailable Dr. Nicolette Khan Primary Care Provider Dr. Nicolette Khan Referring Provider [phone] Dc BINDER CHAINSTITCH, LISET-Jose Concepcion Attending Provider HU Ayers Attending [...] Care Provider Dr. Nicolette Khan Referring Provider [phone] HU Ayers Attending Provider [phone] HU Sterling Attending Provider MD [place] Attending Provider Nicolette Khan Referring Unavailable Nicolette Khan Primary Care Unavailable Nicolette Khan Attending Unavailable Nicolette Khan Referring Unavailable Nicolette Khan Primary Care Unavailable Nicolette Khan Attending Unavailable Allergies Allergy Classification Reported Allergen(s) Allergy Type Date of Onset Reaction(s) Facility (10 sources) Acetaminophen / oxyCODONE; Translations: [OXYCODONE-ACETAM INOPHEN] Drug Allergy 01-14-20 18 Hives [facility] (5 sources) oxyCODONE Drug Allergy 07-29-19 21 ITCHING, HALLUCINATIONS [facility] (2 sources) Acetaminophen / oxyCODONE; Translations: [Percocet TABS] Drug Allergy Hives, Unknown [facility] (2 sources) Seasonal Allergies: Uncoded; Translations: [Seasonal Allergies: Uncoded] Allergy to substance 07-15-19 24 Other [facility] (1 source) oxyCODONE Drug Allergy 09-09-19 24 [facility] Medications Current Medications Medication Drug Class(es) [...] (5 sources) Vitamin D Start: 05-28-2016 Ca-D3-Mag Dp-Ycsk-Ydm-Jeramie-Bor Active 1 EACH PO DAILY May 28, [...] in, # 180 cap(s), 3 Refill(s), Pharmacy: [facility], Hyperlipidemia, 163, cm, 05/11/22 8:17:00 [...] Zyrtec, # 90 tab(s), 3 Refill(s), Pharmacy: [facility], Seasonal allergies, 163, cm, 11/08/22 [...] insomnia, # 90 cap(s), 3 Refill(s), Pharmacy: [facility], Sleeping difficulties, 163, cm, 05/11/22 8:17:00 EST, Height, kg, 05/11/22 8:17:00 EST, Dosing Weight Start Date: 05/11/22 Status: Ordered Start: 05-03-2021 take 1 capsule by [facility] once daily at bedtime as needed [...] . 21 tablet 0 04/12/2022 Active multivit-min/folic acid/pkh305 (ALIVE WOMEN'S GUMMY VITAMIN ORAL) (9 sources) take 2 tablets by mouth once daily multivit-min/folic acid/uqq169 (ALIVE WOMEN'S GUMMY VITAMIN ORAL) Take 2 tablets by mouth daily . 0 Suspended take 2 tablets by mouth once rafael ly multivit-min/folic acid/qyt726 (ALIVE WOMEN'S GUMMY VITAMIN ORAL) Take 2 [...] morning, # 90 tab(s), 1 Refill(s), Pharmacy: [facility], Bipolar affective disorder Situational anxiety, [...] Start: 09-24-2019 take 2 tablets by mo [facility] every six hours as needed acetaminophen [...] 10:04am docusate sodium 50 mg / sennosides, retirement 8.6 mg oral tablet (1 source) Start: [...] BILATo n 10-23-2024 SCRN MAMM (CAD)W/GARRETT BILAT [facility] Imaging Services [address] [place] [id number] SCRN MAMM (CAD)W/GARRETT BILAT MR#: [id number] Acct: [id number] Name: NARA MALCOLM Rep #: [id number] : 1975 F 49 From: Kori Silva MD PCP: Dr. Nicolette Khan DO Status: [facility] Study: SCRN MAMM (CAD)W/GARRETT BILAT Date of Exam: 04/18 Exam# [id number] Ordering Dr: Nicolette Khan DO EXAM: SCRN [...] be mailed to the patient. Reading Location: [id number] CC: Dr. Nicolette Khan, Consumer Affairs Manager: Signed Normal [facility] Comprehensive Metabolic Prof ilon 08-05-2024 Albumin [Mass/Vol] 4.2 g/dL Normal 3.5-5.0 [facility] Comment on above: Performed By: #### L 500.4100, L506.1001, L501.9520, L500.4050 #### [facility] [address] [place], [address] Albumin/Globulin [Mass ratio] 1.4 {ratio} Normal 0.9-2.4 [facility] Comment on above: Performed By: #### L 500.4100, L506.1001, L501.9520, L500.4050 #### [facility] [address] [place], [address] ALK PHOS 109 U/L High 35-104 [facility] Comment on above: Performed By: #### L 500.4100, L506.1001, L501.9520, L500.4050 #### [facility] [address] [place], [address] ALT [Catalytic activity/Vol] 46 U/L High <=34 [facility] Comment on above: Performed By: #### L 500.4100, L506.1001, L501.9520, L500.4050 #### [facility] [address] [place], [address] AST [Catalytic activity/Vol] 30 U/L Normal <=31 [facility] Comment on above: Performed By: #### L 500.4100, L506.1001, L501.9520, L500.4050 #### [facility] [address] [place], [address] Bilirubin [Mass/Vol] 0.24 mg/dL Normal 0.00-1.30 [facility] Comment on above: Performed By: #### L 500.4100, L506.1001, L501.9520, L500.4050 #### [facility] [address] [place], [address] BUN/CRE 18.2 RATIO Normal 10-20 [facility] Comment on above: Performed By: #### L 500.4100, L506.1001, L501.9520, L500.4050 #### [facility] [address] [place], [address] Calcium [Mass/Vol] 9.3 mg/dL Normal 7.6-11.0 [facility] Comment on above: Performed By: #### L 500.4100, L506.1001, L501.9520, L500.4050 #### [facility] [address] [place], [address] Chloride [Moles/Vol] 104 mmol/L Normal 98-108 [facility] Comment on above: Performed By: #### L 500.4100, L506.1001, L501.9520, L500.4050 #### [facility] [address] [place], [address] CO2 [Moles/Vol] 23.0 mmol/L Normal 21.0-32.0 [facility] Comment on above: Performed By: #### L 500.4100, L506.1001, L501.9520, L500.4050 #### [facility] [address] [place], [address] Creatinine [Mass/Vol] 0.64 mg/dL Low 0.70-1.20 [facility] Comment on above: Performed By: #### L 500.4100, L506.1001, L501.9520, L500.4050 #### [facility] [address] [place], [address] GAP 13 Normal 5-15 [facility] Comment on above: Performed By: #### L 500.4100, L506.1001, L501.9520, L500.4050 #### [facility] [address] [place], [address] GFR/1.73 sq M.predicted among non-blacks MDRD (S/P/Bld) [Vol rate/Area] 108 mL/min/{1.73_m2} Normal >60 [facility] Comment on above: Result Comment: mL/m in/1.73m2 CKD-EPI Creatinine Equation (2020) Performed By: #### L 500.4100, L506.1001, L501.9520, L500.4050 #### [facility] [address] [place], [address] Globulin (S) [Mass/Vol] 3.1 g/dL Normal 2.2-4.2 [facility] Comment on above: Performed By: #### L 500.4100, L506.1001, L501.9520, L500.4050 #### [facility] [address] [place], [address] Glucose [Mass/Vol] 172 mg/dL High 70-99 [facility] Comment on above: Performed By: #### L 500.4100, L506.1001, L501.9520, L500.4050 #### [facility] [address] [place], [address] Potassium [Moles/Vol] 3.8 mmol/L Normal 3.3-5.1 [facility] Comment on above: Performed By: #### L 500.4100, L506.1001, L501.9520, L500.4050 #### [facility] [address] [place], [address] Sodium [Moles/Vol] 140 mmol/L Normal 133-145 [facility] Comment on above: Performed By: #### L 500.4100, L506.1001, L501.9520, L500.4050 #### [facility] [address] [place], [address] T PROT 7.4 g/dL Normal 5.9-8.4 [facility] Comment on above: Performed By: #### L 500.4100, L506.1001, L501.9520, L500.4050 #### [facility] [address] [place], [address] Urea nitrogen [Mass/Vol] 12 mg/dL Normal 4-19 [facility] Comment on above: Performed By: #### L 500.4100, L506.1001, L501.9520, L500.4050 #### [facility] [address] [place], [address] Lipid Profileon 08-05-2024 CHOL:HDL 3.18 Normal [facility] Comment on above: Performed By: #### L 500.4100, L506.1001, L501.9520, L500.4050 #### [facility] [address] [place], [address] Cholesterol [Mass/Vol] 170 mg/dL Normal <=200 [facility] Comment on above: Result Comment: Chol esterol level, Desirable <200 mg/dL Borderline high cholesterol 200-239 mg/dL High cholesterol >=240 mg/dL Recommendations of the NCEP Adult Treatment Panel for the following risk-cutoff thresholds for the [place] population. Performed By: #### L 500.4100, L506.1001, L501.9520, L500.4050 #### [facility] [address] [place], [address] Cholesterol in HDL [Mass/Vol] 54 mg/dL Normal [facility] Comment on above: Result Comment: Annette onal Cholesterol Education Program (NCEP) guidelines: <40 mg/dL: Low HDL-cholesterol (major risk factor for CHD) >= 60 mg/dL: High HDL-cholesterol (negative risk factor for CHD) HDL-cholesterol is affected by a number of factors, e.g. smoking, exercise, hormones, sex and age. Performed By: #### L 500.4100, L506.1001, L501.9520, L500.4050 #### [facility] [address] [place], [address] Cholesterol in LDL [Mass/Vol] 88 mg/dL Normal [facility] Comment on above: Result Comment: Bord alnbps=589-039 mg/dL Higher Aauq=352 mg/dL or greater Performed By: #### L 500.4100, L506.1001, L501.9520, L500.4050 #### [facility] [address] [place], [address] Cholesterol in VLDL [Mass/Vol] 28 mg/dL Normal 5-40 [facility] Comment on above: Performed By: #### L 500.4100, L506.1001, L501.9520, L500.4050 #### [facility] [address] [place], [address] Triglyceride [Mass/Vol] 142 mg/dL Normal [facility] Comment on above: Result Comment: The drugs N-Acetylcysteine and Metamizole may falsely depress this assay. Normal range: <150 mg/dL Borderline High: 150-199 mg/dL High: 200-499 mg/dL Very High: >500 mg/dL Performed By: #### L 500.4100, L506.1001, L501.9520, L500.4050 #### [facility] [address] [place], [address] Thyroid Stim Hormone (TSH)on 08-05-2024 TSH 2.680 uIU/mL Normal 0.300-4.200 [facility] Comment on above: Performed By: #### L 500.4100, L506.1001, L501.9520, L500.4050 #### [facility] [address] [place], [address] Vitamin D,25 Hydroxyon 08-05 Vitamin D 25-OH 34.8 ng/mL Normal 30-100 [facility] Comment on above: Result Comment: Lisa min D Status Deficiency: <20 ng/mL (50nmol/L) Insufficiency: 20-30 ng/mL (50-75 nmol/L) Sufficiency: 30-100 ng/mL (75-250 nmol/L) Toxicity: >100 ng/mL (>250 nmol/L) Performed By: #### L 500.4100, L506.1001, L501.9520, L500.4050 #### [facility] [address] [place], [address] Tendon Injection: Flexor Ten don Sheathon 06-07-2023 [...] the procedure well with no immediate complications [facility] CERVICAL SPINE AP/LAT/FLE X/EXTon 06-04-2023 XR [...] disc space height at C5-6 and C6-7. Yjxj-rx-vtoyojuq degenerative changes of the facet joints. No prevertebral soft tissue swelling. Clear lung apices. IMPRESSION: 1. No acute osseous abnormality. No evidence of dynamic instability. 2. Mild multilevel degenerative disc disease and vzto-ip-[id number] facet joint arthrosis. Workstation ID: [id number] Dictated by: ALISIA SO on SatJun 05, 2023 10:57:37 AM EDT Transcribed by: ALISIA SO on SatJun 05, 2023 10:57:37 AM EDT Finalized by: ALISIA SO on SatJun 05, 2023 10:57:37 AM EDT Normal [facility] Comment on above: Order Comment: Injur [...] SatJun 05, 2023 10:18:41 AM EDT Normal [facility] Comment on above: Order Comment: Injur [...] 03-28-2023 Bacteria identified Cx Nom (U) Positive [facility] Bacteria identified Cx Nom (U) Positive [facility] - Chemistry and C hemistry - challengeon 03-28-2023 Bilirubin Ql (U) Negative [facility] Ketones Ql (U) Negative [facility] pH (U) 6.5 [pH] [facility] Specific gravity (U) [Rel density] 1.010 [facility] Urobilinogen (U) [Mass/Vol] Negative [facility] - Hematology and Cell countson 03-28-2023 Hemoglobin Ql (U) Negative [facility] - Specimen inform ationon 03-28-2023 Clarity (U) Clear [facility] Color (U) YELLOW [facility] - Urinalysison Nitrite Ql (U) Negative [facility] Protein Ql (U) Negative [facility] No Panel Informationon 03-28 Urine Leukocytes Negatve [facility] Urine Non-Hemolyzed Blood [facility] Absolute lymphocyte countOrd ered By: Feli Foster on 12-22-2022 Lymphocytes Auto (Unsp spec) [#/Vol] 2.49 10*3/uL 0.83-4.51 [facility] Absolute lymphocyte countOrd ered By: Ja Beck on 12-22-2022 Lymphocytes Auto (Unsp spec) [#/Vol] 6.16 10*3/uL 0.83-4.51 [facility] Basophil percentageOrdered B y: Feli Foster on 12-22-2022 Basophils/100 WBC (Bld) 0.5 % 0-1 [facility] Bilirubin [Mass/Vol] 0.20 mg/dL 0.20-1.00 [facility] Comment on above: For patients on eltr ombopag therapy, use of Dimension Watson TBIL is not recommended. Chloride [Moles/Vol] 109 mmol/L 98-107 [facility] Eosinophils/100 WBC (Bld) 0.1 % 0-5 [facility] Glucose [Mass/Vol] 160 mg/dL 74-106 [facility] Comment on above: Fasting Glucose resu lt greater than or equal to 126 mg/dL suggests DIABETES MELLITUS per A.D.A. criteria. Neutrophils (Bld) [#/Vol] 7.7 10*3/uL 2.0-7.7 [facility] Neutrophils/100 WBC (Bld) 72.2 % 47-70 [facility] Potassium [Moles/Vol] 3.9 mmol/L 3.5-5.1 [facility] Protein [Mass/Vol] 6.8 g/dL 6.4-8.2 [facility] Sodium [Moles/Vol] 139 mmol/L 136-145 [facility] WBC (Bld) [#/Vol] 10.7 10*3/uL 4.4-11.0 [facility] Basophil percentageOrdered B y: Ja Beck on 12-22-2022 Basophils/100 WBC (Bld) 0.4 % 0-1 [facility] Chloride [Moles/Vol] 110 mmol/L 98-107 [facility] Eosinophils/100 WBC (Bld) 1.3 % 0-5 [facility] Glucose [Mass/Vol] 165 mg/dL 74-106 [facility] Comment on above: Fasting Glucose resu lt greater than or equal to 126 mg/dL suggests DIABETES MELLITUS per A.D.A. criteria. Neutrophils (Bld) [#/Vol] 4.9 10*3/uL 2.0-7.7 [facility] Neutrophils/100 WBC (Bld) 41.0 % 47-70 [facility] Potassium [Moles/Vol] 2.8 mmol/L 3.5-5.1 [facility] Sodium [Moles/Vol] 142 mmol/L 136-145 [facility] WBC (Bld) [#/Vol] 11.9 10*3/uL 4.4-11.0 [facility] Blood erythrocytes count (nu mber/volume)Ordered By: Feli Foster on 12-22-2022 RBC (Bld) [#/Vol] 4.17 10*6/uL 4.2-5.4 [facility] Blood erythrocytes count (nu mber/volume)Ordered By: Ja Beck on 12-22-2022 RBC (Bld) [#/Vol] 4.31 10*6/uL 4.2-5.4 [facility] Blood hemoglobin measurement (mass/volume)Ordered By: Feli Foster on 12-22-2022 Hemoglobin (Bld) [Mass/Vol] 13.5 g/dL 12.0-15.0 [facility] Blood hemoglobin measurement (mass/volume)Ordered By: aJ Beck on 12-22-2022 Hemoglobin (Bld) [Mass/Vol] 13.6 g/dL 12.0-15.0 [facility] Blood lymphocytes/100 leukoc ytesOrdered By: Feli Foster on 12-22-2022 Lymphocytes/100 WBC (Bld) 23.4 % [facility] Blood lymphocytes/100 leukoc ytesOrdered By: Ja Beck on 12-22-2022 Lymphocytes/100 WBC (Bld) 51.8 % - [facility] Blood manual differential co mment interpretation (narrative result)Ordered By: Ja Beck on 12-22-2022 Manual differential comment Uvaldo (Bld) [Interp] SCANNED [facility] Comment on above: LYMPHOCYTOSIS NOTED Blood monocytes/100 leukocyt esOrdered By: Feli Foster on 12-22-2022 Monocytes/100 WBC (Bld) 3.2 % 0-10 [facility] Blood monocytes/100 leukocyt esOrdered By: Ja Beck on 12-22-2022 Monocytes/100 WBC (Bld) 5.2 % 0-10 [facility] Blood platelet mean volumeOr dered By: Feli Foster on 12-22-2022 Platelet mean volume (Bld) [Entitic vol] 9.4 fL 6.2-12.0 [facility] Blood platelet mean volumeOr dered By: Ja Beck on 12-22-2022 Platelet mean volume (Bld) [Entitic vol] 9.5 fL 6.2-12.0 [facility] Determination of erythrocyte mean corpuscular volume (MCV)Ordered By: Feli Foster on 12-22-2022 MCV (RBC) [Entitic vol] 94.5 fL 81-99 [facility] Determination of erythrocyte mean corpuscular volume (MCV)Ordered By: Ja Beck on 12-22-2022 MCV (RBC) [Entitic vol] 95.8 fL 81-99 [facility] Direct bilirubinOrdered By: Feli Foster on 12-22-2022 Bilirubin.direct [Mass/Vol] 0.07 mg/dL 0.00-0.30 [facility] Hematocrit Auto (Bld) [Volum e fraction]Ordered By: Feli Foster on 12-22-2022 Hematocrit (Bld) [Volume fraction] 39.4 % 37-47 [facility] Hematocrit Auto (Bld) [Volum e fraction]Ordered By: Ja Beck on 12-22-2022 Hematocrit (Bld) [Volume fraction] 41.3 % 37-47 [facility] - Chemistry and C hemistry - challengeOrdered By: Feli Foster on 12-22-2022 ALP [Catalytic activity/Vol] 79 U/L 45-117 [facility] ALT [Catalytic activity/Vol] 28 U/L 13-56 [facility] CO2 [Moles/Vol] 26.0 mmol/L 21.0-32.0 [facility] Globulin (S) [Mass/Vol] 3.7 g/dL 2.2-4.2 [facility] Urea nitrogen/Creatinine [Mass ratio] 17.6 mg/mg 01-11 [facility] - Chemistry and C hemistry - challengeOrdered By: Ja Beck on 12-22-2022 CO2 [Moles/Vol] 28.0 mmol/L 21.0-32.0 [facility] Magnesium [Mass/Vol] 2.1 mg/dL 1.6-2.6 [facility] Urea nitrogen/Creatinine [Mass ratio] 20.0 mg/mg 01-11 [facility] - Hematology and Cell countsOrdered By: Feli Foster on 12-22-2022 Erythrocyte distribution width (RBC) [Entitic vol] 49.6 fL 35.1-43.9 [facility] Erythrocyte distribution width (RBC) [Ratio] 14.3 % 11.6-14.6 [facility] Immature granulocytes/100 WBC (Bld) 0.600 % 0.0-0.9 [facility] Comment on above: IG% - Immature Granu locytes (promyelocytes, myelocytes and metamyelocytes) > 1% indicates that a LEFT SHIFT is Present. MCH (RBC) [Entitic mass] 32.4 pg 27.0-32.0 [facility] Nucleated RBC/100 WBC (Bld) [Ratio] 0 % 0-5 [facility] - Hematology and Cell countsOrdered By: Ja Beck on 12-22-2022 Erythrocyte distribution width (RBC) [Entitic vol] 50.3 fL 35.1-43.9 [facility] Erythrocyte distribution width (RBC) [Ratio] 14.3 % 11.6-14.6 [facility] Immature granulocytes/100 WBC (Bld) 0.300 % 0.0-0.9 [facility] Comment on above: IG% - Immature Granu locytes (promyelocytes, myelocytes and metamyelocytes) > 1% indicates that a LEFT SHIFT is Present. MCH (RBC) [Entitic mass] 31.6 pg 27.0-32.0 [facility] Nucleated RBC/100 WBC (Bld) [Ratio] 0 % 0- [facility] MCHC Auto (RBC) [Mass/Vol]Or dered By: Feli Foster on 12-22-2022 MCHC (RBC) [Mass/Vol] 34.3 [facility] [Mass/Vol]Or dered By: Ja Beck on 12-22-2022 MCHC (RBC) [Mass/Vol] 32.9 g/dL [facility] No Panel InformationOrdered By: Feli Foster on 12-22-2022 Estimated Creatinine Clearance Calc 77.74 ml/min [facility] Estimated GFR (MDRD) Amer 108 mL/min >60 [facility] Comment on above: GFR Calc Estimated GFR (MDRD) Non-Af Amer 90 mL/min >60 [facility] Comment on above: Non- GFR Calc No Panel InformationOrdered By: Ja Beck on 12-22-2022 Estimated Creatinine Clearance Calc 67.68 ml/min [facility] Estimated GFR (MDRD) Amer 92 mL/min >60 [facility] Comment on above: GFR Calc Estimated GFR (MDRD) Non-Af Amer 76 mL/min >60 [facility] Comment on above: Non- GFR Calc Platelets bldOrdered By: Micheline Foster on 12-22-2022 Platelets (Bld) [#/Vol] 399 10*3/uL 150-450 [facility] Platelets bldOrdered By: Valdemar Beck on 12-22-2022 Platelets (Bld) [#/Vol] 392 10*3/uL 150-450 [facility] Serum or plasma albumin magali urement (mass/volume)Ordered By: Feli Foster on 12-22-2022 Albumin [Mass/Vol] 3.1 g/dL 3.2-5.0 [facility] Serum or plasma calcium magali urement (mass/volume)Ordered By: Feli Foster on 12-22-2022 Calcium [Mass/Vol] 8.6 mg/dL 8.5-10.1 [facility] Serum or plasma calcium magali urement (mass/volume)Ordered By: Ja Beck on 12-22-2022 Calcium [Mass/Vol] 8.8 mg/dL 8.5-10.1 [facility] Serum or plasma creatinine m easurement (mass/volume)Ordered By: Feli Foster on 12-22-2022 Creatinine [Mass/Vol] 0.74 mg/dL 0.55-1.02 [facility] Comment on above: The validity of the calculated GFR & GFRAA in patients over 70 years has not been determined. Clinical correlation is essential. Serum or plasma creatinine m easurement (mass/volume)Ordered By: Ja Beck on 12-22-2022 Creatinine [Mass/Vol] 0.85 mg/dL 0.55-1.02 [facility] Comment on above: The validity of the calculated GFR & GFRAA in patients over 70 years has not been determined. Clinical correlation is essential. Serum or plasma urea nitroge n measurement (mass/volume)Ordered By: Feli Foster on 12-22-2022 Urea nitrogen [Mass/Vol] 13 mg/dL 10-09 [facility] Serum or plasma urea nitroge n measurement (mass/volume)Ordered By: Ja Beck on 12-22-2022 Urea nitrogen [Mass/Vol] 17 mg/dL 10-09 [facility] Thin prep Papanicolaou smear with manual screeningOrdered By: Feli Foster on 12-22-2022 Thin prep Papanicolaou smear with manual screening 13 U/L 15-37 [facility] Thin prep Papanicolaou smear with manual screening 4 5- [facility] Thin prep Papanicolaou smear with manual screeningOrdered By: Ja Beck on 12-22-2022 Thin prep Papanicolaou smear with manual screening 4 - [facility] .GFRon 11-08-2022 GFR 114 ml/min/1.73sqm Normal [facility] ([place]) Comment on above: Result Comment: GFR Population [...] T SH, LIPID, GFR, CMP, VIDH #### [address] [address] GFR Non- 94 ml/min/1.73sqm Normal [facility] ([place]) Comment on above: Result Comment: GFR Population [...] T SH, LIPID, GFR, CMP, VIDH #### [address] [address] CMPon 11-08-2022 Albumin Level 3.7 G/dL Normal 3.5-5.0 [facility] ([place]) Comment on above: Performed By: #### T SH, LIPID, GFR, CMP, VIDH #### [address] [address] Albumin/Globulin [Mass ratio] 1.0 {ratio} Low 1.1-2.5 [facility] ([place]) Comment on above: Performed By: #### T SH, LIPID, GFR, CMP, VIDH #### [address] [address] ALP [Catalytic activity/Vol] 108 U/L Normal 40-135 [facility] ([place] Comment on above: Performed By: #### T SH, LIPID, GFR, CMP, VIDH #### [address] [address] ALT [Catalytic activity/Vol] 26 U/L Normal 14-59 [facility] ([place] Comment on above: Performed By: #### T SH, LIPID, GFR, CMP, VIDH #### [address] [address] AST [Catalytic activity/Vol] 17 U/L Normal 10-40 [facility] ([place] Comment on above: Performed By: #### T SH, LIPID, GFR, CMP, VIDH #### [address] [address] Bili Total 0.4 mg/dL Normal 0.2-1.0 [facility] ([place] Comment on above: Result Comment: Use of this assay is not recommended for patients undergoing treatment with eltrombopag due to the potential for falsely elevated results. Performed By: #### T SH, LIPID, GFR, CMP, VIDH #### [address] [address] BUN/Creatinine Ratio 18 ratio Normal 7-27 [facility] ([place]) Comment on above: Performed By: #### T SH, LIPID, GFR, CMP, VIDH #### [address] [address] Calcium [Mass/Vol] 9.6 mg/dL Normal 8.4-10.2 [facility] ([place]) Comment on above: Performed By: #### T SH, LIPID, GFR, CMP, VIDH #### [address] [address] Chloride [Moles/Vol] 102 mmol/L Normal 98-107 [facility] ([place] Comment on above: Performed By: #### T SH, LIPID, GFR, CMP, VIDH #### [address] [address] CO2 [Moles/Vol] 30 mmol/L High 22-29 [facility] ([place] Comment on above: Performed By: #### T SH, LIPID, GFR, CMP, VIDH #### [address] [address] Creatinine [Mass/Vol] 0.67 mg/dL Normal 0.55-1.02 [facility] ([place]) Comment on above: Performed By: #### T SH, LIPID, GFR, CMP, VIDH #### [address] [address] Electrolyte Balance 10.0 mEq/L Normal 4.0-15.0 [facility] ([place] Comment on above: Performed By: #### T SH, LIPID, GFR, CMP, VIDH #### [address] [address] Globulin 3.8 G/dL Normal [facility] ([place] Comment on above: Performed By: #### T SH, LIPID, GFR, CMP, VIDH #### [address] [address] Glucose [Mass/Vol] 112 mg/dL High 70-105 [facility] ([place] Comment on above: Performed By: #### T SH, LIPID, GFR, CMP, VIDH #### [address] [address] Potassium [Moles/Vol] 4.2 mmol/L Normal 3.5-5.1 [facility] ([place] Comment on above: Performed By: #### T SH, LIPID, GFR, CMP, VIDH #### [address] [address] Sodium [Moles/Vol] 142 mmol/L Normal 136-145 [facility] ([place] Comment on above: Performed By: #### T SH, LIPID, GFR, CMP, VIDH #### [address] [address] Total Protein 7.5 G/dL Normal 6.4-8.2 [facility] ([place] Comment on above: Performed By: #### T SH, LIPID, GFR, CMP, VIDH #### [address] [address] Urea nitrogen [Mass/Vol] 12 mg/dL Normal 7-18 [facility] ([place] Comment on above: Performed By: #### T SH, LIPID, GFR, CMP, VIDH #### [place] [address] [place] [address] LABORATORYOrdered By: SYSTEM SYSTEM on 11-08-2022 25-hydroxyvitamin [...] 11-08-2022 Cholesterol [Mass/Vol] 205 mg/dL High 0-200 [facility] ([place] Comment on above: Result Comment: Chol esterol Reference Interval: Less than 200 Desirable 200-239 Borderline high risk 240 and above High risk Performed By: #### T SH, LIPID, GFR, CMP, VIDH #### [address] [address] Cholesterol in HDL [Mass/Vol] 63 mg/dL High 40-60 [facility] ([place] Comment on above: Performed By: #### T SH, LIPID, GFR, CMP, VIDH #### [address] [address] Cholesterol in LDL [Mass/Vol] 116 mg/dL Normal 0-130 [facility] ([place] Comment on above: Performed By: #### T SH, LIPID, GFR, CMP, VIDH #### [address] [address] Triglyceride [Mass/Vol] 132 mg/dL Normal 0-150 [facility] ([place] Comment on above: Result Comment: Trig lyceride Reference Interval: Less than 150 Normal 150-199 Borderline high risk 200-499 High risk 500 or higher Very high risk Performed By: #### T SH, LIPID, GFR, CMP, VIDH #### [place] [address] [place], [place] [address] TSHon 11-08-2022 TSH Qn 2.39 m[IU]/L Normal 0.36-3.74 [facility] ([place]) Comment on above: Performed By: #### T SH, LIPID, GFR, CMP, VIDH #### [place] [address] [place], [place] [address] VIDHon 11-08-2022 Vit. D 25-Hydroxy 48.0 ng/mL Normal [facility] ([place]) Comment on above: Result Comment: Inte rpretive Values Based on Total 25(OH) Vitamin D: Deficient <20 ng/mL Insufficient 20 - <30 ng/mL Sufficient 30-100 ng/mL Performed By: #### T SH, LIPID, GFR, CMP, VIDH #### [address] [address] Carpal Tunnel Injection: Car marlee Tunnelon 06-26-2022 [...] the procedure well with no immediate complications [facility] XR HAND LEFT 3+ VIEWS (STAND [...] 12, 2022 4:18:00 PM EST Transcribed by: BRAIN IRWIN on [facility] Apr 12, 2022 4:18:00 PM EST Finalized by: BRIAN IRWIN on [facility] Apr 12, 2022 4:18:00 PM EST [facility] Comment on above: Order Comment: Injur y/Trauma [...] PM EST Finalized by: BRIAN IRWIN on [facility] Apr 12, 2022 4:18:00 PM EST [facility] Comment on above: Order Comment: Injur y/Trauma [...] Left elbow pain. COMPARISON: None. ACCESSION NUMBER(S): [id number] ORDERING CLINICIAN: PARK HATFIELD FINDINGS: The anterior [...] changes. Electronically signed by: JOHN SMALLS MD [facility] Initial Visit (Orthopaedic S urgery)on 11-02-2021 [...] DAILY Vitals Vital Signs Recorded: 02Nov2021 11:50AM Xhlfngpumso59.5 F Height5 ft 4 in Prrukz210 lb 2 oz BMI Fggendqucq53.86 kg/m2 BSA Calculated1.82 Tobacco Usea) Yes Falls [...] none. Signatures Electronically signed by : Park Haftield PA-C; Nov 02 2021 1:21PM EST (Author) Normal [facility] 11-02-2021 XR Elbow 3 Views Please click on the link to view the study images Normal [facility] 300 Work Phone: Tobacco Screening.on 022 Fall risk assessment b) One or more fall s in the last year [facility] 300 Work Phone: Tobacco use status [facility] a) Yes [facility] 300 Work Phone: CT PELVIS [...] periarticular soft tissues of the left hip. [facility] Workstation ID: [id number] Dictated by: RADHA RANDLE on SatNov 18, 2019 3:03:13 AM EDT Transcribed by: EDDIE TARANGO on SatNov 18, 2019 3:06:53 AM EDT Finalized by: RADHA RANDLE on SatNov 18, 2019 4:46:59 AM EDT Normal [facility] Comment on above: Order Comment: Injur y/Trauma or Illness?:Illness/Other How long have you had these symptoms (acute/chronic)?:Acute Reason for exam?:eval for fluid collection; eval for fluid collection Type of Exam?:Initial Additional signs and symptoms?:eval for fluid collection; eval for fluid collection Otheron 11-18-2019 Appearance (Syn fld) Hazy Abnormal Clear [facility] Color (Syn fld) Lad[place] [facility] Eosinophils/100 WBC (Syn fld) 2 % High 0 - 0 % [facility] Absent Absent [facility] Interpretation and review of laboratory results Abnormal [facility] Lymphocytes/100 WBC Auto (Syn fld) 59 % High 0 - 0 % [facility] Monocytes/100 WBC (Syn fld) 20 % High 0 - 0 % [facility] Neutrophils/100 WBC (Syn fld) 18 % 0 - 25 % [facility] Nucleated cells Manual cnt (Syn fld) [#/Vol] 944 High [facility] Comment on above: WBC/Nuc cell count i ncludes mesothelial and other non-WBC nucleated cells as reflected in the differential. Protein (Syn fld) [Mass/Vol] 4.8 g/dL High 0 - 3 g/dL [facility] Pyrophosphate crystals LM Ql (Syn fld) Negative Negative [facility] RBC Auto (Syn fld) [#/Vol] 4914 High [facility] Synovial lining cells/100 cells (Syn fld) 1 % High 0 - 0 % [facility] Comment on above: Lining cells and/or macrophages. Urate crystals LM Ql (Syn fld) Negative Negative [facility] Interface, Rad In [employer] Speechq - 11/18/2019 [...] fluoroscopic-guided aspiration of the left hip joint. [employer] Workstation ID: [id number] [facility] Technically successful fluoroscopic-guided aspiration of the left hip joint. [employer] Workstation ID: [id number] [facility] EXAMINATION: XR ASPIRATION/INJECTION LARGE JOINT LEFT 11/18/2019 [...] of contrast into the left hip joint. [facility] 1. No discrete collection identified within the pelvis or periarticular soft tissues of the left hip. [facility] Workstation ID: [id number] [facility] EXAMINATION: CT PELVIS WITH CONTRAST HISTORY: ORDERING [...] without discrete collection. No soft tissue gas. [facility] Interface, Rad In Susan Speechq - 11/18/2019 [...] periarticular soft tissues of the left hip. [facility] Workstation ID: [id number] [facility] XR ASPIRATION/INJECTION LARG E JOINT LEFTon 11-18-2019 [...] fluoroscopic-guided aspiration of the left hip joint. [employer] Workstation ID: [id number] Dictated by: RADHA AUGUSTINE on SatNov 18, 2019 11:42:57 AM EDT Transcribed by: FREDY DEL ANGEL on SatNov 18, 2019 11:45:58 AM EDT Finalized by: RADHA AUGUSTINE on SatNov 18, 2019 12:23:28 PM EDT Normal [facility] Comment on above: Order Comment: left hip per doc [place] Injury/Trauma or Illness?:Illness/Other How long have you had these symptoms (acute/chronic)?:Unknown Reason for exam?:rule out septic arthritis Type of Exam?:Initial Additional signs and symptoms?: Fluoro time in minutes:.6 Fluoro dose in mGy?:10.29 COVID-19, MOLECULARon 2019 SARS-COV-2 (PAZ ID) Not Detected Normal Not Detected [facility] Comment on above: Result Comment: This [...] at the following links: For Healthcare Providers: https://www.fda.gov/media/623768/download For Patients: https://www.fda.gov/media/137673/download Performed By: #### L [id number] #### [facility] [address] [place] [address] Randall Jernigan M.D. [id number] [facility] 11-17-2019 CRP [Mass/Vol] 4.6 mg/L 0 - 10 mg/L [facility], In[facility] h Hematologyon 11-17-2019 ESR (Bld) [Velocity] 32 mm/h [facility] INR Coag (PPP) [Relative time] 1.0 {INR} [facility] PT Coag (PPP) [Time] 12.6 s [facility] Basophils (Bld) [#/Vol] 0.14 10*3/uL [facility] Basophils/100 WBC (Bld) 1.1 % [facility] Eosinophils (Bld) [#/Vol] 0.33 10*3/uL [facility] Eosinophils/100 WBC (Bld) 2.6 % [facility] Hematocrit (Bld) [Volume fraction] 39.5 % 36 - 46 % [facility] Hemoglobin (Bld) [Mass/Vol] 12.7 g/dL 12 - 16 g/dL [facility] Lymphocytes (Bld) [#/Vol] 2.91 10*3/uL [facility] Lymphocytes/100 WBC (Bld) 23.1 % [facility] MCH (RBC) [Entitic mass] 31.3 pg 26 - 34 pg [facility] MCV (RBC) [Entitic vol] 97.3 fL 80 - 100 fL [facility] Monocytes (Bld) [#/Vol] 0.82 10*3/uL [facility] Monocytes/100 WBC (Bld) 6.5 % [facility] Neutrophils (Bld) [#/Vol] 8.36 10*3/uL High [facility] Neutrophils/100 WBC (Bld) 66.3 % [facility] Nucleated RBC (Bld) [#/Vol] 0.00 10*3/uL [facility] Platelets (Bld) [#/Vol] 516 10*3/uL [facility] RBC (Bld) [#/Vol] 4.06 10*6/uL [facility] ealth WBC (Bld) [#/Vol] 12.61 10*3/uL [facility] Metabolic Panelon 11-17-2019 Anion gap [Moles/Vol] 17 mmol/L 10 - 2 0 mmol/L [facility] Calcium [Mass/Vol] 9.3 mg/dL 8.4 - 10. 2 mg/dL [facility] Chloride [Moles/Vol] 104 mmol/L 98 - 10 8 mmol/L [facility] Creatinine [Mass/Vol] 0.61 mg/dL 0.40 - 1.10 [facility] GFR/1.73 sq M predicted among non-blacks MDRD (S/P/Bld) [Vol rate/Area] The eGFR should be used for monitoring renal function only and not for medication dosing. [facility] Glucose [Mass/Vol] 123 mg/dL High 65 - 99 mg/dL [facility] Potassium [Moles/Vol] 4.0 mmol/L 3.5 - 5.1 mmol/L [facility] Sodium [Moles/Vol] 138 mmol/L 135 - 145 mmol/L [facility] Urea nitrogen [Mass/Vol] 12 mg/dL 8 - 25 mg/dL [facility] Urea nitrogen/Creatinine [Mass ratio] 19.7 mg/mg [facility] Otheron 11-17-2019 GFR/1.73 sq M.predicted CKD-EPI (S/P/Bld) [Vol rate/Area] 111 >=60 mL/min/1.73 m2 [facility] HCO3 [Moles/Vol] 21 mmol/L 21 - 32 mmol/L [facility] Interpretation and review of laboratory results Normal [facility] Interpretation and review of laboratory results Abnormal [facility] Interpretation and review of laboratory results Normal [facility] Interpretation and review of laboratory results Abnormal [facility] During the induction phase of oral anticoagulation, the INR may not reflect the anticoagulation status of the patient. Therapeutic ranges for INR's are: Most clinical situations: INR 2.0-3.0 Mechanical Prosthetic Valve: INR 2.5-3.5 Critical: INR >5.0 [facility] Erythrocyte distribution width (RBC) [Entitic vol] 14.3 % 11.6 - 14.8 % [facility] Immature granulocytes (Bld) [#/Vol] 0.05 10*3/uL [facility] Immature granulocytes/100 WBC (Bld) 0.40 % [facility] Comment on above: The IG parameter is the percentage of metamyelocytes, myelocytes and promyelocytes. An immature granulocyte count (IG) of 1% or more suggests the possibility of infection, an IG count of 3% is very likely related to an infection. Interpretation and review of laboratory results Abnormal [facility] MCHC (RBC) [Mass/Vol] 32.2 g/dL 31 - 37 g/dL [facility] Nucleated RBC/100 WBC (Bld) [Ratio] 0.0 % [facility] Platelet mean volume (Bld) [Entitic vol] 9.4 fL 9.4 - 12.4 fL [facility] Interpretation and review of laboratory results Normal [facility] SARS-CoV-2 Not Detected Not Detected [facility] Comment on above: This test was perfor med under the FDA's Emergency Use Authorization (EUA). Testing was performed using the Manufacturers' Inventory ID NOW COVID-19 assay on the ID NOW platform. This test has not been approved for use in asymptomatic patients and its performance in this patient population has not been evaluated. Negative results do not rule out the presence of SARS-CoV-2/COVID-19. Fact sheets for the EUA can be found at the following links: For Healthcare Providers: https://www.fda.gov/media/898115/download For Patients: https://www.fda.gov/media/789479/download CBCon 09-30-2019 Erythrocyte distribution width (RBC) [Entitic vol] 14.1 % 11.6 - 14.8 % [facility] Hematocrit (Bld) [Volume fraction] 32.9 % Low 36 - 46 % [facility] Hemoglobin (Bld) [Mass/Vol] 10.7 g/dL Low 12 - 16 g/dL [facility] Interpretation and review of laboratory results Abnormal [facility] MCH (RBC) [Entitic mass] 31.2 pg 26 - 34 pg [facility] MCHC (RBC) [Mass/Vol] 32.5 g/dL 31 - 37 g/dL [facility] MCV (RBC) [Entitic vol] 95.9 fL 80 - 100 fL [facility] Nucleated RBC (Bld) [#/Vol] 0.00 10*3/uL [facility] Nucleated RBC/100 WBC (Bld) [Ratio] 0.0 % [facility] Platelet mean volume (Bld) [Entitic vol] 9.8 fL 9.4 - 12.4 fL [facility] Platelets (Bld) [#/Vol] 295 10*3/uL [facility] RBC (Bld) [#/Vol] 3.43 10*6/uL Low [facility] eah WBC (Bld) [#/Vol] 14.29 10*3/uL High [facility] CBC WITH AUTO DIFFERENTIALon 09-30-2019 Basophils (Bld) [#/Vol] 0.03 10*3/uL [facility] Basophils/100 WBC (Bld) 0.2 % [facility] Eosinophils (Bld) [#/Vol] 0.02 10*3/uL [facility] Eosinophils/100 WBC (Bld) 0.1 % [facility] Erythrocyte distribution width (RBC) [Entitic vol] 14.1 % 11.6 - 14.8 % [facility] Hematocrit (Bld) [Volume fraction] 31.4 % Low 36 - 46 % [facility] Hemoglobin (Bld) [Mass/Vol] 10.5 g/dL Low 12 - 16 g/dL [facility] Immature granulocytes (Bld) [#/Vol] 0.10 10*3/uL [facility] Immature granulocytes/100 WBC (Bld) 0.70 % [facility] Comment on above: The IG parameter is the percentage of metamyelocytes, myelocytes and promyelocytes. An immature granulocyte count (IG) of 1% or more suggests the possibility of infection, an IG count of 3% is very likely related to an infection. Interpretation and review of laboratory results Abnormal [facility] Lymphocytes (Bld) [#/Vol] 1.50 10*3/uL [facility] Lymphocytes/100 WBC (Bld) 9.8 % [facility] MCH (RBC) [Entitic mass] 32.2 pg 26 - 34 pg [facility] MCHC (RBC) [Mass/Vol] 33.4 g/dL 31 - 37 g/dL [facility] MCV (RBC) [Entitic vol] 96.3 fL 80 - 100 fL [facility] Monocytes (Bld) [#/Vol] 0.76 10*3/uL [facility] Monocytes/100 WBC (Bld) 4.9 % [facility] Neutrophils (Bld) [#/Vol] 12.96 10*3/uL High [facility] Neutrophils/100 WBC (Bld) 84.3 % [facility] Nucleated RBC (Bld) [#/Vol] 0.00 10*3/uL [facility] Nucleated RBC/100 WBC (Bld) [Ratio] 0.0 % [facility] Platelet mean volume (Bld) [Entitic vol] 9.8 fL 9.4 - 12.4 fL [facility] Platelets (Bld) [#/Vol] 296 10*3/uL [facility] RBC (Bld) [#/Vol] 3.26 10*6/uL Low [facility] WBC (Bld) [#/Vol] 15.37 10*3/uL [facility] Basic Metabolic Panelon Anion gap [Moles/Vol] 18 mmol/L 10 - 2 0 mmol/L [facility] Calcium [Mass/Vol] 7.9 mg/dL Low 8.4 - 10. 2 mg/dL [facility] Chloride [Moles/Vol] 97 mmol/L Low 98 - 10 8 mmol/L [facility] Creatinine [Mass/Vol] 0.35 mg/dL Low 0.40 - 1.10 [facility] GFR/1.73 sq M predicted among non-blacks MDRD (S/P/Bld) [Vol rate/Area] The eGFR should be used for monitoring renal function only and not for medication dosing. [facility] GFR/1.73 sq M.predicted CKD-EPI (S/P/Bld) [Vol rate/Area] 133 >=60 mL/min/1.73 m2 [facility] Glucose [Mass/Vol] 149 mg/dL High 65 - 99 mg/dL [facility] HCO3 [Moles/Vol] 22 mmol/L 21 - 32 mmol/L [facility] Interpretation and review of laboratory results Abnormal [facility] Potassium [Moles/Vol] 3.8 mmol/L 3.5 - 5.1 mmol/L [facility] Sodium [Moles/Vol] 133 mmol/L Low 135 - 145 mmol/L [facility] Urea nitrogen [Mass/Vol] 9 mg/dL 8 - 25 mg/dL [facility] Urea nitrogen/Creatinine [Mass ratio] 25.7 mg/mg High [facility] CBCon 09-29-2019 Erythrocyte distribution width (RBC) [Entitic vol] 13.8 % 11.6 - 14.8 % [facility] Hematocrit (Bld) [Volume fraction] 32.7 % Low 36 - 46 % [facility] Hemoglobin (Bld) [Mass/Vol] 10.8 g/dL Low 12 - 16 g/dL [facility] Interpretation and review of laboratory results Abnormal [facility] MCH (RBC) [Entitic mass] 31.8 pg 26 - 34 pg [facility] MCHC (RBC) [Mass/Vol] 33.0 g/dL 31 - 37 g/dL [facility] MCV (RBC) [Entitic vol] 96.2 fL 80 - 100 fL [facility] Nucleated RBC (Bld) [#/Vol] 0.00 10*3/uL [facility] Nucleated RBC/100 WBC (Bld) [Ratio] 0.0 % [facility] Platelet mean volume (Bld) [Entitic vol] 9.6 fL 9.4 - 12.4 fL [facility] Platelets (Bld) [#/Vol] 302 10*3/uL [facility] RBC (Bld) [#/Vol] 3.40 10*6/uL Low [facility] ealt WBC (Bld) [#/Vol] 20.14 10*3/uL High [facility] VERIFICATIONon 020 ABO and Rh group Nom (Bld) A Positive [facility] ABO and Rh group Nom (Bld) ABO/Rh Verification [facility] Patient's ABO/Rh is verified. [facility] XR LOW PELVIS 1-2 VIEWS (PAC U)on [...] on SatSep 28, 2019 5:29:[address] [facility] Comment on above: Order Comment: Injur [...] the left hip to include this region. [employer] Workstation ID: [id number] [facility] EXAMINATION: XR LOW PELVIS 1-2 VIEWS (PACU) [...] Associated subcutaneous emphysema with overlying skin angella. [facility] Interface, Rad In [employer] Speechq - 09/28/2019 [...] include this region. [employer] Workstation ID: [id number] [facility] SCAN OTHER ORDERSon 09-24-19 Ordered by an unspecified provider. [facility] CT HIP LEFT WITHOUT CONTRAST on 09-16-2019 [...] the right well seen on the coronal devops engineer image. There is a chronic-appearing dislocation of [...] mild degenerative change involves the right hip. [employer] Workstation ID: [id number] Dictated by: MANDY VILLEGAS on SatSep 16, 2019 10:55:37 AM EDT Transcribed by: FREDY DEL ANGEL on SatSep 16, 2019 11:41:16 AM EDT Finalized by: MANDY VILLEGAS on SatSep 16, 2019 12:03:39 PM EDT Normal [facility] Comment on above: Order Comment: W/ [...] mild degenerative change involves the right hip. [employer] Workstation ID: [id number] [facility] EXAMINATION: CT HIP LEFT WITHOUT CONTRAST HISTORY: [...] the right well seen on the coronal devops engineer image. There is a chronic-appearing dislocation of [...] abnormality is identified involving visualized intrapelvic structures. [facility], Rad In [facility] - 09/16/2019 12:06 PM EDT EXAMINATION: CT [...] the right well seen on the coronal devops engineer image. There is a chronic-appearing dislocation of [...] mild degenerative change involves the right hip. [employer] Workstation ID: [id number] [facility] (UCWSTR ) NARA MALCOLM ([id number]) 1975 F Date Time Provider Department 05/01/18 7:00 PM RUSSELL COLUNGA (CHANDNI) [facility] During your visit today, we recorded the following information about you: Temperature Pulse Respiration Blood pressure 97.6 degrees 92/minute 16/minute 136/74 Weight 78.7 kg Russell Colunga APRN.CNP 05/01/2018 8:02 PM Signed Subjective HPI [...] ONLY , low transverse - EGD W/O [facility] SPECIMEN W/BX 05/26/10 - LAPAROSCOPIC CHOLEYCYSTECTOMY 1999 [...] [S99.921A] Order(s):XR FOOT GENERAL 3V AP/LAT/OBL RT [[id number]] Order #: [id number]. #:[id number] Prescriptions as of 05/01/2018 Sig: OMEPRAZOLE 10 [...] by RUSSELL COLUNGA CNP on 05/01/18 Normal [facility] PROGRESSon 05-01-2018 Protein mass conc HNO ID: [id number] Author: Russell Robertson) Service: (none) Author Type: [...] Patient agreeable to treatment plan. Russell Colunga APRN.HOOP MACHINE OPERATOR Normal [facility] Protein mass conc HNO ID: [id number] Author: Paulina Greco Service: (none) Author Type: [...] Greco May 01, 2018 6:58 PM Normal [facility] XR FOOT 3V AP/LAT/OBL RTon 0 05-01-2018 [...] several interphalangeal joints. IMPRESSION: Negative for fracture. Consumer Affairs Manager: NEVAEH Transcribe Date/Time: May 01 2018 7:35P Dictated by : WILSON MAURER MD This examination was interpreted and the report reviewed and electronically signed by: WILSON MAURER MD on May 01 2018 7:36PM EST [id number] N Normal [facility] CNOVon 01-13-2018 CNOV Office Visit (UCWSTR ) NARA MALCOLM ([id number]) 1975 F Date Time Provider Department 01/13/18 1:15 PM RENA ESCOTO) [facility] During your visit today, we recorded the [...] generalized [R59.1] Order(s):XR LUMBAR GENERAL 3V AP/LAT/L5-S1 [3200305] Order #: [id number] FUTURE XR CHEST 2V FRONTAL/LAT [[id number]] Order #: [id number] FUTURE UA DIP, URINE (POC) [[id number]] Order #: [id number]. #:[id number] predniSONE (DELTASONE) 20 mg tabletTake 2 tablets [...] by RENA ESCOTO PA-C on 01/13/18 Normal [facility] PROGRESSon 01-13-2018 Protein mass conc HNO ID: [id number] Author: Rena Escoto (Pa) Service: (none) Author Type: Physician [employer] Type: Progress Notes Filed: 01/13/2018 3:19 PM [...] PCP regarding this. Rena Escoto PA-C Normal [facility] Protein mass conc HNO ID: [id number] Author: Paulina Greco Service: (none) Author Type: [...] Greco January 13, 2018 1:40 PM Normal [facility] XR CHEST 2V FRONTAL/LATon XR CHEST 2V [...] Other: . IMPRESSION: No acute radiographic abnormality. Consumer Affairs Manager: PSCLabcyte Transcribe Date/Time: Jan 13 2018 1:54P Dictated by : DEL FRIEND MD This examination was interpreted and the report reviewed and electronically signed by: DEL FRIEND MD on Jan 13 2018 1:55PM EST [id number] N Normal [facility] XR LUMBAR 3V AP/LAT/L5-S1on 01-13-2018 XR LUMBAR [...] spine are presented. FINDINGS: There are five ztz-pud-buesvor lumbar vertebra. No fracture or subluxations are noted. The disc spaces are preserved in the lumbar spine; however, T11-12 disc space narrowing is noted. There is mild to moderate osteophyte formation. IMPRESSION: Degenerative changes of the spine as described above. Consumer Affairs Manager: TCHO Transcribe Date/Time: Jan 13 2018 1:55P Dictated by : ELLY LEMUS MD This examination was interpreted and the report reviewed and electronically signed by: ELLY LEMUS MD on Jan 13 2018 1:56PM EST [id number] Normal [facility] CBC (AO)on 09-28-2016 Basophils Auto #/vol (Bld) 0.10 10 3/mcL Normal 0.00-0.19 [facility] Comment on above: Performed By: #### C BCO ####[address] [address] Basophils/100 WBC Auto (Bld) 0.8 % Normal 0.0-2.5 [facility] Comment on above: Performed By: #### C BCO ####[address] [address] Eosinophils 0.10 10 3/mcL Normal 0.00-0.40 [facility] Comment on above: Performed By: #### C BCO ####[address] [address] Eosinophils/100 leukocytes 1.4 % Normal 0.0-7.0 [facility] Comment on above: Performed By: #### C BCO ####[address] [address] Erythrocyte distribution width Auto Ratio (RBC) 14.8 % High 11.5-14.5 [facility] Comment on above: Performed By: #### C BCO ####[address] [address] Erythrocytes (RBC) 4.35 10 6/mcL Normal 4.20-5.40 [facility] Comment on above: Performed By: #### C BCO ####[address] [address] Hematocrit (HCT) 40.4 % Normal 37.0-47.0 [facility] Comment on above: Performed By: #### C BCO ####[address] [address] Hemoglobin mass conc (Bld) 13.4 G/dL Normal 12.0-16.0 [facility] Comment on above: Performed By: #### C BCO ####[address] [address] Lymphocytes 2.80 10 3/mcL Normal 0.77-3.85 [facility] Comment on above: Performed By: #### C BCO ####[address] [address] Lymphocytes/100 leukocytes 29.7 % Normal 10.0-50.0 [facility] Comment on above: Performed By: #### C BCO ####[address] [address] MCH 30.7 pg Normal 27.0-31.2 [facility] Comment on above: Performed By: #### C BCO ####Lissa [address] [address] MCHC mass conc (RBC) 33.1 G/dL Normal 33.0-37.0 [facility] Comment on above: Performed By: #### C BCO ####[address] [address] MCV 92.8 fL Normal 80.0-94.0 [facility] Comment on above: Performed By: #### C BCO ####[address] [address] Monocytes 0.60 10 3/mcL Normal 0.15-1.00 [facility] Comment on above: Performed By: #### C BCO ####[address] [address] Monocytes/100 leukocytes 6.5 % Normal 1.7-13.0 [facility] Comment on above: Performed By: #### C BCO ####[address] [address] Neutrophils 5.80 10 3/mcL Normal 2.85-6.16 [facility] Comment on above: Performed By: #### C BCO ####[address] [address] Neutrophils/100 WBC Auto (Bld) 61.6 % Normal 37.0-80.0 [facility] Comment on above: Performed By: #### C BCO ####[address] [address] Platelet mean volume (PMV) 8.0 fL Normal 7.4-10.4 [facility] Comment on above: Performed By: #### C BCO ####Lissa [address] [address] Platelets 357 10 3/mcL Normal 130-400 [facility] Comment on above: Performed By: #### C BCO ####Lissa [address] [address] WBC (Leukocytes) 9.40 10 3/mcL Normal 4.60-10.80 [facility] Comment on above: Performed By: #### C BCO ####Lissa [address] [address] Comp. Metabolic Panelon 07-0 Alanine aminotransferase (ALT) 13 U/L Normal 10-35 [facility] Comment on above: Performed By: #### C MP ####Lissa [address] [address] Albumin/Globulin Ratio 1.4 {ratio} Normal 1.1-2.5 [facility] Comment on above: Performed By: #### C MP ####[address] [address] Alk. Phosphatase 90 IU/L Normal 40-135 [facility] Comment on above: Performed By: #### C MP ####[address] [address] Aspartate aminotransferase (AST) 14 U/L Normal 10-40 [facility] Comment on above: Performed By: #### C MP ####[address] [address] Bilirubin (direct) 0.2 mg/dL Normal 0.2-1.0 [facility] Comment on above: Performed By: #### C MP ####[address] [address] Globulin 2.9 G/dL Normal [facility] Comment on above: Performed By: #### C MP ####[address] [address] Glucose mass conc 105 mg/dL Normal 70-105 [facility] Comment on above: Performed By: #### C MP ####[address] [address] T. Protein 7.0 G/dL Normal 6.0-8.3 [facility] Comment on above: Performed By: #### C MP ####[address] [address] BUN/Creatinine Ratio 16 mg/mg Normal 7-27 [facility] Comment on above: Performed By: #### C MP ####[address] [address] Calcium 9.1 mg/dL Normal 8.4-10.2 [facility] Comment on above: Performed By: #### C MP ####[address] [address] Creatinine 0.5 mg/dL Low 0.6-1.2 [facility] Comment on above: Performed By: #### C MP ####[place] [id number] CO2 28 mmol/L Normal 22-29 [facility] Comment on above: Performed By: #### C MP ####[address] [address] Electrolyte Balance 8.0 mEq/L Normal [facility] Comment on above: Performed By: #### C MP ####[address] [address] Albumin 4.1 G/dL Normal 3.5-5.0 [facility] Comment on above: Performed By: #### C MP ####[address] [address] Urea nitrogen 8 mg/dL Normal 7-18 [facility] Comment on above: Performed By: #### C MP ####Lsisa [address] [address] Chloride 103 mmol/L Normal 98-107 [facility] Comment on above: Performed By: #### C MP ####Lissa [address] [address] Potassium molar conc 4.0 mmol/L Normal 3.5-5.1 [facility] Comment on above: Performed By: #### C MP ####Lissa [address] [address] Sodium 139 mmol/L Normal 136-146 [facility] Comment on above: Performed By: #### C MP ####[address] [address] Glomerular Filtration Rate E stimateon 09-28-2016 eGFR (non-black) mL/min/{1.73_m2} Normal [facility] Comment on above: Result Comment: Odalys garcía mean GFR = 99 mL/min/1.73 sq.m. for ages 40-49 years. Chronic Kidney Disease: Less than 60 mL/min/1.73 square metersEnd Stage Renal Disease: Less than 15 mL/min/1.73 square meters Performed By: #### G FR ####[address] [address] HDL Cholesterol Profileon Cholesterol 167 mg/dL Normal 131-200 [facility] Comment on above: Result Comment: Chol esterol Reference Interval: Less than 200 Desirable 200-239 Borderline high risk 240 and above High risk ---- Performed By: #### L IPID ####Lissa [address] [address] LDL Cholesterol 85 mg/dL Normal 0-130 [facility] Comment on above: Result Comment: LDL is a calculated result and requires a 12- hr fast. LDL Reference Interval: Less than 100 Optimal 100-129 Near or above optimal 130-159 Borderline high risk 160-189 High risk 190 and above Very high risk ----- Performed By: #### L IPID ####Lissa [address] [address] HDL Cholesterol 50 mg/dL Normal 35-90 [facility] Comment on above: Result Comment: HDL Reference Interval: Less than 40 Low - high risk 60 or above Optimal/lowers risk ---- Performed By: #### L IPID ####Lissa [address] [address] Triglyceride 162 mg/dL High 40-150 [facility] Comment on above: Result Comment: Trig lyceride Reference Interval: Less than 150 Normal 150-199 Borderline high risk 200-499 High risk 500 or higher Very high risk ---- Performed By: #### L IPID ####Lissa [address] [address] TSHon 09-28-2016 Thyroid stimulating hormone (TSH) 3.23 mcIU/mL Normal 0.27-4.20 [facility] Comment on above: Performed By: #### T SH ####Lissa [address] [address] Vital Signs Date Time Vital Sign Value Performing Clinician Facility 07-15-2023 10:07-0400 Body height 160.[address] Nicolette Khan Work Phone: [facility] 07-15-2023 10:07-0400 Body mass index (BMI) [Ratio] 30.1 kg/m2 Dr. Nicolette Khan Work Phone: [facility] 07-15-2023 10:07-0400 Body weight 77.[address] Nicolette Khan Work Phone: [facility] 03-28-2023 11:01-0500 Body height 160.[address] Nicolette Khan Work Phone: [facility] 03-28-2023 11:01-0500 Body mass index (BMI) [Ratio] 28.9 kg/m2 Dr. Nicolette Khan Work Phone: [facility] 03-28-2023 11:01-0500 Body temperature 98.1 [degF] Dr. Nicolette Khan Work Phone: [facility] 03-28-2023 11:01-0500 Body weight 74.[address] Nicolette Khan Work Phone: [facility] 03-28-2023 11:01-0500 Diastolic blood pressure 68 mm[Hg] Dr. Nicolette Khan Work Phone: [facility] 03-28-2023 11:01-0500 Heart rate 85 /min Dr. Nicolette Khan Work Phone: [facility] 03-28-2023 11:01-0500 Respiratory rate 15 /min Dr. Nicolette Khan Work Phone: [facility] 03-28-2023 11:01-0500 SaO2% (BldA) [Mass fraction] 98 % Dr. Nicolette Khan Work Phone: [facility] 03-28-2023 11:01-0500 Systolic blood pressure 124 mm[Hg] Dr. Nicolette Khan Work Phone: [facility] 12-22-2022 18:43-0400 Diastolic blood pressure 74 mm[Hg] Dr. Nicolette Khan Work Phone: [facility] 12-22-2022 18:43-0400 Heart rate 68 /min Dr. Nicolette Khan Work Phone: [facility] 12-22-2022 18:43-0400 Respiratory rate 16 /min Dr. Nicolette Khan Work Phone: [facility] 12-22-2022 18:43-0400 SaO2% (BldA) [Mass fraction] 98 % Dr. Nicolette Khan Work Phone: [facility] 12-22-2022 18:43-0400 Systolic blood pressure 120 mm[Hg] Dr. Nicolette Khan Work Phone: [facility] 12-22-2022 15:30-0400 Body height 160.[address] Nicolette Khan Work Phone: [facility] 12-22-2022 15:30-0400 Body mass index (BMI) [Ratio] 29.5 kg/m2 Dr. Nicolette Khan Work Phone: [facility] 12-22-2022 15:30-0400 Body temperature 97.6 [degF] Dr. Nicolette Khan Work Phone: [facility] 12-22-2022 15:30-0400 Body weight 75.[address] Nicolette Khan Work Phone: [facility] 12-22-2022 08:24-0400 Diastolic blood pressure 73 mm[Hg] Dr. Nicolette Khan Work Phone: [facility] 12-22-2022 08:24-0400 Heart rate 81 /min Dr. Nicolette Khan Work Phone: [facility] 12-22-2022 08:24-0400 Respiratory rate 16 /min Dr. Nicolette Khan Work Phone: [facility] 12-22-2022 08:24-0400 SaO2% (BldA) [Mass fraction] 98 % Dr. Nicolette Khan Work Phone: [facility] 12-22-2022 08:24-0400 Systolic blood pressure 132 mm[Hg] Dr. Nicolette Khan Work Phone: [facility] 12-22-2022 06:01-0400 Body mass index (BMI) [Ratio] 30.2 kg/m2 Dr. Nicolette Khan Work Phone: [facility] 12-22-2022 06:01-0400 Body temperature 98.3 [degF] Dr. Nicolette Khan Work Phone: [facility] 12-22-2022 06:01-0400 Body weight 77.[address] Nicolette Khan Work Phone: [facility] 12-21-2022 07:30-0400 Body temperature 98.7 [degF] Dr. Nicolette Khan Work Phone: [facility] 12-21-2022 07:30-0400 Diastolic blood pressure 76 mm[Hg] Dr. Nicolette Khan Work Phone: [facility] 12-21-2022 07:30-0400 Heart rate 86 /min Dr. Nicolette Khan Work Phone: [facility] 12-21-2022 07:30-0400 Respiratory rate 15 /min Dr. Nicolette Khan Work Phone: [facility] 12-21-2022 07:30-0400 SaO2% (BldA) [Mass fraction] 95 % Dr. Nicolette Khan Work Phone: [facility] 12-21-2022 07:30-0400 Systolic blood pressure 134 mm[Hg] Dr. Nicolette Khan Work Phone: [facility] 12-16-2022 10:45-0400 Body mass index (BMI) [Ratio] 29.4 kg/m2 Dr. Nicolette Khan Work Phone: [facility] 12-16-2022 10:45-0400 Body temperature 98.2 [degF] Dr. Nicolette Khan Work Phone: [facility] 12-16-2022 10:45-0400 Body weight 75.[address] Nicolette Khan Work Phone: [facility] 12-16-2022 10:45-0400 Diastolic blood pressure 80 mm[Hg] Dr. Nicolette Khan Work Phone: [facility] 12-16-2022 10:45-0400 Heart rate 91 /min Dr. Nicolette Khan Work Phone: [facility] 12-16-2022 10:45-0400 Respiratory rate 18 /min Dr. Nicolette Khan Work Phone: [facility] 12-16-2022 10:45-0400 SaO2% (BldA) [Mass fraction] 97 % Dr. Nicolette Khan Work Phone: [facility] 12-16-2022 10:45-0400 Systolic blood pressure 118 mm[Hg] Dr. Nicolette Khan Work Phone: [facility] 06-26-2022 11:00-0400 Body height 160 cm Faith Munson HOOP MACHINE OPERATOR Work Phone: [facility] 06-26-2022 11:00-0400 Body mass index (BMI) [Ratio] 29.41 kg/m2 Faith Munson HOOP MACHINE OPERATOR Work Phone: [facility] 06-26-2022 11:00-0400 Body weight 75.3 kg Faith Munson HOOP MACHINE OPERATOR Work Phone: [facility] 04-27-2022 09:08-0500 Body height 160 cm Faith Munson HOOP MACHINE OPERATOR Work Phone: [facility] 04-27-2022 09:08-0500 Body mass index (BMI) [Ratio] 29.41 kg/m2 Faith Munson CNP Work Phone: [facility] 04-27-2022 09:08-0500 Body weight 75.3 kg Faith Munson CNP Work Phone: [facility] 11-02-2021 11:50-0400 Body height 162.56 cm No PCP None [facility] Work Phone: 11-02-2021 11:50-0400 Body mass index (BMI) [Ratio] 28.86 kg/m2 No PCP None [facility] Work Phone: 11-02-2021 11:50-0400 Body surface area Derived from formula 1.82 m2 No PCP None [facility] Work Phone: 11-02-2021 11:50-0400 Body temperature 97.5 [degF] No PCP None [facility] Work Phone: 11-02-2021 11:50-0400 Body weight 76.26 kg No PCP None [facility] Work Phone: 11-18-2019 15:15-0400 Pulse (Heart Rate) 75 /min [facility] 11-18-2019 15:15-0400 Pulse Oximetry 96 % [facility] 11-18-2019 15:15-0400 Respiratory Rate 20 /min [facility] 11-18-2019 15:00-0400 BP Diastolic 79 mm[Hg] [facility] 11-18-2019 15:00-0400 BP Systolic 124 mm[Hg] [facility] 11-18-2019 13:58-0400 Body Temperature 97.11 [degF] [facility] 11-17-2019 18:19-0400 BMI (Body Mass Index) 31.29 kg/m2 [facility] 11-17-2019 18:19-0400 Body weight 81.65 kg [facility] 11-17-2019 18:19-0400 Height 161.5 cm [facility] 07-08-2020 12:59-0400 Respiratory Rate 16 /min [facility] 09-30-2019 12:01-0400 BP Diastolic 65 mm[Hg] [facility] 09-30-2019 12:01-0400 BP Systolic 120 mm[Hg] [facility] 09-30-2019 12:01-0400 Pulse (Heart Rate) 99 /min [facility] 09-30-2019 12:01-0400 Pulse Oximetry 93 % [facility] 09-30-2019 07:53-0400 Body Temperature 98.8 [degF] [facility] 09-29-2019 23:00-0400 BMI (Body Mass Index) 31.36 kg/m2 [facility] 09-29-2019 23:00-0400 Body weight 80.3 kg [facility] 09-29-2019 23:00-0400 Height 160 cm [facility] Encounters Encounter Date Encounter Type Care Provider Facility Start: 10-23-2024 ambulatory Nicolette Khan Facility :[facility] Start: 08-11-2024 Encounter for genera l adult medical examination without abnormal findings Nicolette Oterolay [facility] Start: 08-05-2024 End: 08-05-2024 ambulatory Nicolette Erin Facility:[facility] Start: 07-15-2023 End: 07-15-[address] Nicolette Khan Work Phone: [facility] Work Phone: Start: 07-09-2023 End: 07-09-[address] Nicoeltte Khan Work Phone: [facility] Work Phone: Start: 07-09-2023 End: 07-09-[address] Nicolette Khan Work Phone: [facility] Work Phone: Start: 06-04-2023 End: 06-08-2023 ambulatory FAITH MI MUNSON [facility] Start: 06-04-2023 End: 06-04-2023 Office outpatient visit 25 minutes Faith Munson CNP Work Phone: [facility] Comment on above: Trigger middle finge r of left hand (Primary Dx) Start: 03-28-2023 End: 03-28-[address] Nicolette Khan Work Phone: [facility] Work Phone: Start: 03-28-2023 End: 03-28-[address] Nicolette Khan Work Phone: [facility]Laboratory, Specimen Work Phone: Start: 03-28-2023 End: 03-28-[address] Nicolette Khan Work Phone: [facility] Work Phone: Start: 12-27-2022 End: 12-27-2022 Emergency department patient visit JONI RUBALCAVA MD Facility:[facility] Start: 12-22-2022 End: 12-22-2022 Emergency department patient visit Dr. Nicolette Khan Work Phone: [facility] Work Phone: Start: 12-22-2022 End: 12-22-2022 Emergency department patient visit Dr. Nicolette Khan Work Phone: [facility] Work Phone: Start: 12-21-2022 End: 12-21-[address] Nicolette Khan Work Phone: [facility] Work Phone: Start: 12-16-2022 End: 12-16-[address] Nicolette Khan Work Phone: [facility] Work Phone: Start: 11-08-2022 End: 11-09-2022 ambulatory NICOLETTE M ERIN DO Facility:[facility] Start: 11-08-2022 End: 11-08-2022 Patient encounter procedure NICOLETTE Nowak ERIN DO [facility] Start: 10-19-2022 End: 10-19-2022 ambulatory [facility] Work Phone: Start: 10-19-2022 End: 10-19-2022 Patient encounter procedure [facility] Work Phone: Start: 10-12-2022 End: 10-12-2022 ambulatory [facility] Start: 09-28-2022 End: 09-28-2022 ambulatory [facility] Start: 07-30-2022 Documentation procedure Gladys Aparicio LPN [facility] Start: 07-27-2022 Documentation procedure Gladys Aparicio LPN [facility] Start: 06-26-2022 End: 06-26[facility]20[facility] Start: 06-26-2022 End: 06-26-2022 Office outpatient visit 15 minutes Faith Munson CNP Work Phone: [facility] Comment on above: Carpal tunnel syndro me of left wrist (Primary Dx) Start: 06-19-2022 End: 06-19-2022 ambulatory FAITH MUNSON [facility] Start: 06-19-2022 End: 06-19-2022 Patient encounter procedure Faith Munson CNP Work Phone: [facility] Comment on above: Ulnar neuropathy at elbow, left (Primary Dx); Carpal tunnel syndrome of left wrist Start: 04-27-2022 End: 04-27-2022 Office outpatient new 30 minutes Faith Munson CNP Work Phone: [facility] Comment on above: Carpal tunnel syndro me of left wrist (Primary Dx) Start: 04-12-2022 End: 04-12-2022 Emergency department patient visit DEBORAH FRANCISCO [facility] Start: 11-02-2021 Office outpatient ne w 45 minutes No PCP None [facility] 300 Work Phone: Start: 10-06-2021 End: 10-06-2021 Patient encounter procedure [facility] Start: 11-17-2019 End: 11-18-2019 Evaluation and management of inpatient [facility] Work Phone: [facility] Unit 2 Start: 11-17-2019 End: 11-17-2019 Documentation procedure Tamra Scanlon Murcia Work Phone: [facility] Start: 11-17-2019 End: 11-18-2019 Patient encounter procedure TAMRABrijesh SCANLON DORYS [facility] Start: 10-27-2019 End: 10-27-2019 Patient encounter procedure [facility] Start: 09-28-2019 End: 09-30-2019 Patient encounter procedure [facility] Start: 09-28-2019 End: 09-30-2019 Evaluation and management of inpatient [facility] Raymundo tiffanie Work Phone: [facility]o 2 Comment on above: 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) Start: 09-25-2019 End: 09-25-2019 Patient encounter procedure [facility] Start: 09-16-2019 End: 09-20-2019 Patient encounter procedure [facility] Start: 09-16-2019 End: 09-16-2019 Subsequent hospital visit by physician Ojstella Ferro Work Phone: [facility] [place] Comment on above: Primary osteoarthrit is of left hip Start: 05-01-2018 End: 05-02-2018 Patient encounter procedure RUSSELL COLUNGA (PA) [facility] Start: 01-13-2018 End: 01-14-2018 Patient encounter procedure RENA ESCOTO (PA) [facility] Start: 09-28-2016 End: 07-08-2017 Ambulatory PHY WO ID REFERRING Facility:[facility] [place] Procedures Date Procedure Procedure Detail Performing [...] 10-17-2027 Tetanus vaccination Tetanus: Every 1 0yrs [facility] Start: 07-09-2023 Patient referral [facility] Work Phone: Start: 12-22-2022 [facility] Start: 12-22-2022 End: 12-22-2022 [facility] Start: 11-23-2022 COVID-19 Vaccine ( season) COVID-19 Vaccine ( season) [facility] Start: 11-23-2022 Influenza vaccination [facility] Start: 10-06-2022 Screening for malign ant neoplasm of breast Mammogram [facility] Start: 01-24-2022 COVID-19 Vaccine (2 - Booster for Karon series) COVID-19 Vaccine (2 - Booster for Karon series) [facility] Start: 11-29-2021 FUV, Provider: Park Hatfield, Status: Pen, Time: 3:45 PM FUV, Provider: Park Hatfield, Status: Pen, Time: 3:45 PM [facility] 300 Work Phone: Start: 11-23-2021 Influenza vaccination Sequenti al Influenza Vaccine (#1) [facility] Start: 11-24-2019 Influenza vaccinatio n given [facility] Start: 11-18-2019 End: 11-18-2019 Hospital Encounter [facility] Comment on above: INCISION AND DRAINAG E LEFT HIP Start: 11-07-2019 Pneumococcal Vaccine : Ped or At-Risk (2 - PCV) Pneumococcal Vaccine: Ped or At-Risk (2 - PCV) [facility] Start: 11-07-2019 Pneumococcal Vaccine : Ped or At-Risk (2 of 2 - PCV) Pneumococcal Vaccine: Ped or At-Risk (2 of 2 - PCV) [facility] Start: 09-28-2019 End: 09-28-2019 Hospital Encounter [facility] Comment on above: LEFT ROBOTIC TOTAL H IP REPLACEMENT Start: 09-25-2019 End: 09-25-2019 Office Visit 09/25/2019 Office Visit Lab Oj Ferro MD [address] [place] [address] [phone] [facility] Start: 2005 Screening for malign ant neoplasm of cervix [facility] Start: 1996 Screening for malign ant neoplasm of cervix Pap Smear [facility] Start: 1993 Hepatitis C antibody , confirmatory test Hepatitis C Screening [facility] Start: 1993 Hepatitis C screening Hepatitis C Sc reening [facility] Start: 1990 HIV screening HIV Screening [facility] Start: 1978 History and physical examination, annual for health maintenance Wellness Visit [facility] Start: 1975 Screening for malign ant neoplasm of cervix Pap Smear [facility] Start: 1975 Screening for malign ant neoplasm of colon [facility] Start: 1975 Screening mammography Mammogram [facility] Start: 1975 Tetanus vaccination Tetanus: Every 1 0yrs [facility] Anaerobic microbial culture [facility] Comment on above: Release Upon Orderin g for 1 Occurrences starting 11/18/2019 Body Fluid AFB Culture [facility] Comment on above: Release Upon Orderin g for 1 Occurrences starting 11/18/2019 Body Fluid Anaerobic Culture [facility] Comment on above: Release Upon Orderin g for 1 Occurrences starting 11/18/2019 End: 10-25-2022 Electromyography EMG: Neurology Routine Carpal tunnel syndrome of left wrist 1 Occurrences starting 04/27/2022 until 10/25/2022 [facility] Work Phone: Comment on above: 1 Occurrences starti ng 04/27/2022 until 10/25/2022 Microbial culture, b paul fluid Body Fluid Aerobic Culture Microbiology Routine 11/18/2019 11:53 AM EDT [facility] End: 04-27-2023 Nerve conduction test Nerve conduction test Neurology Routine Carpal tunnel syndrome of left wrist 1 Occurrences starting 04/27/2022 until 04/27/2023 [facility] Comment on above: 1 Occurrences starti ng 04/27/2022 until 04/27/2023 Patient Education [facility] Work Phone: Patient referral [facility] Work Phone: Tissue culture Tissue Aerobic C ulture Microbiology Routine 11/18/2019 1:27 PM EDT [facility] Immunizations Immunization Date Immunization Notes Care Provider Abel em 11-29-2021 SARS-CoV-2 (COVID-19 ) Ad26 vaccine, recombinant NICOLETTE KHAN DO [facility] Comment on above: Result Comment: 2022: TPV40 11-06-2018 pneumococcal polysaccharide vaccine, 23 valent; Translations: [Pneumovax 23] NICOLETTE KHAN DO [facility] 10-16-2017 tetanus and diphther ia toxoids, adsorbed, preservative free, for adult use (5 Lf of tetanus toxoid and 2 Lf of diphtheria toxoid) NICOLETTE KHAN DO [facility] Payers Date Payer Category Payer Self-pay [id number] 2022 Medicaid [id number] 2022 Medicaid [id number] 2018 Unknown YEISON GARCIAROOSEVELT CORRAL/PREF/HMO/PPO [id number] 2018-Present [id number] [id number] 2018 Unknown YEISON GARCIAROOSEVELT CORRAL/PREF/HMO/PPO [id number] 2018-Present [id number] [id number] .[id number] 2015 Unknown [id number] 2014 Unknown [id number] 1975 Unknown [id number] 2.16.840.1.282890.3.579.2.900 1975 Unknown [id number] 2.16.840.1.764095.3.579.2.900 1975 Unknown [id number] 2.16.840.1.406558.3.579.2.900 1975 Unknown [id number] 2.16.840.1.395747.3.579.2.900 1975 Unknown [id number] 2.16.840.1.821227.3.579.2.900 1975 Unknown [id number] 2.16.840.1.235202.3.579.2.900 1975 Unknown [id number] 2.16.840.1.063669.3.579.2.900 1975 Unknown [id number] 2.16.840.1.958619.3.579.2.902 1975 Unknown [id number] 2.16.840.1.769427.3.579.2.627 1975 Unknown [id number] 2.16.840.1.180012.3.579.2.627 1975 Unknown [id number] 2.16.840.1.864089.3.579.2.903 1975 Unknown [id number] 2.16.840.1.829665.3.579.2.903 1975 Unknown [id number] 2.16.840.1.678892.3.579.2.903 1975 Unknown [id number] 2.16.840.1.111523.3.579.2.903 1975 Unknown [id number] 2.16.840.1.269367.3.579.2.903 1975 Unknown [id number] 2.16.840.1.962959.3.579.2.903 1975 Unknown [id number] 2.16840.1.581580.3.579.2.903 Unknown [id number] Unknown [facility] Unknown [id number] 2.16.840.1.580445.3.579.2.462 Unknown [id number] [id number] Social History Date Type Detail Facility Start: 09-29-2019 End: 04-27-2022 Tobacco smoking status NHIS Current every day smoker [facility] Start: 09-29-2019 End: 10-13-2022 Cigarettes smoked current (pack per day) - Reported [facility] Start: 09-29-2019 End: 06-07-2023 Alcohol intake Ex-drinker (finding) [facility] Start: 1975 Sex Assigned At Not on file [facility] Start: 04-17-2022 End: 06-26-2022 Exposure to SARS-CoV-2 (event) Not sure [facility] Start: 11-17-2019 End: 04-27-2022 Tobacco use and exposure Never used [facility] Start: 07-28-2020 End: 07-15-2023 Tobacco smoking status NHIS Unknown if ever smoked [facility] Start: 07-28-2020 Cigarettes [facility] Start: 1975 Sex Assigned At Female [facility] History of tobacco use Cigarette Smoker [facility] Start: 06-19-2022 End: 10-13-2022 Tobacco use panel [facility] Start: 09-14-2019 Gender identity Identifies as female gender (finding) [facility] Start: 09-14-2019 Sexual orientation Heterosexual (finding) [facility] Start: 05-06-2019 Tobacco smoking status Heavy tobacco smoker (finding) [facility] Medical Equipment Procedure Code Equipment Code Equipment Origin al Text Equipment Identifier Dates Shell 48mm Szd 3 hl Cluster Trident Ii - [id number] ()[id number], [id number] FDA Start: 09-28-2019 Screw 6.5 X 30mm Low Profile Hex Trident Ii - [id number] ()[id number], [id number] FDA Start: 09-28-2019 Screw 6.5 X 30mm Low Profile Hex Trident Ii - [id number] ()[id number], [id number] FDA Start: 09-28-2019 Insert 32mm Szd 0deg Trident X3 - [id number] ()[id number], [id number] FDA Start: 09-28-2019 Screw 6.5 X 15mm Low Profile Hex Trident Ii - [id number] ()[id number], [id number] FDA Start: 09-28-2019 S-Rom Proximal Sleeve Porous Coated Fits: 18x13, Stem Cone: B, Swatara: Sml [id number] Start: 09-28-[address] S-Rom Femoral St em Standard 30 Std Neck +4 [id number] Start: 09-28-2019 Biolox Delta Cer amic Femoral Head [id number] Start: 09-28-2019 Mental Status Date Assessment Result Facility 12-22-2022 Cognitive function Level Of Cons ciousness Follows Commands;Drowsy [facility] Work Phone: Clinical Notes 07-23-2021 to 06-07-2023 [...] original note were not included. [facility] [address] [facility] [address] [facility] [id number] Chief Complaint Patient presents with Left Hand [...] at bedtime ., Disp: , Rfl: multivit-min/folic acid/oac099 (ALIVE WOMEN'S GUMMY VITAMIN ORAL), Take 2 [...] HIP REPLACEMENT; Surgeon: Oj Ferro MD; Location: [facility] Main OR; Service: Orthopedic CARPAL TUNNEL RELEASE OPEN Left 09/28/2022 Procedure: Left carpal tunnel release; Surgeon: Talita Swann MD; Location: Main OR; Service: Orthopedic CHOLECYSTECTOMY HYSTERECTOMY INCISION AND DRAINAGE LOWER EXTREMITY Left 11/18/2019 Procedure: INCISION AND DRAINAGE LEFT TOTAL HIP SUPERFICIAL; Surgeon: Tamra Murcia MD; Location: [facility] Main OR; Service: Orthopedic SKIN BIOPSY moles [...] disc space height at C5-6 and C6-7. [id number]-[id number] degenerative changes of the facet joints. Assessment/Plan: [...] no immediate complications documented in this encounter [facility] 07-30-2022 History of Present illness Narrative Touched base with patient to advise she can not have surgery until September. The shop helper will get with her in a few weeks to get things going. Patient understands. documented in this encounter [facility] 07-27-2022 History of Present illness Narrative Patient phoned in she would like to start the process for surgery for carpal tunnel. She will need to wait 3 months from injection. Provider will get a paper to the shop helper. Patient notified via voicemail documented in this encounter [facility] 06-26-2022 History of Present illness Narrative Associated Order(s): Carpal Tunnel Injection: Carpal Tunnel Post-Procedure Diagnose(s): Carpal tunnel syndrome of left wrist [facility] [address] [facility] [address] [facility] [id number] Chief Complaint Patient presents with Results EMG [...] at bedtime ., Disp: , Rfl: multivit-min/folic acid/wbh552 (ALIVE WOMEN'S GUMMY VITAMIN ORAL), Take 2 [...] HIP REPLACEMENT; Surgeon: Oj Ferro MD; Location: [facility] Main OR; Service: Orthopedic CHOLECYSTECTOMY HYSTERECTOMY INCISION AND DRAINAGE LOWER EXTREMITY Left 11/18/2019 Procedure: INCISION AND DRAINAGE LEFT TOTAL HIP SUPERFICIAL; Surgeon: Tamra Murcia MD; Location: [facility] Main OR; Service: Orthopedic SKIN BIOPSY moles [...] no immediate complications documented in this encounter [facility] 06-19-2022 History of Present illness Narrative Images from the original note were not included. [facility] - Neurology [address] [place] [id number] Nerve Conduction & EMG Report Patient: Nara [...] Neurophysiology, Neurology, Vascular Neurology and Sleep [facility] [place] [phone] Motor NCS Nerve / Sites Muscle Latency [...] Normal Normal Normal documented in this encounter [facility] 04-27-2022 History of Present illness Narrative [facility] [address] 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 She did try OTC pain medications [...] to see someone in occupational health through [facility] to determine whether or not this would be a [employer] claim. She did sign a release stating that this would not be filed through [employer]. She was then referred on to [...] ., Disp: 21 tablet, Rfl: 0 multivit-min/folic acid/hpe591 (ALIVE WOMEN'S GUMMY VITAMIN ORAL), Take 2 [...] HIP REPLACEMENT; Surgeon: Oj Ferro MD; Location: [facility] Main OR; Service: Orthopedic CHOLECYSTECTOMY HYSTERECTOMY INCISION AND DRAINAGE LOWER EXTREMITY Left 11/18/2019 Procedure: INCISION AND DRAINAGE LEFT TOTAL HIP SUPERFICIAL; Surgeon: Tamra Murcia MD; Location: [facility] Main OR; Service: Orthopedic SKIN BIOPSY moles [...] the treatment plan. documented in this encounter [facility] 07-23-2021 History of Present illness Narrative Patient [...] She is here today for possible aspiration. [facility] 300 Work Phone: Evaluation + Plan note Future Appointments Appointment Date:02/07/2023 08:30:00 AM Scheduled Provider:NICOLETTE KHAN DO Location:[facility] Appointment Type:[facility] Evaluation note No assessment inform ation available [facility] Work Phone: Evaluation note Diagnosis Carpal tunnel syndrome of left wrist- Primary [facility] Ulnar neuropathy at elbow, left- Primary Carpal tunnel syndrome of left wrist [facility] Diagnosis Carpal tunnel syndrome of left wrist- Primary [facility] Diagnosis Onset Date Resolution Status COVID-19 acute COVID-19 acute [facility] Work Phone: Evaluation note* Diagnosis Onset Date Resolution Status COVID-19 acute COVID-19 acute Urinary tract infection none active [facility] Work Phone: Evaluation note* Diagnosis Trigger middle [...] of triquetrum of left wrist, closed acute [facility] Work Phone: Hospital course Narrative No data available for this section [facility] Hospital Discharge instructions No data available for this section [facility] Discharge instructions Additional Instructions Chest x-ray negative. Sodium 142 potassium 2.8. Magnesium 2.1. Continue potassium replacement as prescribed. Continue oral fluids for hydration. Follow-up with your doctor. Return if any worsening symptoms.[facility] Work Phone: Progress note No data available for this section [facility] Summary Purpose Family History No Family History Records FoundUnknown Family Member Name Dates Details No pertinent family history: Mother(V49.89, Z78.9) Status:Active Advance Directives No Advanced Directives Records FoundDocuments on File Type Date Recorded Patient Supervising Broker Expl anation Advance Directives and Livin g Will 09/28/2019 8:50 AM Latest Code Status on File Code Status Date Activated Date Inactivated Comments Full Code 09/28/2019 9:33 AM 09/30/2019 4:01 PM Documents on File Type Date Recorded Patient Supervising Broker Expl anation Advance Directives and Livin g Will 11/17/2019 8:50 AM Latest Code Status on File Code Status Date Activated Date Inactivated Comments Full Code 11/17/2019 3:51 PM Full Code 09/28/2019 9:33 AM 09/30/2019 4:01 PM Documents on File Type Date Recorded Patient Supervising Broker Expl anation Advance Directives and Livin g Will 11/17/2019 8:50 AM Latest Code Status on File Code Status Date Activated Date Inactivated Comments Full Code 11/17/2019 3:51 PM 11/18/2019 7:22 PM Full Code 09/28/2019 9:33 AM 09/30/2019 4:01 PM Documents on File Type Date Recorded Patient Supervising Broker Expl anation Advance Directives and Livin g Will 09/15/2019 10:04 AM Advance Directive Response Recorded Date/ Time Advance Directives Yes November 23, 2015 8:19am Living Will No July 28, 2020 5: 42pm Power of Post Doc Fellowship No July 28, 2020 5:42pm Latest Code [...] No December 22, 2022 4:07pm Power of Post Doc Fellowship No November 4:07pm Advance Directive Response Recorded Date/ Time Advance Directives Yes November 9:45am Living Will No December 22, 2022 3:07pm Power of Post Doc Fellowship No November 3:07pm Advance Directive Response Recorded Date/ Time Advance Directives Yes July 09 12:30pm Living Will No July 10, 2023 12:30pm Power of Post Doc Fellowship No July 09 12:30pm Discharge Instructions * Instructions* Karlie Zamora PA-C - 09/28/2019 HIP REPLACEMENT INSTRUCTIONS Refer to your Hip Replacement Guide for more information. Activity -Use walker/cane at all times -Wear elastic stockings for 30 days. May remove for bathing. -Your bed, chairs and toilet must be 21 inches or higher. Use toilet seat fleecer and seat cushionas instructed. -Walk 3-4 times [...] on sock/shoe. OK to lean forward to parts picker object keeping knees shoulder width apart and [...] are encouraged. -Start with Senokot-S 8.6-50 mg (zpbd-ebm-aqvnuhp). This is a laxative/stool softener combination. Take 1-2 tablets twice a day until bowel movements are achieved. -If no success, add Milk of Magnesia (bngs-iuz-dbznmid). This is a laxative. Take 30-60 mL 1-2 times per day. Take no more than 60 mL in a 24-hr period. -If still no success, add Magnesium Citrate (nvzj-gkj-mymvdcy). This is a strong laxative. Take 1/2-1 bottle 1-2 times per day. Take no more than one bottle in a 24-hr period. -If still no success, add Fleets enema (wpnv-nyi-gfijkrs). Follow instructions on package. -If still no [...] includes medicines or drugs that are prescribed, fgxe-gci-hfhfdna, or herbal supplements. -Do not mix these [...] may accidentally take the medicine. Contact your [facility] [employer] household trash and recycling service to see [...] your care to our team. Sincerely, [facility] Primary Care Hospitalist Team Your [facility] Hospitalist Physician was Dr. [facility] Your [facility] Hospitalist Nurse Practitioner was Thi Walters documented [...] your care to our team. Sincerely, [facility] Primary Care Hospitalist Team Your [facility] Hospitalist Physician was Dr. [facility] Your [facility] Hospitalist Nurse Practitioner was Thi Walters documented in this encounter History of Present Illness * Khushboo Louis, DOCK OPERATOR - 09/30/2019 12:06 PM EDT Physical Therapy [...] assistance Stand Pivot Transfers: Stand by assistence Molder Trimmer: Wheeled walker, 1 person, Gait belt Skilled 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 For complete objective data, detailed plan 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 For complete objective data, detailed plan [...] Transfers Sit to Stand: Stand by assistance Molder Trimmer: Wheeled walker, 1 person, Gait belt Skilled 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 For complete objective data, detailed plan [...] 09/30/2019 9:12 AM EDT Robby Conley DO [facility] Hospitalists DAILY PROGRESS NOTE Patient Name: Nara [...] sequencing/technique Transfers Sit to Stand: Contact guard Molder Trimmer: Wheeled walker Skilled Intervention: Reviewed pose avoidance 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 multivit-min/folic acid/zuj046 (ALIVE WOMEN'S GUMMY VITAMIN ORAL) Take 2 [...] 11/18/2019 7:45 AM EDT Thi Walters CNP [facility] Hospitalists Progress note Patient Name:Nara Malcolm :1975 [...] 11/18/2019 7:45 AM EDT Thi Walters CNP [facility] Hospitalists Progress note Patient Name:Nara Malcolm :1975 [...] Hip Left Without Contrast Oj Ferro MD [address] [place] [address] Specialty Diagnoses / Procedures Referred By Kaylee murphy Referred To Contact Neurology Diagnoses Carpal tunnel syndrome of left wrist Procedures Nerve conduction test Faith Munson CNP [address] [place] [address] Anaya Staples MD [address] [place] [phone] Referral ID Status Reason Start Date Expiration Date V isits Requested Visits Authorized [id number] Authorized 04/27/2022 04/27/2023 1 1 Specialty Diagnoses / Procedures Referred By Contac t Referred To Contact Neurology Diagnoses Carpal tunnel syndrome of left wrist Procedures EMG: Faith Munson, HOOP MACHINE OPERATOR [address] [place] [phone] Anaya Stpales MD [address] [place] [phone] Referral ID Status Reason Start Date Expiration Date V isits Requested Visits Authorized [id number] Authorized 04/27/2022 04/27/2023 1 1 Chief Complaint [...] section and content) DATE CREATED AUTHOR 09/18/2017 [employer] DATE CREATED AUTHOR AUTHOR'S ORGANIZ ATION 05/14/2018 [facility] DATE CREATED AUTHOR AUTHOR'S ORGANIZ ATION 11/25/2019 [facility] DATE CREATED AUTHOR AUTHOR'S ORGANIZ ATION 11/03/2021 [facility] DATE CREATED AUTHOR AUTHOR'S ORGANIZ ATION 11/05/2021 [facility] DATE CREATED AUTHOR AUTHOR'S ORGANIZ ATION 11/21/2022 [facility] DATE CREATED AUTHOR AUTHOR'S ORGANIZ ATION 01/07/2023 [facility] ([place]) DATE CREATED AUTHOR AUTHOR'S ORGANIZ ATION 06/06/2023 [facility] DATE CREATED AUTHOR AUTHOR'S ORGANIZ ATION 06/09/2023 [facility] DATE CREATED AUTHOR AUTHOR'S ORGANIZ ATION 10/23/2024 [facility] Reason for Visit (unrecogniz ed section and content) Status Reason Specialty Diagnoses / Procedures Referre d By Contact Referred To Contact Diagnoses M16.32 Procedures [place] TOTAL HIP ARTHROPLASTY LEFT ROBOTIC TOTAL HIP REPLACEMENT Status Reason Specialty Diagnoses / Procedures Referre d By Contact Referred To Contact Diagnoses post op wound infection Status Reason Specialty Diagnoses / Procedures Re ferred By Contact Referred To Contact Closed Radiology Diagnoses Primary osteoarthritis of left hip Procedures CT Hip Left Without Contrast Oj Ferro MD [address] [place] [address] Reason Comments Pain Specialty Diagnoses / Procedures Referred By Contac t Referred To Contact Neurology Diagnoses Carpal tunnel syndrome of left wrist Procedures EMG: Faith Munson, HOOP MACHINE OPERATOR [address] [place] [address] Anaya Staples MD [facility] [address] [address] Referral ID Status Reason Start Date Expiration Date Visits Re quested Visits Authorized [id number] Closed 04/27/2022 04/27/2023 1 1 Reason Comments Results EMG results Reason Comments Pain Follow-up Oj Ferro MD - 09/28/2019 9:32 AM Dana Gale MD - 09/16/2019 11:29 AM Tamra Huggins MD - 11/18/2019 12:42 PM EDT H&P Notes (unrecognized sect ion and content) INTERVAL HISTORY AND PHYSICAL Patient Name: Nara Malcolm Admit Date: MR #: [id number] : 1975 The H&P has been reviewed [...] esophagitis presence not specified Well controlled with PPI/[id number] which should be dosed perioperatively on usual [...] Yes 15 mg, Oral, At bedtime multivit-min/folic acid/ttb093 (ALIVE WOMEN'S GUMMY VITAMIN ORAL) Take 2 [...] Name: Nara Malcolm Admit Date: MR #: [id number] : 1975 The H&P has been reviewed and the patient has been examined. I concur with the findings of the H&P. There are no significant changes. It is appropriate to proceed with the planned procedure. Tamra Murcia MD 11/18/2019 12:42 PM Alecia Weinberg CNP [facility] HISTORY AND PHYSICAL Patient Name:Nara Malcolm [...] of MDD and GERD who presents to [facility] as a direct admission from orthopedic surgeon [...] (irritable bowel syndrome) Major depression in remission ([facility]) Past Surgical History: Procedure Laterality Date ARTHROPLASTY HIP TOTAL Left 09/28/2019 Procedure: LEFT ROBOTIC TOTAL HIP REPLACEMENT; Surgeon: Oj Ferro MD; Location: [facility] Main OR; Service: Orthopedic CHOLECYSTECTOMY HYSTERECTOMY Family [...] file Gets together: Not on file Attends adventist service: Not on file Active member of [...] Patient seen and evaluated independently of the HOOP MACHINE OPERATOR. I agree with their assessment and plan [...] Name: Nara Malcolm Admit Date: MR #: [id number] : 1975 The H&P has been reviewed and the patient has been examined. I concur with the findings of the H&P. There are no significant changes. It is appropriate to proceed with the planned procedure. Tamra Murcia MD 11/18/2019 12:42 PM Alecia Weinberg, CHANDNI [facility] HISTORY AND PHYSICAL Patient Name:Nara Malcolm [...] of MDD and GERD who presents to [facility] as a direct admission from orthopedic surgeon [...] HIP REPLACEMENT; Surgeon: Oj Ferro MD; Location: [facility] Main OR; Service: Orthopedic CHOLECYSTECTOMY HYSTERECTOMY Family [...] file Gets together: Not on file Attends adventist service: Not on file Active member of [...] Patient seen and evaluated independently of the HOOP MACHINE OPERATOR. 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 The patient's compliance is a industrial locomotive operator, awareness of own capacity and performance is a industrial locomotive operator to return to prior level of function. 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 Past Medical History: Diagnosis Date Arthritis Back pain Bronchitis 2004 Cough Depression GERD (gastroesophageal reflux disease) Hyperlipidemia IBS (irritable bowel syndrome) Joint swelling Muscle cramping right and left hip Pneumonia 2010 PONV (postoperative nausea and vomiting) Past Surgical History: Procedure Laterality Date ARTHROPLASTY HIP TOTAL Left 09/28/2019 Procedure: LEFT ROBOTIC TOTAL HIP REPLACEMENT; Surgeon: Oj Ferro MD; Location: [facility] Main OR; Service: Orthopedic CHOLECYSTECTOMY HYSTERECTOMY For [...] Current Home Equipment: Walker, Cane, Toilet seat fleecer [facility] Disposition D/C Disposition: Home Agency/Destination: Home documented in this encounter Associated Order(s): IP CONSULT TO ORTHOPEDIC SURGERY CONSULT NOTE Patient Name: Nara Malcolm Admit Date: MR #: [id number] : 1975 Physicians: Dusty Landrum DO (Family); [...] the office earlier today and sent to [facility] as a direct admission for further evaluation and surgical intervention. Patient is ambulating independently at baseline. She denies numbness or tingling. She denies fevers or chills. History: Past Medical History: Diagnosis Date GERD (gastroesophageal reflux disease) Hyperlipidemia IBS (irritable bowel syndrome) Major depression in remission ([facility]) Past Surgical History: Procedure Laterality Date ARTHROPLASTY HIP TOTAL Left 09/28/2019 Procedure: LEFT ROBOTIC TOTAL HIP REPLACEMENT; Surgeon: Oj Ferro MD; Location: [facility] Main OR; Service: Orthopedic CHOLECYSTECTOMY HYSTERECTOMY Family [...] file Gets together: Not on file Attends adventist service: Not on file Active member of [...] mg by mouth at bedtime . multivit-min/folic acid/tzt196 (ALIVE WOMEN'S GUMMY VITAMIN ORAL) Take 2 [...] Name: Nara Malcolm Admit Date: MR #: [id number] : 1975 Physicians: Dusty Landrum DO (Family); [...] the office earlier today and sent to [facility] as a direct admission for further evaluation [...] HIP REPLACEMENT; Surgeon: Oj Ferro MD; Location: [facility] Main OR; Service: Orthopedic CHOLECYSTECTOMY HYSTERECTOMY Family [...] file Gets together: Not on file Attends adventist service: Not on file Active member of [...] mg by mouth at bedtime . multivit-min/folic acid/wru621 (ALIVE WOMEN'S GUMMY VITAMIN ORAL) Take 2 [...] Medications sent home 09/28 with spouse from [facility] pharmacy. Associated Problem(s): Leukemoid reaction [...] follow up per OS. NARA MALCOLM DARION [id number] 1975 DATE 09/28/2019 OPERATIVE REPORT SURGEON OJ FERRO MD FILLER SIFTER HELPER NONE PREOPERATIVE DIAGNOSES Left hip dysplasia [...] that in the appropriate position for the [employer] robot. At that point, we then made [...] leg length of the leg in the WIB robotic system. At that point, I dislocated [...] was completed. We then registered for the WIB robot per protocol. Once registration was completed, [...] and measured leg length measurement knee and [id number] and determined that we were about 2.5 [...] condition. OJ FERRO MD D 09/28/2019 18:06 [id number] T 09/29/2019 08:06 RKB/MODL Plan of care [...] OPERATIVE NOTE Patient name: Nara Malcolm CSN: [id number] Date of surgery: 11/17/2019 - 11/18/2019 Surgeon: [...] for possible I&D. She was admitted to [place] for pre-operative workup where she had a [...] OPERATIVE NOTE Patient name: Nara Malcolm CSN: [id number] Date of surgery: 11/17/2019 - 11/18/2019 Surgeon: [...] for possible I&D. She was admitted to [place] for pre-operative workup where she had a [...] Care Teams (unrecognized sec tion and content) Scuba Instructor Relationship Specialty Start Date End Date Dusty Landrum DO [address] [place] [id number] PCP - General Family Medicine 09/14/19 Scuba Instructor Relationship Specialty Start Date End Date Dusty Landrum DO [address] [place] [id number] PCP - General Family Medicine 09/14/19 Scuba Instructor Relationship Specialty Start Date End Date Dusty Landrum DO [address] [place] [id number] PCP - General Family Medicine 09/14/19 Scuba Instructor Relationship Specialty Start Date End Date Diallo DustyDO [address] [place] [address] PCP - General Family Medicine 09/14/19 Team [...] Provider, Referri ng Provider Active Mandy Irwin BINDER CHAINSTITCH, BINDER CHAINSTITCH-C Attending Provider Active Team Status: Inactive Member [...] PA Attending Provider, Referring Provi ritchie Active Scuba Instructor Relationship Specialty Start Date End Date No, Physician [facility] PCP - General 09/28/22 Nicolette Khan [address] [facility] [address] 09/22/22 Team Status: Inactive Member Role Status [...] Shukri LUI, PA Attending Provider, Referring Pr usri Active FOR RECORDS PERTAINING TO PATIENTS WHO [...] BE BASED ON THE PRIMARY CLINICAL RECORDS. [facility] [employer] provides no warranty or guarantee of the accuracy or completeness of information in this document.
== END | disposition home or self-care (01) ==
LOC: OPBI 12:59
PROVIDERS: PCP Family Medicine; Referring Provider Family Medicine; Visit Provider Family Medicine
DX: R92.8 Other abnormal and inconclusive findings on diagnostic imaging of breast (principal); Z13.39 Encounter for screening examination for other mental health and behavioral disorders
CPT/HCPCS: 77061; 76642; 77065; G0279

== ENCOUNTER → 2024-12-09 | Outpatient (CLI) | payer MEDICAID, SELFPAY ==
--- NOTE | 2024-12-09 13:19 | RAD_ITS ---
PROCEDURE: KNEE 4 OR MORE VIEWS 12/09/2024 REASON FOR EXAM: KNEE PAIN TECHNIQUE: Procedure Code: RADKN Modality: DX Procedure: KNEE 4 OR MORE VIEWS Laterality: Right COMPARISON: None FINDINGS: Bones: No definite evidence of any displaced fracture deformity. Mild cortical irregularity of proximal fibula without any displaced fracture deformity. Joints: Mild tricompartmental degenerative changes more prominent along medial compartment. Effusion: Small effusion. Soft tissues: Soft tissue swelling overlying knee joint. Other: RAD/Knee 4 or More Views IMPRESSION: Mild degenerative changes of knee joint more prominent along medial compartment . Mild soft tissue swelling overlying the joint. No visible fracture deformity. If there is ongoing clinical suspicion for frac ture consider follow-up imaging in 7-10 days. Reading Location: [id number]
--- OUTSIDE RECORDS SUMMARY | 2024-12-09 20:32 | XMS RPT_ITS | CCD ---
Author Organization [facility] Inform ion [facility] Care Team Providers Care Estimator Lumber Name Role Phone REFERRINGNATHEN ID Unavailable Unavailable WAYT, WAI Unavailable Unavailable WAYT, WAI Unavailable Unavailable RENA ESCOTO (PA) Referring Unavailable RUSSELL COLUNGA (PA) Referring Unavailable Dusty Landrum Primary Care Provider Dusty Landrum Primary Care Provider [phone] OJ FERRO Admitting Unavailable OJ FERRO Attending Unavailable [facility] Consulting U lukeailable OJ FERRO Attending Unavailable OJ FERRO Referring [...] Unavailable Dusty Landrum DO Primary Care Provider [phone] NICOLETTE KHAN DO Primary Care Physician DEBORAH FRANCISCO Attending Unavailab DUSTY Robledo Primary Care Unavailable Dr. Nicolette Khan Primary Care Provider Dr. Nicolette Khan Referring Provider [phone] FORENSIC TECHNICIAN, LISET-Jose Concepcion Attending Provider HU Ayers Attending Provider [phone] JONI RUBALCAVA MD Attending Unavail able NICOLETTE KHAN DO Primary Care Unavailable NICOLETTE KHAN DO Attending Unavailable NICOLETTE KHAN DO Primary Care Unavailable Dr. Nicolette Khan Primary Care Provider Dr. Nicolette Khan Referring Provider [phone] FORENSIC TECHNICIAN, LISET-Jose Concepcion Attending Provider HU Ayers Attending Provider [phone] TALITA SWANN Admitting Unavailab TALITA Singh Attending Unavailab le DUSTY LANDRUM Primary Care Unavailable No, Physician Primary Care Provider Unavailabl e FAITH MUNSON Admitting Unavailable FAITH MUNSON Referring Unavailable ROMLAYO, DUSTY Primary Care Unavailable ANAYA STAPLES Attending Unavailable TALITA SWANN Attending Unavailab le NO, PHYSICIAN Primary Care Unavailable FAITH MUNSON Attending Unavailable ROMLAYO, DUSTY Primary Care Unavailable FAITH MUNSON Attending Unavailable NO, PHYSICIAN Primary Care Unavailable FAITH MUNSON Referring Unavailable NO, PHYSICIAN Primary Care Unavailable FAITH MUNSON Admitting Unavailable FAITH MUNSON Referring Unavailable FAITH MUNSON Admitting Unavailable NO, PHYSICIAN Primary Care Unavailable Dr. Nicolette Khan Primary Care Provider Dr. Nicolette Khan Referring Provider [phone] HU Ayers Attending Provider HU Sterling Attending Provider MD [place] Attending Provider [phone] NICOLETTE KHAN DO Primary Care Physician NICOLETTE KHAN DO Attending Unavailable NICOLETTE KHAN DO Primary Care Unavailable Nicolette Khan Attending Unavailable Nicolette Khan Primary Care Unavailable Nicolette Khan Referring Unavailable Nicolette Khan Attending Unavailable Nicolette Khan Primary Care Unavailable Nicolette Khan Referring Unavailable Nicolette Khan Attending Unavailable Nicolette Khan Primary Care Unavailable Nicolette Khan Referring Unavailable Allergies Allergy Classification Reported Allergen(s) Allergy Type Date of Onset Reaction(s) Facility (10 sources) Acetaminophen / oxyCODONE; Translations: [OXYCODONE-ACETAM INOPHEN] Drug Allergy 01-14-20 18 Hives [facility] (5 sources) oxyCODONE Drug Allergy 07-29-19 21 ITCHING, HALLUCINATIONS [facility] (3 sources) Acetaminophen / oxyCODONE; Translations: [Percocet TABS] Drug Allergy [facility], Unknown [facility] (2 sources) Seasonal Allergies: Uncoded; Translations: [Seasonal Allergies: Uncoded] Allergy to substance 07-15-19 Other [facility] (1 source) oxyCODONE Drug Allergy 09-09-19 [facility] Medications Current Medications Medication Drug Class(es) Dates Sig (Normalized) Sig (Original) ARIPiprazole 15 mg oral tablet (1 source) Atypical Antipsychotic Start: 10-29-2024 Abilify 15 mg oral tablet Dose : 15 mg = 1 tab(s), Oral, qDay, # 30 tab(s), 0 Refill(s) Start Date: 10/29/24 Status: Ordered Medication Dispense Status: Completed Quantity: 30.0 Unit: tab(s) Total Allowed Fills: 1 Fills Dispensed: 0 Blood Glucose Test Machine (1 source) Start: 08-06-2024 Blood Glucose Test Machine See Instructions, Please give formulary preferred. Use as directed. Dx: new onset type 2 diabetes, # 1 EA, 0 Refill(s), Pharmacy: [facility], New onset type 2 diabetes mellitus, 163, cm, 08/06/24 14:33:00 EDT, Height, 83.6, kg, 08/06/24 14:33:00 EDT, Dosing Weight Start Date: 08/06/24 Status: Ordered Medication Dispense Status: Completed Quantity: 1.0 Unit: EA Total Allowed Fills: 1 Fills Dispensed: 0 Indications: Type 2 diabetes mellitus without complications; 24 hr buPROPion hydrochloride 150 mg extended release oral tablet (1 source) Aminoketone Start: 10-29-2024 take 1 tablet by mouth every hour, then take 1 tablet by mouth every twenty-four hours Wellbutrin XL 150 mg/24 hours oral tablet, extended release Dose : 150 mg = 1 tab(s), Oral, q24h, # 30 tab(s), 0 Refill(s) Start Date: 10/29/24 Status: Ordered Medication Dispense Status: Completed Quantity: 30.0 Unit: tab(s) Total Allowed Fills: 1 Fills Dispensed: 0 busPIRone hydrochloride 10 mg oral tablet (10 sources) Start: 07-15-2023 take 20 mg by mouth twice daily Buspirone Active 20 MG PO TWICE A DAY July 15, 2023 12:00am Start: 04-23-2022 take 1 tablet by rebecca th twice daily, then take 2 tablets by mouth once daily at bedtime busPIRone 10 mg oral tablet See Instructions, 1 tab(s) Oral BID and 2 tablets oral qHS, # 120 EA, 5 Refill(s), Pharmacy: [facility], Sleeping difficulties Bipolar affective disorder, 163.5, cm, 05/29/23 11:46:00 EST, Height, kg, 05/29/23 11:46:00 EST, Dosing Weight Start Date: 05/29/23 Status: Ordered Medication Dispense Status: Completed Quantity: 120.0 Unit: EA Total Allowed Fills: 6 Fills Dispensed: 0 Indications: Sleep disorder, unspecified; Bipolar disorder, unspecified; Start: 05-03-2021 take 1 tablet by rebecca [...] (5 sources) Vitamin D Start: 05-28-2016 Ca-D3-Mag Wn-Bbcs-Lwp-Jeramie-Bor Active 1 EACH PO DAILY May 28, 2016 1:00am calcium citrate 1040 mg oral tablet (2 sources) Start: 08-21-2023 take 1 tablet by mouth once, then take 1 tablet by mouth twice daily calcium (as calcium citrate) 250 mg oral tablet Dose : 250 mg = 1 tab(s), Oral, BID, gets OTC, # 180 tab(s), 3 Refill(s), Pharmacy: [facility], Vitamin D deficiency, 164, cm, 08/01/23 8:35:00 EDT, Height, kg, 08/01/23 8:35:00 EDT, Dosing Weight Start Date: 08/21/23 Status: Ordered Medication Dispense Status: Completed Quantity: 180.0 Unit: tab(s) Total Allowed Fills: 4 Fills Dispensed: 0 Indications: Vitamin D deficiency, unspecified; Start: 11-06-2018 take 1 mg by mouth twice daily calcium (as calcium citrate) 250 mg oral tablet mg = tab(s), Oral, BID, 0 Refill(s) Start Date: 11/06/18 Status: Ordered cetirizine hydrochloride 10 mg oral tablet (1 source) Histamine-1 Receptor Antagonist Start: 08-06-2024 cetirizine 10 mg oral tablet Dose : 10 mg = 1 tab(s), Oral, qDay, Discontinue Xyzal prescription please. Failed Xyzal and loratadine, # 90 tab(s), 3 Refill(s), Pharmacy: [facility], Seasonal allergies, 163, cm, 08/06/24 14:33:00 EDT, Height, kg, 08/06/24 14:33:00 EDT, Dosing Weight Start Date: 08/06/24 Status: Ordered Medication Dispense Status: Completed Quantity: 90.0 Unit: tab(s) Total Allowed Fills: 4 Fills Dispensed: 0 Indications: Other seasonal allergic rhinitis; cholecalciferol, vitamin D3, (VITAMIN D3 ORAL) (9 sources) take 600 [IU] by mouth once daily cholecalciferol, vitamin D3, (VITAMIN D3 ORAL) Take 600 Units by mouth daily . 0 Suspended take 600 [IU] by mouth once bri y cholecalciferol, vitamin D3, (VITAMIN D3 ORAL) Take 600 Units by mouth daily . 0 Active Fish Oils (2 sources) Start: 08-06-2024 omega-3 fish o il 1000 mg oral capsule Dose : 1,000 mg = 1 cap(s), Oral, BID, # 180 cap(s), 3 Refill(s), Pharmacy: [facility], Hyperlipidemia, 163, cm, 08/06/24 14:33:00 EDT, Height, kg, 08/06/24 14:33:00 EDT, Dosing Weight Start Date: 08/06/24 Status: Ordered Medication Dispense Status: Completed Quantity: 180.0 Unit: cap(s) Total Allowed Fills: 4 Fills Dispensed: 0 Indications: Hyperlipidemia, unspecified; Start: 05-17-2022 omega-3 fish o il 1000 mg oral capsule Dose : 1,000 mg = 1 cap(s), Oral, BID, OTC - not sent in, # 180 cap(s), 3 Refill(s), Pharmacy: [facility], Hyperlipidemia, 163, cm, 05/11/22 8:17:00 [...] Nasal, Daily PRN, o ther, rhinitis, Starting Sat09/28/19 at 2014 ibuprofen 800 mg oral tablet [...] Zyrtec, # 90 tab(s), 3 Refill(s), Pharmacy: [facility], Seasonal allergies, 163, cm, 11/08/22 7:56:00 EDT, Height, kg, 11/08/22 7:56:00 EDT, Dosing Weight Start Date: 11/08/22 Status: Ordered LORazepam 0.5 mg oral tablet (5 sources) Benzodiazepine Start: 08-01-2023 take 1 tablet by mouth three times daily LORazepam 0.5 mg oral tablet TAKE 1 TABLET BY MOUTH THREE TIMES DAILY Start Date: 08/01/23 Status: Ordered Medication Dispense Status: Completed Total Allowed Fills: 1 Fills Dispensed: 0 Start: 05-30-2023 take 1 tablet by rebecca th twice daily LORazepam (ATIVAN) 0.5 MG tablet Take 1 (one) tablet (0.5 mg total) by mouth 2 (two) times a day . 0 05/30/2023 Active Start: 12-22-2022 take 1 tablet by rebecca th three times daily Lorazepam (Ativan) 1 mg tablet Active 1 MG PO THREE TIMES A DAY December 22, 2022 12:00am melatonin 10 mg oral capsule (13 sources) Start: 08-06-2024 melatonin 10 m g oral capsule Dose : 10 mg = 1 cap(s), Oral, qHS, PRN for insomnia, # 90 cap(s), 3 Refill(s), Pharmacy: [facility], Sleeping difficulties, 163, cm, 08/06/24 14:33:00 EDT, Height, kg, 08/06/24 14:33:00 EDT, Dosing Weight Start Date: 08/06/24 Status: Ordered Medication Dispense Status: Completed Quantity: 90.0 Unit: cap(s) Total Allowed Fills: 4 Fills Dispensed: 0 Indications: Sleep disorder, unspecified; Start: 05-11-2022 melatonin 10 m g oral capsule Dose : 10 mg = 1 cap(s), Oral, qHS, PRN for insomnia, # 90 cap(s), 3 Refill(s), Pharmacy: [facility], Sleeping difficulties, 163, cm, 05/11/22 8:17:00 EST, Height, kg, 05/11/22 8:17:00 EST, Dosing Weight Start Date: 05/11/22 Status: Ordered Start: 05-03-2021 take 1 capsule by mo uth once daily at bedtime as needed Melatonin [...] by mouth at bedtime . 0 Active metFORMIN hydrochloride 500 mg oral tablet (1 source) Biguanide Start: 10-29-2024 metFORMIN 500 mg oral tablet (IR) Dose : 500 mg = 1 tab(s), Oral, BID, # 180 tab(s), 1 Refill(s), Pharmacy: [facility], Type 2 diabetes mellitus with hyperlipidemia, 163.1, cm, 10/29/24 15:06:00 EDT, Height, kg, 10/29/24 15:06:00 EDT, Dosing Weight Start Date: 10/29/24 Status: Ordered Medication Dispense Status: Completed Quantity: 180.0 Unit: tab(s) Total Allowed Fills: 2 Fills Dispensed: 0 Indications: Type 2 diabetes mellitus with other specified complication; methylPREDNISolone (5 sources) Corticosteroid Start: 04-12-2022 methylPREDNISolone (MEDROL DOSEPACK) 4 mg tablet follow package directions . 21 tablet 0 04/12/2022 Active multivit-min/folic acid/voy872 (ALIVE WOMEN'S GUMMY VITAMIN ORAL) (9 sources) take 2 tablets by mouth once daily multivit-min/folic acid/syj098 (ALIVE WOMEN'S GUMMY VITAMIN ORAL) Take 2 tablets by mouth daily . 0 Suspended take 2 tablets by mouth once rafael ly multivit-min/folic acid/vxd774 (ALIVE WOMEN'S GUMMY VITAMIN ORAL) Take 2 tablets by mouth daily . 0 Active Multivitamin (Daily Multiple) 1 EACH tablet (5 sources) Start: 11-23-2015 take 1 tablet by mouth once daily Multivitamin (Daily Multiple) 1 EACH tablet Active 1 EACH PO DAILY November 22, 2015 11:00pm Start: 11-23-2015 take 1 tablet by rebecca th once daily Multivitamin (Daily Multiple) 1 EACH tablet Active 1 EACH PO DAILY November 23, 2015 12:00am Multivitamin preparation (2 sources) Start: 11-06-2018 take 1 tablet by mouth once daily Multivitamin Dose = 1 tab(s), Oral, Daily, 0 Refill(s) Start Date: 11/06/18 Status: Ordered Medication Dispense Status: Completed Total Allowed Fills: 1 Fills Dispensed: 0 Start: 11-06-2018 take 1 tablet by rebecca th once daily Multivitamin Dose = 1 tab(s), Oral, Daily, 0 Refill(s) Start Date: 11/06/18 Status: Ordered omeprazole 40 mg delayed release oral capsule (17 sources) Proton Pump Inhibitor Start: 08-06-2024 omeprazole 40 mg ora l delayed release capsule Dose : 40 mg = 1 cap(s), Oral, qDay, # 90 cap(s), 3 Refill(s), Pharmacy: [facility], Gastroesophageal reflux disease, 163, cm, 08/06/24 14:33:00 EDT, Height, kg, 08/06/24 14:33:00 EDT, Dosing Weight Start Date: 08/06/24 Status: Ordered Medication Dispense Status: Completed Quantity: 90.0 Unit: cap(s) Total Allowed Fills: 4 Fills Dispensed: 0 Indications: Gastro-esophageal reflux disease without esophagitis; Start: 11-23-2015 take 1 capsule by mo uth once daily Omeprazole (Prilosec) 40 MG capsule Active 40 MG PO DAILY November 23, 2015 12:00am Omeprazole 20 MG Oral Tablet Delayed Release Quantity: 0 Refills: 0 Ordered: 02-Nov-2021 DO Active Psyllium (1 source) Start: 10-29-2024 Metamucil Oral , 0 Refill(s) Start Date: 10/29/24 Status: Ordered Medication Dispense Status: Completed Total Allowed Fills: 1 Fills Dispensed: 0 QUEtiapine 100 mg oral tablet (20 sources) Atypical Antipsychotic Start: 12-26-2020 QUEtiap ine 100 mg oral tablet Dose : 100 mg = 1 tab(s), Oral, qDay, this dose taken in morning, # 90 tab(s), 1 Refill(s), Pharmacy: [facility], Bipolar affective disorder Situational anxiety, [...] Start: 11-23-2015 take 1 tablet by rebecca at bedtime Quetiapine (Seroquel) 400 MG tablet Active 400 MG PO AT BEDTIME November 23, 2015 12:00am rosuvastatin calcium 20 mg oral tablet (17 sources) HMG-CoA Reductase Inhibitor Start: 08-06-2024 rosuvastatin 20 mg o ral tablet Dose : 20 mg = 1 tab(s), Oral, qDay, # 90 tab(s), 3 Refill(s), Pharmacy: [facility], Hyperlipidemia, 163, cm, 08/06/24 14:33:00 EDT, Height, kg, 08/06/24 14:33:00 EDT, Dosing Weight Start Date: 08/06/24 Status: Ordered Medication Dispense Status: Completed Quantity: 90.0 Unit: tab(s) Total Allowed Fills: 4 Fills Dispensed: 0 Indications: Hyperlipidemia, unspecified; Start: 11-23-2015 take 1 tablet by rebecca th at bedtime Rosuvastatin (Crestor) 20 MG tablet Active 20 MG PO AT BEDTIME November 23, 2015 12:00am sertraline 100 mg oral tablet (19 sources) Serotonin Reuptake Inhibitor Start: 05-14-2023 sertraline 100 mg or al tablet Dose : 100 mg = 1 tab(s), Oral, BID, TAKE 1 TABLET BY MOUTH TWICE DAILY, # 180 tab(s), 0 Refill(s), Pharmacy: [facility], Bipolar affective disorder Situational anxiety, 160, cm, 12/27/22 16:51:00 EDT, Height, kg, 12/27/22 16:51:00 EDT, Dosing Weight Start Date: 05/14/23 Status: Ordered Medication Dispense Status: Completed Quantity: 180.0 Unit: tab(s) Total Allowed Fills: 1 Fills Dispensed: 0 Indications: Bipolar disorder, unspecified; Other specified anxiety disorders; Start: 09-08-2014 End: 11-18-2019 take 100 mg by mouth twice daily Sertraline Active 100 MG PO TWICE A DAY September 08, 2014 12:00am sulfamethoxazole 800 mg / trimethoprim 160 mg oral tablet (2 sources) Dihydrofolate Reductase Inhibitor Antibacterial, Sulfonamide Antimicrobial Start: 11-18-2019 End: 11-25-2019 take 1 tablet by mouth twice daily sulfamethoxazole-trimethoprim (BACTRIM DS,SEPTRA DS) 800-160 mg per tablet Take 1 (one) tablet by mouth 2 (two) times a day for 7 days . 14 tablet 0 11/18/2019 11/25/2019 Active traZODone hydrochloride 50 mg oral tablet (1 source) Serotonin Reuptake Inhibitor Start: 08-06-2024 traZODone 50 mg oral tablet Dose : 50 mg = 1 tab(s), Oral, qHS, as needed, # 30 tab(s), 0 Refill(s) Start Date: 08/06/24 Status: Ordered Medication Dispense Status: Completed Quantity: 30.0 Unit: tab(s) Total Allowed Fills: 1 Fills Dispensed: 0 Completed/Discontinued Medications Medication Drug Class(es) Dates Sig (Normalized) Sig (Original) acetaminophen 325 mg oral tablet (11 sources) Start: 09-28-2019 End: 09-30-2019 acetaminophen (TYLENOL) tablet 650 mg Start: 09-28-2019 End: 09-28-2019 acetaminophen (TYLENOL) tabl et 975 mg Start: 09-24-2019 take 2 tablets by mo [facility] every six hours as needed acetaminophen (TYLENOL) [...] Discontinued 100 MG PO TWICE A DAY June 08, 2016 12:00am July 15, 2023 10:04am docusate sodium 50 mg / sennosides, fdc 8.6 mg oral tablet (1 source) Start: [...] mg tablets,dose pack Discontinued 0 PO .COMPLEX December 15, 2022 11:00pm December 21, 2022 6:29am take TWO 150 mg tablets of nirmatrelvir with ONE 100 mg tablet of ritonavir twice daily for 5 days PO Start: 12-16-2022 End: 12-21-2022 Nirmatrelvir-Ritonavir (Paxl ovid) 300 mg (150 mg x 2)-100 mg tablets,dose pack Discontinued 0 PO .COMPLEX December 16, 2022 12:00am December 21, 2022 [...] Problem Date Documented Date Episodic/Chronic Anxiety disorders (3 sources) Anxiety; Translations: [Anxiety state, unspecified] 06-08-2020 Chronic Diabetes mellitus without complication (4 sources) Type 2 diabetes mellitus; Translations: [Type 2 diabetes mellitus without complications] Onset: 10-29-2024 08-06-2024 Chronic Diseases of white blood cells (10 sources) Leukemoid reaction; Translations: [Leukemoid reaction] Onset: 09-29-2019 09-29-2019 Chronic Disorders of lipid metabolism (2 sources) Hyperlipidemia 11-04-2018 Chronic Esophageal disorders (3 sources) Gastroesophageal reflux disease; Translations: [Esophageal reflux] [...] with irregular cycle] 11-29-2015 Chronic Mood disorders (12 sources) Major depression in remission; Translations: [Major depressive disorder, single episode, in full remission] 09-29-2019 Chronic Nutritional deficiencies (1 source) Vitamin D deficiency 08-01-2023 Chronic Osteoarthritis (10 sources) Osteoarthritis of hip; [...] finger, left middle finger] 06-07-2023 Episodic Other hereditary and degenerative nervous system conditions (1 source) Serotonin syndrome 12-28-2022 Chronic Other lower respiratory disease (2 sources) Apnea 01-06-2020 Episodic Other nervous system disorders [...] Chronic Other nutritional; endocrine; and metabolic disorders (2 sources) Overweight in adulthood with body mass index of 25 or more but less than 30 05-11-2022 Episodic Other screening for suspected conditions (not mental disorders or infectious disease) (4 sources) Viral screening status; Translations: [Other abnormal and inconclusive findings on diagnostic imaging of breast] Onset: 11-06-2024 11-08-2022 Episodic Other upper respiratory disease (2 sources) Seasonal allergy 05-03-2021 Chronic Residual codes; unclassified (2 sources) Obstructive sleep apnea syndrome 06-08-2020 Chronic Residual codes; unclassified (2 sources) Difficulty sleeping 09-13-2020 Episodic Residual codes; unclassified (2 sources) Requires vaccination 05-06-2019 Episodic Residual codes; unclassified (2 sources) Screening due 11-08-2022 Episodic Residual codes; unclassified (2 sources) Pain, unspecified; Translations: [Pain, unspecified] Onset: 06-04-2023 Episodic Sprains and strains (2 sources) Strain of neck muscle; Translations: [Strain of muscle, fascia and tendon at neck level, initial encounter] 07-09-2023 Episodic Substance-related disorders (5 sources) Smoker; 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] 11-08-2020 Chronic Substance-related disorders (1 source) Drug-induced psychosis 12-28-2022 Episodic Suicide and intentional self-inflicted injury (5 sources) Suicidal thoughts; Translations: [Suicidal ideations] 08-12-2020 Episodic Superficial injury; contusion (6 sources) Contusion of left hand; Translations: [Contusion of left hand, initial encounter] 07-09-2023 Episodic Unclassified (1 source) Unknown / UNK(Unknown) Onset: 09-28-2016 Unclassified (2 sources) Cancer cervix screening status 11-08-2022 Unclassified (2 sources) Influenza vaccination declined 05-11-2022 Unclassified (12 sources) Patient encounter status 11-06-2018 Unclassified (2 sources) Results Onset: 06-26-2022 Urinary tract infections (2 sources) Urinary tract infection, site not specified; Translations: [Urinary tract infection, site not specified] 03-28-2023 Episodic Viral infection (7 sources) Disease caused by 2018-nCoV; Translations: [COVID-19] 12-22-2022 Episodic Viral infection (1 source) Disease caused by 2019-nCoV 12-28-2022 Past or Other Problems Problem Classification Problem [...] Test Name Value Interpretation Reference Range Facility Breast Limited Unilateralon 10-30-2024 Breast Limited Unilateral [facility] [address] [place] [address] Breast Limited Unilateral MR#: [id number] Acct: [id number] Name: NARA MALCOLM Rep #: [id number] : 1975 F 49 From: Kori Silva MD PCP: Dr. Nicolette Khan DO Status: REG CLI Study: Breast Limited Unilateral Date of Exam: Exam# [id number] Ordering Dr: Nicolette Khan DO EXAM: DIAG MAMM W/CAD, UNILAT; RT BRST UNILAT LEANDRO ADD-ON; BREAST LIMITED UNILATERAL 10/30/2024 CLINICAL HISTORY: F, Age 49 y/o , ABN BI; RT AV'S TECHNIQUE: DIAG MAMM W/CAD, UNILAT; RT BRST UNILAT LEANDRO ADD-ON; BREAST LIMITED UNILATERAL. COMPARISON: 10/23/2024, 10/23/2023, 10/19/2022, 10/06/2021 FINDINGS: MAMMOGRAM: TISSUE DENSITY: There are scattered areas of fibroglandular density. Right breast : Follow-up examination performed for the asymmetry in the right breast seen on examination of 10/23/2024. On the present examination, the asymmetry in the superior right breast at middle depth effaces. This likely represents benign overlapping fibroglandular tissues. ULTRASOUND: Ultrasound performed of the central right breast demonstrates no sonographic correlate. US/Breast Limited Unilateral IMPRESSION: There are no suspicious mammographic or sonographic findings in the right breast. OVERALL FINAL ASSESSMENT BI-RADS 1: NEGATIVE RECOMMENDATION: Routine annual follow-up in 1 Year A letter with findings and recommendations will be mailed to the patient. Reading Location: [facility] CC: Dr. Nicolette Khan DO Tape Machine Tailer: Signed Normal [facility] DIAG MAMM W/CAD, UNILATon DIAG MAMM W/CAD, UNILAT [facility] [address] [place], [place] [address] DIAG MAMM W/CAD, UNILAT MR#: [id number] Acct: [id number] Name: NARA MALCOLM Rep #: [id number] : 1975 F 49 From: Kori Silva MD PCP: Dr. Nicolette Khan DO Status: [facility] Study: DIAG MAMM W/CAD, UNILAT Date of Exam: 10/30/24 Exam# [id number] Ordering Dr: Nicolette Khan DO EXAM: DIAG MAMM W/CAD, UNILAT; RT BRST UNILAT LEANDRO ADD-ON; BREAST LIMITED UNILATERAL 10/30/2024 CLINICAL HISTORY: F, Age 49 y/o , ABN BI; RT AV'S TECHNIQUE: DIAG MAMM W/CAD, UNILAT; RT BRST UNILAT LEANDRO ADD-ON; BREAST LIMITED UNILATERAL. COMPARISON: 10/23/2024, 10/23/2023, 10/19/2022, 10/06/2021 FINDINGS: MAMMOGRAM: TISSUE DENSITY: There are scattered areas of fibroglandular density. Right breast : Follow-up examination performed for the asymmetry in the right breast seen on examination of 10/23/2024. On the present examination, the asymmetry in the superior right breast at middle depth effaces. This likely represents benign overlapping fibroglandular tissues. ULTRASOUND: Ultrasound performed of the central right breast demonstrates no sonographic correlate. BI/DIAG MAMM W/CAD, UNILAT IMPRESSION: There are no suspicious mammographic or sonographic findings in the right breast. OVERALL FINAL ASSESSMENT BI-RADS 1: NEGATIVE RECOMMENDATION: Routine annual follow-up in 1 Year A letter with findings and recommendations will be mailed to the patient. Reading Location: [facility] CC: Dr. Nicolette Khan DO Tape Machine Tailer: Signed Normal [facility] Rt Brst Unilat [place] Add-Onon 10-30-2024 Rt Brst Unilat [place] Add-On [facility] [address] [place], [place] [id number] Rt Brst Unilat [place] Add-On MR#: [id number] Acct: [id number] Name: NARA MALCOLM Rep #: [id number] : 1975 F 49 From: Kori Silva MD PCP: Dr. Nicolette Khan DO Status: REG CLI Study: Rt Brst Unilat Leandro Add-On Date of Exam: 10/30 Exam# [id number] Ordering Dr: Nicolette Khan DO EXAM: DIAG MAMM W/CAD, UNILAT; RT BRST UNILAT LEANDRO ADD-ON; BREAST LIMITED UNILATERAL 10/30/2024 CLINICAL HISTORY: F, Age 49 y/o , ABN BI; RT AV'S TECHNIQUE: DIAG MAMM W/CAD, UNILAT; RT BRST UNILAT LEANDRO ADD-ON; BREAST LIMITED UNILATERAL. COMPARISON: 10/23/2024, 10/23/2023, 10/19/2022, 10/06/2021 FINDINGS: MAMMOGRAM: TISSUE DENSITY: There are scattered areas of fibroglandular density. Right breast : Follow-up examination performed for the asymmetry in the right breast seen on examination of 10/23/2024. On the present examination, the asymmetry in the superior right breast at middle depth effaces. This likely represents benign overlapping fibroglandular tissues. ULTRASOUND: Ultrasound performed of the central right breast demonstrates no sonographic correlate. BI/Rt Brst Unilat Leandro Add-On IMPRESSION: There are no suspicious mammographic or sonographic findings in the right breast. OVERALL FINAL ASSESSMENT BI-RADS 1: NEGATIVE RECOMMENDATION: Routine annual follow-up in 1 Year A letter with findings and recommendations will be mailed to the patient. Reading Location: [id number] CC: Dr. Nicolette Khan, Tape Machine Tailer: Signed [facility] LABORATORYOrdered By: Addison Cuevas on 10-29-2024 Albumin DL <= 20 mg/L (U) [Mass/Vol] 5.3 mg/L Invalid Interpretation Code AO ADM SS Albumin/Creatinine DL <= 20 mg/L (U) [Mass ratio] 12 mg/G Normal 0 - 30 mg/G AO Chemistry S Creatinine (U) [Mass/Vol] 45.6 mg/dL Invalid Interpretation Code AO ADM SS MECHELLEBRon 10-29-2024 U Creatinine 45.6 mg/dL Normal [facility] Comment on above: Performed By: #### M ALBR #### [address] [address] U Microalb 5.3 mg/L Normal [facility] Comment on above: Performed By: #### M ALBR #### [address] [address] U Ratio Alb/Cre 12 mg/G Normal 0-30 [facility] Comment on above: Performed By: #### M ALBR #### [facility] [address] [place], [place] [address] SCRN MAMM (CAD)W/LEANDRO BILATo n 10-23-2024 SCRN MAMM (CAD)W/LEANDRO BILAT [facility] [address] [place], [place] [id number] SCRN MAMM (CAD)W/LEANDRO BILAT MR#: [id number] Acct: [id number] Name: NARA MALCOLM Rep #: [id number] : 1975 F 49 From: Kori Silva MD PCP: Dr. Nicolette Khan DO Status: [facility] Study: SCRN MAMM (CAD)W/LEANDRO BILAT Date of Exam: 04/18 Exam# [id number] Ordering Dr: Nicolette Khan DO EXAM: SCRN MAMM (CAD)W/LEANDRO BILAT DATE: 10/23/2024 CLINICAL HISTORY: F, Age 49 y/o , SCREENING TECHNIQUE: SCRN MAMM (CAD)W/LEANDRO BILAT COMPARISON: Prior exam(s) dated 10/23/2023, 10/19/2022, 10/06/2021. FINDINGS: TISSUE DENSITY: There are scattered areas of fibroglandular density. Bilateral Breast Mammographic Findings: There is an asymmetry in the slightly superior right breast at middle depth visualized on the MLO view. No significant masses, calcifications or other abnormalities are identified in the left breast. BI/SCRN MAMM (CAD)W/LEANDRO BILAT IMPRESSION: The asymmetry in the slightly superior right breast at middle depth requires further evaluation. Recommend diagnostic mammogram of the right breast and ultrasound on the day of diagnostic if indicated. OVERALL FINAL ASSESSMENT BI-RADS 0: INCOMPLETE - NEED ADDITIONAL IMAGING EVALUATION. RECOMMENDATION: Additional Views obtained/call backs A letter with findings and recommendations will be mailed to the patient. Reading Location: [id number] CC: Dr. Nicolette Khan DO Tape Machine Tailer: Signed Normal [facility] Comprehensive Metabolic Prof tierra 08-05-2024 Albumin [Mass/Vol] 4.2 g/dL Normal 3.5-5.0 [facility] Comment on above: Performed By: #### L 500.4100, L506.1001, L501.9520, L500.4050 #### [facility] [address] [place], [address] Albumin/Globulin [Mass ratio] 1.4 {ratio} Normal 0.9-2.4 [facility] Comment on above: Performed By: #### L 500.4100, L506.1001, L501.9520, L500.4050 #### [facility] [address] [place], [address] ALK PHOS 109 U/L High 35-104 [facility] Comment on above: Performed By: #### L 500.4100, L506.1001, L501.9520, L500.4050 #### [facility] [address] [place], [address] ALT [Catalytic activity/Vol] 46 U/L High <=34 [facility] Comment on above: Performed By: #### L 500.4100, L506.1001, L501.9520, L500.4050 #### [facility] [address] [place], [address] AST [Catalytic activity/Vol] 30 U/L Normal <=31 [facility] Comment on above: Performed By: #### L 500.4100, L506.1001, L501.9520, L500.4050 #### [facility] [address] [place], [address] Bilirubin [Mass/Vol] 0.24 mg/dL Normal 0.00-1.30 [facility] Comment on above: Performed By: #### L 500.4100, L506.1001, L501.9520, L500.4050 #### [facility] [address] [place], [address] BUN/CRE 18.2 RATIO Normal 10-20 [facility] Comment on above: Performed By: #### L 500.4100, L506.1001, L501.9520, L500.4050 #### [facility] [address] [place], [address] Calcium [Mass/Vol] 9.3 mg/dL Normal 7.6-11.0 [facility] Comment on above: Performed By: #### L 500.4100, L506.1001, L501.9520, L500.4050 #### [facility] [address] [place], [address] Chloride [Moles/Vol] 104 mmol/L Normal 98-108 [facility] Comment on above: Performed By: #### L 500.4100, L506.1001, L501.9520, L500.4050 #### [facility] [address] [place], [address] CO2 [Moles/Vol] 23.0 mmol/L Normal 21.0-32.0 [facility] Comment on above: Performed By: #### L 500.4100, L506.1001, L501.9520, L500.4050 #### [facility] [address] [place], [address] Creatinine [Mass/Vol] 0.64 mg/dL Low 0.70-1.20 [facility] Comment on above: Performed By: #### L 500.4100, L506.1001, L501.9520, L500.4050 #### [facility] [address] [place], [address] GAP 13 Normal 5-15 [facility] Comment on above: Performed By: #### L 500.4100, L506.1001, L501.9520, L500.4050 #### [facility] [address] [place], [address] GFR/1.73 sq M.predicted among non-blacks MDRD (S/P/Bld) [Vol rate/Area] 108 mL/min/{1.73_m2} Normal >60 [facility] Comment on above: Result Comment: mL/m in/1.73m2 CKD-EPI Creatinine Equation (2020) Performed By: #### L 500.4100, L506.1001, L501.9520, L500.4050 #### [facility] [address] [place], [address] Globulin (S) [Mass/Vol] 3.1 g/dL Normal 2.2-4.2 [facility] Comment on above: Performed By: #### L 500.4100, L506.1001, L501.9520, L500.4050 #### [facility] [address] [place], [address] Glucose [Mass/Vol] 172 mg/dL High 70-99 [facility] Comment on above: Performed By: #### L 500.4100, L506.1001, L501.9520, L500.4050 #### [facility] [address] [place], [address] Potassium [Moles/Vol] 3.8 mmol/L Normal 3.3-5.1 [facility] Comment on above: Performed By: #### L 500.4100, L506.1001, L501.9520, L500.4050 #### [facility] [address] [place], [address] Sodium [Moles/Vol] 140 mmol/L Normal 133-145 [facility] Comment on above: Performed By: #### L 500.4100, L506.1001, L501.9520, L500.4050 #### [facility] [address] [place], [address] T PROT 7.4 g/dL Normal 5.9-8.4 [facility] Comment on above: Performed By: #### L 500.4100, L506.1001, L501.9520, L500.4050 #### [facility] [address] [place], [address] Urea nitrogen [Mass/Vol] 12 mg/dL Normal 4-19 [facility] Comment on above: Performed By: #### L 500.4100, L506.1001, L501.9520, L500.4050 #### [facility] [address] [place], [address] Lipid Profileon 08-05-2024 CHOL:HDL 3.18 Normal [facility] Comment on above: Performed By: #### L 500.4100, L506.1001, L501.9520, L500.4050 #### [facility] [address] [place], [address] Cholesterol [Mass/Vol] 170 mg/dL Normal <=200 [facility] Comment on above: Result Comment: Chol esterol level, Desirable <200 mg/dL Borderline high cholesterol 200-239 mg/dL High cholesterol >=240 mg/dL Recommendations of the NCEP Adult Treatment Panel for the following risk-cutoff thresholds for the [place] population. Performed By: #### L 500.4100, L506.1001, L501.9520, L500.4050 #### [facility] [address] [place], [address] Cholesterol in HDL [Mass/Vol] 54 mg/dL Normal [facility] Comment on above: Result Comment: Annette onal Cholesterol Education Program (NCEP) guidelines: <40 mg/dL: Low HDL-cholesterol (major risk factor for CHD) >= 60 mg/dL: High HDL-cholesterol (negative risk factor for CHD) HDL-cholesterol is affected by a number of factors, e.g. smoking, exercise, hormones, sex and age. Performed By: #### L 500.4100, L506.1001, L501.9520, L500.4050 #### [facility] [address] [place], [address] Cholesterol in LDL [Mass/Vol] 88 mg/dL Normal [facility] Comment on above: Result Comment: Bord dqmzai=599-097 mg/dL Higher Kzto=653 mg/dL or greater Performed By: #### L 500.4100, L506.1001, L501.9520, L500.4050 #### [facility] [address] [place], [address] Cholesterol in VLDL [Mass/Vol] 28 mg/dL Normal 5-40 [facility] Comment on above: Performed By: #### L 500.4100, L506.1001, L501.9520, L500.4050 #### [facility] [address] [place], [address] Triglyceride [Mass/Vol] 142 mg/dL Normal [facility] Comment on above: Result Comment: The drugs N-Acetylcysteine and Metamizole may falsely depress this assay. Normal range: <150 mg/dL Borderline High: 150-199 mg/dL High: 200-499 mg/dL Very High: >500 mg/dL Performed By: #### L 500.4100, L506.1001, L501.9520, L500.4050 #### [facility] [address] [place], [address] Thyroid Stim Hormone (TSH)on 08-05-2024 TSH 2.680 uIU/mL Normal 0.300-4.200 [facility] Comment on above: Performed By: #### L 500.4100, L506.1001, L501.9520, L500.4050 #### [facility] [address] [place], [address] Vitamin D,25 Hydroxyon 08-05 Vitamin D 25-OH 34.8 ng/mL Normal 30-100 [facility] Comment on above: Result Comment: Lisa min D Status Deficiency: <20 ng/mL (50nmol/L) Insufficiency: 20-30 ng/mL (50-75 nmol/L) Sufficiency: 30-100 ng/mL (75-250 nmol/L) Toxicity: >100 ng/mL (>250 nmol/L) Performed By: #### L 500.4100, L506.1001, L501.9520, L500.4050 #### [facility] [address] [place], [place], [address] Tendon Injection: Flexor Ten don Sheathon 06-07-2023 [...] the procedure well with no immediate complications [facility] XR CERVICAL SPINE AP/LAT/FLE X/EXTon 06-04-2023 XR [...] disc space height at C5-6 and C6-7. Pwiy-ma-tzseeifn degenerative changes of the facet joints. No prevertebral soft tissue swelling. Clear lung apices. IMPRESSION: 1. No acute osseous abnormality. No evidence of dynamic instability. 2. Mild multilevel degenerative disc disease and jmzw-cl-[id number] facet joint arthrosis. Workstation ID: [id number] Dictated by: ALISIA SO on SatJun 05, 2023 10:57:37 AM EDT Transcribed by: ALISIA SO on SatJun 05, 2023 10:57:37 AM EDT Finalized by: ALISIA SO on SatJun 05, 2023 10:57:37 AM EDT Normal [facility] Comment on above: Order Comment: Injur [...] SatJun 05, 2023 10:18:41 AM EDT Normal [facility] Comment on above: Order Comment: Injur [...] 03-28-2023 Bacteria identified Cx Nom (U) Positive [facility] Bacteria identified Cx Nom (U) Positive [facility] - Chemistry and C hemistry - challengeon 03-28-2023 Bilirubin Ql (U) Negative [facility] Ketones Ql (U) Negative [facility] pH (U) 6.5 [pH] [facility] Specific gravity (U) [Rel density] 1.010 [facility] Urobilinogen (U) [Mass/Vol] Negative [facility] - Hematology and Cell countson 03-28-2023 Hemoglobin Ql (U) Negative [facility] - Specimen inform ationon 03-28-2023 Clarity (U) Clear [facility] Color (U) YELLOW [facility] - Urinalysison Nitrite Ql (U) Negative [facility] Protein Ql (U) Negative [facility] No Panel Informationon 03-28 Urine Leukocytes Negatve [facility] Urine Non-Hemolyzed Blood [facility] Absolute lymphocyte countOrd ered By: Feli Foster on 12-22-2022 Lymphocytes Auto (Unsp spec) [#/Vol] 2.49 10*3/uL 0.83-4.51 [facility] Absolute lymphocyte countOrd ered By: Ja Beck on 12-22-2022 Lymphocytes Auto (Unsp spec) [#/Vol] 6.16 10*3/uL 0.83-4.51 [facility] Basophil percentageOrdered B y: Feli Foster on 12-22-2022 Basophils/100 WBC (Bld) 0.5 % 0-1 [facility] Bilirubin [Mass/Vol] 0.20 mg/dL 0.20-1.00 [facility] Comment on above: For patients on eltr ombopag therapy, use of Dimension [place] TBIL is not recommended. Chloride [Moles/Vol] 109 mmol/L 98-107 [facility] Eosinophils/100 WBC (Bld) 0.1 % 0-5 [facility] Glucose [Mass/Vol] 160 mg/dL 74-106 [facility] Comment on above: Fasting Glucose resu lt greater than or equal to 126 mg/dL suggests DIABETES MELLITUS per A.D.A. criteria. Neutrophils (Bld) [#/Vol] 7.7 10*3/uL 2.0-7.7 [facility] Neutrophils/100 WBC (Bld) 72.2 % 47-70 [facility] Potassium [Moles/Vol] 3.9 mmol/L 3.5-5.1 [facility] Protein [Mass/Vol] 6.8 g/dL 6.4-8.2 [facility] Sodium [Moles/Vol] 139 mmol/L 136-145 [facility] WBC (Bld) [#/Vol] 10.7 10*3/uL 4.4-11.0 [facility] Basophil percentageOrdered B y: Ja Beck on 12-22-2022 Basophils/100 WBC (Bld) 0.4 % 0-1 [facility] Chloride [Moles/Vol] 110 mmol/L 98-107 [facility] Eosinophils/100 WBC (Bld) 1.3 % 0-5 [facility] Glucose [Mass/Vol] 165 mg/dL 74-106 [facility] Comment on above: Fasting Glucose resu lt greater than or equal to 126 mg/dL suggests DIABETES MELLITUS per A.D.A. criteria. Neutrophils (Bld) [#/Vol] 4.9 10*3/uL 2.0-7.7 [facility] Neutrophils/100 WBC (Bld) 41.0 % 47-70 [facility] Potassium [Moles/Vol] 2.8 mmol/L 3.5-5.1 [facility] Sodium [Moles/Vol] 142 mmol/L 136-145 [facility] WBC (Bld) [#/Vol] 11.9 10*3/uL 4.4-11.0 [facility] Blood erythrocytes count (nu mber/volume)Ordered By: Feli Foster on 12-22-2022 RBC (Bld) [#/Vol] 4.17 10*6/uL 4.2-5.4 [facility] Blood erythrocytes count (nu mber/volume)Ordered By: Ja Beck on 12-22-2022 RBC (Bld) [#/Vol] 4.31 10*6/uL 4.2-5.4 [facility] Blood hemoglobin measurement (mass/volume)Ordered By: Feli Foster on 12-22-2022 Hemoglobin (Bld) [Mass/Vol] 13.5 g/dL 12.0-15.0 [facility] Blood hemoglobin measurement (mass/volume)Ordered By: Ja Beck on 12-22-2022 Hemoglobin (Bld) [Mass/Vol] 13.6 g/dL 12.0-15.0 [facility] Blood lymphocytes/100 leukoc ytesOrdered By: Feli Foster on 12-22-2022 Lymphocytes/100 WBC (Bld) 23.4 % - [facility] Blood lymphocytes/100 leukoc ytesOrdered By: Ja Beck on 12-22-2022 Lymphocytes/100 WBC (Bld) 51.8 % - [facility] Blood manual differential co mment interpretation (narrative result)Ordered By: Ja Beck on 12-22-2022 Manual differential comment Uvaldo (Bld) [Interp] SCANNED [facility] Comment on above: LYMPHOCYTOSIS NOTED Blood monocytes/100 leukocyt esOrdered By: Feli Foster on 12-22-2022 Monocytes/100 WBC (Bld) 3.2 % 0-10 [facility] Blood monocytes/100 leukocyt esOrdered By: Ja Beck on 12-22-2022 Monocytes/100 WBC (Bld) 5.2 % 0-10 [facility] Blood platelet mean volumeOr dered By: Feli Foster on 12-22-2022 Platelet mean volume (Bld) [Entitic vol] 9.4 fL 6.2-12.0 [facility] Blood platelet mean volumeOr dered By: Ja Beck on 12-22-2022 Platelet mean volume (Bld) [Entitic vol] 9.5 fL 6.2-12.0 [facility] Determination of erythrocyte mean corpuscular volume (MCV)Ordered By: Feli Foster on 12-22-2022 MCV (RBC) [Entitic vol] 94.5 fL 81-99 [facility] Determination of erythrocyte mean corpuscular volume (MCV)Ordered By: Ja Beck on 12-22-2022 MCV (RBC) [Entitic vol] 95.8 fL 81-99 [facility] Direct bilirubinOrdered By: Feli Foster on 12-22-2022 Bilirubin.direct [Mass/Vol] 0.07 mg/dL 0.00-0.30 [facility] Hematocrit Auto (Bld) [Volum e fraction]Ordered By: Feli Foster on 12-22-2022 Hematocrit (Bld) [Volume fraction] 39.4 % 37-47 [facility] Hematocrit Auto (Bld) [Volum e fraction]Ordered By: Ja Beck on 12-22-2022 Hematocrit (Bld) [Volume fraction] 41.3 % 37-47 [facility] - Chemistry and C hemistry - challengeOrdered By: Feli Foster on 12-22-2022 ALP [Catalytic activity/Vol] 79 U/L 45-117 [facility] ALT [Catalytic activity/Vol] 28 U/L 13-56 [facility] CO2 [Moles/Vol] 26.0 mmol/L 21.0-32.0 [facility] Globulin (S) [Mass/Vol] 3.7 g/dL 2.2-4.2 [facility] Urea nitrogen/Creatinine [Mass ratio] 17.6 mg/mg 01-11 [facility] - Chemistry and C hemistry - challengeOrdered By: Ja Beck on 12-22-2022 CO2 [Moles/Vol] 28.0 mmol/L 21.0-32.0 [facility] Magnesium [Mass/Vol] 2.1 mg/dL 1.6-2.6 [facility] Urea nitrogen/Creatinine [Mass ratio] 20.0 mg/mg 01-11 [facility] - Hematology and Cell countsOrdered By: Feli Foster on 12-22-2022 Erythrocyte distribution width (RBC) [Entitic vol] 49.6 fL 35.1-43.9 [facility] Erythrocyte distribution width (RBC) [Ratio] 14.3 % 11.6-14.6 [facility] Immature granulocytes/100 WBC (Bld) 0.600 % 0.0-0.9 [facility] Comment on above: IG% - Immature Granu locytes (promyelocytes, myelocytes and metamyelocytes) > 1% indicates that a LEFT SHIFT is Present. MCH (RBC) [Entitic mass] 32.4 pg 27.0-32.0 [facility] Nucleated RBC/100 WBC (Bld) [Ratio] 0 % 0-5 [facility] - Hematology and Cell countsOrdered By: Ja Beck on 12-22-2022 Erythrocyte distribution width (RBC) [Entitic vol] 50.3 fL 35.1-43.9 [facility] Erythrocyte distribution width (RBC) [Ratio] 14.3 % 11.6-14.6 [facility] Immature granulocytes/100 WBC (Bld) 0.300 % 0.0-0.9 [facility] Comment on above: IG% - Immature Granu locytes (promyelocytes, myelocytes and metamyelocytes) > 1% indicates that a LEFT SHIFT is Present. MCH (RBC) [Entitic mass] 31.6 pg 27.0-32.0 [facility] Nucleated RBC/100 WBC (Bld) [Ratio] 0 % 0- [facility] MCHC Auto (RBC) [Mass/Vol]Or dered By: Feli Foster on 12-22-2022 MCHC (RBC) [Mass/Vol] 34.3 g/dL [facility] MCHC Auto (RBC) [Mass/Vol]Or dered By: Ja Beck on 12-22-2022 MCHC (RBC) [Mass/Vol] 32.9 g/dL [facility] No Panel InformationOrdered By: Feli Foster on 12-22-2022 Estimated Creatinine Clearance Calc 77.74 ml/min [facility] Estimated GFR (MDRD) Amer 108 mL/min >60 [facility] Comment on above: GFR Calc Estimated GFR (MDRD) Non-Af Amer 90 mL/min >60 [facility] Comment on above: Non- GFR Calc No Panel InformationOrdered By: Ja Beck on 12-22-2022 Estimated Creatinine Clearance Calc 67.68 ml/min [facility] Estimated GFR (MDRD) Amer 92 mL/min >60 [facility] Comment on above: GFR Calc Estimated GFR (MDRD) Non-Af Amer 76 mL/min >60 [facility] Comment on above: Non- GFR Calc Platelets bldOrdered By: Micheline Foster on 12-22-2022 Platelets (Bld) [#/Vol] 399 10*3/uL 150-450 [facility] Platelets bldOrdered By: Valdemar Beck on 12-22-2022 Platelets (Bld) [#/Vol] 392 10*3/uL 150-450 [facility] Serum or plasma albumin magali urement (mass/volume)Ordered By: Feli Foster on 12-22-2022 Albumin [Mass/Vol] 3.1 g/dL 3.2-5.0 [facility] Serum or plasma calcium magali urement (mass/volume)Ordered By: Feil Foster on 12-22-2022 Calcium [Mass/Vol] 8.6 mg/dL 8.5-10.1 [facility] Serum or plasma calcium magali urement (mass/volume)Ordered By: Ja Beck on 12-22-2022 Calcium [Mass/Vol] 8.8 mg/dL 8.5-10.1 [facility] Serum or plasma creatinine m easurement (mass/volume)Ordered By: Feli Foster on 12-22-2022 Creatinine [Mass/Vol] 0.74 mg/dL 0.55-1.02 [facility] Comment on above: The validity of the calculated GFR & GFRAA in patients over 70 years has not been determined. Clinical correlation is essential. Serum or plasma creatinine m easurement (mass/volume)Ordered By: Ja Beck on 12-22-2022 Creatinine [Mass/Vol] 0.85 mg/dL 0.55-1.02 [facility] Comment on above: The validity of the calculated GFR & GFRAA in patients over 70 years has not been determined. Clinical correlation is essential. Serum or plasma urea nitroge n measurement (mass/volume)Ordered By: Feli Foster on 12-22-2022 Urea nitrogen [Mass/Vol] 13 mg/dL 10-09 [facility] Serum or plasma urea nitroge n measurement (mass/volume)Ordered By: Ja Beck on 12-22-2022 Urea nitrogen [Mass/Vol] 17 mg/dL 10-09 [facility] Thin prep Papanicolaou smear with manual screeningOrdered By: Feli Foster on 12-22-2022 Thin prep Papanicolaou smear with manual screening 13 U/L [facility] Thin prep Papanicolaou smear with manual screening 4 08-06 [facility] Thin prep Papanicolaou smear with manual screeningOrdered By: Ja Beck on 12-22-2022 Thin prep Papanicolaou smear with manual screening 08-06 [facility] .GFRon 11-08-2022 GFR 114 ml/min/1.73sqm Normal [facility] ([place]) Comment on above: Result Comment: GFR Population [...] T SH, LIPID, GFR, CMP, VIDH #### [place] [id number] GFR Non- 94 ml/min/1.73sqm Normal [facility] ([place]) Comment on above: Result Comment: GFR Population [...] T SH, LIPID, GFR, CMP, VIDH #### [address] [address] CMPon 11-08-2022 Albumin Level 3.7 G/dL Normal 3.5-5.0 [facility] ([place]) Comment on above: Performed By: #### T SH, LIPID, GFR, CMP, VIDH #### [address] [address] Albumin/Globulin [Mass ratio] 1.0 {ratio} Low 1.1-2.5 [facility] ([place]) Comment on above: Performed By: #### T SH, LIPID, GFR, CMP, VIDH #### [address] [address] ALP [Catalytic activity/Vol] 108 U/L Normal 40-135 [facility] ([place]) Comment on above: Performed By: #### T SH, LIPID, GFR, CMP, VIDH #### [address] [address] ALT [Catalytic activity/Vol] 26 U/L Normal 14-59 [facility] ([place]) Comment on above: Performed By: #### T SH, LIPID, GFR, CMP, VIDH #### [address] [address] AST [Catalytic activity/Vol] 17 U/L Normal 10-40 [facility] ([place]) Comment on above: Performed By: #### T SH, LIPID, GFR, CMP, VIDH #### [address] [address] Bili Total 0.4 mg/dL Normal 0.2-1.0 [facility] ([place]) Comment on above: Result Comment: Use of this assay is not recommended for patients undergoing treatment with eltrombopag due to the potential for falsely elevated results. Performed By: #### T SH, LIPID, GFR, CMP, VIDH #### [address] [address] BUN/Creatinine Ratio 18 ratio Normal 7-27 [facility] ([place]) Comment on above: Performed By: #### T SH, LIPID, GFR, CMP, VIDH #### [address] [address] Calcium [Mass/Vol] 9.6 mg/dL Normal 8.4-10.2 [facility] ([place]) Comment on above: Performed By: #### T SH, LIPID, GFR, CMP, VIDH #### [address] [address] Chloride [Moles/Vol] 102 mmol/L Normal 98-107 [facility] ([place]) Comment on above: Performed By: #### T SH, LIPID, GFR, CMP, VIDH #### [address] [address] CO2 [Moles/Vol] 30 mmol/L High 22-29 [facility] Comment on above: Performed By: #### T SH, LIPID, GFR, CMP, VIDH #### [address] [address] Creatinine [Mass/Vol] 0.67 mg/dL Normal 0.55-1.02 [facility] ([place] Comment on above: Performed By: #### T SH, LIPID, GFR, CMP, VIDH #### [address] [address] Electrolyte Balance 10.0 mEq/L Normal 4.0-15.0 [facility] ([place]) Comment on above: Performed By: #### T SH, LIPID, GFR, CMP, VIDH #### [address] [address] Globulin 3.8 G/dL Normal [facility] ([place]) Comment on above: Performed By: #### T SH, LIPID, GFR, CMP, VIDH #### [address] [address] Glucose [Mass/Vol] 112 mg/dL High 70-105 [facility] ([place]) Comment on above: Performed By: #### T SH, LIPID, GFR, CMP, VIDH #### [address] [address] Potassium [Moles/Vol] 4.2 mmol/L Normal 3.5-5.1 [facility] ([place]) Comment on above: Performed By: #### T SH, LIPID, GFR, CMP, VIDH #### [address] [address] Sodium [Moles/Vol] 142 mmol/L Normal 136-145 [facility] ([place]) Comment on above: Performed By: #### T SH, LIPID, GFR, CMP, VIDH #### [address] [address] Total Protein 7.5 G/dL Normal 6.4-8.2 [facility] ([place]) Comment on above: Performed By: #### T SH, LIPID, GFR, CMP, VIDH #### [address] [address] Urea nitrogen [Mass/Vol] 12 mg/dL Normal 7-18 [facility] ([place]) Comment on above: Performed By: #### T SH, LIPID, GFR, CMP, VIDH #### [address] [address] LABORATORYOrdered By: SYSTEM SYSTEM on 11-08-2022 25-hydroxyvitamin [...] 11-08-2022 Cholesterol [Mass/Vol] 205 mg/dL High 0-200 [facility] ([place]) Comment on above: Result Comment: Chol esterol Reference Interval: Less than 200 Desirable 200-239 Borderline high risk 240 and above High risk Performed By: #### T SH, LIPID, GFR, CMP, VIDH #### [address] [address] Cholesterol in HDL [Mass/Vol] 63 mg/dL High 40-60 [facility] ([place]) Comment on above: Performed By: #### T SH, LIPID, GFR, CMP, VIDH #### [address] [address] Cholesterol in LDL [Mass/Vol] 116 mg/dL Normal 0-130 [facility] ([place]) Comment on above: Performed By: #### T SH, LIPID, GFR, CMP, VIDH #### [address] [address] Triglyceride [Mass/Vol] 132 mg/dL Normal 0-150 [facility] ([place]) Comment on above: Result Comment: Trig lyceride Reference Interval: Less than 150 Normal 150-199 Borderline high risk 200-499 High risk 500 or higher Very high risk Performed By: #### T SH, LIPID, GFR, CMP, VIDH #### [address] [address] TSHon 11-08-2022 TSH Qn 2.39 m[IU]/L Normal 0.36-3.74 [facility] ([place]) Comment on above: Performed By: #### T SH, LIPID, GFR, CMP, VIDH #### [address] [address] VIDHon 11-08-2022 Vit. D 25-Hydroxy 48.0 ng/mL Normal [facility] ([place]) Comment on above: Result Comment: Inte rpretive Values Based on Total 25(OH) Vitamin D: Deficient <20 ng/mL Insufficient 20 - <30 ng/mL Sufficient 30-100 ng/mL Performed By: #### T SH, LIPID, GFR, CMP, VIDH #### Lissa [address] [place], [place] [address] Carpal Tunnel Injection: Car pal Tunnelon 06-26-2022 Faith Munson CNP 06/26/2022 4:14 [...] the procedure well with no immediate complications [facility] XR HAND LEFT 3+ VIEWS (STAND [...] PM EST Transcribed by: BRIAN IRWIN on SatApr 12, 2022 4:18:00 PM EST Finalized by: BRIAN IRWIN on [place] Apr 12, 2022 4:18:00 PM EST Normal [facility] Comment on above: Order Comment: Injur y/Trauma [...] PM EST Transcribed by: BRIAN IRWIN on SatApr 12, 2022 4:18:00 PM EST Finalized by: BRIAN IRWIN on SatApr 12, 2022 4:18:00 PM EST Normal [facility] Comment on above: Order Comment: Injur y/Trauma [...] Left elbow pain. COMPARISON: None. ACCESSION NUMBER(S): [id number] ORDERING CLINICIAN: PARK HATFIELD FINDINGS: The anterior [...] changes. Electronically signed by: JOHN SMALLS MD [facility] Initial Visit (Orthopaedic S urgery)on 11-02-2021 Initial [...] DAILY Vitals Vital Signs Recorded: 02Nov2021 11:50AM Fdsamihiyea43.5 F Height5 ft 4 in Ohjqcg927 lb 2 oz BMI Nbdafssthr83.86 kg/m2 BSA Calculated1.82 Tobacco Usea) Yes Falls [...] link to view the study images Normal [facility] 300 Work Phone: Tobacco Screening.on 022 Fall risk assessment b) One or more fall s in the last year [facility] 300 Work Phone: Tobacco use status CPHS a) Yes [facility] 300 Work Phone: CT PELVIS WITH CONTRASTon [...] periarticular soft tissues of the left hip. COUNTS INCLUDE 234 BEDS AT THE [facility] Workstation ID: [id number] Dictated by: RADHA RANDLE on SatNov 18, 2019 3:03:13 AM EDT Transcribed by: EDDIE TARANGO on SatNov 18, 2019 3:06:53 AM EDT Finalized by: RADHA RANDLE on SatNov 18, 2019 4:46:59 AM EDT Normal [facility] Comment on above: Order Comment: Injur y/Trauma or Illness?:Illness/Other How long have you had these symptoms (acute/chronic)?:Acute Reason for exam?:eval for fluid collection; eval for fluid collection Type of Exam?:Initial Additional signs and symptoms?:eval for fluid collection; eval for fluid collection Otheron 11-18-2019 Appearance (Syn fld) Hazy Abnormal Clear [facility] Color (Syn fld) Ladan Abnormal [facility] Eosinophils/100 WBC (Syn fld) 2 % High 0 - 0 % [facility] Fibrin Clot, [facility] Absent Absent [facility] Interpretation and review of laboratory results Abnormal [facility] Lymphocytes/100 WBC Auto (Syn fld) 59 % High 0 - 0 % [facility] Monocytes/100 WBC (Syn fld) 20 % High 0 - 0 % [facility] Neutrophils/100 WBC (Syn fld) 18 % 0 - 25 % [facility] Nucleated cells Manual cnt (Syn fld) [#/Vol] 944 [facility] Comment on above: WBC/Nuc cell count i ncludes mesothelial and other non-WBC nucleated cells as reflected in the differential. Protein (Syn fld) [Mass/Vol] 4.8 g/dL High 0 - 3 g/dL [facility] Pyrophosphate crystals LM Ql (Syn fld) Negative Negative [facility] RBC Auto (Syn fld) [#/Vol] 4914 High [facility] Synovial lining cells/100 cells (Syn fld) 1 % High 0 - 0 % [facility] Comment on above: Lining cells and/or macrophages. Urate crystals LM Ql (Syn fld) Negative Negative [facility] Interface, Rad In Fuji Speechq - 11/18/2019 [...] fluoroscopic-guided aspiration of the left hip joint. [email or web address] Workstation ID: [id number] [employer] Technically successful fluoroscopic-guided aspiration of the left hip joint. [email or web address] Workstation ID: [id number] [facility] EXAMINATION: XR ASPIRATION/INJECTION LARGE JOINT [...] of contrast into the left hip joint. [facility] 1. No discrete collection identified within the pelvis or periarticular soft tissues of the left hip. [employer] Workstation ID: [id number] [facility] EXAMINATION: CT PELVIS WITH CONTRAST HISTORY: ORDERING [...] without discrete collection. No soft tissue gas. [facility] Interface, Rad In Fuji Speechq - 11/18/2019 4:49 AM EDT EXAMINATION: [...] periarticular soft tissues of the left hip. COUNTS INCLUDE 234 BEDS AT THE [facility]/[employer] Workstation ID: [id number] [facility] XR ASPIRATION/INJECTION LARG E JOINT LEFTon 11-18-2019 [...] fluoroscopic-guided aspiration of the left hip joint. [email or web address] Workstation ID: [id number] Dictated by: RADHA AUGUSTINE on SatNov 18, 2019 11:42:57 AM EDT Transcribed by: FREDY DEL ANGEL on SatNov 18, 2019 11:45:58 AM EDT Finalized by: RADHA AUGUSTINE on SatNov 18, 2019 12:23:28 PM EDT Normal [facility] Comment on above: Order Comment: left hip per doc [place] Injury/Trauma or Illness?:Illness/Other How long have you had these symptoms (acute/chronic)?:Unknown Reason for exam?:rule out septic arthritis Type of Exam?:Initial Additional signs and symptoms?: Fluoro time in minutes:.6 Fluoro dose in mGy?:10.29 COVID-19, MOLECULARon 2019 SARS-COV-2 (PAZ ID) Not Detected Normal Not Detected [facility] Comment on above: Result Comment: This test [...] at the following links: For Healthcare Providers: https://www.fda.gov/media/931377/download For Patients: https://www.fda.gov/media/858744/download Performed By: #### L [id number] #### [facility] [address] [place] [address] Randall Jernigan M.D. [id number] [facility] 11-17-2019 CRP [Mass/Vol] 4.6 mg/L 0 - 10 mg/L [facility] H[facility]ology[facility] 11-17-2019 ESR (Bld) [Velocity] 32 mm/h High [facility] INR Coag (PPP) [Relative time] 1.0 {INR} [facility] PT Coag (PPP) [Time] 12.6 s [facility] Basophils (Bld) [#/Vol] 0.14 10*3/uL [facility] Basophils/100 WBC (Bld) 1.1 % [facility] Eosinophils (Bld) [#/Vol] 0.33 10*3/uL [facility] Eosinophils/100 WBC (Bld) 2.6 % [facility] Hematocrit (Bld) [Volume fraction] 39.5 % 36 - 46 % [facility] Hemoglobin (Bld) [Mass/Vol] 12.7 g/dL 12 - 16 g/dL [facility] Lymphocytes (Bld) [#/Vol] 2.91 10*3/uL [facility] Lymphocytes/100 WBC (Bld) 23.1 % [facility] MCH (RBC) [Entitic mass] 31.3 pg 26 - 34 pg [facility] MCV (RBC) [Entitic vol] 97.3 fL 80 - 100 fL [facility] Monocytes (Bld) [#/Vol] 0.82 10*3/uL [facility] Monocytes/100 WBC (Bld) 6.5 % [facility] Neutrophils (Bld) [#/Vol] 8.36 10*3/uL High [facility] Neutrophils/100 WBC (Bld) 66.3 % [facility] Nucleated RBC (Bld) [#/Vol] 0.00 10*3/uL [facility] Platelets (Bld) [#/Vol] 516 10*3/uL [facility] RBC (Bld) [#/Vol] 4.06 10*6/uL [facility] ealth WBC (Bld) [#/Vol] 12.61 10*3/uL [facility] Metabolic Panelon 11-17-2019 Anion gap [Moles/Vol] 17 mmol/L 10 - 2 0 mmol/L [facility] Calcium [Mass/Vol] 9.3 mg/dL 8.4 - 10. 2 mg/dL [facility] Chloride [Moles/Vol] 104 mmol/L 98 - 10 8 mmol/L [facility] Creatinine [Mass/Vol] 0.61 mg/dL 0.40 - 1.10 [facility] GFR/1.73 sq M predicted among non-blacks MDRD (S/P/Bld) [Vol rate/Area] The eGFR should be used for monitoring renal function only and not for medication dosing. [facility] Glucose [Mass/Vol] 123 mg/dL High 65 - 99 mg/dL [facility] Potassium [Moles/Vol] 4.0 mmol/L 3.5 - 5.1 mmol/L [facility] Sodium [Moles/Vol] 138 mmol/L 135 - 145 mmol/L [facility] Urea nitrogen [Mass/Vol] 12 mg/dL 8 - 25 mg/dL [facility] Urea nitrogen/Creatinine [Mass ratio] 19.7 mg/mg [facility] Otheron 11-17-2019 GFR/1.73 sq M.predicted CKD-EPI (S/P/Bld) [Vol rate/Area] 111 >=60 mL/min/1.73 m2 [facility] HCO3 [Moles/Vol] 21 mmol/L 21 - 32 mmol/L [facility] Interpretation and review of laboratory results Normal [facility] Interpretation and review of laboratory results Abnormal [facility] Interpretation and review of laboratory results Normal [facility] Interpretation and review of laboratory results Abnormal [facility] During the induction phase of oral anticoagulation, the INR may not reflect the anticoagulation status of the patient. Therapeutic ranges for INR's are: Most clinical situations: INR 2.0-3.0 Mechanical Prosthetic Valve: INR 2.5-3.5 Critical: INR >5.0 [facility] Erythrocyte distribution width (RBC) [Entitic vol] 14.3 % 11.6 - 14.8 % [facility] Immature granulocytes (Bld) [#/Vol] 0.05 10*3/uL [facility] Immature granulocytes/100 WBC (Bld) 0.40 % [facility] Comment on above: The IG parameter is the percentage of metamyelocytes, myelocytes and promyelocytes. An immature granulocyte count (IG) of 1% or more suggests the possibility of infection, an IG count of 3% is very likely related to an infection. Interpretation and review of laboratory results Abnormal [facility] MCHC (RBC) [Mass/Vol] 32.2 g/dL 31 - 37 g/dL [facility] Nucleated RBC/100 WBC (Bld) [Ratio] 0.0 % [facility] Platelet mean volume (Bld) [Entitic vol] 9.4 fL 9.4 - 12.4 fL [facility] Interpretation and review of laboratory results Normal [facility] SARS-CoV-2 Not Detected Not Detected [facility] Comment on above: This test was perfor [...] at the following links: For Healthcare Providers: https://www.fda.gov/media/282130/download For Patients: https://www.fda.gov/media/458915/download CBCon 09-30-2019 Erythrocyte distribution width (RBC) [Entitic vol] 14.1 % 11.6 - 14.8 % [facility] Hematocrit (Bld) [Volume fraction] 32.9 % Low 36 - 46 % [facility] Hemoglobin (Bld) [Mass/Vol] 10.7 g/dL Low 12 - 16 g/dL [facility] Interpretation and review of laboratory results Abnormal [facility] MCH (RBC) [Entitic mass] 31.2 pg 26 - 34 pg [facility] MCHC (RBC) [Mass/Vol] 32.5 g/dL 31 - 37 g/dL [facility] MCV (RBC) [Entitic vol] 95.9 fL 80 - 100 fL [facility] Nucleated RBC (Bld) [#/Vol] 0.00 10*3/uL [facility] Nucleated RBC/100 WBC (Bld) [Ratio] 0.0 % [facility] Platelet mean volume (Bld) [Entitic vol] 9.8 fL 9.4 - 12.4 fL [facility] Platelets (Bld) [#/Vol] 295 10*3/uL [facility] RBC (Bld) [#/Vol] 3.43 10*6/uL Low [facility] ealth WBC (Bld) [#/Vol] 14.29 10*3/uL [facility] CBC WITH AUTO DIFFERENTIALon 09-30-2019 Basophils (Bld) [#/Vol] 0.03 10*3/uL [facility] Basophils/100 WBC (Bld) 0.2 % [facility] Eosinophils (Bld) [#/Vol] 0.02 10*3/uL [facility] Eosinophils/100 WBC (Bld) 0.1 % [facility] Erythrocyte distribution width (RBC) [Entitic vol] 14.1 % 11.6 - 14.8 % [facility] Hematocrit (Bld) [Volume fraction] 31.4 % Low 36 - 46 % [facility] Hemoglobin (Bld) [Mass/Vol] 10.5 g/dL Low 12 - 16 g/dL [facility] Immature granulocytes (Bld) [#/Vol] 0.10 10*3/uL [facility] Immature granulocytes/100 WBC (Bld) 0.70 % [facility] Comment on above: The IG parameter is the percentage of metamyelocytes, myelocytes and promyelocytes. An immature granulocyte count (IG) of 1% or more suggests the possibility of infection, an IG count of 3% is very likely related to an infection. Interpretation and review of laboratory results Abnormal [facility] Lymphocytes (Bld) [#/Vol] 1.50 10*3/uL [facility] Lymphocytes/100 WBC (Bld) 9.8 % [facility] MCH (RBC) [Entitic mass] 32.2 pg 26 - 34 pg [facility] MCHC (RBC) [Mass/Vol] 33.4 g/dL 31 - 37 g/dL [facility] MCV (RBC) [Entitic vol] 96.3 fL 80 - 100 fL [facility] Monocytes (Bld) [#/Vol] 0.76 10*3/uL [facility] Monocytes/100 WBC (Bld) 4.9 % [facility] Neutrophils (Bld) [#/Vol] 12.96 10*3/uL High [facility] Neutrophils/100 WBC (Bld) 84.3 % [facility] Nucleated RBC (Bld) [#/Vol] 0.00 10*3/uL [facility] Nucleated RBC/100 WBC (Bld) [Ratio] 0.0 % [facility] Platelet mean volume (Bld) [Entitic vol] 9.8 fL 9.4 - 12.4 fL [facility] Platelets (Bld) [#/Vol] 296 10*3/uL [facility] RBC (Bld) [#/Vol] 3.26 10*6/uL Low [facility] ealth WBC (Bld) [#/Vol] 15.37 10*3/uL High [facility] Basic Metabolic Panelon - Anion gap [Moles/Vol] 18 mmol/L 10 - 2 0 mmol/L [facility] Calcium [Mass/Vol] 7.9 mg/dL Low 8.4 - 10. 2 mg/dL [facility] Chloride [Moles/Vol] 97 mmol/L Low 98 - 10 8 mmol/L [facility] Creatinine [Mass/Vol] 0.35 mg/dL Low 0.40 - 1.10 [facility] GFR/1.73 sq M predicted among non-blacks MDRD (S/P/Bld) [Vol rate/Area] The eGFR should be used for monitoring renal function only and not for medication dosing. [facility] GFR/1.73 sq M.predicted CKD-EPI (S/P/Bld) [Vol rate/Area] 133 >=60 mL/min/1.73 m2 [facility] Glucose [Mass/Vol] 149 mg/dL High 65 - 99 mg/dL [facility] HCO3 [Moles/Vol] 22 mmol/L 21 - 32 mmol/L [facility] Interpretation and review of laboratory results Abnormal [facility] Potassium [Moles/Vol] 3.8 mmol/L 3.5 - 5.1 mmol/L [facility] Sodium [Moles/Vol] 133 mmol/L Low 135 - 145 mmol/L [facility] Urea nitrogen [Mass/Vol] 9 mg/dL 8 - 25 mg/dL [facility] Urea nitrogen/Creatinine [Mass ratio] 25.7 mg/mg High [facility] CBCon 09-29-2019 Erythrocyte distribution width (RBC) [Entitic vol] 13.8 % 11.6 - 14.8 % [facility] Hematocrit (Bld) [Volume fraction] 32.7 % Low 36 - 46 % [facility] Hemoglobin (Bld) [Mass/Vol] 10.8 g/dL Low 12 - 16 g/dL [facility] Interpretation and review of laboratory results Abnormal [facility] MCH (RBC) [Entitic mass] 31.8 pg 26 - 34 pg [facility] MCHC (RBC) [Mass/Vol] 33.0 g/dL 31 - 37 g/dL [facility] MCV (RBC) [Entitic vol] 96.2 fL 80 - 100 fL [facility] Nucleated RBC (Bld) [#/Vol] 0.00 10*3/uL [facility] Nucleated RBC/100 WBC (Bld) [Ratio] 0.0 % [facility] Platelet mean volume (Bld) [Entitic vol] 9.6 fL 9.4 - 12.4 fL [facility] Platelets (Bld) [#/Vol] 302 10*3/uL [facility] RBC (Bld) [#/Vol] 3.40 10*6/uL [facility] [#/Vol] 20.14 10*3/uL High [facility] ABORH VERIFICATIONon 020 ABO and Rh group Nom (Bld) A Positive [facility] ABO and Rh group Nom (Bld) ABO/Rh Verification [facility] Patient's ABO/Rh is verified. [facility] XR LOW PELVIS 1-2 VIEWS (PAC U)on [...] on SatSep 28, 2019 5:29:06 PM EDT Normal [facility] Comment on above: Order Comment: Injur y/Trauma [...] include this region. DPR/tde Workstation ID: [id number] [facility] EXAMINATION: XR LOW PELVIS 1-2 VIEWS (PACU) [...] Associated subcutaneous emphysema with overlying skin angella. [facility] Interface, Rad In Fuji Speechq - 09/28/2019 5:31 PM EDT EXAMINATION: [...] include this region. DPR/tde Workstation ID: [id number] [facility] SCAN OTHER ORDERSon 09-24-19 Ordered by an unspecified provider. [facility] CT HIP LEFT WITHOUT CONTRAST on 09-16-2019 [...] the right well seen on the coronal division head image. There is a chronic-appearing dislocation of [...] mild degenerative change involves the right hip. [email or web address] Workstation ID: [id number] Dictated by: MANDY VILLEGAS on SatSep 16, 2019 10:55:37 AM EDT Transcribed by: FREDY DEL ANGEL on SatSep 16, 2019 11:41:16 AM EDT Finalized by: MANDY VILLEGAS on SatSep 16, 2019 12:03:39 PM EDT Normal [facility] Comment on above: Order Comment: W/ MA KO PROTOCOL Injury/Trauma or Illness?:Illness/Other How long [...] mild degenerative change involves the right hip. [email or web address] Workstation ID: [id number] [facility] EXAMINATION: CT HIP LEFT WITHOUT CONTRAST HISTORY: [...] the right well seen on the coronal division head image. There is a chronic-appearing dislocation of [...] abnormality is identified involving visualized intrapelvic structures. [facility], Rad In Susan Cristinaq - 09/16/2019 12:06 PM EDT EXAMINATION: CT [...] the right well seen on the coronal division head image. There is a chronic-appearing dislocation of [...] mild degenerative change involves the right hip. [employer] Workstation ID: [id number] [facility] Office [facility] ([facility] ) NARA MALCOLM ([id number]) 1975 F Date Time Provider Department 05/01/18 7:00 PM RUSSELL COLUNGA ([facility]) [facility] During your visit today, we recorded the [...] symptoms occur. Patient agreeable to treatment plan. DESHAWN Bird APRN.CNP 05/01/2018 7:41 PM Signed ASSESSMENT/PLAN: 1. [...] Itching Date Reviewed: 05/01/2018 Reviewed by: Russell (Leatha) - Fully Assessed Reason for Visit: Foot Trauma [766] Cmt: Right Primary Visit Diagnosis:Injury of right foot, initial encounter [S99.921A] Order(s):XR FOOT GENERAL 3V AP/LAT/OBL RT [[id number]] Order #: [id number]. #:[id number] Prescriptions as of 05/01/2018 Sig: OMEPRAZOLE 10 [...] by RUSSELL COLUNGA CNP on 05/01/18 Normal [facility] PROGRESSon 05-01-2018 Protein mass conc HNO ID: [id number] Author: Russell Robertson) Service: (none) Author Type: [...] ONLY , low transverse - EGD W/O [facility] SPECIMEN W/BX 05/26/10 - LAPAROSCOPIC CHOLEYCYSTECTOMY [...] Patient agreeable to treatment plan. Russell Colunga APRN.HEAD ATHLETIC TRAINER Normal [facility] Protein mass conc HNO ID: [id number] Author: Paulina Greco Service: (none) Author Type: [...] Greco May 01, 2018 6:58 PM Normal [facility] XR FOOT 3V AP/LAT/OBL RTon 0 [...] several interphalangeal joints. IMPRESSION: Negative for fracture. Tape Machine Tailer: PSCB Transcribe Date/Time: May 01 2018 7:35P Dictated by : WILSON MAURER MD This examination was interpreted and the report reviewed and electronically signed by: WILSON MAURER MD on May 01 2018 7:36PM EST [id number] N Normal [facility] CNOVon 01-13-2018 CNOV Office Visit (UCWSTR ) NARA MALCOLM ([id number]) 1975 F Date Time Provider Department 01/13/18 1:15 PM RENA ESCOTO) [facility] During your visit today, we recorded the [...] generalized [R59.1] Order(s):XR LUMBAR GENERAL 3V AP/LAT/L5-S1 [[id number]] Order #: [id number] FUTURE XR CHEST 2V FRONTAL/LAT [[id number]] Order #: [id number] FUTURE UA DIP, URINE (POC) [[id number]] Order #: [id number]. #:[id number] predniSONE (DELTASONE) 20 mg tabletTake 2 tablets [...] Status:Closed by RENA ESCOTO PA-C on 01/13/18 [facility] PROGRESSon 01-13-2018 Protein mass conc HNO ID: [id number] Author: Rena Escoto (Pa) Service: (none) Author Type: Physician Longitudinal Float Operator Type: Progress Notes Filed: 01/13/2018 3:19 [...] PCP regarding this. Rena Escoto PA-C Normal [facility] Protein mass conc HNO ID: [id number] Author: Paulina Greco Service: (none) Author Type: [...] Greco January 13, 2018 1:40 PM Normal [facility] XR CHEST 2V FRONTAL/LATon XR CHEST [...] Other: . IMPRESSION: No acute radiographic abnormality. Tape Machine Tailer: NEVAEH Transcribe Date/Time: Jan 13 2018 1:54P Dictated by : DEL FRIEND MD This examination was interpreted and the report reviewed and electronically signed by: DEL FRIEND MD on Jan 13 2018 1:55PM EST [id number] N Normal [facility] XR LUMBAR 3V AP/LAT/L5-S1on 01-13-2018 XR [...] spine are presented. FINDINGS: There are five iio-eqt-vjzfejy lumbar vertebra. No fracture or subluxations are noted. The disc spaces are preserved in the lumbar spine; however, T11-12 disc space narrowing is noted. There is mild to moderate osteophyte formation. IMPRESSION: Degenerative changes of the spine as described above. Tape Machine Tailer: PSCCamila Transcribe Date/Time: Jan 13 2018 1:55P Dictated by : ELLY LEMUS MD This examination was interpreted and the report reviewed and electronically signed by: ELLY LEMUS MD on Jan 13 2018 1:56PM EST [id number] N Normal [facility] CBC (AO)on 09-28-2016 Basophils Auto #/vol (Bld) 0.10 10 3/mcL Normal 0.00-0.19 [facility] Comment on above: Performed By: #### C BCO ####Lissa [address] [address] Basophils/100 WBC Auto (Bld) 0.8 % Normal 0.0-2.5 [facility] Comment on above: Performed By: #### C BCO ####Lissa [address] [address] Eosinophils 0.10 10 3/mcL Normal 0.00-0.40 [facility] Comment on above: Performed By: #### C BCO ####[address] [address] Eosinophils/100 leukocytes 1.4 % Normal 0.0-7.0 [facility] Comment on above: Performed By: #### C BCO ####[address] [address] Erythrocyte distribution width Auto Ratio (RBC) 14.8 % High 11.5-14.5 [facility] Comment on above: Performed By: #### C BCO ####[address] [address] Erythrocytes (RBC) 4.35 10 6/mcL Normal 4.20-5.40 [facility] Comment on above: Performed By: #### C BCO ####[address] [address] Hematocrit (HCT) 40.4 % Normal 37.0-47.0 [facility] Comment on above: Performed By: #### C BCO ####[address] [address] Hemoglobin mass conc (Bld) 13.4 G/dL Normal 12.0-16.0 [facility] Comment on above: Performed By: #### C BCO ####[address] [address] Lymphocytes 2.80 10 3/mcL Normal 0.77-3.85 [facility] Comment on above: Performed By: #### C BCO ####[address] [address] Lymphocytes/100 leukocytes 29.7 % Normal 10.0-50.0 [facility] Comment on above: Performed By: #### C BCO ####[address] [address] MCH 30.7 pg Normal 27.0-31.2 [facility] Comment on above: Performed By: #### C BCO ####[address] [address] MCHC mass conc (RBC) 33.1 G/dL Normal 33.0-37.0 [facility] Comment on above: Performed By: #### C BCO ####[address] [address] MCV 92.8 fL Normal 80.0-94.0 [facility] Comment on above: Performed By: #### C BCO ####[address] [address] Monocytes 0.60 10 3/mcL Normal 0.15-1.00 [facility] Comment on above: Performed By: #### C BCO ####[address] [address] Monocytes/100 leukocytes 6.5 % Normal 1.7-13.0 [facility] Comment on above: Performed By: #### C BCO ####[address] [address] Neutrophils 5.80 10 3/mcL Normal 2.85-6.16 [facility] Comment on above: Performed By: #### C BCO ####[address] [address] Neutrophils/100 WBC Auto (Bld) 61.6 % Normal 37.0-80.0 [facility] Comment on above: Performed By: #### C BCO ####[address] [address] Platelet mean volume (PMV) 8.0 fL Normal 7.4-10.4 [facility] Comment on above: Performed By: #### C BCO ####[address] [address] Platelets 357 10 3/mcL Normal 130-400 [facility] Comment on above: Performed By: #### C BCO ####[address] [address] WBC (Leukocytes) 9.40 10 3/mcL Normal 4.60-10.80 [facility] Comment on above: Performed By: #### C BCO ####[address] [address] Comp. Metabolic Panelon 07-0 Alanine aminotransferase (ALT) 13 U/L Normal 10-35 [facility] Comment on above: Performed By: #### C MP ####[address] [address] Albumin/Globulin Ratio 1.4 {ratio} Normal 1.1-2.5 [facility] Comment on above: Performed By: #### C MP ####[place] [id number] Alk. Phosphatase 90 IU/L Normal 40-135 [facility] Comment on above: Performed By: #### C MP ####[address] [address] Aspartate aminotransferase (AST) 14 U/L Normal 10-40 [facility] Comment on above: Performed By: #### C MP ####[address] [address] Bilirubin (direct) 0.2 mg/dL Normal 0.2-1.0 [facility] Comment on above: Performed By: #### C MP ####[address] [address] Globulin 2.9 G/dL Normal [facility] Comment on above: Performed By: #### C MP ####[address] [address] Glucose mass conc 105 mg/dL Normal 70-105 [facility] Comment on above: Performed By: #### C MP ####[address] [address] T. Protein 7.0 G/dL Normal 6.0-8.3 [facility] Comment on above: Performed By: #### C MP ####[address] [address] BUN/Creatinine Ratio 16 mg/mg Normal 7-27 [facility] Comment on above: Performed By: #### C MP ####[place] [id number] Calcium 9.1 mg/dL Normal 8.4-10.2 [facility] Comment on above: Performed By: #### C MP ####[address] [address] Creatinine 0.5 mg/dL Low 0.6-1.2 [facility] Comment on above: Performed By: #### C MP ####[place] [id number] CO2 28 mmol/L Normal 22-29 [facility] Comment on above: Performed By: #### C MP ####[address] [address] Electrolyte Balance 8.0 mEq/L Normal [facility] Comment on above: Performed By: #### C MP ####[address] [address] Albumin 4.1 G/dL Normal 3.5-5.0 [facility] Comment on above: Performed By: #### C MP ####[address] [address] Urea nitrogen 8 mg/dL Normal 7-18 [facility] Comment on above: Performed By: #### C MP ####[address] [address] Chloride 103 mmol/L Normal 98-107 [facility] Comment on above: Performed By: #### C MP ####[address] [address] Potassium molar conc 4.0 mmol/L Normal 3.5-5.1 [facility] Comment on above: Performed By: #### C MP ####[address] [address] Sodium 139 mmol/L Normal 136-146 [facility] Comment on above: Performed By: #### C MP ####[place] [address] [address] Glomerular Filtration Rate E stimateon 09-28-2016 eGFR (non-black) mL/min/{1.73_m2} Normal [facility] Comment on above: Result Comment: Odalys garcía mean GFR = 99 mL/min/1.73 sq.m. for ages 40-49 years. Chronic Kidney Disease: Less than 60 mL/min/1.73 square metersEnd Stage Renal Disease: Less than 15 mL/min/1.73 square meters Performed By: #### G FR ####[place] [address] [address] HDL Cholesterol Profileon Cholesterol 167 mg/dL Normal 131-200 [facility] Comment on above: Result Comment: Chol esterol Reference Interval: Less than 200 Desirable 200-239 Borderline high risk 240 and above High risk ---- Performed By: #### L IPID ####[place] [address] [address] LDL Cholesterol 85 mg/dL Normal 0-130 [facility] Comment on above: Result Comment: LDL is a calculated result and requires a 12- hr fast. LDL Reference Interval: Less than 100 Optimal 100-129 Near or above optimal 130-159 Borderline high risk 160-189 High risk 190 and above Very high risk ----- Performed By: #### L IPID ####[place] [address] [address] HDL Cholesterol 50 mg/dL Normal 35-90 [facility] Comment on above: Result Comment: HDL Reference Interval: Less than 40 Low - high risk 60 or above Optimal/lowers risk ---- Performed By: #### L IPID ####[address] [address] Triglyceride 162 mg/dL High 40-150 [facility] Comment on above: Result Comment: Trig lyceride Reference Interval: Less than 150 Normal 150-199 Borderline high risk 200-499 High risk 500 or higher Very high risk ---- Performed By: #### L IPID ####[address] [address] TSHon 09-28-2016 Thyroid stimulating hormone (TSH) 3.23 mcIU/mL Normal 0.27-4.20 [facility] Comment on above: Performed By: #### T SH ####[address] [address] Vital Signs Date Time Vital Sign Value Performing Clinician Facility 07-15-2023 10:07-0400 Body height 160.[address] Nicolette Khan Work Phone: [facility] 07-15-2023 10:07-0400 Body mass index (BMI) [Ratio] 30.1 kg/m2 Dr. Nicolette Khan Work Phone: [facility] 07-15-2023 10:07-0400 Body weight 77.[address] Nicolette Khan Work Phone: [facility] 03-28-2023 11:01-0500 Body height 160.[address] Nicolette Khan Work Phone: [facility] 03-28-2023 11:01-0500 Body mass index (BMI) [Ratio] 28.9 kg/m2 Dr. Nicolette Khan Work Phone: [facility] 03-28-2023 11:01-0500 Body temperature 98.1 [degF] Dr. Nicolette Khan Work Phone: [facility] 03-28-2023 11:01-0500 Body weight 74.[address] Nicolette Khan Work Phone: [facility] 03-28-2023 11:01-0500 Diastolic blood pressure 68 mm[Hg] Dr. Nicolette Khan Work Phone: [facility] 03-28-2023 11:01-0500 Heart rate 85 /min Dr. Nicolette Khan Work Phone: [facility] 03-28-2023 11:01-0500 Respiratory rate 15 /min Dr. Nicolette Khan Work Phone: [facility] 03-28-2023 11:01-0500 SaO2% (BldA) [Mass fraction] 98 % Dr. Nicolette Khan Work Phone: [facility] 03-28-2023 11:01-0500 Systolic blood pressure 124 mm[Hg] Dr. Nicolette Khan Work Phone: [facility] 12-22-2022 18:43-0400 Diastolic blood pressure 74 mm[Hg] Dr. Nicolette Khan Work Phone: [facility] 12-22-2022 18:43-0400 Heart rate 68 /min Dr. Nicolette Khan Work Phone: [facility] 12-22-2022 18:43-0400 Respiratory rate 16 /min Dr. Nicolette Khan Work Phone: [facility] 12-22-2022 18:43-0400 SaO2% (BldA) [Mass fraction] 98 % Dr. Nicolette Khan Work Phone: [facility] 12-22-2022 18:43-0400 Systolic blood pressure 120 mm[Hg] Dr. Nicolette Khan Work Phone: [facility] 12-22-2022 15:30-0400 Body height 160.[address] Nicolette Khan Work Phone: [facility] 12-22-2022 15:30-0400 Body mass index (BMI) [Ratio] 29.5 kg/m2 Dr. Nicolette Khan Work Phone: [facility] 12-22-2022 15:30-0400 Body temperature 97.6 [degF] Dr. Nicolette Khan Work Phone: [facility] 12-22-2022 15:30-0400 Body weight 75.[address] Nicolette Khan Work Phone: [facility] 12-22-2022 08:24-0400 Diastolic blood pressure 73 mm[Hg] Dr. Nicolette Khan Work Phone: [facility] 12-22-2022 08:24-0400 Heart rate 81 /min Dr. Nicolette Khan Work Phone: [facility] 12-22-2022 08:24-0400 Respiratory rate 16 /min Dr. Nicolette Khan Work Phone: [facility] 12-22-2022 08:24-0400 SaO2% (BldA) [Mass fraction] 98 % Dr. Nicolette Khan Work Phone: [facility] 12-22-2022 08:24-0400 Systolic blood pressure 132 mm[Hg] Dr. Nicolette Khan Work Phone: [facility] 12-22-2022 06:01-0400 Body mass index (BMI) [Ratio] 30.2 kg/m2 Dr. Nicolette Khan Work Phone: [facility] 12-22-2022 06:01-0400 Body temperature 98.3 [degF] Dr. Nicolette Khan Work Phone: [facility] 12-22-2022 06:01-0400 Body weight 77.[address] Nicolette Khan Work Phone: [facility] 12-21-2022 07:30-0400 Body temperature 98.7 [degF] Dr. Nicolette Khan Work Phone: [facility] 12-21-2022 07:30-0400 Diastolic blood pressure 76 mm[Hg] Dr. Nicolette Khan Work Phone: [facility] 12-21-2022 07:30-0400 Heart rate 86 /min Dr. Nicolette Khan Work Phone: [facility] 12-21-2022 07:30-0400 Respiratory rate 15 /min Dr. Nicolette Khan Work Phone: [facility] 12-21-2022 07:30-0400 SaO2% (BldA) [Mass fraction] 95 % Dr. Nicolette Khan Work Phone: [facility] 12-21-2022 07:30-0400 Systolic blood pressure 134 mm[Hg] Dr. Nicolette Khan Work Phone: [facility] 12-16-2022 10:45-0400 Body mass index (BMI) [Ratio] 29.4 kg/m2 Dr. Nicolette Khan Work Phone: [facility] 12-16-2022 10:45-0400 Body temperature 98.2 [degF] Dr. Nicolette Khan Work Phone: [facility] 12-16-2022 10:45-0400 Body weight 75.[address] Nicolette Khan Work Phone: [facility] 12-16-2022 10:45-0400 Diastolic blood pressure 80 mm[Hg] Dr. Nicolette Khan Work Phone: [facility] 12-16-2022 10:45-0400 Heart rate 91 /min Dr. Nicolette Khan Work Phone: [facility] 12-16-2022 10:45-0400 Respiratory rate 18 /min Dr. Nicolette Khan Work Phone: [facility] 12-16-2022 10:45-0400 SaO2% (BldA) [Mass fraction] 97 % Dr. Nicolette Khan Work Phone: [facility] 12-16-2022 10:45-0400 Systolic blood pressure 118 mm[Hg] Dr. Nicolette Khan Work Phone: [facility] 06-26-2022 11:00-0400 Body height 160 cm Faith Munson CNP Work Phone: [facility] 06-26-2022 11:00-0400 Body mass index (BMI) [Ratio] 29.41 kg/m2 Faith Munson CNP Work Phone: [facility] 06-26-2022 11:00-0400 Body weight 75.3 kg Faith Munson CNP Work Phone: [facility] 04-27-2022 09:08-0500 Body height 160 cm Faith Munson CNP Work Phone: [facility] 04-27-2022 09:08-0500 Body mass index (BMI) [Ratio] 29.41 kg/m2 Faith Munson CNP Work Phone: [facility] 04-27-2022 09:08-0500 Body weight 75.3 kg Faith Munson CNP Work Phone: [facility] 11-02-2021 11:50-0400 Body height 162.56 cm No PCP None -[facility] Work Phone: 11-02-2021 11:50-0400 Body mass index (BMI) [Ratio] 28.86 kg/m2 No PCP None [facility] 300 Work Phone: 11-02-2021 11:50-0400 Body surface area Derived from formula 1.82 m2 No PCP None [facility] 300 Work Phone: 11-02-2021 11:50-0400 Body temperature 97.5 [degF] No PCP None [facility] 300 Work Phone: 11-02-2021 11:50-0400 Body weight 76.26 kg No PCP None [facility] 300 Work Phone: 11-18-2019 15:15-0400 Pulse (Heart Rate) 75 /min [facility] 11-18-2019 15:15-0400 Pulse Oximetry 96 % [facility] 11-18-2019 15:15-0400 Respiratory Rate 20 /min [facility] 11-18-2019 15:00-0400 BP Diastolic 79 mm[Hg] [facility] 11-18-2019 15:00-0400 BP Systolic 124 mm[Hg] [facility] 11-18-2019 13:58-0400 Body Temperature 97.11 [degF] [facility] 11-17-2019 18:19-0400 BMI (Body Mass Index) 31.29 kg/m2 [facility] 11-17-2019 18:19-0400 Body weight 81.65 kg [facility] 11-17-2019 18:19-0400 Height 161.5 cm [facility] 09-30-2019 12:59-0400 Respiratory Rate 16 /min [facility] 09-30-2019 12:01-0400 BP Diastolic 65 mm[Hg] [facility] 09-30-2019 12:01-0400 BP Systolic 120 mm[Hg] [facility] 09-30-2019 12:01-0400 Pulse (Heart Rate) 99 /min [facility] 09-30-2019 12:01-0400 Pulse Oximetry 93 % [facility] 09-30-2019 07:53-0400 Body Temperature 98.8 [degF] [facility] 09-29-2019 23:00-0400 BMI (Body Mass Index) 31.36 kg/m2 [facility]-29-2019 23:00-0400 Body weight 80.3 kg [facility] 09-29-2019 23:00-0400 Height 160 cm [facility] Encounters Encounter Date Encounter Type Care Provider Facility Start: 10-29-2024 End: 11-02-2024 ambulatory NICOLETTE KHAN DO Facility:[facility] Start: 10-29-2024 End: 11-02-2024 Outreach Lab NICOLETTE KHAN DO [facility] Start: 10-23-2024 End: 10-23-2024 ambulatory Nicolette Khan Facility:[facility] Start: 08-11-2024 Encounter for genera l adult medical examination without abnormal findings Nicolette Khan [facility] Start: 08-05-2024 End: 08-05-2024 ambulatory Nicolette Khan Facility:[facility] Start: 07-15-2023 End: 07-15-[address] Nicolette Khan Work Phone: [facility] Work Phone: Start: 07-09-2023 End: 07-09-[address] Nicolette Khan Work Phone: [facility] Work Phone: Start: 07-09-2023 End: 07-09-[address] Nicolette Khan Work Phone: [facility] Work Phone: Start: 06-04-2023 End: 06-08-2023 ambulatory FAITH MUNSON [facility] Start: 06-04-2023 End: 06-04-2023 Office outpatient visit 25 minutes Faith Munson [facility] Work Phone: [facility] Comment on above: Trigger middle finge r of left hand (Primary Dx) Start: 03-28-2023 End: 03-28-[address] Nicolette Khan Work Phone: [facility] Work Phone: Start: 03-28-2023 End: 03-28-[address] Nicolette Khan Work Phone: [facility], Specimen Work Phone: Start: 03-28-2023 End: 03-28-[address] Nicolette Khan Work Phone: [facility] Work Phone: Start: 12-27-2022 End: 12-27-2022 Emergency department patient visit JONI RUBALCAVA MD Facility:[facility] Start: 12-22-2022 End: 12-22-2022 Emergency department patient visit Dr. Nicolette Khan Work Phone: [facility] Work Phone: Start: 12-22-2022 End: 12-22-2022 Emergency department patient visit Dr. Nicolette Khan Work Phone: [facility] Work Phone: Start: 12-21-2022 End: 12-21-[address] Nicolette Khan Work Phone: [facility] Work Phone: Start: 12-16-2022 End: 12-16-[address] Nicolette Khan Work Phone: [facility] Work Phone: Start: 11-08-2022 End: 11-09-2022 ambulatory NICOLETTE KHAN DO Facility:[facility] Start: 11-08-2022 End: 11-08-2022 Patient encounter procedure NICOLETTE KHAN DO [facility] Start: 10-19-2022 End: 10-19-2022 ambulatory [facility] Work Phone: Start: 10-19-2022 End: 10-19-2022 Patient encounter procedure [facility] Work Phone: Start: 10-12-2022 End: 10-12-[address] [facility] Start: 09-28-2022 End: 09-28-2022 ambulatory [facility] Start: 07-30-2022 Documentation procedure Gladys Aparicio LPN [facility] Start: 07-27-2022 Documentation procedure Gladys Aparicio LPN [facility] Start: 06-26-2022 End: 06-26-2022 ambulatory FAITH MUNSON [facility] Start: 06-26-2022 End: 06-26-2022 Office outpatient visit 15 minutes Faith Munson CNP Work Phone: [facility] Comment on above: Carpal tunnel syndro me of left wrist (Primary Dx) Start: 06-19-2022 End: 06-19-2022 ambulatory FAITH MUNSON [facility] Start: 06-19-2022 End: 06-19-2022 Patient encounter procedure Faith Munson [employer] Work Phone: [facility] Comment on above: Ulnar neuropathy at elbow, left (Primary Dx); Carpal tunnel syndrome of left wrist Start: 04-27-2022 End: 04-27-2022 Office outpatient new 30 minutes Faith Munson CNP Work Phone: [facility] Comment on above: Carpal tunnel syndro me of left wrist (Primary Dx) Start: 04-12-2022 End: 04-12-2022 Emergency department patient visit DEBORAH FLOWER FRANCISCO [facility] Start: 11-02-2021 Office outpatient ne w 45 minutes No PCP None [facility] 300 Work Phone: Start: 10-06-2021 End: 10-06-2021 Patient encounter procedure [facility] Start: 11-17-2019 End: 11-18-2019 Evaluation and management of inpatient [facility] Work Phone: [facility] Medical Unit 2 Start: 11-17-2019 End: 11-17-2019 Documentation procedure Tamra Murcia Work Phone: [facility] Start: 11-17-2019 End: 11-18-2019 Patient encounter procedure TAMRA MURCIA [facility] Start: 10-27-2019 End: 10-27-2019 Patient encounter procedure [facility] Start: 09-28-2019 End: 09-30-2019 Patient encounter procedure [facility] Start: 09-28-2019 End: 09-30-2019 Evaluation and management of inpatient [facility] Raymundo Ferro Work Phone: [facility] 2 Comment on above: 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) Start: 09-25-2019 End: 09-25-2019 Patient encounter procedure [facility] Start: 09-16-2019 End: 09-20-2019 Patient encounter procedure [facility] Start: 09-16-2019 End: 09-16-2019 Subsequent hospital visit by physician [facility] Fonseca owenkarolyn Work Phone: [facility] [place] Comment on above: Primary osteoarthrit is of left hip Start: 05-01-2018 End: 05-02-2018 Patient encounter procedure RUSSELL HSU) [facility] Start: 01-13-2018 End: 01-14-2018 Patient encounter procedure RENA HSU) JEOVN [facility] Start: 09-28-2016 End: 09-29-2016 Ambulatory PHY WO ID REFERRING Facility:[facility] [place] Procedures Date Procedure Procedure Detail Performing Clinician Start: 07-09-2023 Plain x-ray of hand Dr. Nicolette Khan Work Phone: Start: 07-09-2023 Plain x-ray of wrist Dr Hang Khan Work Phone: Start: 06-07-2023 Injection single ten don origin/insertion Faith Pickette Munson [facility] Work Phone: Start: 03-28-[address] Rosenbaum in [place] Work Phone: Start: 12-22-2022 CT of head without contrast Dr. Nicolette Khan Work Phone: Start: 12-22-2022 Plain chest X-ray Dr. Roz Khan Work Phone: Start: 10-19-2022 Screening mammography Start: 09-22-2022 Carpal tunnel syndro me (disorder) NICOLETTE KHAN DO Start: 06-26-2022 Injection therapeuti c carpal tunnel Faith Garcia Munson [facility] Work Phone: Start: 10-06-2021 End: 10-06-2021 Screening [...] panel - Blood by Automated count Oj Mtzkarolyn Work Phone: Start: 09-29-2019 Basic metabolic 2000 panel - Serum or Plasma Oj Mtzkarolyn Work Phone: Start: 09-29-2019 Complete blood count (hemogram) panel - Blood by Automated count Ojstella Fonseca Jeramytiffanie Work Phone: Start: 09-28-2019 Radiologic examinati on pelvis 1/2 views Ojstella Fonseca Jeramytiffanie Work Phone: Start: 09-28-2019 Blood group typing Aden Ferro Work Phone: Start: 09-28-2019 End: 09-28-2019 ARTHROPLASTY HIP Ojstella Fonseca Jeramytiffanie Work Phone: Start: 09-28-2019 Prosthetic arthropla sty of the hip NICOLETTE KHAN DO Comment on above: Left hip, along w/ l eg lengthening Start: 09-24-2019 SCAN OTHER ORDERS Provi ritchie Not In System Start: 09-16-2019 Ct lower extremity w /o contrast material Oj Ferro Work Phone: Start: 06-04-2016 Total abdominal hysterectomy NICOLETTE KHAN DO Start: 11-29-2015 Fallopian tube excision NICOLETTE KHAN DO Start: 11-24-2015 Dilation and curettage NICOLETTE KHAN DO Start: 11-24-2015 Ligation of fallopian tube NICOLETTE KHAN DO Start: 11-24-2015 Partial hysterectomy ALLISON KHAN DO Start: 05-26-2010 Endoscopy NICOLETTE KYLIE MCCULLOUGH DO Start: 03-25-2000 section SURAJ KHAN DO Start: 07-13-1999 Cholecystectomy NICOLETTE KHAN DO section No PCP None Hysterectomy No PCP None Operation on gallbladder No PCP None Operative procedure on hip N o PCP None Vaccine refused by patient Vacci nation not carried out because of patient refusal NICOLETTE KHAN DO Plan of Treatment Date Care Activity Detail Author Start: 10-17-2027 Tetanus vaccination Tetanus: Every 1 0yrs [facility] Start: 07-09-2023 Patient referral [facility] Work Phone: Start: 12-22-2022 [facility] Start: 12-22-2022 End: 12-22-2022 [facility] Start: 11-23-2022 COVID-19 Vaccine ( season) COVID-19 Vaccine ( season) [facility] Start: 11-23-2022 Influenza vaccination [facility] Start: 10-06-2022 Screening for malign ant neoplasm of breast Mammogram [facility] Start: 01-24-2022 COVID-19 Vaccine (2 - Booster for Karon series) COVID-19 Vaccine (2 - Booster for Karon series) [facility] Start: 11-29-2021 FUV, Provider: Park Hatfield, Status: Pen, Time: 3:45 PM FUV, Provider: Park Hatfield, Status: Pen, Time: 3:45 PM [facility] 300 Work Phone: Start: 11-23-2021 Influenza vaccination Sequenti al Influenza Vaccine (#1) [facility] Start: 11-24-2019 [facility] Start: 11-18-2019 End: 11-18-2019 Hospital Encounter [facility] Periop Comment on above: INCISION AND DRAINAG E LEFT HIP Start: 11-07-2019 Pneumococcal Vaccine : Ped or At-Risk (2 - PCV) Pneumococcal Vaccine: Ped or At-Risk (2 - PCV) [facility] Start: 11-07-2019 Pneumococcal Vaccine : Ped or At-Risk (2 of 2 - PCV) Pneumococcal Vaccine: Ped or At-Risk (2 of 2 - PCV) [facility] Start: 09-28-2019 End: 09-28-2019 Hospital Encounter [facility] Comment on above: LEFT ROBOTIC TOTAL H IP REPLACEMENT Start: 09-25-2019 End: 09-25-2019 Office Visit 09/25/2019 Office Visit Lab Oj Ferro MD [address] [place] [address] [phone] [facility] Start: 2005 Screening for malign ant neoplasm of cervix [facility] Start: 1996 Screening for malign ant neoplasm of cervix Pap Smear [facility] Start: 1993 Hepatitis C antibody , confirmatory test Hepatitis C Screening [facility] Start: 1993 Hepatitis C screening Hepatitis C Sc reening [facility] Start: 1990 HIV screening HIV Screening [facility] Start: 1978 History and physical examination, annual for health maintenance Wellness Visit [facility] Start: 1975 Screening for malign ant neoplasm of cervix Pap Smear [facility] Start: 1975 Screening for malign ant neoplasm of colon [facility] Start: 1975 Screening mammography Mammogram [facility] Start: 1975 Tetanus vaccination Tetanus: Every 1 0yrs [facility] Anaerobic microbial culture [facility] Comment on above: Release Upon Orderin g for 1 Occurrences starting 11/18/2019 Body Fluid AFB Culture [facility] Comment on above: Release Upon Orderin g for 1 Occurrences starting 11/18/2019 Body Fluid Anaerobic Culture [facility] Comment on above: Release Upon Orderin g for 1 Occurrences starting 11/18/2019 End: 10-25-2022 Electromyography EMG: Neurology Routine Carpal tunnel syndrome of left wrist 1 Occurrences starting 04/27/2022 until 10/25/2022 [facility] Work Phone: Comment on above: 1 Occurrences starti ng 04/27/2022 until 10/25/2022 Microbial culture, b paul fluid Body Fluid Aerobic Culture Microbiology Routine 11/18/2019 11:53 AM EDT [facility] End: 04-27-2023 Nerve conduction test Nerve conduction test Neurology Routine Carpal tunnel syndrome of left wrist 1 Occurrences starting 04/27/2022 until 04/27/2023 [facility] Comment on above: 1 Occurrences starti ng 04/27/2022 until 04/27/2023 Patient Education [facility] Work Phone: Patient referral [facility] Work Phone: Tissue culture Tissue Aerobic C ulture Microbiology Routine 11/18/2019 1:27 PM EDT [facility] Immunizations Immunization Date Immunization Notes Care Provider Fa cili 11-29-2021 SARS-CoV-2 (COVID-19 ) Ad26 vaccine, recombinant NICOLETTE KHAN DO [facility] Comment on above: Result Comment: 2022: TPV40 11-06-2018 pneumococcal polysaccharide vaccine, 23 valent; Translations: [Pneumovax 23] NICOLETTE KHAN DO [facility] 10-16-2017 tetanus and diphther ia toxoids, adsorbed, preservative free, for adult use (5 Lf of tetanus toxoid and 2 Lf of diphtheria toxoid) NICOLETTE KHAN DO [facility] Payers Date Payer Category Payer Self-pay [id number] 2022 Medicaid [id number] 2022 Medicaid [id number] 2018 Unknown ANTHEM ANTHEM BLUE/PREF/HMO/PPO [id number] 2018-Present [id number] 2018 Unknown ANTHEM ANTHEM BLUE/PREF/HMO/PPO [id number] 2018-Present [id number] [id number] .[id number] 2015 Unknown [id number] 2014 Unknown [id number] 1975 Unknown [id number] 2.840.1.279387.3.579.2.900 1975 Unknown [id number] .840.1.348148.3.579.2.900 1975 Unknown [id number] .840.1.680614.3.579.2.900 1975 Unknown [id number] 2.16.840.1.759545.3.579.2.900 1975 Unknown [id number] 2.16.840.1.675002.3.579.2.900 1975 Unknown [id number] .840.1.302736.3.579.2.900 1975 Unknown [id number] 2.16840.1.972999.3.579.2.900 1975 Unknown [id number] 2.16.840.1.612864.3.579.2.902 1975 Unknown [id number] 2.16.840.1.755621.3.579.2.627 1975 Unknown [id number] 2.16.840.1.284522.3.579.2.627 1975 Unknown [id number] 2.16.840.1.987020.3.579.2.903 1975 Unknown [id number] 2.16.840.1.458611.3.579.2.903 1975 Unknown [id number] 2.16.840.1.720603.3.579.2.903 1975 Unknown [id number] 2.16.840.1.524845.3.579.2.903 1975 Unknown [id number] 2.16840.1.014209.3.579.2.903 1975 Unknown [id number] 2.16840.1.626093.3.579.2.903 1975 Unknown [id number] 2.16.840.1.217527.3.579.2.903 1975 Unknown [id number] 2.16.840.1.160281.3.579.2.627 Unknown [id number] Unknown [facility] Unknown [id number] 2.16840.1.071600.3.579.2.462 Unknown [id number] 2.16840.1.850082.3.579.2.462 Unknown [id number] 2.16840.1.581246.3.579.2.462 Social History Date Type Detail Facility Start: 09-29-2019 End: 04-27-2022 Tobacco smoking status PRIS Current every day smoker [facility] Start: 09-29-2019 End: 10-13-2022 Cigarettes smoked current (pack per day) - Reported [facility] Start: 09-29-2019 End: 06-07-2023 Alcohol intake Ex-drinker (finding) [facility] Start: 1975 Sex Assigned At Not on file [facility] Start: 04-17-2022 End: 06-26-2022 Exposure to SARS-CoV-2 (event) Not sure [facility] Start: 11-17-2019 End: 04-27-2022 Tobacco use and exposure Never used [facility] Start: 07-28-2020 End: 07-15-2023 Tobacco smoking status NHIS Unknown if ever smoked [facility] Start: 07-28-2020 Cigarettes [facility] Start: 1975 Sex Assigned At Female [facility] History of tobacco use Cigarette Smoker [facility] Start: 06-19-2022 End: 10-13-2022 Tobacco use panel [facility] Start: 09-14-2019 Gender identity Identifies as female gender (finding) [facility] Start: 09-14-2019 Sexual orientation Heterosexual (finding) [facility] Start: 05-06-2019 End: 10-29-2024 Tobacco smoking status Heavy tobacco smoker (finding) [facility] Sexual Orientation [facility] Start: 09-17-2018 Sex Female (finding) [facility] Medical Equipment Procedure Code Equipment Code Equipment Origin al Text Equipment Identifier Dates Shell 48mm Szd 3 hl Cluster Trident Ii - [id number], [id number] FDA Start: 09-28-2019 Screw 6.5 X 30mm Low Profile Hex Trident Ii - [id number], [id number] FDA Start: 09-28-2019 Screw 6.5 X 30mm Low Profile Hex Trident Ii - [id number], [id number] FDA Start: 09-28-2019 Insert 32mm Szd 0deg Trident X3 - [id number], [id number] FDA Start: 09-28-2019 Screw 6.5 X 15mm Low Profile Hex Trident Ii - [id number], [id number] FDA Start: 09-28-2019 S-Rom Proximal Sleeve Porous Coated Fits: 18x13, Stem Cone: B, [place]: Sml [id number] Start: 09-28-[address] S-Rom Femoral St em Standard 30 Std Neck +4 [id number] Start: 09-28-2019 Biolox Delta Cer amic Femoral Head [id number] Start: 09-28-2019 See Instructions , Please give formulary preferred to match glucometer. Test 1 time daily. Please give 90-day supply with 3 refills. Dx: New onset type 2 diabetes, # 100 EA, 3 Refill(s), Pharmacy: [facility], New onset type 2 diabetes mellitus, 163, cm, 08/06/24 14:33:00 EDT, Height, 83.6, kg, 08/06/24 14:33:00 EDT, Dosing Weight Start: 08-06-2024 See Instructions , Please give formulary preferred. Test 1 time daily. Please give 90-day supply with 3 refills. Dx: New onset type 2 diabetes, # 100 EA, 3 Refill(s), Pharmacy: [facility]12, New onset type 2 diabetes mellitus, 163, cm, 08/06/24 14:33:00 EDT, Height, 83.6, kg, 08/06/24 14:33:00 EDT, Dosing Weight Start: 08-06-2024 Mental Status Date Assessment Result Facility 12-22-2022 Cognitive function Level Of Cons ciousness Follows Commands;Drowsy [facility] Work Phone: Clinical Notes 07-23-2021 to 06-07-2023 Faith Munson, HEAD ATHLETIC TRAINER - 06/07/2023 3:26 PM Panchito Aparicio LPN - 07/30/2022 1:43 PM Panchito Aparicio LPN - 07/27/2022 9:12 AM Lisa Munson, [facility] - 06/26/2022 4:09 PM EDTLaboratory Note Date & Type Note Facility 06-07-2023 History of Present illness Narrative Associated Order(s): Tendon Injection: Flexor Tendon Sheath Post-Procedure Diagnose(s): Trigger middle finger of left hand Images from the original note were not included. [facility] [address] [facility] [address] [facility] [id number] Chief Complaint Patient presents with Left Hand [...] at bedtime ., Disp: , Rfl: multivit-min/folic acid/hnz074 (ALIVE WOMEN'S GUMMY VITAMIN ORAL), Take 2 [...] (irritable bowel syndrome) Major depression in remission ([facility]) Past Surgical History: Procedure Laterality Date ABDOMINAL SURGERY gallbladder removed ARTHROPLASTY HIP TOTAL Left 09/28/2019 Procedure: LEFT ROBOTIC TOTAL HIP REPLACEMENT; Surgeon: Oj Ferro MD; Location: [facility] Main OR; Service: Orthopedic CARPAL TUNNEL RELEASE OPEN Left 09/28/2022 Procedure: Left carpal tunnel release; Surgeon: Talita Swann MD; Location: Main OR; Service: Orthopedic CHOLECYSTECTOMY HYSTERECTOMY INCISION AND DRAINAGE LOWER EXTREMITY Left 11/18/2019 Procedure: INCISION AND DRAINAGE LEFT TOTAL HIP SUPERFICIAL; Surgeon: Tamra Murcia MD; Location: [facility] Main OR; Service: Orthopedic SKIN BIOPSY moles [...] disc space height at C5-6 and C6-7. Ltuk-fo-uxxulndy degenerative changes of the facet joints. Assessment/Plan: [...] no immediate complications documented in this encounter [facility] 07-30-2022 History of Present illness Narrative Touched base with patient to advise she can not have surgery until September. The pigs feet finisher will get with her in a few weeks to get things going. Patient understands. documented in this encounter [facility] 07-27-2022 History of Present illness Narrative Patient phoned in she would like to start the process for surgery for carpal tunnel. She will need to wait 3 months from injection. Provider will get a paper to the pigs feet finisher. Patient notified via voicemail documented in this encounter [facility] 06-26-2022 History of Present illness Narrative Associated Order(s): Carpal Tunnel Injection: Carpal Tunnel Post-Procedure Diagnose(s): Carpal tunnel syndrome of left wrist [facility] [address] [facility] [address] [facility] [id number] Chief Complaint Patient presents with Results EMG [...] at bedtime ., Disp: , Rfl: multivit-min/folic acid/obr016 (ALIVE WOMEN'S GUMMY VITAMIN ORAL), Take 2 [...] (irritable bowel syndrome) Major depression in remission ([facility]) Past Surgical History: Procedure Laterality Date ABDOMINAL SURGERY gallbladder removed ARTHROPLASTY HIP TOTAL Left 09/28/2019 Procedure: LEFT ROBOTIC TOTAL HIP REPLACEMENT; Surgeon: Oj Ferro MD; Location: [facility] Main OR; Service: Orthopedic CHOLECYSTECTOMY HYSTERECTOMY INCISION AND DRAINAGE LOWER EXTREMITY Left 11/18/2019 Procedure: INCISION AND DRAINAGE LEFT TOTAL HIP SUPERFICIAL; Surgeon: Tamra Murcia MD; Location: [facility] Main OR; Service: Orthopedic SKIN BIOPSY moles [...] no immediate complications documented in this encounter [facility] 06-19-2022 History of Present illness Narrative Images from the original note were not included. [facility] - Neurology [address] [facility] [address] [place] [address] Nerve Conduction & EMG Report Patient: Nara Malcolm Sex: Female Date of : 1975 Visit Date: 06/19/2022 7:50 AM Age: 47 Years Examining MD: Anaya Staples MD Referred by: Faith Munson HEAD ATHLETIC TRAINER Temperature: 32.3 Current Height: 5 feet 3 [...] Neurophysiology, Neurology, Vascular Neurology and Sleep Medicine [facility] [place] [phone] Motor NCS Nerve / Sites Muscle Latency [...] Normal Normal Normal documented in this encounter [facility] 04-27-2022 History of Present illness Narrative [facility] [address] [facility] [address] [facility] [id number] Chief Complaint Patient presents with Left Wrist [...] 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 She did try OTC pain medications [...] to see someone in occupational health through [employer] to determine whether or not this would be a Workmen's Comp. claim. She did sign a release stating that this would not be filed through Workmen's Comp. She was then referred on to [...] ., Disp: 21 tablet, Rfl: 0 multivit-min/folic acid/yvq656 (ALIVE WOMEN'S GUMMY VITAMIN ORAL), Take 2 [...] (irritable bowel syndrome) Major depression in remission ([facility]) Past Surgical History: Procedure Laterality Date ABDOMINAL SURGERY gallbladder removed ARTHROPLASTY HIP TOTAL Left 09/28/2019 Procedure: LEFT ROBOTIC TOTAL HIP REPLACEMENT; Surgeon: Oj Ferro MD; Location: [facility] Main OR; Service: Orthopedic CHOLECYSTECTOMY HYSTERECTOMY INCISION AND DRAINAGE LOWER EXTREMITY Left 11/18/2019 Procedure: INCISION AND DRAINAGE LEFT TOTAL HIP SUPERFICIAL; Surgeon: Tamra Murcia MD; Location: [facility] Main OR; Service: Orthopedic SKIN BIOPSY moles [...] the treatment plan. documented in this encounter [facility] 07-23-2021 History of Present illness Narrative [...] She is here today for possible aspiration. [facility] Work Phone: Evaluation + Plan note Future Appointments Appointment Date:02/07/2023 08:30:00 AM Scheduled Provider:NICOLETTE KHAN DO Location:[facility] Appointment Type: OV [facility] Evaluation + Plan note Future Appointments Appointment Date:01/29/2025 04:00:00 PM Scheduled Provider:NICOLETTE KHAN DO Location:[facility] Appointment Type: OV Follow Up Future Scheduled TestsThyroid Stimulating Hormone 11/01/23Lipid Profile 11/01/23Vitamin D Level 11/01/23Complete Metabolic Panel 11/01/23MA Mammo Screening Bilateral w/ Leandro 08/06/24US Breast Right Limited 10/27/24MA Mammogram Diagnostic Right w/o Leandro 10/27/24 [facility] Evaluation note No assessment inform ation available [facility] Work Phone: Evaluation note Diagnosis Carpal tunnel syndrome of left wrist- [facility] Ulnar neuropathy at elbow, left- Primary Carpal tunnel syndrome of left wrist [facility] Carpal tunnel syndrome of left wrist- [facility] Diagnosis Onset Date Resolution Status COVID-19 acute COVID-19 acute [facility] Work Phone: Evaluation note* Diagnosis Onset Date Resolution Status COVID-19 acute COVID-19 acute Urinary tract infection none active [facility] Work Phone: Evaluation note* Diagnosis Trigger [...] of triquetrum of left wrist, closed acute [facility] Work Phone: Hospital course Narrative No data available for this section [facility] Hospital Discharge instructions No data available for this section [facility] Hospital Discharge instructions Additional Instructions Chest x-ray negative. Sodium 142 potassium 2.8. Magnesium 2.1. Continue potassium replacement as prescribed. Continue oral fluids for hydration. Follow-up with your doctor. Return if any worsening symptoms.[facility] Work Phone: Progress note No data available for this section [facility] Summary Purpose Family History No Family History Records FoundUnknown Family Member Name Dates Details No pertinent family history: Mother(V49.89, Z78.9) Status:Active Advance Directives No Advanced Directives Records FoundDocuments on File Type Date Recorded Patient Loop Tender Expl anation Advance Directives and Livin g Will 09/28/2019 8:50 AM Latest Code Status on File Code Status Date Activated Date Inactivated Comments Full Code 09/28/2019 9:33 AM 09/30/2019 4:01 PM Documents on File Type Date Recorded Patient Loop Tender Expl anation Advance Directives and Livin g Will 11/17/2019 8:50 AM Latest Code Status on File Code Status Date Activated Date Inactivated Comments Full Code 11/17/2019 3:51 PM Full Code 09/28/2019 9:33 AM 09/30/2019 4:01 PM Documents on File Type Date Recorded Patient Loop Tender Expl anation Advance Directives and Livin g Will 11/17/2019 8:50 AM Latest Code Status on File Code Status Date Activated Date Inactivated Comments Full Code 11/17/2019 3:51 PM 11/18/2019 7:22 PM Full Code 09/28/2019 9:33 AM 09/30/2019 4:01 PM Documents on File Type Date Recorded Patient Loop Tender Expl anation Advance Directives and Livin g Will 09/15/2019 10:04 AM Advance Directive Response Recorded Date/ Time Advance Directives Yes November 23, 2015 8:19am Living Will No July 28, 2020 5: 42pm Power of Wrecker Driver No July 28, 2020 5:42pm Latest Code [...] No December 22, 2022 4:07pm Power of Wrecker Driver No November 4:07pm Advance Directive Response Recorded Date/ Time Advance Directives Yes November 9:45am Living Will No December 22, 2022 3:07pm Power of Wrecker Driver No November 3:07pm Advance Directive Response Recorded Date/ Time Advance Directives Yes July 09, 024 12:30pm Living Will No July 10, 2023 12:30pm Power of Wrecker Driver No July 09 24 12:30pm Discharge Instructions * Instructions* Karlie Zamora PA-C - 09/28/2019 HIP REPLACEMENT INSTRUCTIONS Refer to your Hip Replacement Guide for more information. Activity -Use walker/cane at all times -Wear elastic stockings for 30 days. May remove for bathing. -Your bed, chairs and toilet must be 21 inches or higher. Use toilet seat service dispatcher and seat cushionas instructed. -Walk 3-4 times [...] on sock/shoe. OK to lean forward to pickle sorter object keeping knees shoulder width apart and [...] are encouraged. -Start with Senokot-S 8.6-50 mg (ctqo-zlg-lakihim). This is a laxative/stool softener combination. Take 1-2 tablets twice a day until bowel movements are achieved. -If no success, add Milk of Magnesia (eyyn-aag-cjrjyez). This is a laxative. Take 30-60 mL 1-2 times per day. Take no more than 60 mL in a 24-hr period. -If still no success, add Magnesium Citrate (rtis-mcq-iqxwwwb). This is a strong laxative. Take 1/2-1 bottle 1-2 times per day. Take no more than one bottle in a 24-hr period. -If still no success, add Fleets enema (kijz-shr-gyldull). Follow instructions on package. -If still no [...] includes medicines or drugs that are prescribed, imbr-hue-abvpxod, or herbal supplements. -Do not mix these [...] may accidentally take the medicine. Contact your [facility] or [facility] government's household trash and recycling service to see if there is a medicine take-back program in your community and learn about any special rules regarding which medicines can be taken back. You can also talk to your pharmacist to see if he or she knows of other medicine disposal programs in your area. documented in this encounter* Discharge Instr - Care Coordination* Thi Walters, LEATHA - 11/18/2019 4:29 PM EDT Dear Nara, [...] your care to our team. Sincerely, [facility] Primary Care Hospitalist Team Your [facility] Hospitalist Physician was Dr. Beverly Your [facility] Hospitalist Nurse Practitioner was Thi Walters [...] your care to our team. Sincerely, [facility] Primary Care Hospitalist Team Your [facility] Hospitalist Physician was Dr. Beverly Your [facility] Hospitalist Nurse Practitioner was Thi Walters documented in this encounter History of Present Illness * Khushboo Louis, FIRMWARE SOFTWARE VERIFICATION ENGINEER - 09/30/2019 12:06 PM EDT Physical Therapy [...] assistance Stand Pivot Transfers: Stand by assistence Sporting Goods Salesperson: Wheeled walker, 1 person, Gait belt Skilled 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 For complete objective data, detailed plan 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 For complete objective data, detailed plan [...] Transfers Sit to Stand: Stand by assistance Sporting Goods Salesperson: Wheeled walker, 1 person, Gait belt Skilled 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 This note stands as the current Discharge Summary upon patient discharge from the hospital or completion of Physical Therapy Plan of Care. * Raul Acosta DO - 09/30/2019 9:17 AM EDT Nara Malcolm [...] 09/30/2019 9:12 AM EDT Robby Conley DO [facility] Hospitalists DAILY PROGRESS NOTE Patient Name: [...] labwork ordered. [facility] ROS: < [...] [] Family Time Spent/CCM Time: * Ava Puente, LAY - 09/29/2019 4:05 PM EDT Patient is [...] toilet seat.. CM placed equipment order through [facility] liaison. 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 multivit-min/folic acid/mna616 (ALIVE WOMEN'S GUMMY VITAMIN ORAL) Take 2 [...] 11/18/2019 7:45 AM EDT Thi Walters CNP [facility] Hospitalists Progress note Patient Name:Nara Malcolm [...] 11/18/2019 7:45 AM EDT Thi Walters CNP [facility] Hospitalists Progress note Patient Name:Nara Malcolm [...] Left Without Contrast Oj Ferro MD [address] [place] [address] Specialty Diagnoses / Procedures Referred By Contac t Referred To Contact Neurology Diagnoses Carpal tunnel syndrome of left wrist Procedures Nerve conduction test Faith Munson CNP [address] [place] [address] Anaya Staples MD [address] [address] Referral ID Status Reason Start Date Expiration Date V isits Requested Visits Authorized [id number] Authorized 04/27/2022 04/27/2023 1 1 Specialty Diagnoses / Procedures Referred By Contclark t Referred To Contact Neurology Diagnoses Carpal tunnel syndrome of left wrist Procedures EMG: Faith Munson, HEAD ATHLETIC TRAINER [address] [place] [address] Anaya Staples MD [address] [address] Referral ID Status Reason Start Date Expiration Date V isits Requested Visits Authorized [id number] Authorized 04/27/2022 04/27/2023 1 1 Chief Complaint [...] section and content) DATE CREATED AUTHOR 09/18/2017 [employer] [facility] DATE CREATED AUTHOR AUTHOR'S ORGANIZ ATION 05/14/2018 [facility] DATE CREATED AUTHOR AUTHOR'S ORGANIZ ATION 11/25/2019 [facility] DATE CREATED AUTHOR AUTHOR'S ORGANIZ ATION 11/03/2021 [employer] DATE CREATED AUTHOR AUTHOR'S ORGANIZ ATION 11/05/2021 [facility] DATE CREATED AUTHOR AUTHOR'S ORGANIZ ATION 11/21/2022 [facility] DATE CREATED AUTHOR AUTHOR'S ORGANIZ ATION 01/07/2023 [facility] ([place]) DATE CREATED AUTHOR AUTHOR'S ORGANIZ ATION 06/06/2023 [facility] DATE CREATED AUTHOR AUTHOR'S ORGANIZ ATION 06/09/2023 [facility] DATE CREATED AUTHOR AUTHOR'S ORGANIZ ATION 11/04/2024 [facility] DATE CREATED AUTHOR AUTHOR'S ORGANIZ ATION 11/08/2024 [facility] Reason for Visit (unrecogniz ed section and content) Status Reason Specialty Diagnoses / Procedures Referre d By Contact Referred To Contact Diagnoses M16.32 Procedures [place] TOTAL HIP ARTHROPLASTY LEFT ROBOTIC TOTAL HIP REPLACEMENT Status Reason Specialty Diagnoses / Procedures Referre d By Contact Referred To Contact Diagnoses post op wound infection Status Reason Specialty Diagnoses / Procedures Re ferred By Contact Referred To Contact Closed Radiology Diagnoses Primary osteoarthritis of left hip Procedures CT Hip Left Without Contrast Oj Ferro MD [address] [place] [address] Reason Comments Pain Specialty Diagnoses / Procedures Referred By Contac t Referred To Contact Neurology Diagnoses Carpal tunnel syndrome of left wrist Procedures EMG: Faith Munson, HEAD ATHLETIC TRAINER [address] [place] [address] Anaya Staples MD [address] [address] Referral ID Status Reason Start Date Expiration Date Visits Re quested Visits Authorized [id number] Closed 04/27/2022 04/27/2023 1 1 Reason Comments Results EMG results Reason Comments Pain Follow-up Oj Ferro MD - 09/28/2019 9:32 AM Dana Gale MD - 09/16/2019 11:29 AM Tamra Huggins MD - 11/18/2019 12:42 PM EDT H&P Notes (unrecognized sect ion and content) INTERVAL HISTORY AND PHYSICAL Patient Name: Nara Malcolm Admit Date: MR #: [id number] : 1975 The H&P has been reviewed [...] esophagitis presence not specified Well controlled with PPI/[id number] which should be dosed perioperatively on usual [...] Yes 15 mg, Oral, At bedtime multivit-min/folic acid/mld893 (ALIVE WOMEN'S GUMMY VITAMIN ORAL) Take 2 [...] Name: Nara Malcolm Admit Date: MR #: [id number] : 1975 The H&P has been reviewed and the patient has been examined. I concur with the findings of the H&P. There are no significant changes. It is appropriate to proceed with the planned procedure. Tamra Murcia MD 11/18/2019 12:42 PM Alecia Weinberg CNP [facility] HISTORY AND PHYSICAL Patient Name:Nara [...] of MDD and GERD who presents to [facility] as a direct admission from orthopedic surgeon [...] (irritable bowel syndrome) Major depression in remission ([facility]) Past Surgical History: Procedure Laterality Date ARTHROPLASTY HIP TOTAL Left 09/28/2019 Procedure: LEFT ROBOTIC TOTAL HIP REPLACEMENT; Surgeon: Oj Ferro MD; Location: [facility] Main OR; Service: Orthopedic CHOLECYSTECTOMY HYSTERECTOMY Family [...] file Gets together: Not on file Attends jew service: Not on file Active member of [...] Patient seen and evaluated independently of the HEAD ATHLETIC TRAINER. I agree with their assessment and plan [...] Name: Nara Malcolm Admit Date: MR #: [id number] : 1975 The H&P has been reviewed and the patient has been examined. I concur with the findings of the H&P. There are no significant changes. It is appropriate to proceed with the planned procedure. Tamra Murcia MD 11/18/2019 12:42 PM Alecia Weinberg, LEATHA [facility] HISTORY AND PHYSICAL Patient Name:Nara [...] of MDD and GERD who presents to [facility] as a direct admission from orthopedic surgeon [...] HIP REPLACEMENT; Surgeon: Oj Ferro MD; Location: [facility] Main OR; Service: Orthopedic CHOLECYSTECTOMY HYSTERECTOMY Family [...] file Gets together: Not on file Attends jew service: Not on file Active member of [...] discussed with Dr. Styles Associated attestation - JensenKarlie, DO - 11/17/2019 10:17 PM EDT Patient seen and evaluated independently of the HEAD ATHLETIC TRAINER. 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 Past Medical History: Diagnosis Date GERD (gastroesophageal reflux disease) History of pneumonia 2009 Hyperlipidemia IBS (irritable bowel syndrome) Major depression in remission ([facility]) Past Surgical History: Procedure Laterality Date ARTHROPLASTY HIP TOTAL Left 09/28/2019 Procedure: LEFT ROBOTIC TOTAL HIP REPLACEMENT; Surgeon: Oj Ferro MD; Location: [facility] Main OR; Service: Orthopedic CHOLECYSTECTOMY HYSTERECTOMY PHYSICAL [...] impaired AM-PAC Daily Activity: Raw Score: 16 [facility] Daily Activity % Impaired: 53.32% functionally impaired [...] barrier, family / caregiver support is a sql architect for return to prior level of function. The patient's compliance is a sql architect, awareness of own capacity and performance is a sql architect to return to prior level of function. 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 Past Medical History: Diagnosis Date Arthritis Back pain Bronchitis 2004 Cough Depression GERD (gastroesophageal reflux disease) Hyperlipidemia IBS (irritable bowel syndrome) Joint swelling Muscle cramping right and left hip Pneumonia 2010 PONV (postoperative nausea and vomiting) Past Surgical History: Procedure Laterality Date ARTHROPLASTY HIP TOTAL Left 09/28/2019 Procedure: LEFT ROBOTIC TOTAL HIP REPLACEMENT; Surgeon: Oj Ferro MD; Location: [facility] Main OR; Service: Orthopedic CHOLECYSTECTOMY HYSTERECTOMY For [...] Current Home Equipment: Walker, Cane, Toilet seat service dispatcher [facility] Disposition D/C Disposition: Home Agency/Destination: Home documented in this encounter Associated Order(s): IP CONSULT TO ORTHOPEDIC SURGERY CONSULT NOTE Patient Name: Nara Malcolm Admit Date: MR #: [id number] : 1975 Physicians: Dusty Landrum DO (Family); [...] the office earlier today and sent to [facility] as a direct admission for further evaluation and surgical intervention. Patient is ambulating independently at baseline. She denies numbness or tingling. She denies fevers or chills. History: Past Medical History: Diagnosis Date GERD (gastroesophageal reflux disease) Hyperlipidemia IBS (irritable bowel syndrome) Major depression in remission ([facility]) Past Surgical History: Procedure Laterality Date ARTHROPLASTY HIP TOTAL Left 09/28/2019 Procedure: LEFT ROBOTIC TOTAL HIP REPLACEMENT; Surgeon: Oj Ferro MD; Location: [facility] Main OR; Service: Orthopedic CHOLECYSTECTOMY HYSTERECTOMY Family [...] file Gets together: Not on file Attends jew service: Not on file Active member of [...] mg by mouth at bedtime . multivit-min/folic acid/oqy350 (ALIVE WOMEN'S GUMMY VITAMIN ORAL) Take 2 [...] Name: Nara Malcolm Admit Date: MR #: [id number] : 1975 Physicians: Dusty Landrum DO (Family); [...] the office earlier today and sent to [facility] as a direct admission for further evaluation and surgical intervention. Patient is ambulating independently at baseline. She denies numbness or tingling. She denies fevers or chills. History: Past Medical History: Diagnosis Date GERD (gastroesophageal reflux disease) Hyperlipidemia IBS (irritable bowel syndrome) Major depression in remission ([facility]) Past Surgical History: Procedure Laterality Date ARTHROPLASTY HIP TOTAL Left 09/28/2019 Procedure: LEFT ROBOTIC TOTAL HIP REPLACEMENT; Surgeon: Oj Ferro MD; Location: [facility] Main OR; Service: Orthopedic CHOLECYSTECTOMY HYSTERECTOMY Family [...] file Gets together: Not on file Attends jew service: Not on file Active member of [...] mg by mouth at bedtime . multivit-min/folic acid/jam703 (ALIVE WOMEN'S GUMMY VITAMIN ORAL) Take 2 [...] Medications sent home 09/28 with spouse from [facility] pharmacy. Associated Problem(s): Leukemoid reaction - WBC>20K [...] w/ follow up per OS. N[facility] MALCOLM [facility] [id number] 1975 DATE 09/28/2019 OPERATIVE REPORT SURGEON OJ FERRO MD MEDICAL REIMBURSEMENT MANAGER NONE PREOPERATIVE DIAGNOSES Left hip dysplasia with [...] that in the appropriate position for the [employer] robot. At that point, we then made [...] was completed. We then registered for the [email or web address] robot per protocol. Once registration was completed, [...] and measured leg length measurement knee and [id number] and determined that we were about 2.5 [...] returned to the PACU in stable condition. MD Mitch HINOJOSA 09/28/2019 18:06 [id number] T 09/29/2019 08:06 RKCamila/HANDYL Plan of care reviewed. PHYSICAL THERAPY VISIT [...] OPERATIVE NOTE Patient name: Nara Malcolm CSN: [id number] Date of surgery: 11/17/2019 - 11/18/2019 Surgeon: [...] for possible I&D. She was admitted to [facility] for pre-operative workup where she had a [...] OPERATIVE NOTE Patient name: Nara Malcolm CSN: [id number] Date of surgery: 11/17/2019 - 11/18/2019 Surgeon: [...] for possible I&D. She was admitted to [place] for pre-operative workup where she had a [...] alternate section No data available for this section Care Teams (unrecognized sec tion and content) Estimator Lumber Relationship Specialty Start Date End Date Dusty Landrum DO [address] [place], [place] [id number] PCP - General Family Medicine 09/14/19 Estimator Lumber Relationship Specialty Start Date End Date Dusty Landrum DO [address] [place] [id number] PCP - General Family Medicine 09/14/19 Estimator Lumber Relationship Specialty Start Date End Date Dusty Landrum DO [address] [place] [id number] PCP - General Family Medicine 09/14/19 Estimator Lumber Relationship Specialty Start Date End Date Dusty Landrum DO [address] [place] [address] PCP - General Family Medicine 09/14/19 Team [...] Provider, Referri ng Provider Active Mandy Irwin FORENSIC TECHNICIAN, FORENSIC TECHNICIAN-C Attending Provider Active Team Status: Inactive Member Role Status Dates Dr. Nicolette Khan DO Primary Care Provider, Referri ng Provider Active Venu LUI PA Attending Provider Active Team Status: Inactive [...] Khan DO Primary Care Provider Active Venu LUI PA Attending Provider, Referring Provi ritchie Active Estimator Lumber Relationship Specialty Start Date End Date No, Physician [facility] PCP - General 09/28/22 Nicolette Khan [address] [facility] [address] 09/22/22 Team Status: Inactive Member Role Status Dates Dr. Nicolette Khan DO Primary Care Provider, Referri ng Provider Active Shukri LUI, PA Attending Provider Active Team Status: Inactive Member Role Status Dates Dr. Nicolette Khan DO Primary Care Provider, Referri ng Provider Active [place] MD Attending Provider Active Team Status: Inactive Member Role Status Dates Dr. Nicolette Khan DO Primary Care Provider Active Shukri LUI, [...] BE BASED ON THE PRIMARY CLINICAL RECORDS. [employer] provides no warranty or guarantee of the accuracy or completeness of information in this document.
== END | disposition home or self-care (01) ==
LOC: MTRAD 13:19
PROVIDERS: PCP Family Medicine; Referring Provider Physician Assistant; Visit Provider Physician Assistant
DX: M25.562 Pain in left knee (principal)
CPT/HCPCS: 73564